=== PATIENT | female | born 1970 ===

== ENCOUNTER 2017-03-08 17:14 | Inpatient (IN) | payer OTHER ==
[2017-03-08 17:15] VITALS: BMI 22.8
[2017-03-08] MEDS ORDERED: Sodium Chloride 0.9% 1,000 ML IV ONE (18:33)
[2017-03-08] MEDS ORDERED: Sodium Chloride 0.9% 1,000 ML ONE (18:57)
[2017-03-08 19:03] LABS: BASO # 0.1 K/uL (0.0-0.2); BASO % 0.7 % (0.0-2.0); EOS # 0.4 K/uL (0.0-0.7); EOS % 3.6 % (0.0-4.0); HEMOGLOBIN 11.6 g/dL (11.0-16.0); LYMPH # 2.8 K/uL (1.0-4.3); LYMPH % 28.5 % (20.0-40.0); MEAN CELL VOLUME 79.2 fL (81.0-99.0); MEAN CORPUSCULAR HEMOGLOBIN 26.6 pg (27.0-31.0); MEAN CORPUSCULAR HGB CONC 33.6 g/dL (33.0-37.0); MEAN PLATELET VOLUME 9.8 fL (7.2-11.7); MONO # 0.7 K/uL (0.0-0.8); MONO % 6.7 % (0.0-10.0); NEUT % 60.5 % (50.0-75.0); RBC 4.35 Mil/uL (3.80-5.20); RED CELL DISTRIBUTION WIDTH 13.3 % (11.5-14.5)
[2017-03-08 19:13] LABS: ALBUMIN 3.7 g/dL (3.5-5.0)
[2017-03-08 19:16] LABS: ALB/GLOB RATIO 1.2 (1.0-2.1); AST/SGOT 15 U/L (14-36); GFR AFRICAN-AMERICAN > 60; GFR NON-AFRICAN AMERICAN > 60; INR 0.9; PROTHROMBIN TIME 10.2 SECONDS (9.7-12.2)
[2017-03-08 19:17] LABS: ALT/SGPT 16 U/L (9-52); BLOOD UREA NITROGEN 29 mg/dL (7-17); CALCIUM 9.1 mg/dl (8.6-10.4); LIPASE 118 U/L (23-300)
--- NOTE | 2017-03-08 19:28 | C.PDOC ---
History Of Present Illness 46 y/o female, whose PMHx includes gastritis, and diabetes, that presents to the ED for evaluation of intermittent diarrhea, and abdominal pain for the last few days. Pt also reports "little blood in stool". pt reports finishing "multiple courses of antibiotics, with "persistent dysuria" Otherwise, denies any fever, or any other complaints at this time. Time Seen by Provider: 03/08/17 18:20 Chief Complaint (Nursing): GI Problem History Per: Patient History/Exam Limitations: no limitations Onset/Duration Of Symptoms: Days Current Symptoms Are (Timing): Still Present Location Of Pain/Discomfort: Epigastric Radiation Of Pain To:: None Quality Of Discomfort: "Pain" Associated Symptoms: Diarrhea. denies: Fever, Chills, Nausea, Vomiting, Loss Of Appetite, Back Pain, Chest Pain, Constipation, Urinary Symptoms Exacerbating Factors: None Alleviating Factors: None Recent travel outside of the [place]: No Additional History Per: Patient Abnormal Vaginal Bleeding: No Past Medical History Reviewed: Historical Data, Nursing Documentation, Vital Signs Vital Signs: Last Vital Signs Temp 98.8 F 03/08/17 23:00 Pulse 78 03/08/17 23:00 Resp 20 03/08/17 23:00 BP 131/81 03/08/17 23:00 Pulse Ox 100 03/08/17 23:00 - Medical History PMH: Diabetes (type II), Gastritis - [facility] Procedures INJECT/INFUSE NEC (11/10/14) INSPECTION OF UPPER INTESTINAL TRACT, ENDO (12/13/15) Family History: States: No Known Family Hx, Diabetes - Social History Hx Tobacco Use: No Hx Alcohol Use: No Hx Substance Use: No - Immunization History Hx Tetanus Toxoid Vaccination: Yes Hx Influenza Vaccination: No Hx Pneumococcal Vaccination: Yes Review Of Systems Except As Marked, All Systems Reviewed And Found Negative. Constitutional: Negative for: Fever, Chills Gastrointestinal: Positive for: Abdominal Pain, Diarrhea, Other (blood in stool) . Negative for: Nausea, Vomiting, Constipation Genitourinary: Negative for: Dysuria, Frequency, Hematuria Musculoskeletal: Negative for: Back Pain Physical Exam - Physical Exam Appears: Non-toxic, No Acute Distress Skin: Normal Color, Warm, Dry Head: Atraumatic, Normacephalic Eye(s): bilateral: Normal Inspection, EOMI Neck: Normal ROM, Supple Chest: Symmetrical, No Tenderness Cardiovascular: Rhythm Regular, No Murmur Respiratory: Normal Breath Sounds, No Rales, No Rhonchi, No Wheezing Gastrointestinal/Abdominal: Soft, Tenderness (mild epigastric), No Guarding, No Rebound Extremity: Normal ROM, No Deformity Neurological/Psych: Oriented x3, Normal Speech, Normal Cognition ED Course And Treatment - Laboratory Results Result Diagrams: 03/08/17 18:57 03/08/17 18:57 O2 Sat by Pulse Oximetry: 100 (on RA) Pulse Ox Interpretation: Normal Progress Note: Labs, abd & pelvis CT ordered and reviewed. Patient was given Protonix, Zofran, and IV fluids. On reassessment, patient is resting comfortably , with no acute distress. Medical Decision Making Medical Decision Making: abdominal pain/dark stool - r/o gi bleed, gastritis, ulcer. also reports dysuria , s/p multiple rounds of antibiotics - r/o uti, failure of outpt tx. 920: h/h stable. guiac neg, urine shows uti. fialure of outpt. accepted by hospitalist for uti failure of outpt. Disposition - Disposition Disposition: HOSPITALIZED Disposition Time: 11:00 Condition: STABLE - Clinical Impression Clinical Impression: UTI (urinary tract infection), Failure of outpatient treatment, Abdominal pain - Scribe Statement The provider has reviewed the documentation as recorded by the Jose Carrillo All medical record entries made by the Prashanthibmichael were at my direction and personally dictated by me. I have reviewed the chart and agree that the record accurately reflects my personal performance of the history, physical exam, medical decision making, and the department course for this patient. I have also personally directed, reviewed, and agree with the discharge instructions and disposition.
[2017-03-08 19:33] LABS: HCG,QUALITATIVE URINE NEGATIVE (NEGATIVE)
[2017-03-08 19:42] LABS: SQUAMOUS EPITHIAL 7 /hpf (0-5); URINE BACTERIA MOD (<OCC); URINE BILIRUBIN NEGATIVE (NEGATIVE); URINE BLOOD 1+ (NEGATIVE); URINE CLARITY Hazy (Clear); URINE COLOR Yellow (YELLOW); URINE GLUCOSE (UA) 3+ mg/dL (Normal); URINE LEUKOCYTE ESTERASE 1+ Leu/uL (Negative); URINE NITRATE NEGATIVE (NEGATIVE); URINE PROTEIN 2+ mg/dL (NEGATIVE); URINE UROBILINOGEN NORMAL mg/dL (0.2-1.0)
[2017-03-08] MEDS ORDERED: Iohexol 300 100 ML IJ ONE (19:50)
--- NOTE | 2017-03-08 20:57 | CT ---
EXAM: CT Abdomen and Pelvis With Intravenous Contrast CLINICAL HISTORY: 46 years old, female; Pain; Abdominal pain; Generalized; Additional info: Abd pain TECHNIQUE: Axial computed tomography images of the abdomen and pelvis with intravenous contrast. This CT exam was performed using one or more of the following dose reduction techniques: automated exposure control, adjustment of the mA and/or kV according to patient size, and/or use of iterative reconstruction technique. Coronal and sagittal reformatted images were created and reviewed. CONTRAST: 100 mL of omnipaque 300 administered intravenously. EXAM DATE/TIME: Exam ordered 03/08/2017 7:32 PM COMPARISON: CT - ABD PELVIS W/O PO OR IV CONT 01/23/2016 11:19:28 AM FINDINGS: Lower thorax: Mild Mosaic perfusion abnormality is noted the left lung base which could reflect air trapping. There is a small hiatal hernia. ABDOMEN: Liver: Unremarkable. No mass. Gallbladder and bile ducts: Unremarkable. No calcified stones. No ductal dilation. Pancreas: Unremarkable. No mass. No ductal dilation. Spleen: Unremarkable. No splenomegaly. Adrenals: Unremarkable. No mass. Kidneys and ureters: Unremarkable. No solid mass. No hydronephrosis. Stomach and bowel: Unremarkable. No obstruction. No mucosal thickening. Appendix: No findings to suggest acute appendicitis. PELVIS: Bladder: There is a small umbilical hernia containing fat small amount of air is seen in the bladder. Reproductive: Unremarkable as visualized. ABDOMEN and PELVIS: Intraperitoneal space: Unremarkable. No free air. No significant fluid collection. Bones/joints: No acute fracture. No dislocation. Soft tissues: Unremarkable. Vasculature: Unremarkable. No abdominal aortic aneurysm. Lymph nodes: Unremarkable. No enlarged lymph nodes. IMPRESSION: 1. Gas noted within the bladder. This could be iatrogenic. Clinical correlation suggested to exclude gas producing infection. 2. Small hiatal hernia. 3. Tiny umbilical hernia. 4. Small area of air trapping suggested at the left lung base. The
[2017-03-08] MEDS ORDERED: cefTRIAXone IV 1 gm in Dextros 50 ML IVPB ONE (21:10)
--- NOTE | 2017-03-08 22:25 | CP.PCM.HP ---
Addendum entered and electronically signed by Ita Crump DO 03/08/17 23:35 : Abdominal Pain * CTAB & P w/ IV contrast: 1. Gas noted within the bladder. This could be iatrogenic. Clinical correlation suggested to exclude gas producing infection. 2. Small hiatal hernia. 3. Tiny umbilical hernia. 4. Small area of air trapping suggested at the left lung base. Original Note: <Ita Crump - Last Filed: 03/08/17 23:15> History of Present Illness - History of Present Illness History of Present Illness: Medicine Note CC: abdominal pain HPI: 46F with PMHx of DM and gastritis presents to the ED with abdominal pain. She reports having subjective fevers, abdominal pain, dysuria, urinary frequency and hematuria x 1 month. Patient was seen in the clinic and give a prescription for bactrim x 10 days. Patient completed the course but her symptoms continued and have worsened. For the past 3 weeks she has been having diarrhea. She reported seeing blood in her stool yesterday which prompted her to come to the ED. She also reports for the last month she has had difficulty eating. She feels the food get struck going down her esophagus and she describes the sensation as if the food feels like a hard ball going down. She has to drink copious amount of water to help the food go down. She denies nausea , vomiting, heartburn, cough, or taste of acid in her mouth. Denied chills, chest pain, SOB, halitosis or n/v/c. PMHx: DM and gastritis PSHx: Denied Meds: Metformin 1000mg PO BID All: NKDA SHx: Denied any tobacco, alcohol or illicit drug use FHx: Unremarkable PMD: [facility] Present on Admission - Present on Admission Any Indicators Present on Admission: No Review of Systems - Constitutional Constitutional: Fever. absent: Chills, Weakness - EENT Eyes: absent: Change in Vision, Loss of Vision Ears: absent: Tinnitus Nose/Mouth/Throat: Dry Mouth, Dysphagia. absent: Halitosis, Hoarsness, Odynophagia, Sore Throat - Breasts Breasts: absent: Pain - Cardiovascular Cardiovascular: absent: Chest Pain, Chest Pain at Rest - Respiratory Respiratory: absent: Cough, Dyspnea, Dyspnea on Exertion - Gastrointestinal Gastrointestinal: Abdominal Pain, Diarrhea, Dysphagia. absent: Nausea, Vomiting - Genitourinary Genitourinary: Dysuria, Hematuria - Musculoskeletal Musculoskeletal: Back Pain - Integumentary Integumentary: absent: Swelling - Neurological Neurological: absent: Syncope, Tremor, Weakness - Psychiatric Psychiatric: absent: Anxiety - Endocrine Endocrine: absent: Polydipsia, Polyphagia - Hematologic/Lymphatic Hematologic: absent: Easy Bleeding, Easy Bruising Past Patient History - Infectious Disease Hx of Infectious Diseases: None - Past Medical History & Family History Past Medical History?: Yes - Past Social History Smoking Status: Never Smoked - CARDIAC Hx Cardiac Disorders: No - PULMONARY Hx Respiratory Disorders: No - NEUROLOGICAL Hx Neurological Disorder: No - HEENT Hx HEENT Problems: No - ENDOCRINE/METABOLIC Hx Endocrine Disorders: Yes Hx Diabetes Mellitus Type 2: Yes - HEMATOLOGICAL/ONCOLOGICAL Hx Blood Disorders: No - INTEGUMENTARY Hx Dermatological Problems: No - MUSCULOSKELETAL/RHEUMATOLOGICAL Hx Falls: No - GASTROINTESTINAL Hx Gastritis: Yes - GENITOURINARY/GYNECOLOGICAL Hx Genitourinary Disorders: No - PSYCHIATRIC Hx Substance Use: No - SURGICAL HISTORY Hx Surgeries: No - ANESTHESIA Hx Anesthesia: No Hx Anesthesia Reactions: No Meds Allergies/Adverse Reactions: Allergies Allergy/AdvReac Type Severity Reaction Status Date / Time No Known Allergies Allergy Verified 03/08/17 17:27 Physical Exam - Constitutional Appears: No Acute Distress - Head Exam Head Exam: NORMAL INSPECTION, NORMOCEPHALIC - Eye Exam Eye Exam: EOMI, Normal appearance, PERRL Pupil Exam: NORMAL ACCOMODATION - ENT Exam ENT Exam: Mucous Membranes Dry - Neck Exam Neck exam: Positive for: Normal Inspection - Respiratory Exam Respiratory Exam: Clear to Auscultation Bilateral, NORMAL BREATHING PATTERN. absent: Decreased Breath Sounds, Wheezes - Cardiovascular Exam Cardiovascular Exam: REGULAR RHYTHM, RRR, +S1, +S2 - GI/Abdominal Exam GI & Abdominal Exam: Normal Bowel Sounds, Soft, Tenderness (Suprapubic TTP). absent: Mass, Organomegaly - Rectal Exam Rectal Exam: Deferred - Extremities Exam Extremities exam: Positive for: normal inspection, pedal pulses present. Negative for: pedal edema, tenderness - Back Exam Back exam: CVA tenderness (L), CVA tenderness (R), NORMAL INSPECTION Additional comments: CVA + R > L - Neurological Exam Neurological exam: Alert, CN II-XII Intact, Oriented x3 - Psychiatric Exam Psychiatric exam: Normal Affect, Normal Mood - Skin Skin Exam: Dry, Intact, Normal Color, Warm Results - Vital Signs Recent Vital Signs: Last Vital Signs Temp 98.1 F 03/08/17 17:23 Pulse 82 03/08/17 17:23 Resp 20 03/08/17 17:23 BP 147/82 03/08/17 17:23 Pulse Ox 100 03/08/17 21:19 - Labs Result Diagrams: 03/08/17 18:57 03/08/17 18:57 Assessment & Plan - Assessment and Plan (Free Text) Assessment: 46F with PMHx of DM and gastritis presents to the ED with abdominal pain. She reports having subjective fevers, abdominal pain, dysuria, urinary frequency and hematuria x 1 month. Plan: Abdominal pain * Afebrile, no leukocytosis, vitals stable * + CVA bilaterally R> L * Patient failed outpatient treatment of UTI with 10 day course of bactrim - symptoms persisted x 1 month * Rocephin 1 gram IVP daily * F/U urine culture Diarrhea * Episodes x 3 weeks, reports seeing blood in stool x1 * Stool Occult - negative * F/U stool studies, c.diff Dysphagia * GI consult- Dr. Canales - help appreciated * Full Liquid Diet DM * Patient takes Metformin 1000mg PO BID- this will not be restarted since patient had CT with IV Contrast * Accuchecks * ISS-low * Liquid Diet Prophylactic Measures * GI PPX: Protonix 40mg IVP daily * DVT PPX: SCDs, Lovenox 40 SC daily * Zofran PRN * Tylenol PRN headaches * Liquid Diet DW Alisia Griggs DO, PGY-1 <Sedrick Thomas - Last Filed: 03/09/17 05:09> Results - Vital Signs Recent Vital Signs: Last Vital Signs Temp 98.1 F 03/09/17 00:10 Pulse 82 03/09/17 00:51 Resp 20 03/09/17 00:51 BP 151/75 H 03/09/17 00:10 Pulse Ox 99 03/09/17 00:10 - Labs Result Diagrams: 03/08/17 18:57 03/08/17 18:57 Assessment & Plan - Date & Time Date: 03/09/17 (I have seen and examined the patient. I agree with the findings and plan of care as documented by Dr. Crump. Patient with UTI, failed outpatient therapy. Rocephin IV. Urine and blood culture. Also with dysphagia and diarrhea. Reports possible GI bleed. Hemoccult negative. Monitor CBC. GI consult. Monitor for acute changes.) Time: 05:08 Attending/Attestation - Attestation I have personally seen and examined this patient.: Yes I have fully participated in the care of the patient.: Yes I have reviewed all pertinent clinical information: Yes
[2017-03-09 07:08] LABS: BASO # 0.1 K/uL (0.0-0.2); BASO % 0.7 % (0.0-2.0); EOS # 0.4 K/uL (0.0-0.7); EOS % 4.1 % (0.0-4.0); HEMOGLOBIN 10.7 g/dL (11.0-16.0); MEAN CELL VOLUME 78.8 fL (81.0-99.0); MEAN CORPUSCULAR HEMOGLOBIN 26.5 pg (27.0-31.0); MEAN CORPUSCULAR HGB CONC 33.6 g/dL (33.0-37.0); MEAN PLATELET VOLUME 10.2 fL (7.2-11.7); MONO # 0.7 K/uL (0.0-0.8); MONO % 7.4 % (0.0-10.0); NEUT % 54.8 % (50.0-75.0); NRBC % 0.1 % (0.0-2.0); RBC 4.06 Mil/uL (3.80-5.20); RED CELL DISTRIBUTION WIDTH 13.1 % (11.5-14.5); WHITE BLOOD COUNT 9.1 K/uL (4.8-10.8)
[2017-03-09 07:36] LABS: AST/SGOT 14 U/L (14-36); BLOOD UREA NITROGEN 20 mg/dL (7-17); GFR AFRICAN-AMERICAN > 60; GFR NON-AFRICAN AMERICAN > 60
[2017-03-09 07:37] LABS: ALT/SGPT 12 U/L (9-52); CALCIUM 8.5 mg/dl (8.6-10.4); MAGNESIUM 1.8 mg/dL (1.6-2.3)
[2017-03-09] MEDS: (Novolin R) Insulin Human Regular 100 units/ml vial SC SCH ×4 (08:06→22:32)
[2017-03-09] MEDS: Enoxaparin 40 mg Syringe SC SCH (11:06)
[2017-03-09] MEDS: Pantoprazole 40 mg EC Tab PO SCH (11:12)
--- NOTE | 2017-03-09 13:27 | CP.PCM.CON ---
History of Present Illness - History of Present Illness History of Present Illness: Asked to do service consult. For dysphagia. Family member is present. Pt reports dysphagia x 1 month. Solids and liquids. Also epig pain x 1 month- sharp and NACHO. 5 lb wt loss. Hematuria. Treated for UTI 3 weeks ago with cipro. Also has diarrhea x 3 days. Usually has chronic constipation. EGD 1 yr ago showed gastritis Review of Systems - Constitutional Constitutional: Anorexia, Weight Loss - EENT Eyes: absent: Diplopia Nose/Mouth/Throat: Dysphagia - Cardiovascular Cardiovascular: absent: Dyspnea - Respiratory Respiratory: absent: Hemoptysis, Wheezing - Gastrointestinal Gastrointestinal: Abdominal Pain, Constipation, Diarrhea, Dysphagia. absent: Hematemesis, Hematochezia, Melena - Genitourinary Genitourinary: Hematuria - Musculoskeletal Musculoskeletal: absent: Muscle Weakness, Myalgias - Integumentary Integumentary: absent: Jaundice - Neurological Neurological: absent: Convulsions - Psychiatric Psychiatric: absent: Hallucinations Past Patient History - Infectious Disease Hx of Infectious Diseases: None - Past Medical History & Family History Past Medical History?: Yes - Past Social History Smoking Status: Never Smoked - CARDIAC Hx Cardiac Disorders: No - PULMONARY Hx Respiratory Disorders: No - NEUROLOGICAL Hx Neurological Disorder: No - HEENT Hx HEENT Problems: No - RENAL Hx Chronic Kidney Disease: No - ENDOCRINE/METABOLIC Hx Endocrine Disorders: Yes Hx Diabetes Mellitus Type 2: Yes - HEMATOLOGICAL/ONCOLOGICAL Hx Blood Disorders: No - INTEGUMENTARY Hx Dermatological Problems: No - MUSCULOSKELETAL/RHEUMATOLOGICAL Hx Musculoskeletal Disorders: No Hx Falls: No - GASTROINTESTINAL Hx Gastrointestinal Disorders: Yes Hx Gastritis: Yes - GENITOURINARY/GYNECOLOGICAL Hx Genitourinary Disorders: No - PSYCHIATRIC Hx Psychophysiologic Disorder: No Hx Substance Use: No - SURGICAL HISTORY Hx Surgeries: No - ANESTHESIA Hx Anesthesia: No Hx Anesthesia Reactions: No Hx Malignant Hyperthermia: No Has any member of the family had a problem w/ anesthesia?: No Meds Allergies/Adverse Reactions: Allergies Allergy/AdvReac Type Severity Reaction Status Date / Time No Known Allergies Allergy Verified 03/08/17 17:27 - Medications Medications: Current Medications Acetaminophen (Tylenol 325mg Tab) 650 mg PO Q6 PRN PRN Reason: Headache Enoxaparin Sodium (Lovenox) 40 mg SC DAILY [facility] Last Admin: 03/09/17 11:06 Dose: 40 mg Ceftriaxone Sodium 1 gm/ (Sodium Chloride) 100 mls @ 100 mls/hr IVPB DAILY [facility] Last Admin: 03/09/17 11:03 Dose: 100 mls/hr Insulin Human Regular (Novolin R) 0 unit SC ACHS [facility] PRN Reason: Protocol Last Admin: 03/09/17 12:17 Dose: 3 unit Ondansetron HCl (Zofran Inj) 4 mg IVP Q6H PRN PRN Reason: Nausea/Vomiting Pantoprazole Sodium (Protonix Ec Tab) 40 mg PO DAILY [facility] Last Admin: 03/09/17 11:12 Dose: 40 mg Pneumococcal Polyvalent Vaccine (Pneumovax 23 Vaccine) 0.5 ml IM .ONCE ONE Stop: 03/10/17 10:01 Physical Exam - Constitutional Appears: Well - Respiratory Exam Respiratory Exam: Clear to Auscultation Bilateral - Cardiovascular Exam Cardiovascular Exam: RRR - GI/Abdominal Exam GI & Abdominal Exam: Normal Bowel Sounds, Soft. absent: Guarding, Mass, Rebound , Tenderness - Extremities Exam Extremities exam: Negative for: pedal edema - Neurological Exam Neurological exam: Alert, Oriented x3 Results - Vital Signs Recent Vital Signs: Last Vital Signs Temp 98.5 F 03/09/17 09:21 Pulse 82 03/09/17 09:21 Resp 20 03/09/17 09:21 BP 113/75 03/09/17 09:21 Pulse Ox 99 03/09/17 09:21 - Labs Result Diagrams: 03/09/17 06:49 03/09/17 06:49 Labs: Laboratory Results - last 24 hr 03/09/17 03/09/17 03/09/17 06:49 06:49 06:49 WBC 9.1 RBC 4.06 Hgb 10.7 L Hct 32.0 L MCV 78.8 L MCH 26.5 L MCHC 33.6 RDW 13.1 Plt Count 208 MPV 10.2 Neut % (Auto) 54.8 Lymph % (Auto) 33.0 [place] % (Auto) 7.4 Eos % (Auto) 4.1 H Baso % (Auto) 0.7 Neut # 5.0 Lymph # 3.0 [place] # 0.7 Eos # 0.4 Baso # 0.1 Sodium 136 Potassium 3.7 Chloride 107 Carbon Dioxide 20 L Anion Gap 13 BUN 20 H Creatinine 0.8 Est GFR ( Amer) > 60 Est GFR (Non-Af Amer) > 60 POC Glucose (mg/dL) Random Glucose 273 H Hemoglobin A1c 13.5 H Calcium 8.5 L Phosphorus 3.8 Magnesium 1.8 Total Bilirubin 0.4 AST 14 ALT 12 Alkaline Phosphatase 81 Total Protein 6.2 L Albumin 3.0 L Globulin 3.1 Albumin/Globulin Ratio 1.0 03/09/17 03/09/17 07:20 11:41 WBC RBC Hgb Hct MCV MCH MCHC RDW Plt Count MPV Neut % (Auto) Lymph % (Auto) [place] % (Auto) Eos % (Auto) Baso % (Auto) Neut # Lymph # [place] # Eos # Baso # Sodium Potassium Chloride Carbon Dioxide Anion Gap BUN Creatinine Est GFR ( Amer) Est GFR (Non-Af Amer) POC Glucose (mg/dL) 273 H 274 H Random Glucose Hemoglobin A1c Calcium Phosphorus Magnesium Total Bilirubin AST ALT Alkaline Phosphatase Total Protein Albumin Globulin Albumin/Globulin Ratio Assessment & Plan (1) Abdominal pain Assessment and Plan: Consider gastritis, ulcer, h pylori.. CT also shows air in bladder. Status: Acute (2) UTI (urinary tract infection) Status: Acute (3) Constipation Status: Acute (4) Diarrhea Assessment and Plan: r/o c difficile. Status: Acute (5) Gastritis Status: Acute (6) Anemia Status: Acute (7) Weight loss Status: Acute (8) Dysphagia Assessment and Plan: CO[place]ider GERD, stricture, EMD. REC: PPI, stool c difficile, EGD. Status: Acute
[2017-03-09] MEDS: (Novolin 70/30) NPH/Regular 70/30 Units/ml 10 ml vial SC SCH (17:02)
--- NOTE | 2017-03-09 22:41 | CP.PCM.PN ---
<Brooklynn Marcial - Last Filed: 03/10/17 00:39> Subjective - Date & Time of Evaluation Date of Evaluation: 03/09/17 Time of Evaluation: 09:05 - Subjective Subjective: Medicine Note (PGY1) : Nir's service Patient was seen and examined at bedside. Patient was resting comfortably in her bed. Patient reports that she is doing well. Patient report lower abd pain, and dysphagia to solids and nausea but denies dysuria, vomiting, chest pain, sob , fever, chills. Objective - Vital Signs/Intake and Output Vital Signs (last 24 hours): Temp Pulse Resp BP Pulse Ox 98.5 F 82 20 126/78 100 03/09/17 15:15 03/09/17 15:15 03/09/17 15:15 03/09/17 15:15 03/09/17 15:15 Intake and Output: 03/09/17 03/10/17 18:59 06:59 Intake Total 350 300 Output Total 500 Balance 350 -200 - Medications Medications: Current Medications Acetaminophen (Tylenol 325mg Tab) 650 mg PO Q6 PRN PRN Reason: Headache Enoxaparin Sodium (Lovenox) 40 mg SC DAILY [facility] Last Admin: 03/09/17 11:06 Dose: 40 mg Ceftriaxone Sodium 1 gm/ (Sodium Chloride) 100 mls @ 100 mls/hr IVPB DAILY [facility] Last Admin: 03/09/17 11:03 Dose: 100 mls/hr Insulin Human Isoph/Insulin Regular (Novolin 70/30 (70/30 Units/Ml) 10 Ml) 10 units SC BID [facility] Last Admin: 03/09/17 17:02 Dose: 10 units Insulin Human Regular (Novolin R) 0 unit SC ACHS [facility] PRN Reason: Protocol Last Admin: 03/09/17 22:32 Dose: Not Given Lisinopril (Zestril) 2.5 mg PO DAILY [facility] Ondansetron HCl (Zofran Inj) 4 mg IVP Q6H PRN PRN Reason: Nausea/Vomiting Pantoprazole Sodium (Protonix Ec Tab) 40 mg PO DAILY [facility] Last Admin: 03/09/17 11:12 Dose: 40 mg Pneumococcal Polyvalent Vaccine (Pneumovax 23 Vaccine) 0.5 ml IM .ONCE ONE Stop: 03/10/17 10:01 - Labs Labs: 03/09/17 06:49 03/09/17 06:49 PT 10.2 SECONDS (9.7-12.2) 03/08/17 18:57 INR 0.9 03/08/17 18:57 APTT 35 SECONDS (21-34) H 03/08/17 18:57 - Constitutional Appears: Well, No Acute Distress - Head Exam Head Exam: NORMAL INSPECTION, NORMOCEPHALIC - Eye Exam Eye Exam: EOMI, Normal appearance - ENT Exam ENT Exam: Mucous Membranes Moist, Normal Exam - Respiratory Exam Respiratory Exam: Clear to Ausculation Bilateral, NORMAL BREATHING PATTERN - Cardiovascular Exam Cardiovascular Exam: REGULAR RHYTHM, +S1, +S2 - GI/Abdominal Exam GI & Abdominal Exam: Soft, Tenderness, Normal Bowel Sounds - Extremities Exam Extremities Exam: Normal Capillary Refill, Normal Inspection - Neurological Exam Neurological Exam: Alert, Awake, Oriented x3 - Psychiatric Exam Psychiatric exam: Normal Affect, Normal Mood - Skin Skin Exam: Dry, Normal Color, Warm Assessment and Plan (1) Abdominal pain Assessment & Plan: Possibly secondary to UTI UA: 1+ Leukocyte esterase with moderately high urine bacteria Afebrile, no leukocytosis, vitals stable * + CVA bilaterally R> L * Patient failed outpatient treatment of UTI with 10 day course of bactrim - symptoms persisted x 1 month * Rocephin 1 gram IVP daily Status: Acute (2) Diarrhea Assessment & Plan: Episodes x 3 weeks, reports seeing blood in stool x1 * Stool Occult - negative * Pending stool studies, c.diff Status: Acute (3) Dysphagia Assessment & Plan: GI consult- Dr. Canales - help appreciated * EGD 1 yr ago showed gastritis * GI recommendation: PPI, stool c difficile, EGD. * Full Liquid Diet Status: Acute (4) Uncontrolled diabetes mellitus Assessment & Plan: HgbA1c: 13.5 Glucose level > 200 * Patient takes Metformin 1000mg PO BID- this will not be restarted since patient had CT with IV Contrast * Accuchecks * ISS-low * Added on Novolin 70/30 10 units BID and lisinopril 2.5mg PO * Liquid Diet Status: Chronic (5) Nausea Assessment & Plan: Zofran 4mg IV Q6H prn Liquid diet Status: Acute (6) Prophylactic measure Assessment & Plan: * GI PPX: Protonix 40mg IVP daily * DVT PPX: SCDs, Lovenox 40 SC daily Status: Acute <Sekou Loyola M - Last Filed: 03/10/17 17:50> Objective - Vital Signs/Intake and Output Vital Signs (last 24 hours): Temp Pulse Resp BP Pulse Ox 98.4 F 81 20 131/84 100 03/10/17 15:08 03/10/17 15:08 03/10/17 15:08 03/10/17 15:08 03/10/17 15:08 Intake and Output: 03/10/17 03/10/17 06:59 18:59 Intake Total 300 340 Output Total 500 Balance -200 340 - Medications Medications: Current Medications Acetaminophen (Tylenol 325mg Tab) 650 mg PO Q6 PRN PRN Reason: Headache Enoxaparin Sodium (Lovenox) 40 mg SC DAILY [facility] Last Admin: 03/10/17 09:49 Dose: 40 mg Ceftriaxone Sodium 1 gm/ (Sodium Chloride) 100 mls @ 100 mls/hr IVPB DAILY [facility] Last Admin: 03/10/17 09:55 Dose: 100 mls/hr Insulin Human Isoph/Insulin Regular (Novolin 70/30 (70/30 Units/Ml) 10 Ml) 10 units SC BID [facility] Last Admin: 03/10/17 17:33 Dose: 10 units Insulin Human Regular (Novolin R) 0 unit SC ACHS [facility] PRN Reason: Protocol Last Admin: 03/10/17 17:33 Dose: 2 unit Lisinopril (Zestril) 2.5 mg PO DAILY [facility] Last Admin: 03/10/17 09:49 Dose: 2.5 mg Ondansetron HCl (Zofran Inj) 4 mg IVP Q6H PRN PRN Reason: Nausea/Vomiting Pantoprazole Sodium (Protonix Ec Tab) 40 mg PO DAILY [facility] Last Admin: 03/10/17 09:49 Dose: 40 mg - Labs Labs: 03/10/17 08:23 03/10/17 08:23 PT 10.2 SECONDS (9.7-12.2) 03/08/17 18:57 INR 0.9 03/08/17 18:57 APTT 35 SECONDS (21-34) H 03/08/17 18:57 Attending/Attestation - Attestation I have personally seen and examined this patient.: Yes I have fully participated in the care of the patient.: Yes I have reviewed all pertinent clinical information, including history, physical exam and plan: Yes Notes (Text): 03/10/17 17:49 Patient was seen and examined at bedside with the resident Complains of abdominal pain Plan for EGD as per GI Continue current management Discussed the plan of care with the resident and agree with the assessment and plan.
--- NOTE | 2017-03-10 06:44 | CP.PCM.PN ---
<Ana Peñaloza - Last Filed: 03/10/17 06:41> Subjective - Date & Time of Evaluation Date of Evaluation: 03/10/17 Time of Evaluation: 06:41 - Subjective Subjective: Medicine Progress Note- Dr. Loyola Service Patient was seen and examined at bedside in no acute distress. Patient reports feeling dizzy and has lower abdominal pain. She reports not having a bowel movement today, but had diarrhea yesterday. Patient denies having chest pain, palpitations, headache, nausea, and vomiting. Objective - Vital Signs/Intake and Output Vital Signs (last 24 hours): Temp Pulse Resp BP Pulse Ox 98.4 F 83 20 123/70 96 03/09/17 23:40 03/09/17 23:40 03/09/17 23:40 03/09/17 23:40 03/09/17 23:40 Intake and Output: 03/09/17 03/10/17 18:59 06:59 Intake Total 350 300 Output Total 500 Balance 350 -200 - Medications Medications: Current Medications Acetaminophen (Tylenol 325mg Tab) 650 mg PO Q6 PRN PRN Reason: Headache Enoxaparin Sodium (Lovenox) 40 mg SC DAILY [facility] Last Admin: 03/09/17 11:06 Dose: 40 mg Ceftriaxone Sodium 1 gm/ (Sodium Chloride) 100 mls @ 100 mls/hr IVPB DAILY [facility] Last Admin: 03/09/17 11:03 Dose: 100 mls/hr Insulin Human Isoph/Insulin Regular (Novolin 70/30 (70/30 Units/Ml) 10 Ml) 10 units SC BID [facility] Last Admin: 03/09/17 17:02 Dose: 10 units Insulin Human Regular (Novolin R) 0 unit SC ACHS [facility] PRN Reason: Protocol Last Admin: 03/09/17 22:32 Dose: Not Given Lisinopril (Zestril) 2.5 mg PO DAILY [facility] Ondansetron HCl (Zofran Inj) 4 mg IVP Q6H PRN PRN Reason: Nausea/Vomiting Pantoprazole Sodium (Protonix Ec Tab) 40 mg PO DAILY [facility] Last Admin: 03/09/17 11:12 Dose: 40 mg Pneumococcal Polyvalent Vaccine (Pneumovax 23 Vaccine) 0.5 ml IM .ONCE ONE Stop: 03/10/17 10:01 - Labs Labs: 03/09/17 06:49 07/07/17 06:49 PT 10.2 SECONDS (9.7-12.2) 03/08/17 18:57 INR 0.9 03/08/17 18:57 APTT 35 SECONDS (21-34) H 03/08/17 18:57 - Constitutional Appears: No Acute Distress - Head Exam Head Exam: NORMAL INSPECTION, NORMOCEPHALIC - Eye Exam Eye Exam: EOMI, Normal appearance - ENT Exam ENT Exam: Mucous Membranes Moist - Neck Exam Neck Exam: Normal Inspection - Respiratory Exam Respiratory Exam: Clear to Ausculation Bilateral, NORMAL BREATHING PATTERN. absent: Rhonchi, Wheezes - Cardiovascular Exam Cardiovascular Exam: REGULAR RHYTHM, +S1, +S2. absent: Murmur - GI/Abdominal Exam GI & Abdominal Exam: Soft, Tenderness (w/palpation of LLQ,RLQ), Normal Bowel Sounds - Extremities Exam Extremities Exam: Normal Inspection. absent: Calf Tenderness, Pedal Edema, Tenderness - Neurological Exam Neurological Exam: Alert, Awake, Oriented x3 - Psychiatric Exam Psychiatric exam: Normal Affect, Normal Mood - Skin Skin Exam: Dry, Intact, Normal Color, Warm Assessment and Plan (1) Abdominal pain Assessment & Plan: Possibly secondary to UTI UA: 1+ Leukocyte esterase with moderately high urine bacteria Afebrile, no leukocytosis, vitals stable * + CVA bilaterally R> L * Patient failed outpatient treatment of UTI with 10 day course of bactrim - symptoms persisted x 1 month * Rocephin 1 gram IVP daily * H. Pylori Ag: f/u * Urine Cx: f/u * Ova & parasite: f/u * Stool cx: f/u * Fecal leukocytes: f/u * fecal occult: f/u Status: Acute (2) Diarrhea Assessment & Plan: Episodes x 3 weeks, reports seeing blood in stool x1 * Stool Occult - negative * Pending stool studies, c.diff Status: Acute (3) Nausea Assessment & Plan: Zofran 4mg IV Q6H prn Liquid diet Status: Acute (4) Dysphagia Assessment & Plan: GI consult- Dr. Canales - help appreciated * EGD 1 yr ago showed gastritis * GI recommendation: PPI, stool c difficile, EGD. * Full Liquid Diet * EGD scheduled for today 03/10/17 Status: Acute (5) Uncontrolled diabetes mellitus Assessment & Plan: HgbA1c: 13.5 Glucose level > 200 * Patient takes Metformin 1000mg PO BID- this will not be restarted since patient had CT with IV Contrast * Accuchecks * ISS-low * Added on Novolin 70/30 10 units BID and lisinopril 2.5mg PO * Liquid Diet Status: Chronic (6) Prophylactic measure Assessment & Plan: * GI PPX: Protonix 40mg IVP daily * DVT PPX: SCDs, Lovenox 40 SC daily Status: Acute <Sekou Loyola M - Last Filed: 03/10/17 18:01> Objective - Vital Signs/Intake and Output Vital Signs (last 24 hours): Temp Pulse Resp BP Pulse Ox 98.4 F 81 20 131/84 100 03/10/17 15:08 03/10/17 15:08 03/10/17 15:08 03/10/17 15:08 03/10/17 15:08 - Medications Medications: Current Medications Acetaminophen (Tylenol 325mg Tab) 650 mg PO Q6 PRN PRN Reason: Headache Enoxaparin Sodium (Lovenox) 40 mg SC DAILY [facility] Last Admin: 03/10/17 09:49 Dose: 40 mg Ceftriaxone Sodium 1 gm/ (Sodium Chloride) 100 mls @ 100 mls/hr IVPB DAILY [facility] Last Admin: 03/10/17 09:55 Dose: 100 mls/hr Insulin Human Isoph/Insulin Regular (Novolin 70/30 (70/30 Units/Ml) 10 Ml) 10 units SC BID [facility] Last Admin: 03/10/17 17:33 Dose: 10 units Insulin Human Regular (Novolin R) 0 unit SC ACHS [facility] PRN Reason: Protocol Last Admin: 03/10/17 17:33 Dose: 2 unit Lisinopril (Zestril) 2.5 mg PO DAILY [facility] Last Admin: 03/10/17 09:49 Dose: 2.5 mg Ondansetron HCl (Zofran Inj) 4 mg IVP Q6H PRN PRN Reason: Nausea/Vomiting Pantoprazole Sodium (Protonix Ec Tab) 40 mg PO DAILY [facility] Last Admin: 03/10/17 09:49 Dose: 40 mg - Labs Labs: PT 10.2 SECONDS (9.7-12.2) 03/08/17 18:57 INR 0.9 03/08/17 18:57 APTT 35 SECONDS (21-34) H 03/08/17 18:57 Attending/Attestation - Attestation I have personally seen and examined this patient.: Yes I have fully participated in the care of the patient.: Yes I have reviewed all pertinent clinical information, including history, physical exam and plan: Yes Notes (Text): 03/10/17 18:01 Patient was seen and examined at bedside Patient is status post EGD today No obstruction or stricture reported in the EGD Patient likely has diabetic gastroparesis No status tolerated and continue antibiotics for UTI Discussed the plan of care with the resident agree with the assessment and plan.
[2017-03-10] MEDS ORDERED: Lactated Ringer's 500 ML IV ONE ×2 (07:25)
[2017-03-10] MEDS ORDERED: Lidocaine Hydrochloride 5 ML INJ ONE (07:54)
[2017-03-10] MEDS ORDERED: Propofol 10 mg/ml Inj (20 ML) ONE (07:54)
[2017-03-10] MEDS ORDERED: Bisacodyl 5mg EC Tab PO ONE ×2 (08:00→12:00)
[2017-03-10 08:35] LABS: BASO # 0.1 K/uL (0.0-0.2); BASO % 0.6 % (0.0-2.0); EOS # 0.3 K/uL (0.0-0.7); EOS % 3.6 % (0.0-4.0); HEMOGLOBIN 11.4 g/dL (11.0-16.0); LYMPH # 2.9 K/uL (1.0-4.3); LYMPH % 30.9 % (20.0-40.0); MEAN CELL VOLUME 79.3 fL (81.0-99.0); MEAN CORPUSCULAR HEMOGLOBIN 26.9 pg (27.0-31.0); MEAN CORPUSCULAR HGB CONC 33.9 g/dL (33.0-37.0); MEAN PLATELET VOLUME 10.2 fL (7.2-11.7); MONO # 0.7 K/uL (0.0-0.8); MONO % 7.4 % (0.0-10.0); NEUT # 5.3 K/uL (1.8-7.0); NEUT % 57.5 % (50.0-75.0); RBC 4.24 Mil/uL (3.80-5.20); RED CELL DISTRIBUTION WIDTH 13.4 % (11.5-14.5); WHITE BLOOD COUNT 9.3 K/uL (4.8-10.8)
[2017-03-10] MEDS: (Novolin R) Insulin Human Regular 100 units/ml vial SC SCH ×4 (08:39→22:10)
[2017-03-10 08:43] LABS: ALBUMIN 2.9 g/dL (3.5-5.0)
[2017-03-10 08:45] LABS: AST/SGOT 14 U/L (14-36); GFR AFRICAN-AMERICAN > 60; GFR NON-AFRICAN AMERICAN > 60
[2017-03-10 08:46] LABS: ALB/GLOB RATIO 0.9 (1.0-2.1); ALT/SGPT 13 U/L (9-52); BLOOD UREA NITROGEN 16 mg/dL (7-17); CALCIUM 8.8 mg/dl (8.6-10.4)
[2017-03-10 08:47] LABS: MAGNESIUM 1.9 mg/dL (1.6-2.3)
[2017-03-10] MEDS: Pantoprazole 40 mg EC Tab PO SCH (09:49)
[2017-03-10] MEDS: Enoxaparin 40 mg Syringe SC SCH (09:49)
[2017-03-10] MEDS: (Novolin 70/30) NPH/Regular 70/30 Units/ml 10 ml vial SC SCH ×2 (09:50→17:33)
[2017-03-10] MEDS ORDERED: Pneumococcal 23-Valent Vaccine IM ONE (10:00)
--- NOTE | 2017-03-11 01:50 | CP.PCM.PN ---
<Ana Peñaloza - Last Filed: 03/11/17 01:47> Subjective - Date & Time of Evaluation Date of Evaluation: 03/11/17 Time of Evaluation: 01:47 - Subjective Subjective: Medicine Progress Note- Dr. Loyola Service Patient was seen and examined at bedside in no acute distress. Patient was resting comfortably in bed. She reports having epigastric pain and a lot of gas. Patient denies having lower abdominal pain. Patient has been ambulating without difficulty and without dizziness. Patient has been eating well. Patient denies having chest pain, palpitations, nausea, vomiting, dizziness, and leg pain. Objective - Vital Signs/Intake and Output Vital Signs (last 24 hours): Temp Pulse Resp BP Pulse Ox 98.1 F 81 20 126/76 100 03/11/17 00:00 03/11/17 00:00 03/11/17 00:00 03/11/17 00:00 03/11/17 00:00 Intake and Output: 03/10/17 03/11/17 18:59 06:59 Intake Total 350 Balance 350 - Medications Medications: Current Medications Acetaminophen (Tylenol 325mg Tab) 650 mg PO Q6 PRN PRN Reason: Headache Enoxaparin Sodium (Lovenox) 40 mg SC DAILY [facility] Last Admin: 03/10/17 09:49 Dose: 40 mg Ceftriaxone Sodium 1 gm/ (Sodium Chloride) 100 mls @ 100 mls/hr IVPB DAILY [facility] Last Admin: 03/10/17 09:55 Dose: 100 mls/hr Insulin Human Isoph/Insulin Regular (Novolin 70/30 (70/30 Units/Ml) 10 Ml) 10 units SC BID [facility] Last Admin: 03/10/17 17:33 Dose: 10 units Insulin Human Regular (Novolin R) 0 unit SC ACHS [facility] PRN Reason: Protocol Last Admin: 03/10/17 22:10 Dose: Not Given Lisinopril (Zestril) 2.5 mg PO DAILY [facility] Last Admin: 03/10/17 09:49 Dose: 2.5 mg Ondansetron HCl (Zofran Inj) 4 mg IVP Q6H PRN PRN Reason: Nausea/Vomiting Pantoprazole Sodium (Protonix Ec Tab) 40 mg PO DAILY [facility] Last Admin: 03/10/17 09:49 Dose: 40 mg - Labs Labs: PT 10.2 SECONDS (9.7-12.2) 03/08/17 18:57 INR 0.9 03/08/17 18:57 APTT 35 SECONDS (21-34) H 03/08/17 18:57 - Constitutional Appears: No Acute Distress - Head Exam Head Exam: NORMAL INSPECTION, NORMOCEPHALIC - Eye Exam Eye Exam: EOMI, Normal appearance - ENT Exam ENT Exam: Mucous Membranes Moist - Neck Exam Neck Exam: Full ROM, Normal Inspection - Respiratory Exam Respiratory Exam: Clear to Ausculation Bilateral, NORMAL BREATHING PATTERN. absent: Rhonchi, Wheezes - Cardiovascular Exam Cardiovascular Exam: REGULAR RHYTHM, +S1, +S2. absent: Murmur - GI/Abdominal Exam GI & Abdominal Exam: Soft, Tenderness (epigastric), Hyperactive Bowel Sounds - Extremities Exam Extremities Exam: absent: Calf Tenderness, Pedal Edema, Tenderness - Neurological Exam Neurological Exam: Alert, Awake, Oriented x3 - Psychiatric Exam Psychiatric exam: Normal Affect, Normal Mood - Skin Skin Exam: Dry, Intact, Normal Color, Warm Assessment and Plan (1) Abdominal pain Assessment & Plan: Possibly secondary to UTI and gastroparesis * EGD on 03/10/17: no esophageal abnormality to explain dysphagia; large amount of food residue in the stomach; suspect gastroparesis; biopsies were performed in middle third of esophagus and lower third of esophagus. UA: 1+ Leukocyte esterase with moderately high urine bacteria Afebrile, no leukocytosis, vitals stable * - CVA bilaterally * Patient failed outpatient treatment of UTI with 10 day course of bactrim - symptoms persisted x 1 month * Rocephin 1 gram IVP daily * H. Pylori Ag: f/u * Urine Cx: yeast species * Ova & parasite: f/u * Stool cx: f/u * Fecal leukocytes: f/u * fecal occult: negative Status: Acute (2) Diarrhea Assessment & Plan: Episodes x 3 weeks, reports seeing blood in stool x1 * Stool Occult - negative * Pending stool studies, c.diff Status: Acute (3) Nausea Assessment & Plan: Zofran 4mg IV Q6H prn Liquid diet Status: Acute (4) Dysphagia Assessment & Plan: GI consult- Dr. Canales - help appreciated * EGD 1 yr ago showed gastritis * GI recommendation: PPI, stool c difficile, EGD. * Full Liquid Diet * EGD on 03/10/17: no esophageal abnormality to explain dysphagia; large amount of food residue in the stomach; suspect gastroparesis; biopsies were performed in middle third of esophagus and lower third of esophagus. Status: Acute (5) Uncontrolled diabetes mellitus Assessment & Plan: HgbA1c: 13.5 Glucose level > 200 * Patient takes Metformin 1000mg PO BID- this will not be restarted since patient had CT with IV Contrast * Accuchecks * ISS-low * Added on Novolin 70/30 10 units BID and lisinopril 2.5mg PO * Liquid Diet Status: Chronic (6) Prophylactic measure Assessment & Plan: * GI PPX: Protonix 40mg IVP daily * DVT PPX: SCDs, Lovenox 40 SC daily Status: Acute <Sekou Loyola M - Last Filed: 03/11/17 13:46> Objective - Vital Signs/Intake and Output Vital Signs (last 24 hours): Temp Pulse Resp BP Pulse Ox 98.4 F 66 20 161/91 H 100 03/11/17 08:00 03/11/17 08:00 03/11/17 08:00 03/11/17 08:00 03/11/17 08:00 Intake and Output: 03/11/17 03/11/17 06:59 18:59 Intake Total 590 Balance 590 - Medications Medications: Current Medications Acetaminophen (Tylenol 325mg Tab) 650 mg PO Q6 PRN PRN Reason: Headache Enoxaparin Sodium (Lovenox) 40 mg SC DAILY [facility] Last Admin: 03/11/17 10:30 Dose: 40 mg Ceftriaxone Sodium 1 gm/ (Sodium Chloride) 100 mls @ 100 mls/hr IVPB DAILY [facility] Last Admin: 03/11/17 10:30 Dose: 100 mls/hr Insulin Human Isoph/Insulin Regular (Novolin 70/30 (70/30 Units/Ml) 10 Ml) 10 units SC BID [facility] Last Admin: 03/11/17 10:30 Dose: 10 units Insulin Human Regular (Novolin R) 0 unit SC ACHS [facility] PRN Reason: Protocol Last Admin: 03/11/17 12:11 Dose: 3 unit Ketoconazole (Nizoral) 0 gm TOP BID [facility] Last Admin: 03/11/17 12:09 Dose: 1 applic Lisinopril (Zestril) 2.5 mg PO DAILY [facility] Last Admin: 03/11/17 10:30 Dose: 2.5 mg Ondansetron HCl (Zofran Inj) 4 mg IVP Q6H PRN PRN Reason: Nausea/Vomiting Pantoprazole Sodium (Protonix Ec Tab) 40 mg PO DAILY [facility] Last Admin: 03/11/17 10:30 Dose: 40 mg Polyethylene Glycol (Miralax) 17 gm PO DAILY [facility] Last Admin: 03/11/17 12:11 Dose: 17 gm - Labs Labs: 03/11/17 08:24 03/11/17 08:24 PT 10.2 SECONDS (9.7-12.2) 03/08/17 18:57 INR 0.9 03/08/17 18:57 APTT 35 SECONDS (21-34) H 03/08/17 18:57 Attending/Attestation - Attestation I have personally seen and examined this patient.: Yes I have fully participated in the care of the patient.: Yes I have reviewed all pertinent clinical information, including history, physical exam and plan: Yes Notes (Text): 03/11/17 13:45 Patient was seen and examined at bedside Patient states that abdominal pain is improving. We will advance the diet to diabetic regular diet today and monitor for any abdominal pain, nausea or vomiting Patient will need an outpatient gastric emptying study to evaluate for diabetic gastroparesis We will continue antibiotics for UTI Discharge planning likely in the morning if the patient is medically stable with outpatient follow-up with [employer] tool [employer] I discussed the plan of care with the patient and she verbalized understanding Discussed with the resident agree with the assessment and plan documented
[2017-03-11] MEDS: (Novolin R) Insulin Human Regular 100 units/ml vial SC SCH ×4 (08:23→21:33)
[2017-03-11 08:42] LABS: BASO # 0.1 K/uL (0.0-0.2); BASO % 0.7 % (0.0-2.0); EOS # 0.3 K/uL (0.0-0.7); EOS % 3.5 % (0.0-4.0); HEMOGLOBIN 11.2 g/dL (11.0-16.0); LYMPH % 35.1 % (20.0-40.0); MEAN CORPUSCULAR HEMOGLOBIN 26.8 pg (27.0-31.0); MEAN PLATELET VOLUME 9.6 fL (7.2-11.7); MONO # 0.7 K/uL (0.0-0.8); MONO % 8.2 % (0.0-10.0); NEUT # 4.5 K/uL (1.8-7.0); NEUT % 52.5 % (50.0-75.0); NRBC % 0.1 % (0.0-2.0); RBC 4.19 Mil/uL (3.80-5.20); RED CELL DISTRIBUTION WIDTH 13.4 % (11.5-14.5); WHITE BLOOD COUNT 8.5 K/uL (4.8-10.8)
[2017-03-11 08:56] LABS: ALBUMIN 2.9 g/dL (3.5-5.0)
[2017-03-11 08:58] LABS: AST/SGOT 15 U/L (14-36); GFR AFRICAN-AMERICAN > 60; GFR NON-AFRICAN AMERICAN > 60
[2017-03-11 08:59] LABS: ALT/SGPT 21 U/L (9-52); BLOOD UREA NITROGEN 13 mg/dL (7-17); CALCIUM 8.5 mg/dl (8.6-10.4)
[2017-03-11 09:00] LABS: MAGNESIUM 1.7 mg/dL (1.6-2.3)
[2017-03-11] MEDS: Pantoprazole 40 mg EC Tab PO SCH (10:30)
[2017-03-11] MEDS: (Novolin 70/30) NPH/Regular 70/30 Units/ml 10 ml vial SC SCH ×2 (10:30→17:40)
[2017-03-11] MEDS: Enoxaparin 40 mg Syringe SC SCH (10:30)
[2017-03-11] MEDS: POLYETHYLENE GLYCOL 3350 17 GM/Dose PACKET PO SCH (12:11)
[2017-03-12 08:01] LABS: ALBUMIN 2.8 g/dL (3.5-5.0)
[2017-03-12 08:03] LABS: AST/SGOT 20 U/L (14-36); GFR AFRICAN-AMERICAN > 60; GFR NON-AFRICAN AMERICAN > 60
[2017-03-12 08:04] LABS: ALB/GLOB RATIO 0.9 (1.0-2.1); ALT/SGPT 23 U/L (9-52); BLOOD UREA NITROGEN 14 mg/dL (7-17)
[2017-03-12 08:05] LABS: CALCIUM 8.7 mg/dl (8.6-10.4); MAGNESIUM 1.8 mg/dL (1.6-2.3)
[2017-03-12 08:19] LABS: BASO # 0.1 K/uL (0.0-0.2); BASO % 0.8 % (0.0-2.0); EOS # 0.4 K/uL (0.0-0.7); EOS % 4.4 % (0.0-4.0); HEMOGLOBIN 10.6 g/dL (11.0-16.0); LYMPH # 2.3 K/uL (1.0-4.3); LYMPH % 27.9 % (20.0-40.0); MEAN CELL VOLUME 79.3 fL (81.0-99.0); MEAN CORPUSCULAR HEMOGLOBIN 26.9 pg (27.0-31.0); MEAN CORPUSCULAR HGB CONC 33.9 g/dL (33.0-37.0); MONO # 0.7 K/uL (0.0-0.8); MONO % 8.8 % (0.0-10.0); NEUT # 4.9 K/uL (1.8-7.0); NEUT % 58.1 % (50.0-75.0); RBC 3.96 Mil/uL (3.80-5.20); RED CELL DISTRIBUTION WIDTH 13.1 % (11.5-14.5); WHITE BLOOD COUNT 8.4 K/uL (4.8-10.8)
[2017-03-12] MEDS: (Novolin R) Insulin Human Regular 100 units/ml vial SC SCH ×4 (08:20→21:42)
[2017-03-12] MEDS: Enoxaparin 40 mg Syringe SC SCH (10:46)
[2017-03-12] MEDS: Pantoprazole 40 mg EC Tab PO SCH (10:47)
[2017-03-12] MEDS: POLYETHYLENE GLYCOL 3350 17 GM/Dose PACKET PO SCH (10:47)
[2017-03-12] MEDS: (Novolin 70/30) NPH/Regular 70/30 Units/ml 10 ml vial SC SCH ×2 (10:47→18:47)
--- NOTE | 2017-03-12 13:45 | CP.PCM.PN ---
<Brooklynn Marcial E - Last Filed: 03/12/17 16:16> Subjective - Date & Time of Evaluation Date of Evaluation: 03/12/17 Time of Evaluation: 07:00 - Subjective Subjective: Medicine Note (PGY 1) : Dr. Humphreys's Service Patient was seen and examined at bedside, resting comfortably. Patient reports that she is feeling better. Patient continues to report abdominal pain which she describes as " Gas pain" or the feeling of fullness and mild nausea. Patient denies chest pain, sob, vomiting, fever, chills, dizziness and constipation. Patient reports that she had a difficulty with bowel movement last night. Patient will be having a gastric emptying test today. Objective - Vital Signs/Intake and Output Vital Signs (last 24 hours): Temp Pulse Resp BP Pulse Ox 98.2 F 86 20 145/89 100 03/12/17 08:54 03/12/17 08:54 03/12/17 08:54 03/12/17 08:54 03/12/17 08:54 Intake and Output: 03/12/17 03/12/17 06:59 18:59 Intake Total 350 Balance 350 - Medications Medications: Current Medications Acetaminophen (Tylenol 325mg Tab) 650 mg PO Q6 PRN PRN Reason: Headache Enoxaparin Sodium (Lovenox) 40 mg SC DAILY [facility] Last Admin: 03/12/17 10:46 Dose: 40 mg Ceftriaxone Sodium 1 gm/ (Sodium Chloride) 100 mls @ 100 mls/hr IVPB DAILY [facility] Last Admin: 03/12/17 10:46 Dose: 100 mls/hr Insulin Human Isoph/Insulin Regular (Novolin 70/30 (70/30 Units/Ml) 10 Ml) 10 units SC BID [facility] Last Admin: 03/12/17 10:47 Dose: Not Given Insulin Human Regular (Novolin R) 0 unit SC ACHS [facility] PRN Reason: Protocol Last Admin: 03/12/17 11:31 Dose: 4 unit Ketoconazole (Nizoral) 0 gm TOP BID [facility] Last Admin: 03/12/17 10:47 Dose: 1 applic Lisinopril (Zestril) 2.5 mg PO DAILY [facility] Last Admin: 03/12/17 10:47 Dose: 2.5 mg Ondansetron HCl (Zofran Inj) 4 mg IVP Q6H PRN PRN Reason: Nausea/Vomiting Pantoprazole Sodium (Protonix Ec Tab) 40 mg PO DAILY [facility] Last Admin: 03/12/17 10:47 Dose: Not Given Polyethylene Glycol (Miralax) 17 gm PO DAILY [facility] Last Admin: 03/12/17 10:47 Dose: Not Given Rosuvastatin Calcium (Crestor) 2.5 mg PO HS [facility] - Labs Labs: 03/12/17 07:11 03/12/17 07:11 PT 10.2 SECONDS (9.7-12.2) 03/08/17 18:57 INR 0.9 03/08/17 18:57 APTT 35 SECONDS (21-34) H 03/08/17 18:57 - Constitutional Appears: Well, No Acute Distress - Head Exam Head Exam: NORMAL INSPECTION, NORMOCEPHALIC - Eye Exam Eye Exam: EOMI, Normal appearance - ENT Exam ENT Exam: Mucous Membranes Moist, Normal Exam - Respiratory Exam Respiratory Exam: Clear to Ausculation Bilateral, NORMAL BREATHING PATTERN - Cardiovascular Exam Cardiovascular Exam: REGULAR RHYTHM, +S1, +S2 - GI/Abdominal Exam GI & Abdominal Exam: Soft, Tenderness, Normal Bowel Sounds - Extremities Exam Extremities Exam: Normal Capillary Refill, Normal Inspection - Neurological Exam Neurological Exam: Alert, Awake, Oriented x3 - Psychiatric Exam Psychiatric exam: Normal Affect, Normal Mood - Skin Skin Exam: Dry, Normal Color, Warm Assessment and Plan (1) Abdominal pain Assessment & Plan: Possibly secondary to UTI and gastroparesis GI consult ( Dr. Canales)----> Help appreciated * EGD on 03/10/17: no esophageal abnormality to explain dysphagia; large amount of food residue in the stomach; suspect gastroparesis; biopsies were performed in middle third of esophagus and lower third of esophagus. * Abd & Pelvis IV contrast : Gas noted within the bladder. This could be iatrogenic. Clinical correlation suggested to exclude gas producing infection. Small hiatal hernia. Tiny umbilical hernia. Small area of air trapping suggested at the left lung base * Gastric emptying test: Confirms delayed gastric emptying/ gastroparesis * As per GI, advised low fiber diet, small meals, would avoid Reglan if at all possible, Check biopsies from EGD * Stool Culture: No growth * Stool Occult blood: Negative * Ova & Parasite: negative * Fecal occult: negative * Pending H. Pylori Ag * Pending C-diff AB toxin * Pending fecal leukocytes UA: 1+ Leukocyte esterase with moderately high urine bacteria Afebrile, no leukocytosis, vitals stable * - CVA bilaterally * Patient failed outpatient treatment of UTI with 10 day course of bactrim - symptoms persisted x 1 month * Rocephin 1 gram IVP daily * Urine Cx: yeast species Status: Acute (2) Diarrhea Assessment & Plan: Resolved * Stool Culture: No growth * Stool Occult blood: Negative * Ova & Parasite: negative * Fecal occult: negative * Pending H. Pylori Ag * Pending C-diff AB toxin * Pending fecal leukocytes Status: Acute (3) Dysphagia Assessment & Plan: GI consult- Dr. Canales - help appreciated * EGD 1 yr ago showed gastritis * GI recommendation: PPI, stool c difficile, EGD. * Full Liquid Diet * EGD on 03/10/17: no esophageal abnormality to explain dysphagia; large amount of food residue in the stomach; suspect gastroparesis; biopsies were performed in middle third of esophagus and lower third of esophagus. F/u biopsies * Abd & Pelvis IV contrast : Gas noted within the bladder. This could be iatrogenic. Clinical correlation suggested to exclude gas producing infection. Small hiatal hernia. Tiny umbilical hernia. Small area of air trapping suggested at the left lung base * Gastric emptying test: Confirms delayed gastric emptying/ gastroparesis * As per GI, advised low fiber diet, small meals, would avoid Reglan if at all possible. Status: Acute (4) Uncontrolled diabetes mellitus Assessment & Plan: HgbA1c: 13.5 Glucose level > 200 * Patient takes Metformin 1000mg PO BID- this will not be restarted since patient had CT with IV Contrast * Accuchecks * ISS-low * Added on Novolin 70/30 10 units BID and lisinopril 2.5mg PO * Liquid Diet Status: Chronic (5) Nausea Assessment & Plan: Zofran 4mg IV Q6H prn Liquid diet Status: Acute (6) Prophylactic measure Assessment & Plan: GI PPX: Protonix 40mg IVP daily DVT PPX: SCDs, Lovenox 40 SC daily Status: Acute <Humphreys,Peter H - Last Filed: 03/12/17 17:34> Objective - Vital Signs/Intake and Output Vital Signs (last 24 hours): Temp Pulse Resp BP Pulse Ox 98.7 F 86 20 162/87 H 100 03/12/17 16:00 03/12/17 16:00 03/12/17 16:00 03/12/17 16:00 03/12/17 16:00 Intake and Output: 03/12/17 03/12/17 06:59 18:59 Intake Total 350 100 Balance 350 100 - Medications Medications: Current Medications Acetaminophen (Tylenol 325mg Tab) 650 mg PO Q6 PRN PRN Reason: Headache Enoxaparin Sodium (Lovenox) 40 mg SC DAILY [facility] Last Admin: 03/12/17 10:46 Dose: 40 mg Ceftriaxone Sodium 1 gm/ (Sodium Chloride) 100 mls @ 100 mls/hr IVPB DAILY [facility] Last Admin: 03/12/17 10:46 Dose: 100 mls/hr Insulin Human Isoph/Insulin Regular (Novolin 70/30 (70/30 Units/Ml) 10 Ml) 10 units SC BID [facility] Last Admin: 03/12/17 10:47 Dose: Not Given Insulin Human Regular (Novolin R) 0 unit SC ACHS [facility] PRN Reason: Protocol Last Admin: 03/12/17 11:31 Dose: 4 unit Ketoconazole (Nizoral) 0 gm TOP BID [facility] Last Admin: 03/12/17 10:47 Dose: 1 applic Lisinopril (Zestril) 2.5 mg PO DAILY [facility] Last Admin: 03/12/17 10:47 Dose: 2.5 mg Ondansetron HCl (Zofran Inj) 4 mg IVP Q6H PRN PRN Reason: Nausea/Vomiting Pantoprazole Sodium (Protonix Ec Tab) 40 mg PO DAILY [facility] Last Admin: 03/12/17 10:47 Dose: Not Given Polyethylene Glycol (Miralax) 17 gm PO DAILY [facility] Last Admin: 03/12/17 10:47 Dose: Not Given Rosuvastatin Calcium (Crestor) 2.5 mg PO HS [facility] - Labs Labs: 03/12/17 07:11 03/12/17 07:11 PT 10.2 SECONDS (9.7-12.2) 03/08/17 18:57 INR 0.9 03/08/17 18:57 APTT 35 SECONDS (21-34) H 03/08/17 18:57 Attending/Attestation - Attestation I have personally seen and examined this patient.: Yes I have fully participated in the care of the patient.: Yes I have reviewed all pertinent clinical information, including history, physical exam and plan: Yes Notes (Text): Medical Attending: Patient was seen and examined by me. Agree with the above note by resident. When we saw and examined patient today she had not yet completed the gastric emptying studying. She may have underlying gastroparesis. Her Hgb A1C was very high. Currently sugars are lower but still needs tighter control. Also pending biospy results as well thank you Dorian Humphreys
--- NOTE | 2017-03-12 14:37 | NM ---
PROCEDURE: Gastric emptying study HISTORY: diabetic. food in stomach suspect gastroparesis COMPARISON: None available. TECHNIQUE: 1.1 mCi technetium 99 M sulfur colloid admixed with solid material per institutional protocol. FINDINGS: Commencement of examination: Percent emptied, solid 0% Percent residual, solid 100 % 1 hr: Percent emptied, solid 19 % Percent residual, solid 81 % 2 hr: Percent emptied, solid 22 % Percent residual, solid 78% 4 hr: Percent emptied, solid 63 % Percent residual, solid 37% IMPRESSION: Delayed gastric emptying/ gastroparesis. Normal range percent empty 1 hr 0-63 % 2 hr 40-70 % 4 hr 90-100 % Normal range percent remaining 1 hr 37-90% 2 hr 30-60 % 4 hr 0-10 %
--- NOTE | 2017-03-12 15:14 | CP.PCM.PN ---
Subjective - Date & Time of Evaluation Date of Evaluation: 03/12/17 Time of Evaluation: 15:12 - Subjective Subjective: Mild abdominal discomfort Nuclear scan confirms Gastroparesis Advised small , low fiber meals Awaiting biopsy results Objective - Vital Signs/Intake and Output Vital Signs (last 24 hours): Temp Pulse Resp BP Pulse Ox 98.2 F 86 20 145/89 100 03/12/17 08:54 03/12/17 08:54 03/12/17 08:54 03/12/17 08:54 03/12/17 08:54 Intake and Output: 03/12/17 03/12/17 06:59 18:59 Intake Total 350 100 Balance 350 100 - Medications Medications: Current Medications Acetaminophen (Tylenol 325mg Tab) 650 mg PO Q6 PRN PRN Reason: Headache Enoxaparin Sodium (Lovenox) 40 mg SC DAILY [facility] Last Admin: 03/12/17 10:46 Dose: 40 mg Ceftriaxone Sodium 1 gm/ (Sodium Chloride) 100 mls @ 100 mls/hr IVPB DAILY [facility] Last Admin: 03/12/17 10:46 Dose: 100 mls/hr Insulin Human Isoph/Insulin Regular (Novolin 70/30 (70/30 Units/Ml) 10 Ml) 10 units SC BID [facility] Last Admin: 03/12/17 10:47 Dose: Not Given Insulin Human Regular (Novolin R) 0 unit SC ACHS [facility] PRN Reason: Protocol Last Admin: 03/12/17 11:31 Dose: 4 unit Ketoconazole (Nizoral) 0 gm TOP BID [facility] Last Admin: 03/12/17 10:47 Dose: 1 applic Lisinopril (Zestril) 2.5 mg PO DAILY [facility] Last Admin: 03/12/17 10:47 Dose: 2.5 mg Ondansetron HCl (Zofran Inj) 4 mg IVP Q6H PRN PRN Reason: Nausea/Vomiting Pantoprazole Sodium (Protonix Ec Tab) 40 mg PO DAILY [facility] Last Admin: 03/12/17 10:47 Dose: Not Given Polyethylene Glycol (Miralax) 17 gm PO DAILY [facility] Last Admin: 03/12/17 10:47 Dose: Not Given Rosuvastatin Calcium (Crestor) 2.5 mg PO HS [facility] - Labs Labs: 03/12/17 07:11 03/12/17 07:11 PT 10.2 SECONDS (9.7-12.2) 03/08/17 18:57 INR 0.9 03/08/17 18:57 APTT 35 SECONDS (21-34) H 03/08/17 18:57 - Constitutional Appears: Well, No Acute Distress - Head Exam Head Exam: NORMOCEPHALIC - Eye Exam Eye Exam: absent: Scleral icterus - Respiratory Exam Respiratory Exam: NORMAL BREATHING PATTERN - Cardiovascular Exam Cardiovascular Exam: REGULAR RHYTHM - GI/Abdominal Exam GI & Abdominal Exam: Soft. absent: Distended, Tenderness Assessment and Plan (1) Gastroparesis diabeticorum Assessment & Plan: low fiber diet small meals Would avoid Reglan if at all possible Check biopsies from EGD Status: Acute
[2017-03-12] MEDS ORDERED: Rosuvastatin Calcium 2.5 mg Tab PO SCH (22:00)
[2017-03-13 08:22] LABS: BASO # 0.1 K/uL (0.0-0.2); BASO % 0.8 % (0.0-2.0); EOS # 0.3 K/uL (0.0-0.7); EOS % 4.2 % (0.0-4.0); HEMOGLOBIN 11.1 g/dL (11.0-16.0); LYMPH # 2.4 K/uL (1.0-4.3); LYMPH % 29.9 % (20.0-40.0); MEAN CELL VOLUME 79.7 fL (81.0-99.0); MEAN CORPUSCULAR HEMOGLOBIN 26.8 pg (27.0-31.0); MEAN CORPUSCULAR HGB CONC 33.6 g/dL (33.0-37.0); MEAN PLATELET VOLUME 9.8 fL (7.2-11.7); MONO # 0.7 K/uL (0.0-0.8); MONO % 8.3 % (0.0-10.0); NEUT # 4.7 K/uL (1.8-7.0); NEUT % 56.8 % (50.0-75.0); RBC 4.16 Mil/uL (3.80-5.20); RED CELL DISTRIBUTION WIDTH 13.2 % (11.5-14.5); WHITE BLOOD COUNT 8.2 K/uL (4.8-10.8)
[2017-03-13 08:31] VITALS: RESP 18; O2SAT 100
[2017-03-13 08:44] LABS: ALBUMIN 3.2 g/dL (3.5-5.0)
[2017-03-13 08:47] LABS: AST/SGOT 20 U/L (14-36); GFR AFRICAN-AMERICAN > 60; GFR NON-AFRICAN AMERICAN > 60
[2017-03-13 08:48] LABS: ALT/SGPT 24 U/L (9-52); BLOOD UREA NITROGEN 20 mg/dL (7-17); MAGNESIUM 1.8 mg/dL (1.6-2.3)
[2017-03-13] MEDS: (Novolin R) Insulin Human Regular 100 units/ml vial SC SCH ×2 (09:34→13:15)
[2017-03-13] MEDS: Pantoprazole 40 mg EC Tab PO SCH (10:52)
[2017-03-13] MEDS: POLYETHYLENE GLYCOL 3350 17 GM/Dose PACKET PO SCH (10:53)
[2017-03-13] MEDS: Enoxaparin 40 mg Syringe SC SCH (10:54)
[2017-03-13] MEDS: (Novolin 70/30) NPH/Regular 70/30 Units/ml 10 ml vial SC SCH (10:54)
--- NOTE | 2017-03-13 16:05 | CP.PCM.DIS ---
<Brooklynn Marcial E - Last Filed: 03/13/17 20:16> Provider - Provider Date of Admission: 03/10/17 17:56 Attending physician: Dorian Humphreys DO Time Spent in preparation of Discharge (in minutes): 45 Diagnosis - Discharge Diagnosis (1) Abdominal pain Status: Acute (2) Diarrhea Status: Acute (3) Dysphagia Status: Acute (4) Uncontrolled diabetes mellitus Status: Chronic (5) Nausea Status: Acute (6) Prophylactic measure Status: Acute Hospital Course - Lab Results Lab Results: Micro Results 03/10/17 Unknown Stool Stool Culture - Final NO SALMONELLA, SHIGELLA OR CAMPYLOBACTER ISOLATED. 03/10/17 Unknown Stool Ova and Parasite Concentrate Exam - Final Most Recent Lab Values WBC 8.2 K/uL (4.8-10.8) 03/13/17 08:08 RBC 4.16 Mil/uL (3.80-5.20) 03/13/17 08:08 Hgb 11.1 g/dL (11.0-16.0) 03/13/17 08:08 Hct 33.1 % (34.0-47.0) L 03/13/17 08:08 MCV 79.7 fL (81.0-99.0) L 03/13/17 08:08 MCH 26.8 pg (27.0-31.0) L 03/13/17 08:08 MCHC 33.6 g/dL (33.0-37.0) 03/13/17 08:08 RDW 13.2 % (11.5-14.5) 03/13/17 08:08 Plt Count 202 K/uL (130-400) 03/13/17 08:08 MPV 9.8 fL (7.2-11.7) 03/13/17 08:08 Neut % (Auto) 56.8 % (50.0-75.0) 03/13/17 08:08 Lymph % (Auto) 29.9 % (20.0-40.0) 03/13/17 08:08 [place] % (Auto) 8.3 % (0.0-10.0) 03/13/17 08:08 Eos % (Auto) 4.2 % (0.0-4.0) H 03/13/17 08:08 Baso % (Auto) 0.8 % (0.0-2.0) 03/13/17 08:08 Neut # 4.7 K/uL (1.8-7.0) 03/13/17 08:08 Lymph # 2.4 K/uL (1.0-4.3) 03/13/17 08:08 [place] # 0.7 K/uL (0.0-0.8) 03/13/17 08:08 Eos # 0.3 K/uL (0.0-0.7) 03/13/17 08:08 Baso # 0.1 K/uL (0.0-0.2) 03/13/17 08:08 PT 10.2 SECONDS (9.7-12.2) 03/08/17 18:57 INR 0.9 03/08/17 18:57 APTT 35 SECONDS (21-34) H 03/08/17 18:57 Sodium 135 mmol/L (132-148) 03/13/17 08:08 Potassium 4.7 mmol/L (3.6-5.2) 03/13/17 08:08 Chloride 104 mmol/L (98-107) 03/13/17 08:08 Carbon Dioxide 23 mmol/L (22-30) 03/13/17 08:08 Anion Gap 13 (10-20) 03/13/17 08:08 BUN 20 mg/dL (7-17) H 03/13/17 08:08 Creatinine 0.9 MG/DL (0.7-1.2) 03/13/17 08:08 Est GFR ( Amer) > 60 03/13/17 08:08 Est GFR (Non-Af Amer) > 60 03/13/17 08:08 POC Glucose (mg/dL) 421 mg/dL (65-110) H* 03/13/17 11:53 Random Glucose 254 mg/dL (65-105) H 03/13/17 08:08 Hemoglobin A1c 13.5 % (4.2-6.5) H 03/09/17 06:49 Calcium 9.0 mg/dl (8.6-10.4) 03/13/17 08:08 Phosphorus 4.6 mg/dL (2.5-4.5) H 03/13/17 08:08 Magnesium 1.8 mg/dL (1.6-2.3) 03/13/17 08:08 Total Bilirubin 0.4 mg/dL (0.2-1.3) 03/13/17 08:08 AST 20 U/L (14-36) 03/13/17 08:08 ALT 24 U/L (9-52) 03/13/17 08:08 Alkaline Phosphatase 81 U/L (38-126) 03/13/17 08:08 Total Protein 6.3 g/dL (6.3-8.3) 03/13/17 08:08 Albumin 3.2 g/dL (3.5-5.0) L 03/13/17 08:08 Globulin 3.1 gm/dL (2.2-3.9) 03/13/17 08:08 Albumin/Globulin Ratio 1.0 (1.0-2.1) 03/13/17 08:08 Lipase 118 U/L (23-300) 03/08/17 18:57 Urine Color Yellow (YELLOW) 03/08/17 19:27 Urine Clarity Hazy (Clear) 03/08/17 19:27 Urine pH 5.0 (5.0-8.0) 03/08/17 19:27 Ur Specific [place] 1.021 (1.003-1.030) 03/08/17 19:27 Urine Protein 2+ mg/dL (NEGATIVE) H 03/08/17 19:27 Urine Glucose (UA) 3+ mg/dL (Normal) H 03/08/17 19:27 Urine Ketones Negative mg/dL (NEGATIVE) 03/08/17 19:27 Urine Blood 1+ (NEGATIVE) H 03/08/17 19:27 Urine Nitrate Negative (NEGATIVE) 03/08/17 19:27 Urine Bilirubin Negative (NEGATIVE) 03/08/17 19:27 Urine Urobilinogen Normal mg/dL (0.2-1.0) 03/08/17 19:27 Ur Leukocyte Esterase 1+ Leoncio/uL (Negative) H 03/08/17 19:27 Urine WBC (Auto) 15 /hpf (0-5) H 03/08/17 19:27 Urine RBC (Auto) 12 /hpf (0-3) H 03/08/17 19:27 Ur Squamous Epith Cells 7 /hpf (0-5) H 03/08/17 19:27 Urine Bacteria Mod (<OCC) H 03/08/17 19:27 Urine HCG, Qual Negative (NEGATIVE) 03/12/17 08:54 Stool Occult Blood Negative (NEGATIVE) 03/08/17 19:37 - Hospital Course Hospital Course: As per admission: HPI: 46F with PMHx of DM and gastritis presents to the ED with abdominal pain. She reports having subjective fevers, abdominal pain, dysuria, urinary frequency and hematuria x 1 month. Patient was seen in the clinic and give a prescription for bactrim x 10 days. Patient completed the course but her symptoms continued and have worsened. For the past 3 weeks she has been having diarrhea. She reported seeing blood in her stool yesterday which prompted her to come to the ED. She also reports for the last month she has had difficulty eating. She feels the food get struck going down her esophagus and she describes the sensation as if the food feels like a hard ball going down. She has to drink copious amount of water to help the food go down. She denies nausea, vomiting, heartburn, cough, or taste of acid in her mouth. Denied chills, chest pain, SOB , halitosis or n/v/c Hospital Course: Patient was admitted with consideration of urinary tract infection and Dysphagia. Patient was medically managed with antibiotics for urinary tract infection, which started to resolve during the course of admission. GI consult was placed to Ally, for dysphagia, who recommended an EGD and Gastric emptying nuclear medicine. During the course of admission, patient had uncontrolled sugar levels leading to adjustment to her insulin doses. Patient was counselled on how imperative it is for her to have a controlled blood sugar , patient agreed and stated that she understood. Patient's UTI symptoms resolved completely. Patient was educated on diabetic gastroparesis and was instructed to eat small meals and low fiber diet as per GI recommendation. Patient was then discharge upon clearance by her care team and was instructed to monitor her blood sugar closely. Pertinent Study Result: 1. Abdomen/Pelvis CT: Gas noted within the bladder. This could be iatrogenic. Clinical correlation suggested to exclude gas producing infection. * Small hiatal hernia * Tiny umbilical hernia * Small area of air trapping suggested at the left lung base 2. EGD: No esophageal abnormality to explain dysphagia; large amount of food residue in the stomach; suspect gastroparesis; biopsies were performed in middle third of esophagus and lower third of esophagus 3. Gastric emptying nuclear medicine: Confirms delayed gastric emptying/ gastroparesis This is a brief summary of events. For a complete course, refer to the medical record. Discharge Exam - Head Exam Head Exam: NORMAL INSPECTION, NORMOCEPHALIC - Eye Exam Eye Exam: EOMI, Normal appearance - ENT Exam ENT Exam: Mucous Membranes Moist, Normal Exam - Respiratory Exam Respiratory Exam: Clear to PA & Lateral, NORMAL BREATHING PATTERN - Cardiovascular Exam Cardiovascular Exam: REGULAR RHYTHM, +S1, +S2 - GI/Abdominal Exam GI & Abdominal Exam: Normal Bowel Sounds, Soft - Extremities Exam Extremities exam: normal capillary refill, normal inspection - Neurological Exam Neurological exam: Alert, Oriented x3 - Psychiatric Exam Psychiatric exam: Normal Affect, Normal Mood - Skin Skin Exam: Dry, Normal Color, Warm Discharge Plan - Discharge Medications Prescriptions: Docusate Sodium [Colace] 100 mg PO BID #60 capsule Insulin Human (NPH)/Regular [Novolin 70/30 (70/30 units/ml) 10 ml] 15 units SC BID #1 vial Lisinopril [Zestril] 2.5 mg PO DAILY #30 tab MetFORMIN [glucoPHAGE] 1,000 mg PO BID #60 Simvastatin 10 mg PO HS #30 tablet - Follow Up Plan Condition: STABLE Disposition: HOME/ ROUTINE Instructions: Lisinopril (By mouth), Laxative, Stool Softeners (By mouth), Simvastatin (By mouth), Metformin (By mouth), Insulin NPH/Regular (By injection) , Urinary Tract Infection in Women (DC), Diabetic Foot Care (DC), Basic Carbohydrate Counting (DC), Meal Planning with the Plate Method (DC), Meal Planning with Diabetes Exchanges (DC) Additional Instructions: Please discharge patient home Please start the following new medications as prescribed: 1. Colace 100mg PO BID 2. Insulin human regular 70/30 15 units BID 3. Lisinopril 2.5 mg PO daily 4. Simvastatin 10mg PO HS daily Please resume your home medication as prescribed: 1. Metformin 1,000mg PO BID Please follow up with your primary care physician or [facility] within a week. Please follow up with your preferred GI doctor or GI doctor at the [facility] within a week. As per GI recommendation for your new diagnosis of Diabetic gastroparesis, please eat small meals and low fiber diet. Please monitor your sugar levels at home. Please return to the hospital if symptoms resumes or worsens. Referrals: [facility] at [facility] [Outside] <Dorian Humphreys - Last Filed: 03/14/17 08:33> Provider - Provider Date of Admission: 03/10/17 17:56 Attending physician: Dorian Humphreys DO Hospital Course - Lab Results Lab Results: Micro Results 03/10/17 Unknown Stool Stool Culture - Final NO SALMONELLA, SHIGELLA OR CAMPYLOBACTER ISOLATED. 03/10/17 Unknown Stool Ova and Parasite Concentrate Exam - Final Most Recent Lab Values WBC 8.2 K/uL (4.8-10.8) 03/13/17 08:08 RBC 4.16 Mil/uL (3.80-5.20) 03/13/17 08:08 Hgb 11.1 g/dL (11.0-16.0) 03/13/17 08:08 Hct 33.1 % (34.0-47.0) L 03/13/17 08:08 MCV 79.7 fL (81.0-99.0) L 03/13/17 08:08 MCH 26.8 pg (27.0-31.0) L 03/13/17 08:08 MCHC 33.6 g/dL (33.0-37.0) 03/13/17 08:08 RDW 13.2 % (11.5-14.5) 03/13/17 08:08 Plt Count 202 K/uL (130-400) 03/13/17 08:08 MPV 9.8 fL (7.2-11.7) 03/13/17 08:08 Neut % (Auto) 56.8 % (50.0-75.0) 03/13/17 08:08 Lymph % (Auto) 29.9 % (20.0-40.0) 03/13/17 08:08 [place] % (Auto) 8.3 % (0.0-10.0) 03/13/17 08:08 Eos % (Auto) 4.2 % (0.0-4.0) H 03/13/17 08:08 Baso % (Auto) 0.8 % (0.0-2.0) 03/13/17 08:08 Neut # 4.7 K/uL (1.8-7.0) 03/13/17 08:08 Lymph # 2.4 K/uL (1.0-4.3) 03/13/17 08:08 [place] # 0.7 K/uL (0.0-0.8) 03/13/17 08:08 Eos # 0.3 K/uL (0.0-0.7) 03/13/17 08:08 Baso # 0.1 K/uL (0.0-0.2) 03/13/17 08:08 PT 10.2 SECONDS (9.7-12.2) 03/08/17 18:57 INR 0.9 03/08/17 18:57 APTT 35 SECONDS (21-34) H 03/08/17 18:57 Sodium 135 mmol/L (132-148) 03/13/17 08:08 Potassium 4.7 mmol/L (3.6-5.2) 03/13/17 08:08 Chloride 104 mmol/L (98-107) 03/13/17 08:08 Carbon Dioxide 23 mmol/L (22-30) 03/13/17 08:08 Anion Gap 13 (10-20) 03/13/17 08:08 BUN 20 mg/dL (7-17) H 03/13/17 08:08 Creatinine 0.9 MG/DL (0.7-1.2) 03/13/17 08:08 Est GFR ( Amer) > 60 03/13/17 08:08 Est GFR (Non-Af Amer) > 60 03/13/17 08:08 POC Glucose (mg/dL) 362 mg/dL (65-110) H 03/13/17 16:28 Random Glucose 254 mg/dL (65-105) H 03/13/17 08:08 Hemoglobin A1c 13.5 % (4.2-6.5) H 03/09/17 06:49 Calcium 9.0 mg/dl (8.6-10.4) 03/13/17 08:08 Phosphorus 4.6 mg/dL (2.5-4.5) H 03/13/17 08:08 Magnesium 1.8 mg/dL (1.6-2.3) 03/13/17 08:08 Total Bilirubin 0.4 mg/dL (0.2-1.3) 03/13/17 08:08 AST 20 U/L (14-36) 03/13/17 08:08 ALT 24 U/L (9-52) 03/13/17 08:08 Alkaline Phosphatase 81 U/L (38-126) 03/13/17 08:08 Total Protein 6.3 g/dL (6.3-8.3) 03/13/17 08:08 Albumin 3.2 g/dL (3.5-5.0) L 03/13/17 08:08 Globulin 3.1 gm/dL (2.2-3.9) 03/13/17 08:08 Albumin/Globulin Ratio 1.0 (1.0-2.1) 03/13/17 08:08 Lipase 118 U/L (23-300) 03/08/17 18:57 Urine Color Yellow (YELLOW) 03/08/17 19:27 Urine Clarity Hazy (Clear) 03/08/17 19:27 Urine pH 5.0 (5.0-8.0) 03/08/17 19:27 Ur Specific [place] 1.021 (1.003-1.030) 03/08/17 19:27 Urine Protein 2+ mg/dL (NEGATIVE) H 03/08/17 19:27 Urine Glucose (UA) 3+ mg/dL (Normal) H 03/08/17 19:27 Urine Ketones Negative mg/dL (NEGATIVE) 03/08/17 19:27 Urine Blood 1+ (NEGATIVE) H 03/08/17 19:27 Urine Nitrate Negative (NEGATIVE) 03/08/17 19:27 Urine Bilirubin Negative (NEGATIVE) 03/08/17 19:27 Urine Urobilinogen Normal mg/dL (0.2-1.0) 03/08/17 19:27 Ur Leukocyte Esterase 1+ Leoncio/uL (Negative) H 03/08/17 19:27 Urine WBC (Auto) 15 /hpf (0-5) H 03/08/17 19:27 Urine RBC (Auto) 12 /hpf (0-3) H 03/08/17 19:27 Ur Squamous Epith Cells 7 /hpf (0-5) H 03/08/17 19:27 Urine Bacteria Mod (<OCC) H 03/08/17 19:27 Urine HCG, Qual Negative (NEGATIVE) 03/12/17 08:54 Stool Occult Blood Negative (NEGATIVE) 03/08/17 19:37 Attending/Attestation - Attestation I have personally seen and examined this patient.: Yes I have fully participated in the care of the patient.: Yes I have reviewed all pertinent clinical information, including history, physical exam and plan: Yes Notes (Text): Medical attending: Patient was seen and examined by me, agree with the above note by [facility] inpatient [facility]. The patient reported that her abdominal pain had decreased, as noted above the resident note the patient had gastric emptying study done. It suggests that she has gastro-paresis secondary from uncontrolled diabetes. The patient explains that normally she only takes metformin and she's been doing that for she thinks 15 years now. We explained to her that she's can do need more medication to control her diabetes, we started her on insulin. She's been getting insulin while she's been here so far. The patient was given a prescription for insulin, as well as diabetic testing supplies, and new glucometer, and also BROCK inhibitor and a statin class medications She has been advised to eat smaller portion sizes, and low fiber diet Thank you very much, Dorian Humphreys
[2017-03-13 16:19] VITALS: BP 101/64; PULSE 81; TEMP 98.1
== END 2017-03-13 16:54 | disposition home or self-care (01) | DRG 18 ==
LOC: C.ER 17:14 → C.9E 21:17 → C.3T 21:51 → OBSVTOIN 03-10 17:56 → C.6T 03-13 06:33
PROVIDERS: ADMIT Internal Medicine; ATTEND Hospitalist
PROC: 0DB28ZX Excision of Middle Esophagus, Via Natural or Artificial Opening Endoscopic, Diagnostic (ICD-10-PCS; 2017-03-10)
PROC: 0DB38ZX Excision of Lower Esophagus, Via Natural or Artificial Opening Endoscopic, Diagnostic (ICD-10-PCS; principal; 2017-03-10 08:00)
DX: E11.43 Type 2 diabetes mellitus with diabetic autonomic (poly)neuropathy (principal); N39.0 Urinary tract infection, site not specified; E11.65 Type 2 diabetes mellitus with hyperglycemia; K92.1 Melena; K29.00 Acute gastritis without bleeding; K31.84 Gastroparesis; R13.10 Dysphagia, unspecified; D64.9 Anemia, unspecified; K21.9 Gastro-esophageal reflux disease without esophagitis; K44.9 Diaphragmatic hernia without obstruction or gangrene; K42.9 Umbilical hernia without obstruction or gangrene; Z79.4 Long term (current) use of insulin; R19.7 Diarrhea, unspecified; R63.4 Abnormal weight loss

== ENCOUNTER 2017-03-18 22:08 | Emergency (ER) | payer OTHER ==
[2017-03-18 22:08] VITALS: BMI 22.8
[2017-03-18 22:18] VITALS: BP 175/96; PULSE 85; RESP 18; TEMP 98; O2SAT 100
--- NOTE | 2017-03-18 23:21 | C.PDOC ---
History Of Present Illness 46 y/o female, history of DM, presents to emergency department with complaint of left knee pain status post fall 4 days ago. Patient reports abrasion to the knee. Denies head injury or LOC, new weakness or numbness, or any other complaints. Time Seen by Provider: 03/18/17 22:23 Chief Complaint (Nursing): Abnormal Skin Integrity History Per: Patient History/Exam Limitations: no limitations Onset/Duration Of Symptoms: Days Current Symptoms Are (Timing): Still Present Location Of Injury: Left: Knee, Anterior: Knee Quality Of Symptoms: Painful. denies: Draining Recent travel outside of the [place]: No Past Medical History Reviewed: Historical Data, Nursing Documentation, Vital Signs Vital Signs: Last Vital Signs Temp 98.0 F 03/18/17 22:15 Pulse 85 03/18/17 22:15 Resp 18 03/18/17 22:15 BP 175/96 H 03/18/17 22:15 Pulse Ox 100 03/18/17 23:21 - Medical History PMH: Diabetes (type II), Gastritis - [facility] Procedures EXCISION OF LOWER ESOPHAGUS, ENDO, DIAGN (03/10/17) EXCISION OF MIDDLE ESOPHAGUS, ENDO, DIAGN (03/10/17) INJECT/INFUSE NEC (11/10/14) INSPECTION OF UPPER INTESTINAL TRACT, ENDO (12/13/15) Family History: States: Diabetes - Social History Hx Tobacco Use: No Hx Alcohol Use: No Hx Substance Use: No - Immunization History Hx Tetanus Toxoid Vaccination: Yes Hx Influenza Vaccination: No Hx Pneumococcal Vaccination: Yes Review Of Systems Except As Marked, All Systems Reviewed And Found Negative. Constitutional: Negative for: Fever, Chills Musculoskeletal: Positive for: Other (left knee pain) Skin: Negative for: Rash Neurological: Negative for: Weakness, Numbness Physical Exam - Physical Exam Appears: Non-toxic, No Acute Distress Skin: Warm, Dry Head: Atraumatic, Normacephalic Extremity: Normal ROM, No Tenderness, Capillary Refill (< 2 sec.), No Deformity , No Swelling, Other (superficial abrasion anterior left knee) Extremity: Bilateral: Normal Color And Temperature Neurological/Psych: Oriented x3, Normal Speech, Normal Cognition ED Course And Treatment O2 Sat by Pulse Oximetry: 100 (RA) Pulse Ox Interpretation: Normal - Other Rad Left Knee XR X-Ray: Interpreted by Me, Viewed By Me Interpretation: negative for fx/dislocation Progress Note: Tetatnus vaccination given. Left knee x-rays ordered and reviewed ; negative for acute fx or dislocation. Bacitracin and dressing applied to wound. On reassessment, patient is resting comfortably, and is in no acute distress. Patient instructed to follow up with clinic/PMD within 1-2 days. Disposition - Disposition Disposition: HOME/ ROUTINE Disposition Time: 23:20 Condition: STABLE Additional Instructions: Follow up with PMD within 1-2 days. Return to Ed if feel worse. Prescriptions: Mupirocin 2% Ointment [Bactroban Ointment] 1 appl TP BID #1 tube Instructions: Knee Sprain (ED), Abrasion (ED) - Clinical Impression Clinical Impression: Knee abrasion, Knee contusion - PA / [employer] / Resident Statement MD/DO has reviewed & agrees with the documentation as recorded. - Scribe Statement The provider has reviewed the documentation as recorded by the Scribe Manuelito Quesada All medical record entries made by the Scribe were at my direction and personally dictated by me. I have reviewed the chart and agree that the record accurately reflects my personal performance of the history, physical exam, medical decision making, and the department course for this patient. I have also personally directed, reviewed, and agree with the discharge instructions and disposition.
[2017-03-18] MEDS ORDERED: Bacitracin 500 Units/gm Oint Foilpak UD ONE (23:22)
--- NOTE | 2017-03-19 10:43 | RAD ---
PROCEDURE: Left Knee Radiographs. HISTORY: COMPARISON: None available FINDINGS: Rotated lateral view. BONES: No acute displaced fracture. JOINTS: No dislocation. JOINT EFFUSION: No significant joint effusion. OTHER FINDINGS: None. IMPRESSION: No acute displaced fracture, dislocation, or significant joint effusion identified. If symptoms persist, or if there is continued clinical concern, x-ray follow-up in 7-10 days should be considered.
== END 2017-03-18 23:27 | disposition home or self-care (01) ==
LOC: C.ER 22:08
DX: S80.212A Abrasion, left knee, initial encounter (principal); S80.02XA Contusion of left knee, initial encounter; W18.30XA Fall on same level, unspecified, initial encounter

== ENCOUNTER 2017-08-27 04:27 | Emergency (ER) | payer OTHER ==
[2017-08-27 04:27] VITALS: BMI 22.8
[2017-08-27] MEDS ORDERED: Sodium Chloride 0.9% 1,000 ML IV ONE ×2 (05:05→05:40)
[2017-08-27] MEDS ORDERED: Sodium Chloride 0.9% 1,000 ML ONE ×2 (05:05→05:41)
--- NOTE | 2017-08-27 05:06 | C.PDOC ---
History Of Present Illness Mireya Be is a 47 year old female, with a past medical history of diabetes, who was brought to the emergency department by EMS inebriated. Patient was drinking at a [employer] and reports drinking then vomiting. Unsteady gait and alcohol on breath noted. Unable to obtain full HPI, patient is inebriated. PMD: None provided. Time Seen by Provider: 08/27/17 05:05 Chief Complaint (Nursing): Substance Abuse History Per: Patient, EMS History/Exam Limitations: intoxication (Alcohol) Onset/Duration Of Symptoms: Hrs ([employer]) Current Symptoms Are (Timing): Still Present Suicide/Self Injury Attempted (Context): None Severity: Mild Pain Scale Rating Of: 0 Past Medical History Reviewed: Historical Data, Nursing Documentation, Vital Signs Vital Signs: Last Vital Signs Temp 96.9 F L 08/27/17 06:03 Pulse 106 H 08/27/17 06:03 Resp 18 08/27/17 06:03 BP 144/72 08/27/17 06:03 Pulse Ox 100 08/27/17 06:03 - Medical History PMH: Diabetes (type II), Gastritis Denies: Chronic Kidney Disease Surgical History: No Surg Hx - [facility] Procedures EXCISION OF LOWER ESOPHAGUS, ENDO, DIAGN (03/10/17) EXCISION OF MIDDLE ESOPHAGUS, ENDO, DIAGN (03/10/17) INJECT/INFUSE NEC (11/10/14) INSPECTION OF UPPER INTESTINAL TRACT, ENDO (12/13/15) Family History: States: Diabetes - Social History Hx Tobacco Use: No Hx Alcohol Use: Yes Hx Substance Use: No - Immunization History Hx Tetanus Toxoid Vaccination: No Hx Influenza Vaccination: No Hx Pneumococcal Vaccination: No Review Of Systems Review Of Systems: ROS cannot be obtained secondary to pt's inabilty to answer questions. (pt is inebriated) Physical Exam - Physical Exam Appears: Other (lethargic, arousable) Skin: Warm, Dry Eye(s): bilateral: PERRL, EOMI Neck: Normal ROM, Supple Cardiovascular: Rhythm Regular Respiratory: No Rales, No Rhonchi, No Wheezing Extremity: Normal ROM ED Course And Treatment - Laboratory Results Result Diagrams: 08/27/17 05:13 08/27/17 05:13 O2 Sat by Pulse Oximetry: 100 (RA) Pulse Ox Interpretation: Normal Progress Note: Initial impression: ETOH intoxication. Initial Plan: --Alcohol serum. --Comp metabolic panel. --Drug screen, urine. --Ketone, serum (qual). --Sodium Chloride 0.9% 1,000 ml IV 1,000 mls/hr. --HCG, Qualitative urine. - -Urinalysis Disposition Counseled Patient/Family Regarding: Studies Performed, Diagnosis - Disposition Disposition Time: 05:06 Condition: UNKNOWN Forms: [facility] (Kiswahili) - Clinical Impression Clinical Impression: Alcohol intoxication - Scribe Statement Bradley Mckeon Provider Attestation: All medical record entries made by the Scribe were at my direction and personally dictated by me. I have reviewed the chart and agree that the record accurately reflects my personal performance of the history, physical exam, medical decision making, and the department course for this patient. I have also personally directed, reviewed, and agree with the discharge instructions and disposition. Physician Patient Turnover Patient Signed Over To: Gladys Hunter Handoff Comments: pending sobriety, re-eval and dispostion
[2017-08-27 05:16] LABS: BASO # 0.1 K/uL (0.0-0.2); BASO % 0.6 % (0.0-2.0); EOS # 0.1 K/uL (0.0-0.7); HEMATOCRIT 32.4 % (34.0-47.0); LYMPH # 2.3 K/uL (1.0-4.3); LYMPH % 16.7 % (20.0-40.0); MEAN CELL VOLUME 79.4 fL (81.0-99.0); MEAN CORPUSCULAR HEMOGLOBIN 26.6 pg (27.0-31.0); MEAN CORPUSCULAR HGB CONC 33.5 g/dL (33.0-37.0); MEAN PLATELET VOLUME 9.7 fL (7.2-11.7); MONO # 0.7 K/uL (0.0-0.8); MONO % 4.8 % (0.0-10.0); RED CELL DISTRIBUTION WIDTH 13.8 % (11.5-14.5); WHITE BLOOD COUNT 13.5 K/uL (4.8-10.8)
[2017-08-27 05:32] LABS: ALB/GLOB RATIO 1.2 (1.0-2.1); ALCOHOL SERUM 105 mg/dl (0-10); ALKALINE PHOSPHATASE 103 U/L (38-126); ALT/SGPT 20 U/L (9-52); AST/SGOT 22 U/L (14-36); BILIRUBIN,TOTAL 0.4 mg/dL (0.2-1.3); BLOOD UREA NITROGEN 25 mg/dL (7-17); CALCIUM 8.3 mg/dl (8.6-10.4); CARBON DIOXIDE 24 mmol/L (22-30); CHLORIDE 97 mmol/L (98-107); GFR AFRICAN-AMERICAN > 60; GLUCOSE,RANDOM 476 mg/dL (65-105); POTASSIUM 3.8 mmol/L (3.6-5.2); SODIUM 132 mmol/L (132-148); TOTAL PROTEIN 7.3 g/dL (6.3-8.3)
[2017-08-27 05:40] LABS: RBC URINE 81 /hpf (0-3); URINE BACTERIA MANY (<OCC); URINE BILIRUBIN NEGATIVE (NEGATIVE); URINE BLOOD 1+ (NEGATIVE); URINE COLOR Yellow (YELLOW); URINE GLUCOSE (UA) 3+ mg/dL (Normal); URINE KETONE NEGATIVE (NEGATIVE); URINE LEUKOCYTE ESTERASE TRACE Leu/uL (Negative); URINE PROTEIN 3+ mg/dL (NEGATIVE); URINE UROBILINOGEN NORMAL mg/dL (0.2-1.0); WBC URINE 41 /hpf (0-5)
[2017-08-27 12:22] VITALS: TEMP 98.3
[2017-08-27 13:31] VITALS: BP 171/85; PULSE 96; RESP 17; O2SAT 99
== END 2017-08-27 13:53 | disposition home or self-care (01) ==
LOC: C.ER 04:27
DX: F10.129 Alcohol abuse with intoxication, unspecified (principal); Y90.5 Blood alcohol level of 100-119 mg/100 ml; E11.9 Type 2 diabetes mellitus without complications
CPT/HCPCS: 80053; 80320; 80324; 80345; 80346; 80349; 80353; 80358; 80361; 81001; 82009; 82948; 83992; 84703; 85025; 96361; 96372; 96374; 99285; J2405; J2550; J7040

== ENCOUNTER 2017-09-13 21:50 | Emergency (ER) | payer OTHER ==
[2017-09-13 21:50] VITALS: BMI 22.8
[2017-09-13 22:16] VITALS: O2SAT 100
--- NOTE | 2017-09-13 22:44 | C.PDOC ---
History Of Present Illness pt presents with nausea, vomiting and abdominal pain worsening over a few days. Pt had recent r eye surgery. No f/c/. Not tolerating po Time Seen by Provider: 09/13/17 22:44 Chief Complaint (Nursing): Abdominal Pain History Per: Patient History/Exam Limitations: no limitations Onset/Duration Of Symptoms: Days Current Symptoms Are (Timing): Still Present Context: Other Severity: Moderate Pain Scale Rating Of: 4 Location Of Pain/Discomfort: Diffuse Radiation Of Pain To:: None Quality Of Discomfort: Dull Associated Symptoms: Nausea, Vomiting. denies: Fever, Chills Exacerbating Factors: Food Alleviating Factors: None Last Bowel Movement: Today Recent travel outside of the [place]: No Additional History Per: Family Abnormal Vaginal Bleeding: No Past Medical History Reviewed: Historical Data, Nursing Documentation, Vital Signs Vital Signs: Last Vital Signs Temp 97.5 F L 09/14/17 00:18 Pulse 79 09/14/17 00:18 Resp 18 09/14/17 00:18 BP 173/82 H 09/14/17 00:18 Pulse Ox 100 09/14/17 00:18 - Medical History PMH: Diabetes (type II), Gastritis Denies: Chronic Kidney Disease - [facility] Procedures EXCISION OF LOWER ESOPHAGUS, ENDO, DIAGN (03/10/17) EXCISION OF MIDDLE ESOPHAGUS, ENDO, DIAGN (03/10/17) INJECT/INFUSE NEC (11/10/14) INSPECTION OF UPPER INTESTINAL TRACT, ENDO (12/13/15) Family History: States: Diabetes - Social History Hx Tobacco Use: No Hx Alcohol Use: No Hx Substance Use: No - Immunization History Hx Tetanus Toxoid Vaccination: No Hx Influenza Vaccination: No Hx Pneumococcal Vaccination: No Review Of Systems Constitutional: Negative for: Fever, Chills Eyes: Negative for: Redness ENT: Negative for: Throat Pain Cardiovascular: Negative for: Chest Pain Respiratory: Negative for: Shortness of Breath Gastrointestinal: Positive for: Nausea, Vomiting, Abdominal Pain Genitourinary: Negative for: Dysuria Musculoskeletal: Negative for: Back Pain Skin: Negative for: Rash Neurological: Negative for: Weakness Psych: Negative for: Anxiety Physical Exam - Physical Exam Appears: Non-toxic, No Acute Distress Skin: Warm, Dry Head: Atraumatic Eye(s): bilateral: Normal Inspection, right: Other (erythematous, s/p surgery) Oral Mucosa: Moist Neck: Supple Chest: Symmetrical Cardiovascular: Rhythm Regular Respiratory: No Rales, No Rhonchi, No Wheezing Gastrointestinal/Abdominal: Soft, Tenderness (mild mid epigastric) Back: No CVA Tenderness Extremity: Normal ROM Extremity: Bilateral: Atraumatic Pulses: Left Dorsalis Pedis: Normal, Right Dorsalis Pedis: Normal Neurological/Psych: Oriented x3, Normal Speech, Normal Cognition Gait: Steady ED Course And Treatment - Laboratory Results Result Diagrams: 09/13/17 23:13 09/13/17 23:13 O2 Sat by Pulse Oximetry: 100 Pulse Ox Interpretation: Normal Reevaluation Time: 02:17 Reassessment Condition: Improved Disposition Counseled Patient/Family Regarding: Studies Performed, Diagnosis, Need For Followup, Rx Given - Disposition Referrals: [facility] [Outside] [facility] [Outside] Disposition: HOME/ ROUTINE Disposition Time: 22:44 Condition: FAIR Additional Instructions: Please return if symptoms recur Prescriptions: Nitrofurantoin Macrocrystals [Macrobid] 1 cap PO BID #14 cap Ondansetron ODT [Zofran ODT] 1 odt PO BID PRN #10 odt PRN Reason: Nausea/Vomiting Pantoprazole Sodium [Protonix] 20 mg PO DAILY #15 ect Instructions: Abdominal Pain (ED), Gas and Bloating (ED), Gastroesophageal Reflux Disease (ED), Acute Nausea and Vomiting (ED) Forms: [facility] (Lao) Print Language: GABONESE - Clinical Impression Clinical Impression: Nausea, Vomiting, Abdominal pain in female, GERD (gastroesophageal reflux disease), UTI (urinary tract infection)
[2017-09-13] MEDS ORDERED: Lactated Ringer's 1,000 ML IV STA (22:57)
[2017-09-13 23:16] LABS: BASO # 0.1 K/uL (0.0-0.2); BASO % 0.7 % (0.0-2.0); EOS # 0.1 K/uL (0.0-0.7); EOS % 1.7 % (0.0-4.0); HEMOGLOBIN 10.3 g/dL (11.0-16.0); LYMPH # 1.9 K/uL (1.0-4.3); LYMPH % 23.4 % (20.0-40.0); MEAN CELL VOLUME 80.2 fL (81.0-99.0); MEAN CORPUSCULAR HEMOGLOBIN 26.2 pg (27.0-31.0); MEAN CORPUSCULAR HGB CONC 32.7 g/dL (33.0-37.0); MEAN PLATELET VOLUME 9.2 fL (7.2-11.7); MONO # 0.5 K/uL (0.0-0.8); MONO % 6.6 % (0.0-10.0); NEUT # 5.4 K/uL (1.8-7.0); NEUT % 67.6 % (50.0-75.0); RBC 3.93 Mil/uL (3.80-5.20); RED CELL DISTRIBUTION WIDTH 13.4 % (11.5-14.5)
[2017-09-13 23:27] LABS: INR 0.9; PROTHROMBIN TIME 10.1 SECONDS (9.7-12.2)
[2017-09-13 23:31] LABS: ALBUMIN 3.5 g/dL (3.5-5.0); CALCIUM 8.1 mg/dl (8.6-10.4)
[2017-09-14 00:18] VITALS: PULSE 79
[2017-09-14 00:19] LABS: HCG,QUALITATIVE URINE NEGATIVE (NEGATIVE); SQUAMOUS EPITHIAL 1 /hpf (0-5); URINE BACTERIA OCC (<OCC); URINE BILIRUBIN NEGATIVE (NEGATIVE); URINE BLOOD 2+ (NEGATIVE); URINE CALCIUM OXALATE CRYSTALS OCC /hpf (<OCC); URINE CLARITY Hazy (Clear); URINE COLOR Yellow (YELLOW); URINE GLUCOSE (UA) 2+ mg/dL (Normal); URINE LEUKOCYTE ESTERASE TRACE Leu/uL (Negative); URINE NITRATE NEGATIVE (NEGATIVE); URINE PROTEIN 3+ mg/dL (NEGATIVE); URINE UROBILINOGEN NORMAL mg/dL (0.2-1.0)
[2017-09-14] MEDS ORDERED: Iodixanol 320 MG/ML 100 ML BOTTLE IV ONE (00:55)
--- NOTE | 2017-09-14 02:00 | CT ---
EXAM: CT Abdomen and Pelvis With Intravenous Contrast CLINICAL HISTORY: 47 years old, female; Pain; Abdominal pain; Patient HX: Prior 03-08-17 images sent already; Additional info: Abd pain TECHNIQUE: Axial computed tomography images of the abdomen and pelvis with intravenous contrast. All CT scans at this facility use one or more dose reduction techniques, viz.: automated exposure control; ma/kV adjustment per patient size (including targeted exams where dose is matched to indication; i.e. head); or iterative reconstruction technique. 600 images are submitted. Axial images are submitted in lung windows. Coronal and sagittal reformatted images were created and reviewed. CONTRAST: 100 mL of [id number] administered intravenously. COMPARISON: CT - ABD PELVIS IV CONTRAST ONLY 2017-03-08 20:27 FINDINGS: Artifacts: Overlying clothing artifacts. Lower thorax: There is bibasilar atelectasis. Small hiatal hernia. ABDOMEN: Liver: Fatty liver. Gallbladder and bile ducts: Unremarkable. No ductal dilation. Pancreas: Unremarkable. No mass. No ductal dilation. Spleen: Unremarkable. No splenomegaly. Adrenals: Unremarkable. No mass. Kidneys and ureters: Unremarkable. No solid mass. No hydronephrosis. Stomach and bowel: Large amount of stool in the colon. Correlation with patient's clinical history of constipation is recommended. No mucosal thickening. Appendix: Normal appendix. PELVIS: Bladder: Partially distended bladder with bladder wall thickening and intraluminal gas and perivesical inflammation. Correlation with patient's clinical data is recommended as cystitis versus instrumentation is clinically suspected. Reproductive: Uterus is seen. ABDOMEN and PELVIS: Intraperitoneal space: Unremarkable. No free air. No significant fluid collection. Bones/joints: No acute fracture. No dislocation. Soft tissues: There is a fat-containing umbilical hernia. Vasculature: Pelvic phleboliths. No abdominal aortic aneurysm. Lymph nodes: Unremarkable. No enlarged lymph nodes. IMPRESSION: 1. Partially distended bladder with bladder wall thickening and intraluminal gas and perivesical inflammation. Correlation with patient's clinical data is recommended as cystitis versus instrumentation is clinically suspected. 2. There may be fluid and gas in the vaginal cuff. The clinical significance of this finding is unclear. Correlation with patient's gynecology history is recommended.
[2017-09-14] MEDS ORDERED: cefTRIAXone IV 1 gm in Dextros 50 ML IVPB ONE (02:13)
[2017-09-14 03:57] VITALS: BP 154/90; RESP 17; TEMP 98.3
== END 2017-09-14 04:02 | disposition home or self-care (01) ==
LOC: C.ER 21:50
DX: K21.9 Gastro-esophageal reflux disease without esophagitis (principal); N39.0 Urinary tract infection, site not specified; R11.2 Nausea with vomiting, unspecified; R10.13 Epigastric pain
CPT/HCPCS: 74177; 80053; 81001; 83690; 84703; 85025; 85610; 85730; 96374; 96375; 99284; J0696; J2405; J7120; Q9967

== ENCOUNTER 2018-02-27 13:47 | Emergency (ER) | payer OTHER ==
[2018-02-27 13:47] VITALS: BMI 22.0
[2018-02-27 14:05] VITALS: BP 175/85; PULSE 80; RESP 18; TEMP 98.6; O2SAT 100
--- NOTE | 2018-02-27 14:15 | C.PDOC ---
History Of Present Illness 47-year-old female presents to the ED for evaluation of discoloration noted to her left big toenail for one week. Patient also reports fungal infection to her right big toenail which has been present for months. Patient has tried applying creams and solutions to the area, without improvement. Patient denies fever, chills, injury/trauma, or pain to the area. Time Seen by Provider: 02/27/18 13:59 Chief Complaint (Nursing): Lower Extremity Problem/Injury History Per: Patient History/Exam Limitations: no limitations Onset/Duration Of Symptoms: Other (1 week) Current Symptoms Are (Timing): Still Present Additional History Per: Patient Past Medical History Reviewed: Historical Data, Nursing Documentation, Vital Signs Vital Signs: Last Vital Signs Temp 98.6 F 02/27/18 14:03 Pulse 80 02/27/18 14:03 Resp 18 02/27/18 14:03 BP 175/85 H 02/27/18 14:03 Pulse Ox 100 02/27/18 15:58 - Medical History PMH: Diabetes (type II), Gastritis Denies: Chronic Kidney Disease - [facility] Procedures EXCISION OF LOWER ESOPHAGUS, ENDO, DIAGN (03/10/17) EXCISION OF MIDDLE ESOPHAGUS, ENDO, DIAGN (03/10/17) INJECT/INFUSE NEC (11/10/14) INSPECTION OF UPPER INTESTINAL TRACT, ENDO (12/13/15) Family History: States: Diabetes - Social History Hx Tobacco Use: No Hx Alcohol Use: No Hx Substance Use: No - Immunization History Hx Tetanus Toxoid Vaccination: No Hx Influenza Vaccination: No Hx Pneumococcal Vaccination: No Review Of Systems Constitutional: Negative for: Fever, Chills Skin: Positive for: Other (discoloration to left big toenail, fungal infection to right big toenail ) Physical Exam - Physical Exam Appears: Non-toxic, No Acute Distress Skin: Normal Color, Warm, Dry Extremity: Capillary Refill (less than 2 seconds ), Other (small, partial subungal hematoma to left big toenail. thickened, yellow scaling and discoloration to right big toenail ) Neurological/Psych: Oriented x3, Normal Speech, Normal Cognition ED Course And Treatment O2 Sat by Pulse Oximetry: 100 (on RA) Pulse Ox Interpretation: Normal Progress Note: On re-examination, patient is resting comfortably, showing no signs of distress and is stable for discharge. Patient is advised to follow up with podiatric care within 1-2 days for further evaluation. 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 - Scribe Statement The provider has reviewed the documentation as recorded by the Scribe (Shi Carrillo) All medical record entries made by the Scribe were at my direction and personally dictated by me. I have reviewed the chart and agree that the record accurately reflects my personal performance of the history, physical exam, medical decision making, and the department course for this patient. I have also personally directed, reviewed, and agree with the discharge instructions and disposition.
== END 2018-02-27 14:24 | disposition home or self-care (01) ==
LOC: C.ER 13:47
DX: B35.1 Tinea unguium (principal)

== ENCOUNTER 2018-08-22 17:59 | Inpatient (IN) | payer MEDICAID, OTHER ==
[2018-08-22 17:59] VITALS: BMI 22.0
[2018-08-22] MEDS ORDERED: Sodium Chloride 0.9% 1,000 ML IV ONE ×4 (18:24→22:25)
--- NOTE | 2018-08-22 18:24 | C.PDOC ---
History Of Present Illness 48 y/o female presents to the ER complaining of abdominal pain, vomiting and diarrhea which has been present since yesterday. Patient states that she vomited x3 today. She notes that she had bilious vomiting and she vomited food material. She notes that the vomit was like "coffee grinds" , however there was no blood. Patient also reports that she had 5 episodes of diarrhea yesterday, the diarrhea resolved today. She is complaining of feeling weak. Denies having fever, chills, and sick contacts. Time Seen by Provider: 08/22/18 18:11 Chief Complaint (Nursing): Abdominal Pain History Per: Patient History/Exam Limitations: no limitations Onset/Duration Of Symptoms: Days Current Symptoms Are (Timing): Still Present Severity: Moderate Past Medical History Reviewed: Historical Data, Nursing Documentation, Vital Signs Vital Signs: Last Vital Signs Temp 98 F 08/22/18 18:06 Pulse 83 08/22/18 18:06 Resp 18 08/22/18 18:06 BP 114/75 08/22/18 18:06 Pulse Ox 100 08/22/18 18:06 - Medical History PMH: Diabetes (type II), Gastritis Denies: Chronic Kidney Disease Other Surgeries: Hx of surgeries - [facility] Procedures EXCISION OF LOWER ESOPHAGUS, ENDO, DIAGN (03/10/17) EXCISION OF MIDDLE ESOPHAGUS, ENDO, DIAGN (03/10/17) INJECT/INFUSE NEC (11/10/14) INSPECTION OF UPPER INTESTINAL TRACT, ENDO (12/13/15) Family History: States: Diabetes - Social History Hx Tobacco Use: No Hx Alcohol Use: No Hx Substance Use: No - Immunization History Hx Tetanus Toxoid Vaccination: No Hx Influenza Vaccination: No Hx Pneumococcal Vaccination: No Review Of Systems Except As Marked, All Systems Reviewed And Found Negative. Constitutional: Positive for: Weakness. Negative for: Fever, Chills Gastrointestinal: Positive for: Vomiting, Abdominal Pain, Diarrhea (resolved today) Genitourinary: Negative for: Dysuria, Hematuria Physical Exam - Physical Exam Appears: No Acute Distress, Other (weak) Skin: Warm, Dry, Other (mild coarse skin, decreased skin turgor) Head: Atraumatic, Normacephalic Eye(s): bilateral: Normal Inspection Oral Mucosa: Moist Cardiovascular: Rhythm Regular Respiratory: Normal Breath Sounds, No Rales, No Rhonchi, No Wheezing Gastrointestinal/Abdominal: Soft, No Tenderness, No Guarding, No Rebound Neurological/Psych: Oriented x3, Normal Speech ED Course And Treatment - Laboratory Results Result Diagrams: 08/22/18 18:37 08/22/18 18:37 O2 Sat by Pulse Oximetry: 100 (RA) Pulse Ox Interpretation: Normal Progress - Re-Evaluation Re-evaluation Note: 08/22/18 19:29 NO UO SINCE IV BOLUS D/W DR ELIZONDO WILL ADMIT. NEW ONSET RENAL INSUF COMPARED TO PRIOR - Data Reviewed Data Reviewed: Lab, Old records Medical Decision Making Medical Decision Making: Plan: --Labs --IV Fluids --Zofran IV --Bentyl IM Disposition Counseled Patient/Family Regarding: Studies Performed, Diagnosis - Disposition Disposition: HOSPITALIZED Disposition Time: 19:30 Condition: SERIOUS Forms: [facility] (Armenian) - POA Present On Arrival: None - Clinical Impression Clinical Impression: Acute renal insufficiency, Gastroenteritis - Scribe Statement The provider has reviewed the documentation as recorded by the Jose Zhang Provider Attestation: All medical record entries made by the Jose were at my direction and personally dictated by me. I have reviewed the chart and agree that the record accurately reflects my personal performance of the history, physical exam, medical decision making, and the department course for this patient. I have also personally directed, reviewed, and agree with the discharge instructions and disposition.
[2018-08-22 18:41] LABS: BASO # 0.1 K/uL (0.0-0.2); EOS # 0.1 K/uL (0.0-0.7); EOS % 0.6 % (0.0-4.0); HEMOGLOBIN 10.4 g/dL (11.0-16.0); LYMPH # 1.9 K/uL (1.0-4.3); LYMPH % 18.6 % (20.0-40.0); MEAN CELL VOLUME 78.4 fL (81.0-99.0); MEAN CORPUSCULAR HEMOGLOBIN 26.3 pg (27.0-31.0); MEAN CORPUSCULAR HGB CONC 33.5 g/dL (33.0-37.0); MEAN PLATELET VOLUME 9.8 fL (7.2-11.7); MONO # 0.5 K/uL (0.0-0.8); MONO % 4.8 % (0.0-10.0); NEUT # 7.8 K/uL (1.8-7.0); RBC 3.96 Mil/uL (3.80-5.20); RED CELL DISTRIBUTION WIDTH 13.8 % (11.5-14.5); WHITE BLOOD COUNT 10.4 K/uL (4.8-10.8)
[2018-08-22 18:54] LABS: CALCIUM 7.9 mg/dl (8.6-10.4)
--- NOTE | 2018-08-22 20:24 | CP.PCM.HP ---
<Rodney Jacob - Last Filed: 08/23/18 06:51> History of Present Illness - History of Present Illness History of Present Illness: CC abdominal pain, vomiting, diarrhea HPI: Patient is a 48 year old female with history of Type 2 diabetes who presents for sudden onset of epigastric abdominal pain associated with vomiting and diarrhea that started yesterday. She states she was at home when her symptoms started suddenly. She states her epigastric pain is intermittent in nature, rated a 7/10 and is worse when she vomits. She states she has had about 5 episodes of vomiting daily for the past 2 days, with 5 episodes daily. She describes her emesis as initially containing food contents, and then yellow material. She denies seeing any blood or dark material in her emesis. She states she has not been able to eat for 2 days because she cannot keep anything down. She last had a little bit of water at 10am this morning. She describes her diarrhea as 6 episodes of loose brown stools, denies any episodes of diarrhea today. She denies bloody or dark stools. She complains of feeling weak since her symptoms started 2 days ago. Also admits that her urine has been frothy with bad odor for the past 5 months. She states she had a renal ultrasound which was negative. She denies fevers, chills, chest pain, back pain, flank pain, palpitations, shortness of breath. PMD: Dr. Dennison PMH: Type 2 DM PSH: retinal surgery, Social hx: denies tobacco, alcohol and drug use. Used to work in a clothing factory. Doesn't work currently. Family hx: Admits mother of renal complications from Type 2 DM Home meds: Lantus 22 units at bedtime. As per clinic chart, patient prescribed Lantus 20 units BID. Allergies: NKDA Present on Admission - Present on Admission Any Indicators Present on Admission: No Review of Systems - Constitutional Constitutional: absent: Chills, Fever - EENT Eyes: absent: Change in Vision Nose/Mouth/Throat: absent: Nasal Congestion, Sore Throat - Cardiovascular Cardiovascular: absent: Chest Pain, Dyspnea - Respiratory Respiratory: absent: Cough - Gastrointestinal Gastrointestinal: Abdominal Pain, Diarrhea, Nausea, Vomiting - Genitourinary Additional comments: foamy urine - Musculoskeletal Musculoskeletal: absent: Limited Range of Motion, Numbness, Tingling - Integumentary Integumentary: absent: Dry Skin, Rash - Neurological Neurological: absent: Dizziness, Syncope - Psychiatric Psychiatric: absent: Anxiety, Depression Past Patient History - Infectious Disease Hx of Infectious Diseases: None - Past Medical History & Family History Past Medical History?: Yes - Past Social History Smoking Status: Never Smoked - CARDIAC Hx Cardiac Disorders: No - PULMONARY Hx Respiratory Disorders: No - NEUROLOGICAL Hx Neurological Disorder: No - HEENT Hx HEENT Problems: No - RENAL Hx Chronic Kidney Disease: No - ENDOCRINE/METABOLIC Hx Endocrine Disorders: Yes Hx Diabetes Mellitus Type 2: Yes - HEMATOLOGICAL/ONCOLOGICAL Hx Blood Disorders: No - INTEGUMENTARY Hx Dermatological Problems: No - MUSCULOSKELETAL/RHEUMATOLOGICAL Hx Musculoskeletal Disorders: No Hx Falls: No - GASTROINTESTINAL Hx Gastritis: Yes - GENITOURINARY/GYNECOLOGICAL Hx Genitourinary Disorders: No - PSYCHIATRIC Hx Substance Use: No - SURGICAL HISTORY Hx Surgeries: Yes Other/Comment: Rt. eye vitrectomy. - ANESTHESIA Hx Anesthesia: Yes Hx Anesthesia Reactions: No Hx Malignant Hyperthermia: No Meds Allergies/Adverse Reactions: Allergies Allergy/AdvReac Type Severity Reaction Status Date / Time No Known Allergies Allergy Verified 08/22/18 18:09 Physical Exam - Constitutional Appears: Non-toxic, No Acute Distress Additional comments: Patient appears tired - Head Exam Head Exam: ATRAUMATIC, NORMOCEPHALIC - Eye Exam Eye Exam: EOMI, PERRL. absent: Conjunctival injection, Periorbital swelling Additional comments: pale conjunctiva - ENT Exam ENT Exam: Mucous Membranes Dry, Normal Oropharynx - Neck Exam Neck exam: Positive for: Full Rom. Negative for: Lymphadenopathy, Tenderness, Thyromegaly - Respiratory Exam Respiratory Exam: Clear to Auscultation Bilateral, NORMAL BREATHING PATTERN. absent: Rales, Rhonchi, Wheezes, Respiratory Distress, Stridor - Cardiovascular Exam Cardiovascular Exam: REGULAR RHYTHM, +S1, +S2. absent: Gallop, Rubs, Systolic Murmur - GI/Abdominal Exam GI & Abdominal Exam: Normal Bowel Sounds, Soft, Tenderness (Mild epigastric tenderness ). absent: Distended, Firm, Guarding, Hernia, Rigid - Rectal Exam Additional comments: no external hemorrhoids small amount of brown stool in vault no bloody or black stools - Extremities Exam Extremities exam: Positive for: normal capillary refill, pedal pulses present. Negative for: calf tenderness, pedal edema - Back Exam Back exam: CVA tenderness (L) (Mild). absent: CVA tenderness (R), rash noted, vertebral tenderness - Neurological Exam Neurological exam: Alert, CN II-XII Intact, Oriented x3 - Psychiatric Exam Psychiatric exam: Normal Affect, Normal Mood - Skin Skin Exam: Dry, Intact, Warm Results - Vital Signs Recent Vital Signs: Last Vital Signs Temp 98 F 08/22/18 18:06 Pulse 84 08/22/18 20:19 Resp 14 08/22/18 20:19 BP 137/86 08/22/18 20:19 Pulse Ox 98 08/22/18 20:19 - Labs Result Diagrams: 08/22/18 18:37 08/22/18 18:37 Labs: Laboratory Results - last 24 hr 08/22/18 08/22/18 18:37 18:37 WBC 10.4 RBC 3.96 Hgb 10.4 L Hct 31.1 L MCV 78.4 L MCH 26.3 L MCHC 33.5 RDW 13.8 Plt Count 275 MPV 9.8 Neut % (Auto) 75.0 Lymph % (Auto) 18.6 L [place] % (Auto) 4.8 Eos % (Auto) 0.6 Baso % (Auto) 1.0 Neut # (Auto) 7.8 H Lymph # (Auto) 1.9 Cowley # (Auto) 0.5 Eos # (Auto) 0.1 Baso # (Auto) 0.1 Sodium 130 L Potassium 4.9 Chloride 102 Carbon Dioxide 21 L Anion Gap 11 BUN 42 H Creatinine 2.2 H Est GFR ( Amer) 29 Est GFR (Non-Af Amer) 24 Random Glucose 350 H D Calcium 7.9 L Assessment & Plan - Assessment and Plan (Free Text) Assessment: 48 year old female with history of uncontrolled Type 2 DM who presents for abdominal pain, nausea, vomiting, diarrhea. Plan: Abdominal pain with Nausea, Vomiting, Diarrhea Possibly secondary to gastroenteritis In ED, patient received NS IV fluids, Zofran and Bentyl with improvement of s ymptoms Zofran 4mg Q6 PRN NS IV fluids @125cc/hr Clear liquid diet if can tolerate Stool occult negative Acute kidney injury possible secondary to dehydration, hx of uncontrolled DM BUN [address] Lawson consulted NS IV fluids @125cc/hr Continue to monitor History of uncontrolled DM f/u A1c ISS Lantus not started since patient has not been eating for 2 days Anemia H/H 10.4/31.1 f/u Iron studies Stool occult negative Frothy urine f/u UA f/u urine culture PPX: DVT: SCDs GI: Protonix 40mg IVP Clear liquid diet, advance as tolerated Case discussed with Dr. Martha Jacob, PGY1 <Sedrick Thomas - Last Filed: 08/23/18 19:08> Results - Vital Signs Recent Vital Signs: Last Vital Signs Temp 98.5 F 08/23/18 16:00 Pulse 80 08/23/18 16:00 Resp 20 08/23/18 16:00 BP 169/82 H 08/23/18 16:00 Pulse Ox 97 08/23/18 16:00 - Labs Result Diagrams: 08/23/18 06:34 08/23/18 06:34 Labs: Laboratory Results - last 24 hr 08/22/18 08/23/18 08/23/18 21:15 06:30 06:34 WBC 8.8 RBC 3.57 L Hgb 9.4 L Hct 28.1 L MCV 78.9 L MCH 26.4 L MCHC 33.5 RDW 13.7 Plt Count 255 MPV 10.1 Neut % (Auto) 57.7 Lymph % (Auto) 31.4 Cowley % (Auto) 8.5 Eos % (Auto) 1.8 Baso % (Auto) 0.6 Neut # (Auto) 5.1 Lymph # (Auto) 2.8 Cowley # (Auto) 0.8 Eos # (Auto) 0.2 Baso # (Auto) 0.1 Retic Count 1.7 H Sodium Potassium Chloride Carbon Dioxide Anion Gap BUN Creatinine Est GFR ( Amer) Est GFR (Non-Af Amer) POC Glucose (mg/dL) Random Glucose Hemoglobin A1c Calcium Phosphorus Magnesium Iron TIBC % Saturation Ferritin Total Bilirubin AST ALT Alkaline Phosphatase Total Creatine Kinase CK-MB (Mass) Troponin I Total Protein Albumin Globulin Albumin/Globulin Ratio Lipase TSH 3rd Generation Urine Color Yellow Urine Clarity Hazy Urine pH 5.0 Ur Specific [place] 1.011 Urine Protein 3+ H Urine Glucose (UA) 3+ H Urine Ketones Trace Urine Blood 1+ H Urine Nitrate Negative Urine Bilirubin Negative Urine Urobilinogen Normal Ur Leukocyte Esterase 1+ H Urine WBC (Auto) 97 H Urine RBC (Auto) 6 H Urine WBC Clumps (Auto) Mod H Ur Squamous Epith Cells 3 Urine Bacteria Many H Ur Random Sodium Urine HCG, Qual Stool Occult Blood Negative 08/23/18 08/23/18 08/23/18 06:34 06:34 06:34 WBC RBC Hgb Hct MCV MCH MCHC RDW Plt Count MPV Neut % (Auto) Lymph % (Auto) [place] % (Auto) Eos % (Auto) Baso % (Auto) Neut # (Auto) Lymph # (Auto) [place] # (Auto) Eos # (Auto) Baso # (Auto) Retic Count Sodium 137 Potassium 4.0 Chloride 112 H Carbon Dioxide 20 L Anion Gap 9 L BUN 30 H Creatinine 1.8 H Est GFR ( Amer) 37 Est GFR (Non-Af Amer) 30 POC Glucose (mg/dL) Random Glucose 188 H D Hemoglobin A1c 12.3 H Calcium 7.4 L Phosphorus 3.1 Magnesium 2.2 Iron 34 L TIBC 277 % Saturation 12 L Ferritin 10.1 Total Bilirubin 0.3 AST 18 ALT 16 Alkaline Phosphatase 84 Total Creatine Kinase 275 H CK-MB (Mass) 1.14 Troponin I < 0.0120 Total Protein 5.4 L Albumin 2.6 L D Globulin 2.8 Albumin/Globulin Ratio 0.9 L Lipase 49 TSH 3rd Generation Cancelled Urine Color Urine Clarity Urine pH Ur Specific [place] Urine Protein Urine Glucose (UA) Urine Ketones Urine Blood Urine Nitrate Urine Bilirubin Urine Urobilinogen Ur Leukocyte Esterase Urine WBC (Auto) Urine RBC (Auto) Urine WBC Clumps (Auto) Ur Squamous Epith Cells Urine Bacteria Ur Random Sodium Urine HCG, Qual Stool Occult Blood 08/23/18 08/23/18 08/23/18 07:16 11:35 11:42 WBC RBC Hgb Hct MCV MCH MCHC RDW Plt Count MPV Neut % (Auto) Lymph % (Auto) [place] % (Auto) Eos % (Auto) Baso % (Auto) Neut # (Auto) Lymph # (Auto) [place] # (Auto) Eos # (Auto) Baso # (Auto) Retic Count Sodium Potassium Chloride Carbon Dioxide Anion Gap BUN Creatinine Est GFR ( Amer) Est GFR (Non-Af Amer) POC Glucose (mg/dL) 194 H 279 H Random Glucose Hemoglobin A1c Calcium Phosphorus Magnesium Iron TIBC % Saturation Ferritin Total Bilirubin AST ALT Alkaline Phosphatase Total Creatine Kinase CK-MB (Mass) Troponin I Total Protein Albumin Globulin Albumin/Globulin Ratio Lipase TSH 3rd Generation Urine Color Urine Clarity Urine pH Ur Specific [place] Urine Protein Urine Glucose (UA) Urine Ketones Urine Blood Urine Nitrate Urine Bilirubin Urine Urobilinogen Ur Leukocyte Esterase Urine WBC (Auto) Urine RBC (Auto) Urine WBC Clumps (Auto) Ur Squamous Epith Cells Urine Bacteria Ur Random Sodium Urine HCG, Qual Negative Stool Occult Blood 08/23/18 08/23/18 15:36 16:54 WBC RBC Hgb Hct MCV MCH MCHC RDW Plt Count MPV Neut % (Auto) Lymph % (Auto) [place] % (Auto) Eos % (Auto) Baso % (Auto) Neut # (Auto) Lymph # (Auto) [place] # (Auto) Eos # (Auto) Baso # (Auto) Retic Count Sodium Potassium Chloride Carbon Dioxide Anion Gap BUN Creatinine Est GFR ( Amer) Est GFR (Non-Af Amer) POC Glucose (mg/dL) 153 H Random Glucose Hemoglobin A1c Calcium Phosphorus Magnesium Iron TIBC % Saturation Ferritin Total Bilirubin AST ALT Alkaline Phosphatase Total Creatine Kinase CK-MB (Mass) Troponin I Total Protein Albumin Globulin Albumin/Globulin Ratio Lipase TSH 3rd Generation Urine Color Urine Clarity Urine pH Ur Specific [place] Urine Protein Urine Glucose (UA) Urine Ketones Urine Blood Urine Nitrate Urine Bilirubin Urine Urobilinogen Ur Leukocyte Esterase Urine WBC (Auto) Urine RBC (Auto) Urine WBC Clumps (Auto) Ur Squamous Epith Cells Urine Bacteria Ur Random Sodium 83 Urine HCG, Qual Stool Occult Blood Assessment & Plan - Date & Time Date: 08/23/18 (I have seen and examined the patient. I agree with the findings and plan of care as documented by Dr. Jacob. Patient with nausea/vomiting/diarrhea likely associated with gastroenteritis. Acute renal insufficiency likely from dehydration. May be affected by history of diabetes that is uncontrolled. Symptomatic treatment. IVF. Follow up renal function. NISS and accuchecks. Monitor for acute changes.) Time: 19:06 Attending/Attestation - Attestation I have personally seen and examined this patient.: Yes I have fully participated in the care of the patient.: Yes I have reviewed all pertinent clinical information: Yes
[2018-08-23] MEDS ORDERED: guaiFENesin 100 mg/5 ml Syrup UD PO ONE (06:20)
[2018-08-23 06:37] LABS: SQUAMOUS EPITHIAL 3 /hpf (0-5); URINE BACTERIA MANY (<OCC); URINE BILIRUBIN NEGATIVE (NEGATIVE); URINE BLOOD 1+ (NEGATIVE); URINE CLARITY Hazy (Clear); URINE COLOR Yellow (YELLOW); URINE GLUCOSE (UA) 3+ mg/dL (Normal); URINE LEUKOCYTE ESTERASE 1+ Leu/uL (Negative); URINE PROTEIN 3+ mg/dL (NEGATIVE); URINE UROBILINOGEN NORMAL mg/dL (0.2-1.0); WBC CLUMPS MOD /hpf
[2018-08-23 06:52] LABS: BASO # 0.1 K/uL (0.0-0.2); BASO % 0.6 % (0.0-2.0); EOS # 0.2 K/uL (0.0-0.7); EOS % 1.8 % (0.0-4.0); HEMOGLOBIN 9.4 g/dL (11.0-16.0); LYMPH # 2.8 K/uL (1.0-4.3); LYMPH % 31.4 % (20.0-40.0); MEAN CELL VOLUME 78.9 fL (81.0-99.0); MEAN CORPUSCULAR HEMOGLOBIN 26.4 pg (27.0-31.0); MEAN CORPUSCULAR HGB CONC 33.5 g/dL (33.0-37.0); MEAN PLATELET VOLUME 10.1 fL (7.2-11.7); MONO # 0.8 K/uL (0.0-0.8); MONO % 8.5 % (0.0-10.0); NEUT # 5.1 K/uL (1.8-7.0); NEUT % 57.7 % (50.0-75.0); RBC 3.57 Mil/uL (3.80-5.20); RED CELL DISTRIBUTION WIDTH 13.7 % (11.5-14.5); WHITE BLOOD COUNT 8.8 K/uL (4.8-10.8)
[2018-08-23 06:57] LABS: IRON 34 ug/dL (37-170)
[2018-08-23 07:05] LABS: ALB/GLOB RATIO 0.9 (1.0-2.1); ALBUMIN 2.6 g/dL (3.5-5.0); ALT/SGPT 16 U/L (9-52); AST/SGOT 18 U/L (14-36); BLOOD UREA NITROGEN 30 mg/dL (7-17); CALCIUM 7.4 mg/dl (8.6-10.4); GFR NON-AFRICAN AMERICAN 30
[2018-08-23 07:06] LABS: % IRON SATURATION 12 (20-55); TOTAL IRON BINDING CAPACITY 277 ug/dL (250-450)
[2018-08-23] MEDS ORDERED: (Novolin R) Insulin Human Regular 100 units/ml vial SC SCH ×2 (07:30→12:00)
[2018-08-23] MEDS ORDERED: Dextrose 50% SYRINGE Inj (50 ml) IVP PRN (09:51)
[2018-08-23] MEDS ORDERED: Glucagon Recombinant 1 mg Inj IM PRN (09:51)
--- NOTE | 2018-08-23 11:03 | US ---
Date of service: 08/23/2018 PROCEDURE: Renal/urinary bladder ultrasound HISTORY: renal insufficiency COMPARISON: Renal ultrasound performed 06/10/18 TECHNIQUE: Sonogram of the kidneys and urinary bladder. FINDINGS: RIGHT KIDNEY: Measures: 10.6 x 4.6 x 5.5 cm. Echogenic renal parenchyma. No obstructing calculus or hydronephrosis. Nonobstructing 3 mm midpole calculus versus vascular calcification. LEFT KIDNEY: Measures: 9.9 x 5.0 x 4.6 cm. Echogenic renal parenchyma. No obstructing calculus or hydronephrosis. OTHER FINDINGS: Prevoid urinary bladder measures 6.0 x 3.0 x 8.2 cm, calculated volume 76.7 mL. Postvoid urinary bladder measures 2.0 x 1.4 x 3.3 cm, calculated volume 4.8 mL. Bilateral ureteral jets are identified. Urinary bladder wall thickening measuring approximately 6 mm. IMPRESSION: Bilateral echogenic renal parenchyma may be seen in the setting of medical renal disease. Nonobstructing 3 mm right midpole calculus versus vascular calcification. Prevoid urinary bladder measures 6.0 x 3.0 x 8.2 cm, calculated volume 76.7 mL. Postvoid urinary bladder measures 2.0 x 1.4 x 3.3 cm, calculated volume 4.8 mL. Urinary bladder wall thickening measuring approximately 6 mm. This may be exaggerated by incomplete urinary bladder distension however alternatives including cystitis not excluded. Correlate clinically including urinalysis.
[2018-08-23 11:37] LABS: CK-MB 1.14 ng/mL (0.0-3.38)
[2018-08-23 11:45] LABS: LIPASE 49 U/L (23-300)
[2018-08-23 11:58] LABS: FERRITIN 10.1 ng/mL
[2018-08-23] MEDS: Sodium Chloride 0.9% 1,000 ML IV SCH ×2 (12:41→22:00)
--- NOTE | 2018-08-23 12:41 | CP.PCM.CON ---
History of Present Illness - History of Present Illness History of Present Illness: Consulted for rising creatinine from baseline approximately 1.1 creatinine HPI: Patient is a 48 year old female with history of Type 2 diabetes who presents for sudden onset of epigastric abdominal pain associated with vomiting and diarrhea that started yesterday. She states she was at home when her symptoms started suddenly. She states her epigastric pain is intermittent in nature, rated a 7/10 and is worse when she vomits. She states she has had about 5 episodes of vomiting daily for the past 2 days, with 5 episodes daily. She describes her emesis as initially containing food contents, and then yellow material. She denies seeing any blood or dark material in her emesis. She states she has not been able to eat for 2 days because she cannot keep anything down. She last had a little bit of water at 10am this morning. She describes her diarrhea as 6 episodes of loose brown stools, denies any episodes of diarrhea today. She denies bloody or dark stools. She complains of feeling weak since her symptoms started 2 days ago. Also admits that her urine has been frothy with bad odor for the past 5 months. She states she had a renal ultrasound which was negative. She denies fevers, chills, chest pain, back pain, flank pain, palpitations, shortness of breath. Repeat renal US showed normal sized, echogenic kidneys PMH: Type 2 DM PSH: retinal surgery, Social hx: denies tobacco, alcohol and drug use. Used to work in a clothing factory. Doesn't work currently. Family hx: Admits mother of renal complications from Type 2 DM Home meds: Lantus 22 units at bedtime. As per clinic chart, patient prescribed Lantus 20 units BID. Allergies: NKDA Review of Systems - Constitutional Constitutional: Anorexia, Weight Loss, Weakness - EENT Eyes: Blurred Vision Nose/Mouth/Throat: absent: As Per HPI, Epistaxis, Nasal Congestion, Nasal Discharge, Nasal Obstruction, Nasal Trauma, Nose Pain, Post Nasal Drip, Sinus Pain, Sinus Pressure, Bleeding Gums, Change in Voice, Dental Pain, Dry Mouth, D ysphagia, Halitosis, Hoarsness, Lip Swelling, Mouth Lesions, Mouth Pain, Odynophagia, Sore Throat, Throat Swelling, Tongue Swelling, Facial Pain, Neck Pain, Neck Mass, Other - Cardiovascular Cardiovascular: absent: As Per HPI, Acrocyanosis, Chest Pain, Chest Pain at Rest, Chest Pain with Activity, Claudication, Diaphoresis, Dyspnea, Dyspnea on Exertion, Edema, Irregular Heart Rhythm, Pain Radiating to Arm/Neck/Jaw, Leg Edema, Leg Ulcers, Lightheadedness, Orthopnea, Palpitations, Paroxysmal Nocturnal Dyspnea, Pedal Edema, Radiating Pain, Rapid Heart Rate, Slow Heart Rate, Syncope, Other - Respiratory Respiratory: absent: As Per HPI, Cough, Dyspnea, Hemoptysis, Dyspnea on Exertion, Wheezing, Snoring, Stridor, Pain on Inspiration, Chest Congestion, Excessive Mucous Production, Change in Mucous Color, Pain with Coughing, Other - Gastrointestinal Gastrointestinal: As Per HPI, Diarrhea, Nausea, Vomiting - Genitourinary Genitourinary: Dysuria - Musculoskeletal Musculoskeletal: Muscle Cramps, Muscle Weakness, Myalgias - Neurological Neurological: Weakness Past Patient History - Infectious Disease Hx of Infectious Diseases: None - Past Medical History & Family History Past Medical History?: Yes - Past Social History Smoking Status: Never Smoked Chewing Tobacco Use: No Cigar Use: No Alcohol: None Drugs: Denies Home Situation {Lives}: With Family - CARDIAC Hx Cardiac Disorders: No - PULMONARY Hx Respiratory Disorders: No - NEUROLOGICAL Hx Neurological Disorder: No - HEENT Hx HEENT Problems: No - RENAL Hx Chronic Kidney Disease: No - ENDOCRINE/METABOLIC Hx Endocrine Disorders: Yes Hx Diabetes Mellitus Type 2: Yes - HEMATOLOGICAL/ONCOLOGICAL Hx Blood Disorders: No - INTEGUMENTARY Hx Dermatological Problems: No - MUSCULOSKELETAL/RHEUMATOLOGICAL Hx Musculoskeletal Disorders: No Hx Falls: No - GASTROINTESTINAL Hx Gastritis: Yes - GENITOURINARY/GYNECOLOGICAL Hx Genitourinary Disorders: No - PSYCHIATRIC Hx Substance Use: No - SURGICAL HISTORY Hx Surgeries: Yes Other/Comment: Rt. eye vitrectomy. - ANESTHESIA Hx Anesthesia: Yes Hx Anesthesia Reactions: No Hx Malignant Hyperthermia: No Meds Allergies/Adverse Reactions: Allergies Allergy/AdvReac Type Severity Reaction Status Date / Time No Known Allergies Allergy Verified 08/22/18 18:09 - Medications Medications: Current Medications Acetaminophen (Tylenol 325mg Tab) 650 mg PO Q6 PRN PRN Reason: Pain, severe (8-10) Dextrose (Dextrose 50% Inj) 0 ml IVP .STAT PRN; Protocol PRN Reason: Hypoglycemia Protocol Dextrose (Glutose 15) 0 gm PO .ONCE PRN; Protocol PRN Reason: Hypoglycemia Protocol Famotidine (Pepcid) 20 mg IVP Q24H [facility] Last Admin: 08/23/18 11:17 Dose: 20 mg Glucagon (Glucagen Diagnostic Kit) 0 mg IM .STAT PRN; Protocol PRN Reason: Hypoglycemia Protocol Dextrose (Dextrose 5% In Water 1000 Ml) 1,000 mls @ 0 mls/hr IV .Q0M PRN; Protocol PRN Reason: Hypoglycemia Protocol Sodium Chloride (Sodium Chloride 0.9%) 1,000 mls @ 100 mls/hr IV .Q10H [facility] Influenza Virus Vaccine (Fluzone Quad [id number]) 60 mcg IM .ONCE ONE Stop: 08/24/18 10:01 Insulin Aspart (Novolog) 0 unit SC Q6 [facility]; Protocol Ondansetron HCl (Zofran Inj) 4 mg IVP Q6 PRN PRN Reason: Nausea/Vomiting Last Admin: 08/23/18 06:03 Dose: 4 mg Pneumococcal Polyvalent Vaccine (Pneumovax 23 Vaccine) 0.5 ml IM .ONCE ONE Stop: 08/24/18 10:01 Sucralfate (Carafate Tab) 1 gm PO Q6H [facility] Last Admin: 08/23/18 11:17 Dose: 1 gm Physical Exam - Constitutional Appears: Agitated, Chronically Ill - Head Exam Head Exam: ATRAUMATIC, NORMAL INSPECTION - Eye Exam Eye Exam: EOMI, Normal appearance - Neck Exam Neck exam: Positive for: Normal Inspection. Negative for: Tenderness - Respiratory Exam Respiratory Exam: Clear to Auscultation Bilateral, NORMAL BREATHING PATTERN - Cardiovascular Exam Cardiovascular Exam: REGULAR RHYTHM, +S1 - GI/Abdominal Exam GI & Abdominal Exam: Soft, Tenderness - Extremities Exam Extremities exam: Positive for: normal inspection. Negative for: tenderness - Neurological Exam Neurological exam: Alert, CN II-XII Intact - Skin Skin Exam: Dry, Warm Results - Vital Signs Recent Vital Signs: Last Vital Signs Temp 98.3 F 08/23/18 08:04 Pulse 83 08/23/18 08:04 Resp 20 08/23/18 08:04 BP 131/73 08/23/18 08:04 Pulse Ox 97 08/23/18 08:04 - Labs Result Diagrams: 08/23/18 06:34 08/23/18 06:34 Labs: Laboratory Results - last 24 hr 08/22/18 08/22/18 08/22/18 18:37 18:37 21:15 WBC 10.4 RBC 3.96 Hgb 10.4 L Hct 31.1 L MCV 78.4 L MCH 26.3 L MCHC 33.5 RDW 13.8 Plt Count 275 MPV 9.8 Neut % (Auto) 75.0 Lymph % (Auto) 18.6 L [place] % (Auto) 4.8 Eos % (Auto) 0.6 Baso % (Auto) 1.0 Neut # (Auto) 7.8 H Lymph # (Auto) 1.9 [place] # (Auto) 0.5 Eos # (Auto) 0.1 Baso # (Auto) 0.1 Retic Count Sodium 130 L Potassium 4.9 Chloride 102 Carbon Dioxide 21 L Anion Gap 11 BUN 42 H Creatinine 2.2 H Est GFR ( Amer) 29 Est GFR (Non-Af Amer) 24 POC Glucose (mg/dL) Random Glucose 350 H D Hemoglobin A1c Calcium 7.9 L Phosphorus Magnesium Iron TIBC % Saturation Ferritin Total Bilirubin AST ALT Alkaline Phosphatase Total Creatine Kinase CK-MB (Mass) Troponin I Total Protein Albumin Globulin Albumin/Globulin Ratio Lipase TSH 3rd Generation Urine Color Urine Clarity Urine pH Ur Specific Scott Urine Protein Urine Glucose (UA) Urine Ketones Urine Blood Urine Nitrate Urine Bilirubin Urine Urobilinogen Ur Leukocyte Esterase Urine WBC (Auto) Urine RBC (Auto) Urine WBC Clumps (Auto) Ur Squamous Epith Cells Urine Bacteria Urine HCG, Qual Stool Occult Blood Negative 08/23/18 08/23/18 08/23/18 06:30 06:34 06:34 WBC 8.8 RBC 3.57 L Hgb 9.4 L Hct 28.1 L MCV 78.9 L MCH 26.4 L MCHC 33.5 RDW 13.7 Plt Count 255 MPV 10.1 Neut % (Auto) 57.7 Lymph % (Auto) 31.4 [place] % (Auto) 8.5 Eos % (Auto) 1.8 Baso % (Auto) 0.6 Neut # (Auto) 5.1 Lymph # (Auto) 2.8 [place] # (Auto) 0.8 Eos # (Auto) 0.2 Baso # (Auto) 0.1 Retic Count 1.7 H Sodium 137 Potassium 4.0 Chloride 112 H Carbon Dioxide 20 L Anion Gap 9 L BUN 30 H Creatinine 1.8 H Est GFR ( Amer) 37 Est GFR (Non-Af Amer) 30 POC Glucose (mg/dL) Random Glucose 188 H D Hemoglobin A1c Calcium 7.4 L Phosphorus 3.1 Magnesium 2.2 Iron TIBC % Saturation Ferritin 10.1 Total Bilirubin 0.3 AST 18 ALT 16 Alkaline Phosphatase 84 Total Creatine Kinase 275 H CK-MB (Mass) 1.14 Troponin I < 0.0120 Total Protein 5.4 L Albumin 2.6 L D Globulin 2.8 Albumin/Globulin Ratio 0.9 L Lipase 49 TSH 3rd Generation Cancelled Urine Color Yellow Urine Clarity Hazy Urine pH 5.0 Ur Specific Scott 1.011 Urine Protein 3+ H Urine Glucose (UA) 3+ H Urine Ketones Trace Urine Blood 1+ H Urine Nitrate Negative Urine Bilirubin Negative Urine Urobilinogen Normal Ur Leukocyte Esterase 1+ H Urine WBC (Auto) 97 H Urine RBC (Auto) 6 H Urine WBC Clumps (Auto) Mod H Ur Squamous Epith Cells 3 Urine Bacteria Many H Urine HCG, Qual Stool Occult Blood 08/23/18 08/23/18 08/23/18 06:34 06:34 07:16 WBC RBC Hgb Hct MCV MCH MCHC RDW Plt Count MPV Neut % (Auto) Lymph % (Auto) [place] % (Auto) Eos % (Auto) Baso % (Auto) Neut # (Auto) Lymph # (Auto) [place] # (Auto) Eos # (Auto) Baso # (Auto) Retic Count Sodium Potassium Chloride Carbon Dioxide Anion Gap BUN Creatinine Est GFR ( Amer) Est GFR (Non-Af Amer) POC Glucose (mg/dL) 194 H Random Glucose Hemoglobin A1c 12.3 H Calcium Phosphorus Magnesium Iron 34 L TIBC 277 % Saturation 12 L Ferritin Total Bilirubin AST ALT Alkaline Phosphatase Total Creatine Kinase CK-MB (Mass) Troponin I Total Protein Albumin Globulin Albumin/Globulin Ratio Lipase TSH 3rd Generation Urine Color Urine Clarity Urine pH Ur Specific Scott Urine Protein Urine Glucose (UA) Urine Ketones Urine Blood Urine Nitrate Urine Bilirubin Urine Urobilinogen Ur Leukocyte Esterase Urine WBC (Auto) Urine RBC (Auto) Urine WBC Clumps (Auto) Ur Squamous Epith Cells Urine Bacteria Urine HCG, Qual Stool Occult Blood 08/23/18 08/23/18 11:35 11:42 WBC RBC Hgb Hct MCV MCH MCHC RDW Plt Count MPV Neut % (Auto) Lymph % (Auto) [place] % (Auto) Eos % (Auto) Baso % (Auto) Neut # (Auto) Lymph # (Auto) [place] # (Auto) Eos # (Auto) Baso # (Auto) Retic Count Sodium Potassium Chloride Carbon Dioxide Anion Gap BUN Creatinine Est GFR ( Amer) Est GFR (Non-Af Amer) POC Glucose (mg/dL) 279 H Random Glucose Hemoglobin A1c Calcium Phosphorus Magnesium Iron TIBC % Saturation Ferritin Total Bilirubin AST ALT Alkaline Phosphatase Total Creatine Kinase CK-MB (Mass) Troponin I Total Protein Albumin Globulin Albumin/Globulin Ratio Lipase TSH 3rd Generation Urine Color Urine Clarity Urine pH Ur Specific Scott Urine Protein Urine Glucose (UA) Urine Ketones Urine Blood Urine Nitrate Urine Bilirubin Urine Urobilinogen Ur Leukocyte Esterase Urine WBC (Auto) Urine RBC (Auto) Urine WBC Clumps (Auto) Ur Squamous Epith Cells Urine Bacteria Urine HCG, Qual Negative Stool Occult Blood Assessment & Plan (1) NICK (acute kidney injury) Status: Acute (2) Proteinuria Status: Acute (3) Gastroenteritis Status: Acute (4) Type 2 diabetes mellitus with diabetic nephropathy Status: Acute (5) Uncontrolled diabetes mellitus Status: Chronic - Assessment and Plan (Free Text) Plan: IV saline 100ml qh quantify protein excretion rate when NICK resolves would use BROCK I serial chemistries
[2018-08-23] MEDS: (Novolog) Insulin Aspart, Recombinant 100 u/ml 10 ml vial SC SCH ×2 (12:42→16:45)
[2018-08-23] MEDS: Iohexol 240 (50 ml) PO ONE ×2 (14:07→14:21)
[2018-08-23] MEDS ORDERED: Aluminum Hydroxide/Magnesium Hydroxide Susp (30 mL) PO SCH (14:30)
--- NOTE | 2018-08-23 14:37 | CP.PCM.PN ---
<Bradley Pickens - Last Filed: 08/23/18 19:13> Subjective - Date & Time of Evaluation Date of Evaluation: 08/23/18 Time of Evaluation: 09:20 - Subjective Subjective: PGY-[address] Sanchez, Patient is seen and examined at bedside. Patient complaining of burning pain in upper part of the abdomen, described as as burning pain that comes up and makes her feel nauseous and precipitates vomiting . Patient has vomited, but it is observed to be white, clear phlegm. Patient states she is vomiting food and medications given to her PO. Patient admits to headaches and back pain. Denies diarrhea since sunday, has not had a bowel movement. Patient denies fever, chills, chest pain, shortness of breath, dizziness, diarrhea, constipation, urinary symptoms or extremity pain or swelling. Objective - Vital Signs/Intake and Output Vital Signs (last 24 hours): Temp Pulse Resp BP Pulse Ox 98.3 F 83 20 131/73 97 08/23/18 08:04 08/23/18 08:04 08/23/18 08:04 08/23/18 08:04 08/23/18 08:04 Intake and Output: 08/23/18 08/23/18 06:59 18:59 Intake Total 1020 Balance 1020 - Medications Medications: Current Medications Acetaminophen (Tylenol 325mg Tab) 650 mg PO Q6 PRN PRN Reason: Pain, severe (8-10) Al Hydrox/Mg Hydrox/Simethicone (Maalox 30 Ml) 30 ml PO Q6H [facility] Last Admin: 08/23/18 14:36 Dose: 30 ml Dextrose (Dextrose 50% Inj) 0 ml IVP .STAT PRN; Protocol PRN Reason: Hypoglycemia Protocol Dextrose (Glutose 15) 0 gm PO .ONCE PRN; Protocol PRN Reason: Hypoglycemia Protocol Famotidine (Pepcid) 20 mg IVP Q24H [facility] Last Admin: 08/23/18 11:17 Dose: 20 mg Glucagon (Glucagen Diagnostic Kit) 0 mg IM .STAT PRN; Protocol PRN Reason: Hypoglycemia Protocol Dextrose (Dextrose 5% In Water 1000 Ml) 1,000 mls @ 0 mls/hr IV .Q0M PRN; Pr otocol PRN Reason: Hypoglycemia Protocol Sodium Chloride (Sodium Chloride 0.9%) 1,000 mls @ 100 mls/hr IV .Q10H [facility] Last Admin: 08/23/18 12:41 Dose: 100 mls/hr Influenza Virus Vaccine (Fluzone Quad [id number]) 60 mcg IM .ONCE ONE Stop: 08/24/18 10:01 Insulin Aspart (Novolog) 0 unit SC Q6 [facility]; Protocol Last Admin: 08/23/18 12:42 Dose: 3 units Metoclopramide HCl (Reglan) 10 mg IVP Q6H PRN PRN Reason: Nausea/Vomiting Ondansetron HCl (Zofran Inj) 4 mg IVP Q6 PRN PRN Reason: Nausea/Vomiting Last Admin: 08/23/18 14:07 Dose: 4 mg Pneumococcal Polyvalent Vaccine (Pneumovax 23 Vaccine) 0.5 ml IM .ONCE ONE Stop: 08/24/18 10:01 Sucralfate (Carafate Tab) 1 gm PO Q6H [facility] Last Admin: 08/23/18 11:17 Dose: 1 gm - Labs Labs: 08/23/18 06:34 08/23/18 06:34 - Constitutional Appears: Non-toxic - Head Exam Head Exam: ATRAUMATIC, NORMAL INSPECTION, NORMOCEPHALIC - Eye Exam Eye Exam: EOMI, Normal appearance - ENT Exam ENT Exam: Mucous Membranes Moist, Normal Exam - Neck Exam Neck Exam: Full ROM, Normal Inspection - Respiratory Exam Respiratory Exam: Clear to Ausculation Bilateral. absent: Rales, Rhonchi, Wheezes, Respiratory Distress - GI/Abdominal Exam GI & Abdominal Exam: Soft, Tenderness (epigastric area tenderness with light palpation ), Normal Bowel Sounds. absent: Distended, Rigid - Extremities Exam Extremities Exam: Full ROM, Normal Inspection. absent: Calf Tenderness, Pedal Edema, Tenderness - Back Exam Back Exam: Full ROM, NORMAL INSPECTION - Neurological Exam Neurological Exam: Alert, Awake, CN II-XII Intact, Oriented x3 - Psychiatric Exam Psychiatric exam: Normal Affect, Normal Mood - Skin Skin Exam: Dry, Intact, Normal Color, Warm Assessment and Plan - Assessment and Plan (Free Text) Assessment: 48 year old female with history of uncontrolled Type 2 DM who presents for abdominal pain, nausea, vomiting, diarrhea. Plan: Abdominal pain with Nausea, Vomiting, Diarrhea gastroenteritis vs GERD vs PUD r/o [place], r/o pancreatitis - ROMIx1 negative, EKG: unremarkable - Lipase: 49 - CT abd/pevis PO contrast - Patient refused to drink contrast due to nausea/vomiting - CT study cancelled - Obstructive series - f/u - consider CT abd/pelvis if symptoms persist and patient is able to tolerate it later on - Tylenol x 1 dose given for pain in am - did not resolved pain - Patient refused Morphine 1mg IV - due to patient feeling anxious after morphine given in previous hospitalizations - Maalox 30mg PO TID - sulcrafate 1gm PO QID - D/C protonix - Pepcid 20mg IVP Qdaily - Zofran 4mg IVP Q6 PRN nausea/vomiting - Reglan 5mg IVP Q6 PRN as secondary option for persistent nausea/vomiting after administration of Zofran, dosing considering renal dose appropriate for patient -NS IV fluids @100cc/hr -not tolerating clear liquid diet this morning - NPO now - GI consult- Dr Curry - help is appreciated Acute kidney injury possible secondary to dehydration, hx of uncontrolled DM -BUN 30, 1.8 - improved from original blood work done at admission -Nephrology Dr. Wong on case - quantify protein excretion rate, when NICK resolves would use BROCK I, serial chemistries -NS IV fluids @100cc/hr -Continue to monitor - bladder us- b/l echogenic renal parenchyma, nonobstructing 3mm Rt midpole calculus, prevoid urine 76.7ml, postvoid 4.8 ml, bladder wall thickening measu res 6mm History of uncontrolled DM HbA1C - 12.3 Novolog sliding scale Q6hrs Accuchecks Q6hrs Hypoglycemic protocols Endo consult- Dr Victoria upon d/c patient must be on better coverage for insulin dependent diabetes - patient educated on importance of compliance Anemia H/H 9.4 this am Iron studies - Iron/TIBC/%saturation/ferritin - 34/277/08/12 Stool occult negative continue to monitor hemoglobin levels Frothy urine UA - protein 3+, glucose 3+, blood 1+, LE 1+ f/u urine culture - pending PPX: DVT: SCDs NPO Tylenol Q6 PO PRN for pain Urine HCG - negative Plan discussed with Dr Laura Pickens, PGY-1 <Cassy Sanchez V - Last Filed: 08/27/18 17:37> Objective - Vital Signs/Intake and Output Vital Signs (last 24 hours): Temp Pulse Resp BP Pulse Ox 98.4 F 87 20 150/79 98 08/24/18 08:18 08/24/18 08:18 08/24/18 08:18 08/24/18 08:18 08/24/18 11:35 Intake and Output: 08/24/18 08/24/18 06:59 18:59 Intake Total 850 800 Balance 850 800 - Medications Medications: Current Medications Acetaminophen (Tylenol 325mg Tab) 650 mg PO Q6 PRN PRN Reason: Pain, severe (8-10) Al Hydrox/Mg Hydrox/Simethicone (Maalox 30 Ml) 30 ml PO TID PRN PRN Reason: Indigestion Last Admin: 08/24/18 10:56 Dose: 30 ml Dextrose (Dextrose 50% Inj) 0 ml IVP .STAT PRN; Protocol PRN Reason: Hypoglycemia Protocol Dextrose (Glutose 15) 0 gm PO .ONCE PRN; Protocol PRN Reason: Hypoglycemia Protocol Docusate Sodium (Colace) 100 mg PO BID [facility] Last Admin: 08/24/18 10:46 Dose: Not Given Glucagon (Glucagen Diagnostic Kit) 0 mg IM .STAT PRN; Protocol PRN Reason: Hypoglycemia Protocol Dextrose (Dextrose 5% In Water 1000 Ml) 1,000 mls @ 0 mls/hr IV .Q0M PRN; Protocol PRN Reason: Hypoglycemia Protocol Sodium Chloride (Sodium Chloride 0.9%) 1,000 mls @ 100 mls/hr IV .Q10H [facility] Last Admin: 08/24/18 10:45 Dose: 100 mls/hr Insulin Aspart (Novolog) 0 unit SC Q6 [facility]; Protocol Last Admin: 08/24/18 11:49 Dose: Not Given Metoclopramide HCl (Reglan) 10 mg IVP Q6H PRN PRN Reason: Nausea/Vomiting Ondansetron HCl (Zofran Inj) 4 mg IVP Q6 PRN PRN Reason: Nausea/Vomiting Last Admin: 08/24/18 10:45 Dose: 4 mg Pantoprazole Sodium (Protonix Inj) 40 mg IVP DAILY [facility] Last Admin: 08/24/18 12:11 Dose: 40 mg Polyethylene Glycol (Miralax) 17 gm PO DAILY [facility] Last Admin: 08/24/18 12:11 Dose: Not Given Sucralfate (Carafate Tab) 1 gm PO Q6H [facility] Last Admin: 08/24/18 11:45 Dose: Not Given - Labs Labs: 08/24/18 06:59 08/24/18 06:59 Attending/Attestation - Attestation I have personally seen and examined this patient.: Yes I have fully participated in the care of the patient.: Yes I have reviewed all pertinent clinical information, including history, physical exam and plan: Yes Notes (Text): this is late computer entry for 08/23/18. Patient seen, examined and case discussed with day-time resident. Patient seen this morning with the resident. Patient is dry heaving and has abdominal tenderness on exam. Patient does not want her liquid diet. patient refuses morphine prn. Patient refused CT abdomen/pelvis with PO contrast. Patient ordered for obstructive series, lipase, and GI consult. Patient is uncontrolled diabetic, EKG ordered, troponin negative. Endocrinology consult obtained. Per clinic EMR, patient is supposed to take Lisinopril and Lantus 22 units subQ12 but patient reports she takes once a day. Assessment/Plan 1. Abdominal pain with Nausea, Vomiting, Diarrhea Assessment/Plan * GI consult- Dr Curry - help is appreciated * patient unable to tolerate PO contrast for CT scan * We have ordered obstructive series. * Lipase normal * Start Maalox 30mg POq TID PRN indigestion * Start Sulcrafate 1gm PO QID * Pepcid 20mg IV qdaily * Zofran 4mg IVP Q6 PRN nausea/vomiting * Reglan 5mg IVP Q6 PRN as secondary option for persistent nausea/vomiting after administration of Zofran, dosing considering renal dose appropriate for patient 2. Acute kidney injury possible secondary to dehydration secondary to vomitting Assessment/Plan * Nephrology (Dr. Wong) on case-->help appreciated * NS 100cc/hr * Recommended for 24 hour urine to check for possible nephrotic syndrome * Bladder/Renal us- b/l echogenic renal parenchyma, nonobstructing 3mm Rt midpole calculus, prevoid urine 76.7ml, postvoid 4.8 ml, bladder wall thickening measures 6mm 3. History of Uncontrolled diabetes Assessment/Plan * HbA1C - 12.3 (worsen from prior a1c on record) * Novolog sliding scale Q6hrs * Accuchecks Q6hrs * Hypoglycemic protocol * Endo consult- Dr Victoria transportation job titles-->help appreciated 4 Anemia Assessment/Plan * H/H 9.4/30/09 this am * Iron studies - Iron/TIBC/%saturation/ferritin - 34/277/08/12 * Stool occult negative * continue to monitor hemoglobin levels 5. Frothy urine Assessment/Plan * UA - protein 3+, glucose 3+, blood 1+, LE 1+ * f/u urine culture - pending * possible nephrotic syndrome; pending further workup 6. PPX: * DVT Ppx: SCDs * NPO * Tylenol Q6 PO PRN for pain * Urine HCG - negative * Hypoglycemic protocl
--- NOTE | 2018-08-23 15:05 | RAD ---
Date of service: 08/23/2018 PROCEDURE: Radiographs of the chest and abdomen (obstructive series) HISTORY: abdominal pain, n/v COMPARISON: CT abdomen and pelvis with IV contrast performed 09/14/17 TECHNIQUE: AP radiograph of the chest, with upright and supine radiographs of the abdomen. FINDINGS: CHEST: Heart size appears within normal limits. No focal consolidation. No significant pleural effusion. No definite pneumothorax. ABDOMEN AND PELVIS: Moderate constipation. Nonobstructive bowel gas pattern. No definite free air. Mild degenerative changes. IMPRESSION: Moderate constipation.
[2018-08-23] MEDS: Aluminum Hydroxide/Magnesium Hydroxide Susp (30 mL) PO PRN (20:25)
[2018-08-24] MEDS: (Novolog) Insulin Aspart, Recombinant 100 u/ml 10 ml vial SC SCH ×4 (00:10→20:24)
--- NOTE | 2018-08-24 02:42 | CON ---
DATE: 08/23/2018 ENDOCRINOLOGY CONSULTATION LOCATION: Room 353. HISTORY OF PRESENT ILLNESS: This is a 48-year-old female with known history of type 2 insulin-requiring diabetes, presenting here with acute onset of upper abdominal pain with nausea, dyspepsia, intractable vomiting and diarrhea and is currently n.p.o. at this time pending a GI workup as noted and is being referred for diabetic evaluation because of marked elevation of her A1c values with 12% as noted. PAST MEDICAL HISTORY: History of type 2 insulin-requiring diabetes, currently using Lantus at 20 units subcu at bedtime daily. No rapid-acting insulin analogues being given otherwise. History of hypertension and dyslipidemia. FAMILY HISTORY: Positive for hypertension and diabetes. SOCIAL HISTORY: The patient has a supportive family. No known substance use. REVIEW OF SYSTEMS: Admits to generalized body weakness with episodic bouts of dizziness and lightheadedness, worse on the day of admission. No chest pains or palpitations. Her oral intake has been variable with sudden onset of upper abdominal pain and supervening nausea, dyspepsia and intractable vomiting and diarrhea as noted. Also admits to episodic polyuria and nocturia over the past month or so prior to admission. PHYSICAL EXAMINATION: GENERAL: Average-built female in no apparent distress. VITAL SIGNS: With a blood pressure of 140/80, pulse of 70 beats per minute and regular, temperature 98, respirations 20. Height is 5 feet 2 inches. Weight is 117 pounds. HEENT: Head is normocephalic. Eyes anicteric with pink conjunctivae. Funduscopy not possible at this time. Ears, nose, and throat otherwise normal. NECK: Supple. Thyroid gland is normal in size. No carotid bruits. No cervical adenopathy. CARDIOPULMONARY: Some adynamic precordium. S1 and S2 are rapid and regular. LUNGS: Clear to auscultation. ABDOMEN: Flat, soft with positive bowel sounds. EXTREMITIES: No peripheral edema. Pulses are +2 bilaterally. LABORATORY DATA: Chemistries showed a BUN of 30, sodium 137, potassium 4, chloride 112, CO2 of 20, glucose 188, and creatinine 1.8. Her glucose values have ranged from 194 to 279 mg/dL. ASSESSMENT: This is a 48-year-old female with uncontrolled and decompensated type 2 insulin-requiring diabetes with suboptimal metabolic control scale is related to a subtherapeutic insulin regimen. She is also presenting here with acute gastroenteritis, the etiology of which is to be ascertained, pending a gastroenterology workup at this time. PLAN OF MANAGEMENT: As the patient is still n.p.o. at this time, then we will keep her only on the basal insulin as given with a low-dose correction scale to obviate hypoglycemia. Oral intake is advanced. Then, we can switch her over to more physiologic basal and bolus insulin drug combination with Lantus given at high dose of 30 units at bedtime together with insulin analogues to be given to cover her prandial or mealtime insulin requirements. We will consider addition of NovoLog given as 10 units t.i.d. before meals as ordered. We will modify the coverage scale to obviate hypoglycemia. We will obtain serial chemistries and supplement accordingly as needed. We will follow with you. Marizol Victoria MD
[2018-08-24 07:11] LABS: BASO # 0.1 K/uL (0.0-0.2); BASO % 0.8 % (0.0-2.0); EOS # 0.2 K/uL (0.0-0.7); EOS % 2.2 % (0.0-4.0); HEMOGLOBIN 9.2 g/dL (11.0-16.0); LYMPH # 2.5 K/uL (1.0-4.3); MEAN CELL VOLUME 78.7 fL (81.0-99.0); MEAN CORPUSCULAR HEMOGLOBIN 26.1 pg (27.0-31.0); MEAN CORPUSCULAR HGB CONC 33.1 g/dL (33.0-37.0); MEAN PLATELET VOLUME 9.8 fL (7.2-11.7); MONO # 0.6 K/uL (0.0-0.8); MONO % 7.3 % (0.0-10.0); NEUT # 5.3 K/uL (1.8-7.0); NEUT % 60.7 % (50.0-75.0); RBC 3.53 Mil/uL (3.80-5.20); RED CELL DISTRIBUTION WIDTH 13.9 % (11.5-14.5); WHITE BLOOD COUNT 8.7 K/uL (4.8-10.8)
[2018-08-24] MEDS: Sodium Chloride 0.9% 1,000 ML IV SCH ×5 (07:30→21:00)
[2018-08-24 07:31] LABS: ALB/GLOB RATIO 0.9 (1.0-2.1); ALBUMIN 2.4 g/dL (3.5-5.0); CALCIUM 7.5 mg/dl (8.6-10.4)
[2018-08-24] MEDS ORDERED: Influenza Vaccine 60 MCG/0.5 ML SYR (3 yr & up) IM ONE (10:00)
[2018-08-24] MEDS ORDERED: Pneumococcal 23-Valent Vaccine IM ONE (10:00)
--- NOTE | 2018-08-24 10:14 | CP.PCM.PN ---
Subjective - Date & Time of Evaluation Date of Evaluation: 08/24/18 Time of Evaluation: 10:10 - Subjective Subjective: Less nausea, vomiting; no more diarrhea +UTI noted protein excretion test in progress Creat sl improvement with IV fluids HTN controlled Objective - Vital Signs/Intake and Output Vital Signs (last 24 hours): Temp Pulse Resp BP Pulse Ox 98.4 F 87 20 150/79 98 08/24/18 08:18 08/24/18 08:18 08/24/18 08:18 08/24/18 08:18 08/24/18 08:18 Intake and Output: 08/24/18 08/24/18 06:59 18:59 Intake Total 850 Balance 850 - Medications Medications: Current Medications Acetaminophen (Tylenol 325mg Tab) 650 mg PO Q6 PRN PRN Reason: Pain, severe (8-10) Al Hydrox/Mg Hydrox/Simethicone (Maalox 30 Ml) 30 ml PO TID PRN PRN Reason: Indigestion Last Admin: 08/23/18 20:25 Dose: 30 ml Dextrose (Dextrose 50% Inj) 0 ml IVP .STAT PRN; Protocol PRN Reason: Hypoglycemia Protocol Dextrose (Glutose 15) 0 gm PO .ONCE PRN; Protocol PRN Reason: Hypoglycemia Protocol Docusate Sodium (Colace) 100 mg PO BID [facility] Last Admin: 08/23/18 17:13 Dose: Not Given Famotidine (Pepcid) 20 mg IVP Q24H MARY Last Admin: 08/23/18 11:17 Dose: 20 mg Glucagon (Glucagen Diagnostic Kit) 0 mg IM .STAT PRN; Protocol PRN Reason: Hypoglycemia Protocol Dextrose (Dextrose 5% In Water 1000 Ml) 1,000 mls @ 0 mls/hr IV .Q0M PRN; Protocol PRN Reason: Hypoglycemia Protocol Sodium Chloride (Sodium Chloride 0.9%) 1,000 mls @ 100 mls/hr IV .Q10H [facility] Last Admin: 08/24/18 00:00 Dose: 100 mls/hr Insulin Aspart (Novolog) 0 unit SC Q6 MARY; Protocol Last Admin: 08/24/18 00:10 Dose: Not Given Metoclopramide HCl (Reglan) 5 mg IVP Q6H PRN PRN Reason: Nausea/Vomiting Last Admin: 08/24/18 00:45 Dose: 5 mg Ondansetron HCl (Zofran Inj) 4 mg IVP Q6 PRN PRN Reason: Nausea/Vomiting Last Admin: 08/23/18 20:20 Dose: 4 mg Sucralfate (Carafate Tab) 1 gm PO Q6H MARY Last Admin: 08/24/18 05:00 Dose: Not Given - Labs Labs: 08/24/18 06:59 08/24/18 06:59 - Constitutional Appears: No Acute Distress, Chronically Ill - Head Exam Head Exam: ATRAUMATIC, NORMAL INSPECTION - Eye Exam Eye Exam: EOMI, Normal appearance - Neck Exam Neck Exam: Normal Inspection. absent: Tenderness - Respiratory Exam Respiratory Exam: Clear to Ausculation Bilateral, NORMAL BREATHING PATTERN - Cardiovascular Exam Cardiovascular Exam: REGULAR RHYTHM, +S1 - GI/Abdominal Exam GI & Abdominal Exam: Soft, Tenderness - Extremities Exam Extremities Exam: Normal Inspection. absent: Tenderness - Neurological Exam Neurological Exam: Awake, CN II-XII Intact - Skin Skin Exam: Dry, Warm Assessment and Plan (1) NICK (acute kidney injury) Status: Acute (2) Proteinuria Status: Acute (3) Gastroenteritis Status: Acute (4) Type 2 diabetes mellitus with diabetic nephropathy Status: Acute (5) Uncontrolled diabetes mellitus Status: Chronic - Assessment and Plan (Free Text) Plan: Continue IV saline Treat UTI- as per medical team Check results of sonogram check for nephrotic syndrome monitor chemistries, BP
[2018-08-24] MEDS: Aluminum Hydroxide/Magnesium Hydroxide Susp (30 mL) PO PRN ×2 (10:56→20:42)
--- NOTE | 2018-08-24 11:06 | CP.PCM.CON ---
History of Present Illness - History of Present Illness History of Present Illness: 48 y/o female presents to the ER complaining of abdominal pain, vomiting and diarrhea which has been present since yesterday. Patient states that she vomited x3 today. She notes that she had bilious vomiting and she vomited food material. She notes that the vomit was like "coffee grinds" , however there was no blood. Patient also reports that she had 5 episodes of diarrhea yesterday, the diarrhea resolved today. She is complaining of feeling weak. Denies having fever, chills, and sick contacts. Patient had work up one year ago showing Diabetic gastroparesis by nuclear scan and EGD that showed no evidence of other pathology. Has mild epigastric pain today and some spitting up saliva in bedside sanches. No diarrhea, fever or chills. Review of Systems - Review of Systems Systems not reviewed;Unavailable: Language Barrier Past Patient History - Infectious Disease Hx of Infectious Diseases: None - Past Medical History & Family History Past Medical History?: Yes - Past Social History Smoking Status: Never Smoked Chewing Tobacco Use: No Cigar Use: No Alcohol: None Drugs: Denies Home Situation {Lives}: With Family - CARDIAC Hx Cardiac Disorders: No - PULMONARY Hx Respiratory Disorders: No - NEUROLOGICAL Hx Neurological Disorder: No - HEENT Hx HEENT Problems: No - RENAL Hx Chronic Kidney Disease: No - ENDOCRINE/METABOLIC Hx Endocrine Disorders: Yes Hx Diabetes Mellitus Type 2: Yes - HEMATOLOGICAL/ONCOLOGICAL Hx Blood Disorders: No Hx Cirrhosis: No Hx Hepatitis A: No Hx Hepatitis B: No Hx Hepatitis C: No - INTEGUMENTARY Hx Dermatological Problems: No - MUSCULOSKELETAL/RHEUMATOLOGICAL Hx Musculoskeletal Disorders: No Hx Falls: No - GASTROINTESTINAL Hx Gastrointestinal Disorders: Yes Hx Gastritis: Yes Hx Gastroesophageal Reflux: Yes Other/Comment: Diabetic gastroparesis - GENITOURINARY/GYNECOLOGICAL Hx Genitourinary Disorders: No - PSYCHIATRIC Hx Substance Use: No - SURGICAL HISTORY Hx Surgeries: Yes Other/Comment: Rt. eye vitrectomy. - ANESTHESIA Hx Anesthesia: Yes Hx Anesthesia Reactions: No Hx Malignant Hyperthermia: No Meds Allergies/Adverse Reactions: Allergies Allergy/AdvReac Type Severity Reaction Status Date / Time No Known Allergies Allergy Verified 08/22/18 18:09 - Medications Medications: Current Medications Acetaminophen (Tylenol 325mg Tab) 650 mg PO Q6 PRN PRN Reason: Pain, severe (8-10) Al Hydrox/Mg Hydrox/Simethicone (Maalox 30 Ml) 30 ml PO TID PRN PRN Reason: Indigestion Last Admin: 08/24/18 10:56 Dose: 30 ml Dextrose (Dextrose 50% Inj) 0 ml IVP .STAT PRN; Protocol PRN Reason: Hypoglycemia Protocol Dextrose (Glutose 15) 0 gm PO .ONCE PRN; Protocol PRN Reason: Hypoglycemia Protocol Docusate Sodium (Colace) 100 mg PO BID [facility] Last Admin: 08/24/18 10:46 Dose: Not Given Famotidine (Pepcid) 20 mg IVP Q24H [facility] Last Admin: 08/24/18 10:46 Dose: 20 mg Glucagon (Glucagen Diagnostic Kit) 0 mg IM .STAT PRN; Protocol PRN Reason: Hypoglycemia Protocol Dextrose (Dextrose 5% In Water 1000 Ml) 1,000 mls @ 0 mls/hr IV .Q0M PRN; Protocol PRN Reason: Hypoglycemia Protocol Sodium Chloride (Sodium Chloride 0.9%) 1,000 mls @ 100 mls/hr IV .Q10H [facility] Last Admin: 08/24/18 10:45 Dose: 100 mls/hr Insulin Aspart (Novolog) 0 unit SC Q6 MARY; Protocol Last Admin: 08/24/18 00:10 Dose: Not Given Metoclopramide HCl (Reglan) 5 mg IVP Q6H PRN PRN Reason: Nausea/Vomiting Last Admin: 08/24/18 00:45 Dose: 5 mg Ondansetron HCl (Zofran Inj) 4 mg IVP Q6 PRN PRN Reason: Nausea/Vomiting Last Admin: 08/24/18 10:45 Dose: 4 mg Sucralfate (Carafate Tab) 1 gm PO Q6H [facility] Last Admin: 08/24/18 05:00 Dose: Not Given Physical Exam - Constitutional Appears: No Acute Distress - Head Exam Head Exam: ATRAUMATIC, NORMOCEPHALIC - Eye Exam Eye Exam: EOMI, PERRL - Respiratory Exam Respiratory Exam: NORMAL BREATHING PATTERN - Cardiovascular Exam Cardiovascular Exam: REGULAR RHYTHM, +S1 - GI/Abdominal Exam GI & Abdominal Exam: Normal Bowel Sounds, Soft. absent: Distended, Mass, Rebound, Rigid, Tenderness - Extremities Exam Extremities exam: Positive for: normal inspection Results - Vital Signs Recent Vital Signs: Last Vital Signs Temp 98.4 F 08/24/18 08:18 Pulse 87 08/24/18 08:18 Resp 20 08/24/18 08:18 BP 150/79 08/24/18 08:18 Pulse Ox 98 08/24/18 08:18 - Labs Result Diagrams: 08/24/18 06:59 08/24/18 06:59 Labs: Laboratory Results - last 24 hr 08/23/18 08/23/18 08/23/18 06:34 11:35 11:42 WBC RBC Hgb Hct MCV MCH MCHC RDW Plt Count MPV Neut % (Auto) Lymph % (Auto) [place] % (Auto) Eos % (Auto) Baso % (Auto) Neut # (Auto) Lymph # (Auto) [place] # (Auto) Eos # (Auto) Baso # (Auto) Sodium 137 Potassium 4.0 Chloride 112 H Carbon Dioxide 20 L Anion Gap 9 L BUN 30 H Creatinine 1.8 H Est GFR ( Amer) 37 Est GFR (Non-Af Amer) 30 POC Glucose (mg/dL) 279 H Random Glucose 188 H D Calcium 7.4 L Phosphorus 3.1 Magnesium 2.2 Ferritin 10.1 Total Bilirubin 0.3 AST 18 ALT 16 Alkaline Phosphatase 84 Total Creatine Kinase 275 H CK-MB (Mass) 1.14 Troponin I < 0.0120 Total Protein 5.4 L Albumin 2.6 L D Globulin 2.8 Albumin/Globulin Ratio 0.9 L Lipase 49 TSH 3rd Generation Cancelled Ur Random Sodium Urine HCG, Qual Negative 08/23/18 08/23/18 08/23/18 15:36 16:54 21:28 WBC RBC Hgb Hct MCV MCH MCHC RDW Plt Count MPV Neut % (Auto) Lymph % (Auto) [place] % (Auto) Eos % (Auto) Baso % (Auto) Neut # (Auto) Lymph # (Auto) [place] # (Auto) Eos # (Auto) Baso # (Auto) Sodium Potassium Chloride Carbon Dioxide Anion Gap BUN Creatinine Est GFR ( Amer) Est GFR (Non-Af Amer) POC Glucose (mg/dL) 153 H 169 H Random Glucose Calcium Phosphorus Magnesium Ferritin Total Bilirubin AST ALT Alkaline Phosphatase Total Creatine Kinase CK-MB (Mass) Troponin I Total Protein Albumin Globulin Albumin/Globulin Ratio Lipase TSH 3rd Generation Ur Random Sodium 83 Urine HCG, Qual 08/24/18 08/24/1808/24/18 00:09 06:16 06:59 WBC 8.7 RBC 3.53 L Hgb 9.2 L Hct 27.8 L MCV 78.7 L MCH 26.1 L MCHC 33.1 RDW 13.9 Plt Count 236 MPV 9.8 Neut % (Auto) 60.7 Lymph % (Auto) 29.0 [place] % (Auto) 7.3 Eos % (Auto) 2.2 Baso % (Auto) 0.8 Neut # (Auto) 5.3 Lymph # (Auto) 2.5 [place] # (Auto) 0.6 Eos # (Auto) 0.2 Baso # (Auto) 0.1 Sodium Potassium Chloride Carbon Dioxide Anion Gap BUN Creatinine Est GFR ( Amer) Est GFR (Non-Af Amer) POC Glucose (mg/dL) 137 H 142 H Random Glucose Calcium Phosphorus Magnesium Ferritin Total Bilirubin AST ALT Alkaline Phosphatase Total Creatine Kinase CK-MB (Mass) Troponin I Total Protein Albumin Globulin Albumin/Globulin Ratio Lipase TSH 3rd Generation Ur Random Sodium Urine HCG, Qual 08/24/18 06:59 WBC RBC Hgb Hct MCV MCH MCHC RDW Plt Count MPV Neut % (Auto) Lymph % (Auto) [place] % (Auto) Eos % (Auto) Baso % (Auto) Neut # (Auto) Lymph # (Auto) [place] # (Auto) Eos # (Auto) Baso # (Auto) Sodium 138 Potassium 3.7 Chloride 116 H Carbon Dioxide 19 L Anion Gap 7 L BUN 20 H Creatinine 1.6 H Est GFR ( Amer) 42 Est GFR (Non-Af Amer) 35 POC Glucose (mg/dL) Random Glucose 140 H D Calcium 7.5 L Phosphorus 2.8 Magnesium 2.2 Ferritin Total Bilirubin 0.2 AST 18 ALT 16 Alkaline Phosphatase 75 Total Creatine Kinase CK-MB (Mass) Troponin I Total Protein 5.0 L Albumin 2.4 L Globulin 2.6 Albumin/Globulin Ratio 0.9 L Lipase TSH 3rd Generation Ur Random Sodium Urine HCG, Qual Assessment & Plan (1) Epigastric pain Assessment and Plan: Patient with pain, N/V likely due to diabetic gastroparesis, r/o underlying infectious etiology. Had work up one year ago for similar presentation and dysphagia. Check Ultrasound and stool studies Protonix and Reglan Glycemic control. Check cultures Status: Acute (2) Nausea and vomiting Status: Acute (3) Diabetic gastroparesis associated with type 2 diabetes mellitus Status: Acute (4) Anemia Assessment and Plan: r/o Gi blood loss and iron deficient etiology vs ACD, B12, folate deficiencies. Status: Acute
--- NOTE | 2018-08-24 11:47 | PN ---
DATE: 08/24/2018 ENDOCRINOLOGY FOLLOWUP NOTE LOCATION: Room 353. SUBJECTIVE: This is a 48-year-old female with known history of type 2 diabetes, hypertension, presenting here with upper abdominal pain and intractable vomiting and diarrhea, currently undergoing GI workup and is also being followed closely for metabolic management. She is still n.p.o. at this time and the glucose values have ranged from 137 to 142 mg/dL. LABORATORY DATA: Her chemistry showed a BUN of 20, sodium 138, potassium 3.7, chloride 116, CO2 is 19, glucose is 140, and creatinine 1.6. RECOMMENDATIONS: So at this time, we will continue the low-dose correction scale using Novolin insulin as ordered and once the GI workup is completed, then we can switch her back to a more physiologic basal and bolus insulin drug combination to optimize metabolic control. We will obtain serial chemistries and supplement accordingly as needed. We will follow. Marizol Victoria MD
--- NOTE | 2018-08-24 11:53 | US ---
Date of service: 08/24/2018 HISTORY: vomitting COMPARISON: None. TECHNIQUE: Sonographic evaluation of the abdomen. FINDINGS: LIVER: Measures 14.7 cm. Diffusely increased echogenicity of the liver parenchyma. Consistent with fatty infiltration. Smooth contour. No mass. No biliary ductal dilatation. Normal hepatopetal portal venous flow. GALLBLADDER: Unremarkable. No gallstones. COMMON BILE DUCT: Measures 3 mm. No stones. No dilatation. PANCREAS: Unremarkable as visualized. No mass. No ductal dilatation. RIGHT KIDNEY: Measures 10.8cm. Diffusely increased echogenicity. Nonobstructing 3 mm mid renal calculus. No mass. No hydronephrosis. LEFT KIDNEY: Measures 10.2cm. Diffusely increased echogenicity. No mass, calculus or hydronephrosis. SPLEEN: Normal in size and contour. No mass. AORTA: No aneurysmal dilatation. IVC: Unremarkable. OTHER FINDINGS: None. IMPRESSION: Increased renal cortical echogenicity bilaterally consistent with diffuse medical renal disease. Mild fatty infiltration of the liver. 3 mm nonobstructing mid right renal calculus.
[2018-08-24] MEDS: POLYETHYLENE GLYCOL 3350 17 GM/Dose PACKET PO SCH (12:11)
--- NOTE | 2018-08-24 12:29 | CP.PCM.PN ---
<Salazar Reynolds - Last Filed: 08/24/18 14:41> Subjective - Date & Time of Evaluation Date of Evaluation: 08/24/18 Time of Evaluation: 13:04 - Subjective Subjective: PGY3 Note for Dr. Sanchez; Medicine This patient was seen and examined at bedside this AM; states that she is still very nauseous every time she eats; denies all other symptoms; states she feels like she needs and EGD because she has "gastritis" but is failing to remember she was diagnosed last year with diabetic gastroparesis on gastric emptying study. Objective - Vital Signs/Intake and Output Vital Signs (last 24 hours): Temp Pulse Resp BP Pulse Ox 98.4 F 87 20 150/79 98 08/24/18 08:18 08/24/18 08:18 08/24/18 08:18 08/24/18 08:18 08/24/18 08:18 Intake and Output: 08/24/18 08/24/18 06:59 18:59 Intake Total 850 Balance 850 - Medications Medications: Current Medications Acetaminophen (Tylenol 325mg Tab) 650 mg PO Q6 PRN PRN Reason: Pain, severe (8-10) Al Hydrox/Mg Hydrox/Simethicone (Maalox 30 Ml) 30 ml PO TID PRN PRN Reason: Indigestion Last Admin: 08/24/18 10:56 Dose: 30 ml Dextrose (Dextrose 50% Inj) 0 ml IVP .STAT PRN; Protocol PRN Reason: Hypoglycemia Protocol Dextrose (Glutose 15) 0 gm PO .ONCE PRN; Protocol PRN Reason: Hypoglycemia Protocol Docusate Sodium (Colace) 100 mg PO BID MARY Last Admin: 08/24/18 10:46 Dose: Not Given Glucagon (Glucagen Diagnostic Kit) 0 mg IM .STAT PRN; Protocol PRN Reason: Hypoglycemia Protocol Dextrose (Dextrose 5% In Water 1000 Ml) 1,000 mls @ 0 mls/hr IV .Q0M PRN; Protocol PRN Reason: Hypoglycemia Protocol Sodium Chloride (Sodium Chloride 0.9%) 1,000 mls @ 100 mls/hr IV .Q10H MARY Last Admin: 08/24/18 10:45 Dose: 100 mls/hr Insulin Aspart (Novolog) 0 unit SC Q6 MARY; Protocol Last Admin: 08/24/18 11:49 Dose: Not Given Metoclopramide HCl (Reglan) 10 mg IVP Q6H PRN PRN Reason: Nausea/Vomiting Ondansetron HCl (Zofran Inj) 4 mg IVP Q6 PRN PRN Reason: Nausea/Vomiting Last Admin: 08/24/18 10:45 Dose: 4 mg Pantoprazole Sodium (Protonix Inj) 40 mg IVP DAILY [facility] Last Admin: 08/24/18 12:11 Dose: 40 mg Polyethylene Glycol (Miralax) 17 gm PO DAILY [facility] Last Admin: 08/24/18 12:11 Dose: Not Given Sucralfate (Carafate Tab) 1 gm PO Q6H [facility] Last Admin: 08/24/18 11:45 Dose: Not Given - Labs Labs: 08/24/18 06:59 08/24/18 06:59 - Constitutional Appears: Non-toxic - Head Exam Head Exam: ATRAUMATIC - Eye Exam Eye Exam: EOMI, PERRL - ENT Exam ENT Exam: Mucous Membranes Dry - Neck Exam Neck Exam: Full ROM - Respiratory Exam Respiratory Exam: Clear to Ausculation Bilateral, NORMAL BREATHING PATTERN. absent: Rales, Rhonchi, Wheezes - Cardiovascular Exam Cardiovascular Exam: REGULAR RHYTHM, +S1, +S2 - GI/Abdominal Exam GI & Abdominal Exam: Soft, Normal Bowel Sounds. absent: Diminished Bowel Sounds, Hernia, Hyperactive Bowel Sounds, Hypoactive Bowel Sounds, Mass, Organomegaly, Pulsatile Mass, Rebound - Extremities Exam Extremities Exam: Full ROM. absent: Calf Tenderness - Back Exam Back Exam: NORMAL INSPECTION. absent: CVA tenderness (L), CVA tenderness (R) - Neurological Exam Neurological Exam: Alert, Awake, Oriented x3 - Psychiatric Exam Psychiatric exam: Normal Affect - Skin Skin Exam: Warm Assessment and Plan - Assessment and Plan (Free Text) Assessment: 48 year old female with history of uncontrolled Type 2 DM who presents for abdominal pain, nausea, vomiting, diarrhea w/ a hx of diabetic gastroparesis confirmed by gastric emptying study 1yr ago Diabetic Gastroparesis - Lipase: 49 - CT abd/pevis PO contrast - Patient refused to drink contrast due to nausea/vomiting - CT study cancelled - Obstructive series - positive only for retained stool - consider CT abd/pelvis if symptoms persist and patient is able to tolerate it later on - Tylenol x 1 dose given for pain in am - did not resolved pain - Patient refused Morphine 1mg IV - due to patient feeling anxious after morphine given in previous hospitalizations - Maalox 30mg PO TID - sulcrafate 1gm PO QID - Pepcid 20mg IVP Qdaily - Zofran 4mg IVP Q6 PRN nausea/vomiting - Reglan 5mg IVP Q6 PRN as secondary option for persistent nausea/vomiting after administration of Zofran, dosing considering renal dose appropriate for patient -NS IV fluids @100cc/hr - GI consult- Dr Curry - help is appreciated; as per Dr. Curry patient had gastric emptying study done last year which showed extreme gastroparesis -patient would be candidate for nerve Acute kidney injury possible secondary to dehydration, hx of uncontrolled DM; improving -Nephrology Dr. Wong on case - quantify protein excretion rate, when NICK resolves would use BROCK I, serial chemistries -NS IV fluids @100cc/hr -Continue to monitor - bladder us- b/l echogenic renal parenchyma, nonobstructing 3mm Rt midpole calc ulus, prevoid urine 76.7ml, postvoid 4.8 ml, bladder wall thickening measures 6mm Uncontrolled DM w/ noncompliance +proteinuria with kidney disease stage 2 HbA1C - 12.3 Novolog sliding scale Q6hrs Accuchecks Q6hrs Hypoglycemic protocols Endo consult- Dr Victoria upon d/c patient must be on better coverage for insulin dependent diabetes - patient educated on importance of compliance Anemia;chronic H/H 9.4// this am Iron studies - Iron/TIBC/%saturation/ferritin - 34/277/08/12 Stool occult negative continue to monitor hemoglobin levels Frothy urine UA - protein 3+, glucose 3+, blood 1+, LE 1+ f/u 24 hour urine collection PPX: DVT: SCDs NPO Tylenol Q6 PO PRN for pain Urine HCG - negative Plan discussed with Dr Sanchez <Cassy Sanchez V - Last Filed: 08/27/18 17:46> Objective - Vital Signs/Intake and Output Vital Signs (last 24 hours): Temp Pulse Resp BP Pulse Ox 99.0 F 84 20 149/72 99 08/27/18 15:36 08/27/18 15:36 08/27/18 15:36 08/27/18 15:36 12/25/18 15:36 Intake and Output: 08/27/18 08/27/18 06:59 18:59 Intake Total 1100 Balance 1100 - Medications Medications: Current Medications Acetaminophen (Tylenol 325mg Tab) 650 mg PO Q6 PRN PRN Reason: Pain, severe (8-10) Al Hydrox/Mg Hydrox/Simethicone (Maalox 30 Ml) 30 ml PO TID PRN PRN Reason: Indigestion Last Admin: 08/26/18 10:27 Dose: 30 ml Amlodipine Besylate (Norvasc) 5 mg PO DAILY [facility] Last Admin: 08/27/18 09:29 Dose: 5 mg Clonidine HCl (Catapres) 0.1 mg PO TID [facility] Last Admin: 08/27/18 17:17 Dose: 0.1 mg Dextrose (Dextrose 50% Inj) 0 ml IVP .STAT PRN; Protocol PRN Reason: Hypoglycemia Protocol Dextrose (Glutose 15) 0 gm PO .ONCE PRN; Protocol PRN Reason: Hypoglycemia Protocol Dicyclomine HCl (Bentyl) 10 mg PO TID [facility] Last Admin: 08/27/18 17:17 Dose: 10 mg Docusate Sodium (Colace) 100 mg PO BID [facility] Last Admin: 08/27/18 17:17 Dose: 100 mg Erythromycin (Erythromycin) 250 mg PO TIDAC [facility]; Protocol Last Admin: 08/27/18 12:50 Dose: 250 mg Glucagon (Glucagen Diagnostic Kit) 0 mg IM .STAT PRN; Protocol PRN Reason: Hypoglycemia Protocol Dextrose (Dextrose 5% In Water 1000 Ml) 1,000 mls @ 0 mls/hr IV .Q0M PRN; Protocol PRN Reason: Hypoglycemia Protocol Ceftriaxone Sodium (Rocephin Iv 1 Gm Duplex) 50 mls @ 100 mls/hr IVPB DAILY [facility]; Protocol Last Admin: 08/27/18 09:29 Dose: 100 mls/hr Multivitamins/Vitamin C 10 ml/Thiamine HCl 100 mg/ Folic Acid 1 mg/ Sodium Chloride 1,011.2 mls @ 75 mls/hr IV Q24H [facility] Last Admin: 08/27/18 13:04 Dose: 75 mls/hr Sodium Chloride (Sodium Chloride 0.9%) 1,000 mls @ 125 mls/hr IV .Q8H [facility] Last Admin: 08/27/18 09:59 Dose: Not Given Influenza Virus Vaccine (Fluzone Quad 1801-5102) 60 mcg IM .ONCE ONE Stop: 08/30/18 10:01 Insulin Aspart (Novolog) 0 unit SC [facility]; Protocol Last Admin: 08/27/18 17:15 Dose: Not Given Insulin Glargine (Lantus) 12 unit SC [facility] Last Admin: 08/26/18 22:03 Dose: 12 u Lisinopril (Zestril) 2.5 mg PO DAILY [facility] Last Admin: 08/27/18 16:03 Dose: 2.5 mg Metoclopramide HCl (Reglan) 10 mg IVP Q6H [facility] Last Admin: 08/27/18 12:40 Dose: 10 mg Ondansetron HCl (Zofran Inj) 4 mg IVP Q6 PRN PRN Reason: Nausea/Vomiting Last Admin: 08/27/18 09:26 Dose: 4 mg Pantoprazole Sodium (Protonix Inj) 40 mg IVP DAILY [facility] Last Admin: 08/27/18 09:26 Dose: 40 mg Pneumococcal Polyvalent Vaccine (Pneumovax 23 Vaccine) 0.5 ml IM .ONCE ONE Stop: 08/30/18 10:01 Polyethylene Glycol (Miralax) 17 gm PO DAILY [facility] Last Admin: 08/27/18 09:29 Dose: 17 gm Simethicone (Mylicon Chew Tab) 80 mg PO Q6 PRN PRN Reason: GI distress Sucralfate (Carafate Tab) 1 gm PO Q6H [facility] Last Admin: 08/27/18 17:16 Dose: 1 gm - Labs Labs: 08/27/18 06:30 08/27/18 06:30 Attending/Attestation - Attestation I have personally seen and examined this patient.: Yes I have fully participated in the care of the patient.: Yes I have reviewed all pertinent clinical information, including history, physical exam and plan: Yes Notes (Text): This is late computer entry for 08/24/18. Patient seen, examined and case discussed with day-time resident. Case discussed with GI, patient has noted gastric emptying study completed last year noting severe diabetic gastroperesis as well as prior endoscopy. increased Reglan 10mg IV Q6H and ordered for abdominal US. We have explained to the patient that this caused largely in part to her uncontrolled diabetes. Patient has not received any coverage insulin given sugars per nursing staff. We will continue IV fluids in the mean time. Assessment/Plan 1. Abdominal pain with Nausea, Vomiting, Diarrhea Assessment/Plan * GI consult- Dr Curry - help is appreciated * patient unable to tolerate PO contrast for CT scan * Obstructive series: moderate constipation * Lipase normal * gastric emptying study (03/12/17): delayed gastric emptying/gastroparesis * Abdominal US (08/24/18): increased renal cortical echogenicity bilaterally consistent with diffuse medical renal disease. mild fatty infiltration of the liver. 3 mm nonbstructing mid right renal calculus * Has had prior EHD in 03/20/17--> large amount of food residue in the stomach. * c/w Maalox 30mg POq TID PRN indigestion * c/w Sulcrafate 1gm PO QID * Pepcid 20mg IV qdaily * Zofran 4mg IVP Q6 PRN nausea/vomiting * Reglan 10mg IVP Q6 PRN 2. Acute kidney injury possible secondary to dehydration secondary to vomitting Assessment/Plan * Nephrology (Dr. Wong) on case-->help appreciated * NS 100cc/hr * Recommended for 24 hour urine to check for possible nephrotic syndrome * Bladder/Renal us- b/l echogenic renal parenchyma, nonobstructing 3mm Rt midpole calculus, prevoid urine 76.7ml, postvoid 4.8 ml, bladder wall thickening measures 6mm 3. History of Uncontrolled diabetes Assessment/Plan * HbA1C - 12.3 (worsen from prior a1c on record) * Novolog sliding scale Q6hrs * Accuchecks Q6hrs * Hypoglycemic protocol * Endo consult- Dr Victoria cfo controller-->help appreciated 4 Anemia Assessment/Plan * H/H 9.4//1 this am * Iron studies - Iron/TIBC/%saturation/ferritin - 34/277/10 * Stool occult negative * continue to monitor hemoglobin levels * reticulocyte count: 1.7 5. Frothy urine Assessment/Plan * UA - protein 3+, glucose 3+, blood 1+, LE 1+ * f/u urine culture - pending * possible nephrotic syndrome; pending further workup 6. PPX: * DVT Ppx: SCDs * NPO * Tylenol Q6 PO PRN for pain * Urine HCG - negative * Hypoglycemic protocol
[2018-08-24 14:33] LABS: IRON 16 ug/dL (37-170)
[2018-08-24 14:43] LABS: % IRON SATURATION 6 (20-55); TOTAL IRON BINDING CAPACITY 275 ug/dL (250-450)
[2018-08-24 15:39] LABS: FOLATE > 20.0 ng/mL
[2018-08-25] MEDS: (Novolog) Insulin Aspart, Recombinant 100 u/ml 10 ml vial SC SCH ×5 (00:26→22:40)
[2018-08-25] MEDS: Sodium Chloride 0.9% 1,000 ML IV SCH ×5 (03:30→23:30)
[2018-08-25 08:00] LABS: BASO # 0.1 K/uL (0.0-0.2); BASO % 1.2 % (0.0-2.0); EOS # 0.2 K/uL (0.0-0.7); EOS % 2.9 % (0.0-4.0); HEMOGLOBIN 9.9 g/dL (11.0-16.0); LYMPH # 2.1 K/uL (1.0-4.3); LYMPH % 26.4 % (20.0-40.0); MEAN CELL VOLUME 79.5 fL (81.0-99.0); MEAN CORPUSCULAR HEMOGLOBIN 26.8 pg (27.0-31.0); MEAN CORPUSCULAR HGB CONC 33.7 g/dL (33.0-37.0); MEAN PLATELET VOLUME 10.1 fL (7.2-11.7); MONO # 0.9 K/uL (0.0-0.8); NEUT # 4.6 K/uL (1.8-7.0); NEUT % 58.5 % (50.0-75.0); RBC 3.69 Mil/uL (3.80-5.20); RED CELL DISTRIBUTION WIDTH 13.8 % (11.5-14.5); WHITE BLOOD COUNT 7.8 K/uL (4.8-10.8)
[2018-08-25 08:12] LABS: ALB/GLOB RATIO 0.9 (1.0-2.1); ALBUMIN 2.6 g/dL (3.5-5.0); CALCIUM 7.7 mg/dl (8.6-10.4)
[2018-08-25] MEDS: POLYETHYLENE GLYCOL 3350 17 GM/Dose PACKET PO SCH (09:46)
--- NOTE | 2018-08-25 10:14 | CP.PCM.DIS ---
<Salazar Reynolds - Last Filed: 08/25/18 14:11> Provider - Provider Date of Admission: 08/22/18 19:31 Attending physician: Sedrick Thomas MD Consults: 08/22/18 22:09 Physician Consult Routine Comment: Consulting Provider: Magda Lawson Consulting Physician: Magda Lawson Reason for Consult: NICK, hx of uncontrolled DM 08/23/18 08:58 Diabetic Education Referral Routine Comment: Physician Instructions: Reason For Exam: uncontrolled DM 08/23/18 11:15 Endocrinology Consult Routine Comment: Consulting Provider: Marizol Victoria Consulting Physician: Marizol Victoria Reason for Consult: uncontrolled DM2, HbA1c 12 08/23/18 14:24 Gastroenterology Consult Routine Comment: Consulting Provider: Sean Curry Consulting Physician: Sean Curry Reason for Consult: abdominal pain, nausea, vomiting, uncontrolled DM Time Spent in preparation of Discharge (in minutes): 45 Hospital Course - Lab Results Lab Results: Micro Results 08/23/18 06:30 Urine Urine Culture - Final Escherichia Coli Most Recent Lab Values WBC 7.8 K/uL (4.8-10.8) 08/25/18 07:49 RBC 3.69 Mil/uL (3.80-5.20) L 08/25/18 07:49 Hgb 9.9 g/dL (11.0-16.0) L 08/25/18 07:49 Hct 29.3 % (34.0-47.0) L 08/25/18 07:49 MCV 79.5 fL (81.0-99.0) L 08/25/18 07:49 MCH 26.8 pg (27.0-31.0) L 08/25/18 07:49 MCHC 33.7 g/dL (33.0-37.0) 08/25/18 07:49 RDW 13.8 % (11.5-14.5) 08/25/18 07:49 Plt Count 255 K/uL (130-400) 08/25/18 07:49 MPV 10.1 fL (7.2-11.7) 08/25/18 07:49 Neut % (Auto) 58.5 % (50.0-75.0) 08/25/18 07:49 Lymph % (Auto) 26.4 % (20.0-40.0) 08/25/18 07:49 [place] % (Auto) 11.0 % (0.0-10.0) H 08/25/18 07:49 Eos % (Auto) 2.9 % (0.0-4.0) 08/25/18 07:49 Baso % (Auto) 1.2 % (0.0-2.0) 08/25/18 07:49 Neut # (Auto) 4.6 K/uL (1.8-7.0) 08/25/18 07:49 Lymph # (Auto) 2.1 K/uL (1.0-4.3) 08/25/18 07:49 [place] # (Auto) 0.9 K/uL (0.0-0.8) H 08/25/18 07:49 Eos # (Auto) 0.2 K/uL (0.0-0.7) 08/25/18 07:49 Baso # (Auto) 0.1 K/uL (0.0-0.2) 08/25/18 07:49 Retic Count 1.7 % (0.5-1.5) H 08/23/18 06:34 Sodium 138 mmol/L (132-148) 08/25/18 07:49 Potassium 3.7 mmol/L (3.6-5.2) 08/25/18 07:49 Chloride 114 mmol/L (98-107) H 08/25/18 07:49 Carbon Dioxide 17 mmol/L (22-30) L 08/25/18 07:49 Anion Gap 11 (10-20) 08/25/18 07:49 BUN 15 mg/dL (7-17) 08/25/18 07:49 Creatinine 1.5 mg/dL (0.7-1.2) H 08/25/18 07:49 Est GFR ( Amer) 45 08/25/18 07:49 Est GFR (Non-Af Amer) 37 08/25/18 07:49 POC Glucose (mg/dL) 105 mg/dL (65-110) 08/25/18 06:15 Random Glucose 113 mg/dL (65-105) H 08/25/18 07:49 Hemoglobin A1c 12.3 % (4.2-6.5) H 08/23/18 06:34 Calcium 7.7 mg/dl (8.6-10.4) L 08/25/18 07:49 Phosphorus 2.7 mg/dL (2.5-4.5) 08/25/18 07:49 Magnesium 2.2 mg/dL (1.6-2.3) 08/25/18 07:49 Iron 16 ug/dL (37-170) L 08/24/18 13:59 TIBC 275 ug/dL (250-450) 08/24/18 13:59 % Saturation 6 (20-55) L 08/24/18 13:59 Ferritin 11.0 ng/mL 08/24/18 13:59 Total Bilirubin 0.4 mg/dL (0.2-1.3) 08/25/18 07:49 AST 18 U/L (14-36) 08/25/18 07:49 ALT 16 U/L (9-52) 08/25/18 07:49 Alkaline Phosphatase 79 U/L (38-126) 08/25/18 07:49 Total Creatine Kinase 275 U/L (30-135) H 08/23/18 06:34 CK-MB (Mass) 1.14 ng/mL (0.0-3.38) 08/23/18 06:34 Troponin I < 0.0120 ng/mL (0.00-0.120) 08/23/18 06:34 Total Protein 5.4 g/dL (6.3-8.3) L 08/25/18 07:49 Albumin 2.6 g/dL (3.5-5.0) L 08/25/18 07:49 Globulin 2.8 gm/dL (2.2-3.9) 08/25/18 07:49 Albumin/Globulin Ratio 0.9 (1.0-2.1) L 08/25/18 07:49 Lipase 49 U/L (23-300) 08/23/18 06:34 Vitamin B12 640 pg/mL (239-931) 08/24/18 13:59 Folate > 20.0 ng/mL 08/24/18 13:59 TSH 3rd Generation Cancelled 08/23/18 06:34 Urine Color Yellow (YELLOW) 08/23/18 06:30 Urine Clarity Hazy (Clear) 08/23/18 06:30 Urine pH 5.0 (5.0-8.0) 08/23/18 06:30 Ur Specific [place] 1.011 (1.003-1.030) 08/23/18 06:30 Urine Protein 3+ mg/dL (NEGATIVE) H 08/23/18 06:30 Urine Glucose (UA) 3+ mg/dL (Normal) H 08/23/18 06:30 Urine Ketones Trace mg/dL (NEGATIVE) 08/23/18 06:30 Urine Blood 1+ (NEGATIVE) H 08/23/18 06:30 Urine Nitrate Negative (NEGATIVE) 08/23/18 06:30 Urine Bilirubin Negative (NEGATIVE) 08/23/18 06:30 Urine Urobilinogen Normal mg/dL (0.2-1.0) 08/23/18 06:30 Ur Leukocyte Esterase 1+ Leoncio/uL (Negative) H 08/23/18 06:30 Urine WBC (Auto) 97 /hpf (0-5) H 08/23/18 06:30 Urine RBC (Auto) 6 /hpf (0-3) H 08/23/18 06:30 Urine WBC Clumps (Auto) Mod /hpf (NONE) H 08/23/18 06:30 Ur Squamous Epith Cells 3 /hpf (0-5) 08/23/18 06:30 Urine Bacteria Many (<OCC) H 08/23/18 06:30 Ur Random Sodium 83 mmol/L 08/23/18 15:36 Urine Collection Time 24 HRS 08/24/18 15:40 Urine Total Volume 1200 mL 08/24/18 15:40 Ur Protein 24 Hr Calc 79153.0 mg/24hr (42-225) H 08/24/18 15:40 Urine HCG, Qual Negative (NEGATIVE) 08/23/18 11:42 Stool Occult Blood Negative (NEGATIVE) 08/22/18 21:15 - Hospital Course Hospital Course: the patient initially presented with intractable vomiting and abdominal pain. Workup included GI; Dr. Curry; who states patient had a gastric emptynig study done 1 year ago which showed diabetic gastroparesis with almost 70% of food retained in the patients stomach. She was incorrectly taking her insulin, only dosing the Lantus at night instead of BID which is more physiologic. The patient has no problem filling the Lantus Meds: Lantus 22 units HS, and will need daytime (10am) dosing. Patient has been NPO since she has been here not requiring insulin; will need to titrate based on BS at home when she is eating normally -Reglan QID 10mg for diabetic gastroparesis -f/u at [facility] in [place] in 1 week to adjust insulin dosing -patient will need referral for Nephrology f/u as well as GI followup The patient is stable for d/c as per Dr. Sanchez Discharge Exam - Head Exam Head Exam: ATRAUMATIC - Eye Exam Eye Exam: EOMI, Normal appearance, PERRL Pupil Exam: PERRL - ENT Exam ENT Exam: Mucous Membranes Moist - Neck Exam Neck exam: Full Rom - Respiratory Exam Respiratory Exam: Clear to PA & Lateral, UNREMARKABLE. absent: Rales, Rhonchi, Wheezes - Cardiovascular Exam Cardiovascular Exam: REGULAR RHYTHM, +S1, +S2 - GI/Abdominal Exam GI & Abdominal Exam: Normal Bowel Sounds - Extremities Exam Extremities exam: full ROM - Back Exam Back exam: absent: CVA tenderness (L), CVA tenderness (R) - Neurological Exam Neurological exam: Alert, Oriented x3 - Skin Skin Exam: Warm Discharge Plan - Discharge Medications Prescriptions: Metoclopramide [Reglan] 10 mg PO Q8H 90 Days #270 tab - Follow Up Plan Condition: SERIOUS Disposition: OTHER INSTITUTION Instructions: Diabetic Neuropathy, Diabetes Diet , Gastroparesis (Delayed Gastric Emptying) <Cassy Sanchez V - Last Filed: 08/25/18 19:54> Provider - Provider Date of Admission: 08/22/18 19:31 Attending physician: Sedrick Thomas MD Consults: 08/22/18 22:09 Physician Consult Routine Comment: Consulting Provider: Magda Lawson Consulting Physician: Magda Lawson Reason for Consult: NICK, hx of uncontrolled DM 08/23/18 08:58 Diabetic Education Referral Routine Comment: Physician Instructions: Reason For Exam: uncontrolled DM 08/23/18 11:15 Endocrinology Consult Routine Comment: Consulting Provider: Marizol Victoria Consulting Physician: Marizol Victoria Reason for Consult: uncontrolled DM2, HbA1c 12 08/23/18 14:24 Gastroenterology Consult Routine Comment: Consulting Provider: Sean Curry Consulting Physician: Sean Curry Reason for Consult: abdominal pain, nausea, vomiting, uncontrolled DM Hospital Course - Lab Results Lab Results: Micro Results 12/21/18 06:30 Urine Urine Culture - Final Escherichia Coli Most Recent Lab Values WBC 9.1 K/uL (4.8-10.8) 08/25/18 15:01 RBC 3.61 Mil/uL (3.80-5.20) L 08/25/18 15:01 Hgb 9.7 g/dL (11.0-16.0) L 08/25/18 15:01 Hct 28.9 % (34.0-47.0) L 08/25/18 15:01 MCV 80.0 fL (81.0-99.0) L 08/25/18 15:01 MCH 26.9 pg (27.0-31.0) L 08/25/18 15:01 MCHC 33.6 g/dL (33.0-37.0) 08/25/18 15:01 RDW 13.8 % (11.5-14.5) 08/25/18 15:01 Plt Count 261 K/uL (130-400) 08/25/18 15:01 MPV 9.8 fL (7.2-11.7) 08/25/18 15:01 Neut % (Auto) 63.5 % (50.0-75.0) 08/25/18 15:01 Lymph % (Auto) 25.6 % (20.0-40.0) 08/25/18 15:01 [place] % (Auto) 8.3 % (0.0-10.0) 08/25/18 15:01 Eos % (Auto) 1.8 % (0.0-4.0) 08/25/18 15:01 Baso % (Auto) 0.8 % (0.0-2.0) 08/25/18 15:01 Neut # (Auto) 5.8 K/uL (1.8-7.0) 08/25/18 15:01 Lymph # (Auto) 2.3 K/uL (1.0-4.3) 08/25/18 15:01 [place] # (Auto) 0.7 K/uL (0.0-0.8) 08/25/18 15:01 Eos # (Auto) 0.2 K/uL (0.0-0.7) 08/25/18 15:01 Baso # (Auto) 0.1 K/uL (0.0-0.2) 08/25/18 15:01 Retic Count 1.7 % (0.5-1.5) H 08/23/18 06:34 Sodium 137 mmol/L (132-148) 08/25/18 14:43 Potassium 3.8 mmol/L (3.6-5.2) 08/25/18 14:43 Chloride 111 mmol/L (98-107) H 08/25/18 14:43 Carbon Dioxide 16 mmol/L (22-30) L 08/25/18 14:43 Anion Gap 13 (10-20) 08/25/18 14:43 BUN 15 mg/dL (7-17) 08/25/18 14:43 Creatinine 1.6 mg/dL (0.7-1.2) H 08/25/18 14:43 Est GFR ( Amer) 42 08/25/18 14:43 Est GFR (Non-Af Amer) 35 08/25/18 14:43 POC Glucose (mg/dL) 139 mg/dL (65-110) H 08/25/18 17:56 Random Glucose 166 mg/dL (65-105) H D 08/25/18 14:43 Hemoglobin A1c 12.3 % (4.2-6.5) H 08/23/18 06:34 Calcium 7.9 mg/dl (8.6-10.4) L 08/25/18 14:43 Phosphorus 2.7 mg/dL (2.5-4.5) 08/25/18 07:49 Magnesium 2.2 mg/dL (1.6-2.3) 08/25/18 14:43 Iron 16 ug/dL (37-170) L 08/24/18 13:59 TIBC 275 ug/dL (250-450) 08/24/18 13:59 % Saturation 6 (20-55) L 08/24/18 13:59 Ferritin 11.0 ng/mL 08/24/18 13:59 Total Bilirubin 0.4 mg/dL (0.2-1.3) 08/25/18 07:49 AST 18 U/L (14-36) 08/25/18 07:49 ALT 16 U/L (9-52) 08/25/18 07:49 Alkaline Phosphatase 79 U/L (38-126) 08/25/18 07:49 Total Creatine Kinase 209 U/L (30-135) H 08/25/18 14:43 CK-MB (Mass) 1.39 ng/mL (0.0-3.38) 08/25/18 14:43 Troponin I < 0.0120 ng/mL (0.00-0.120) 08/25/18 14:43 Total Protein 5.4 g/dL (6.3-8.3) L 08/25/18 07:49 Albumin 2.6 g/dL (3.5-5.0) L 08/25/18 07:49 Globulin 2.8 gm/dL (2.2-3.9) 08/25/18 07:49 Albumin/Globulin Ratio 0.9 (1.0-2.1) L 08/25/18 07:49 Lipase 49 U/L (23-300) 08/23/18 06:34 Vitamin B12 640 pg/mL (239-931) 08/24/18 13:59 Folate > 20.0 ng/mL 08/24/18 13:59 TSH 3rd Generation Cancelled 08/23/18 06:34 Urine Color Yellow (YELLOW) 08/23/18 06:30 Urine Clarity Hazy (Clear) 08/23/18 06:30 Urine pH 5.0 (5.0-8.0) 08/23/18 06:30 Ur Specific [place] 1.011 (1.003-1.030) 08/23/18 06:30 Urine Protein 3+ mg/dL (NEGATIVE) H 08/23/18 06:30 Urine Glucose (UA) 3+ mg/dL (Normal) H 08/23/18 06:30 Urine Ketones Trace mg/dL (NEGATIVE) 08/23/18 06:30 Urine Blood 1+ (NEGATIVE) H 08/23/18 06:30 Urine Nitrate Negative (NEGATIVE) 08/23/18 06:30 Urine Bilirubin Negative (NEGATIVE) 08/23/18 06:30 Urine Urobilinogen Normal mg/dL (0.2-1.0) 08/23/18 06:30 Ur Leukocyte Esterase 1+ Leoncio/uL (Negative) H 08/23/18 06:30 Urine WBC (Auto) 97 /hpf (0-5) H 08/23/18 06:30 Urine RBC (Auto) 6 /hpf (0-3) H 08/23/18 06:30 Urine WBC Clumps (Auto) Mod /hpf (NONE) H 08/23/18 06:30 Ur Squamous Epith Cells 3 /hpf (0-5) 08/23/18 06:30 Urine Bacteria Many (<OCC) H 08/23/18 06:30 Ur Random Sodium 83 mmol/L 08/23/18 15:36 Urine Collection Time 24 HRS 08/24/18 15:40 Urine Total Volume 1200 mL 08/24/18 15:40 Ur Protein 24 Hr Calc 88756.0 mg/24hr (42-225) H 08/24/18 15:40 Urine HCG, Qual Negative (NEGATIVE) 08/23/18 11:42 Stool Occult Blood Negative (NEGATIVE) 08/22/18 21:15 Attending/Attestation - Attestation I have personally seen and examined this patient.: Yes I have fully participated in the care of the patient.: Yes I have reviewed all pertinent clinical information, including history, physical exam and plan: Yes Notes (Text): Patient seen, examined and case discussed with medical instructor. patient seen this morning. Amenable to trying to advance diet. belly benign on my exam. However, patient was STOCK LAYER for uncontrolled blood pressure, abdominal pain. Patient received 2 doses of nitrosublingual which helped to lower blood pressure and pain relief. EKG did not show any ST segment elevation. Troponin is negati ve. Discharge cancelled in light of the STOCK LAYER. I spoke with patient and brother at bedside, patient is anxious thinks she needs an endoscopy; I did explain to her and her brother she has diabetic gastr opersis, due to her severely uncontrolled diabetes which causes the intestines to slow down the movement of food. I provide them information for the medication as well as in [place]. I spoke with her evening nurse to provide further information. Patient's blood pressure uncontrolled; contributing factor likely her nausea/vomitting. given stat dose of Lisinopril 5mg PO X1.
[2018-08-25] MEDS: cefTRIAXone IV 1 gm in Dextros 50 ML IVPB SCH (12:20)
--- NOTE | 2018-08-25 13:12 | CP.PCM.PN ---
Subjective - Date & Time of Evaluation Date of Evaluation: 08/25/18 Time of Evaluation: 13:10 - Subjective Subjective: Less pain and vomiting. Still requesting EGD though there is no clinical reason to repeat exam that ws done last year leading to diagnosis of gastroparesis. Continue supportive care and discharge planning for discharge today Objective - Vital Signs/Intake and Output Vital Signs (last 24 hours): Temp Pulse Resp BP Pulse Ox 98.2 F 90 20 166/80 H 96 08/25/18 07:57 08/25/18 07:57 08/25/18 07:57 08/25/18 07:57 08/25/18 09:00 Intake and Output: 08/25/18 08/25/18 06:59 18:59 Intake Total 800 Balance 800 - Medications Medications: Current Medications Acetaminophen (Tylenol 325mg Tab) 650 mg PO Q6 PRN PRN Reason: Pain, severe (8-10) Al Hydrox/Mg Hydrox/Simethicone (Maalox 30 Ml) 30 ml PO TID PRN PRN Reason: Indigestion Last Admin: 08/24/18 20:42 Dose: 30 ml Dextrose (Dextrose 50% Inj) 0 ml IVP .STAT PRN; Protocol PRN Reason: Hypoglycemia Protocol Dextrose (Glutose 15) 0 gm PO .ONCE PRN; Protocol PRN Reason: Hypoglycemia Protocol Docusate Sodium (Colace) 100 mg PO BID MARY Last Admin: 08/25/18 09:45 Dose: 100 mg Glucagon (Glucagen Diagnostic Kit) 0 mg IM .STAT PRN; Protocol PRN Reason: Hypoglycemia Protocol Dextrose (Dextrose 5% In Water 1000 Ml) 1,000 mls @ 0 mls/hr IV .Q0M PRN; Protocol PRN Reason: Hypoglycemia Protocol Sodium Chloride (Sodium Chloride 0.9%) 1,000 mls @ 100 mls/hr IV .Q10H MARY Last Admin: 08/25/18 05:56 Dose: 100 mls/hr Ceftriaxone Sodium (Rocephin Iv 1 Gm Duplex) 50 mls @ 100 mls/hr IVPB DAILY MARY; Protocol Last Admin: 08/25/18 12:20 Dose: 100 mls/hr Insulin Aspart (Novolog) 0 unit SC ACHS MARY; Protocol Last Admin: 08/25/18 11:37 Dose: Not Given Metoclopramide HCl (Reglan) 10 mg IVP Q6H PRN PRN Reason: Nausea/Vomiting Last Admin: 08/25/18 04:43 Dose: 10 mg Ondansetron HCl (Zofran Inj) 4 mg IVP Q6 PRN PRN Reason: Nausea/Vomiting Last Admin: 08/24/18 17:40 Dose: 4 mg Pantoprazole Sodium (Protonix Inj) 40 mg IVP DAILY [facility] Last Admin: 08/25/18 09:46 Dose: 40 mg Polyethylene Glycol (Miralax) 17 gm PO DAILY [facility] Last Admin: 08/25/18 09:46 Dose: 17 gm Sucralfate (Carafate Tab) 1 gm PO Q6H [facility] Last Admin: 08/25/18 10:06 Dose: 1 gm - Labs Labs: 08/25/18 07:49 08/25/18 07:49 - Constitutional Appears: No Acute Distress - Head Exam Head Exam: ATRAUMATIC, NORMOCEPHALIC - Eye Exam Eye Exam: EOMI, PERRL - Respiratory Exam Respiratory Exam: NORMAL BREATHING PATTERN - Cardiovascular Exam Cardiovascular Exam: REGULAR RHYTHM - GI/Abdominal Exam GI & Abdominal Exam: Guarding, Soft, Normal Bowel Sounds. absent: Tenderness, Mass, Rebound - Extremities Exam Extremities Exam: Normal Inspection Assessment and Plan (1) Epigastric pain Assessment & Plan: improving on medications and dietary control Status: Acute (2) Nausea and vomiting Assessment & Plan: due to gastroparesis Status: Acute (3) Diabetic gastroparesis associated with type 2 diabetes mellitus Assessment & Plan: Continue supportive care and improve glycemic control Status: Chronic (4) Anemia Assessment & Plan: H/H are stable while indices indicate iron deficiency. Advise iron supplementation that can be done as out patient as well. No bleeding but stool occult blood not reported. Status: Acute
[2018-08-25] MEDS: Aluminum Hydroxide/Magnesium Hydroxide Susp (30 mL) PO PRN (13:36)
[2018-08-25] MEDS ORDERED: Labetalol 5mg/ml (4ml) IV ONE (14:23)
[2018-08-25] MEDS ORDERED: Aluminum Hydroxide/Magnesium Hydroxide Susp (30 mL) PO ONE (14:30)
--- NOTE | 2018-08-25 14:41 | PCM.RRT ---
<Salazar Reynolds - Last Filed: 08/25/18 14:38> LADIES UNDERWEAR OPERATOR Nurses Assessment - Situation Date: 08/25/18 Time LADIES UNDERWEAR OPERATOR was called: 14:38 LADIES UNDERWEAR OPERATOR Responder Arrival Time:: 14:38 LADIES UNDERWEAR OPERATOR Location:: 3T Med/Oncology LADIES UNDERWEAR OPERATOR Reason for Call: Chest Pain LADIES UNDERWEAR OPERATOR Called By: RN - IV IV Inserted during LADIES UNDERWEAR OPERATOR?: No - Respiratory LADIES UNDERWEAR OPERATOR Delivery Method: Room Air Received Nebulizer Treatments: No Was the Patient Ventilated with Bag/Mask 100% O2?: No Secretions Suctioned?: No Was the Patient Intubated?: No Was the Patient Placed on a Ventilator?: No - Diagnostic Test Ordered EKG: Yes (NSR with T wave inversions) Chest X-Ray: Yes (no acute findings) CT Scan: No - Stat Labs Ordered LADIES UNDERWEAR OPERATOR Stat Labs Ordered: BMP, TROPONIN CPR started during LADIES UNDERWEAR OPERATOR?: No - [place] Coma Scale Coma Scale Eye Opening: Spontaneous Coma Scale Motor: Obeys Commands Movement Coma Scale Verbal: Oriented Coma Scale Total: 15 - Recommendations 5) LADIES UNDERWEAR OPERATOR Level of Care Recommendations: Remain in current setting Notifications: Attending Physician I.Reason for LADIES UNDERWEAR OPERATOR - A) Acute Change in Patient: (Select all that apply): Staff member or family is worried about patient - Neurological Status (Select all that apply): Alert, Responsive, Oriented, Verbal, Follows Commands - Respiratory Oxygen Delivery Method: Room Air - Constitutional Appears: In Acute Distress, Chronically Ill - Head Head Exam: ATRAUMATIC - Eyes Eye Exam: EOMI - Respiratory Exam Respiratory Exam: Clear to Ausculation Bilateral, NORMAL BREATHING PATTERN. absent: Rales, Rhonchi, Wheezes - Cardiovascular Exam Cardiovascular Exam: REGULAR RHYTHM, +S1, +S2 - GI/Abdominal Exam GI & Abdominal Exam: Soft, Normal Bowel Sounds - Neurological Exam Neurological Exam: Alert, Awake, Oriented x3 - Extremities Exam Extremities Exam: Normal Inspection Plan - Assessment of Findings&Treatment Plan 48yo F w/ DM2 on insulin, uncontrolled, with diabetic gastroparesis patient was originally cleared for d/c however started to have crushing chest pain with shortness of breath BP was 194/94, HR 105, 100% on RA, BS 168 Sublingual nitro was given BP corrected to 177/95 second nitro was given after 5 min BP was 154/84 Patient feels much better after the nitroglycerin MOOK, CMP, Mag/Phos, EKG was ordered, chest xray EKG was NSR w T wave inversions CHest xray clear no cardiomegaly or infiltrates seen Pt continues to have abdominal/chest pain hba1c 12.3; high risk for ACS If MOOK elevated will transfer to tele stay on med/surg for now Case discussed and seen with Dr. Laura Reynolds PGY3 <Cassy Sanchez V - Last Filed: 08/27/18 17:49> LADIES UNDERWEAR OPERATOR Nurses Assessment - Vital Signs Vital Signs: Rapid Response Vital Sign Blood Pressure 194/96 Pulse Rate 105 Respiratory Rate 22 Temperature 97.8 F Oxygen Saturation 100 - Vital Signs at end of LADIES UNDERWEAR OPERATOR Vital Signs at end of LADIES UNDERWEAR OPERATOR: Rapid Response End Vital Sign Blood Pressure 161/83 Pulse Rate 93 Respiratory Rate 20 Temperature 97.9 F O2 Sat by Pulse Oximetry 100 Attending/Attestation - Attestation I have personally seen and examined this patient.: Yes I have fully participated in the care of the patient.: Yes I have reviewed all pertinent clinical information, including history, physical exam and plan: Yes Notes (Text): This is late computer entry for 08/25/18. Patient seen, examined and case discussed with biomedical engineering director. Patient called for uncontrolled blood pressure, chest pain. Patient given 2 nitrosublingual at bedside which has helped resolved her pain and improve her blood pressure. Repeat EKG is the same. Troponin negative on the floor. Patient has severe diabetic gastropersis with associated reflux. Patient given her diabetes will likely need a cardiac workup as outpatient however, her ekg is unchanged, and troponin negative. Patient medically stable for the floor. Patient was set to be discharge earlier today prior to the event.
[2018-08-25 15:08] LABS: BASO # 0.1 K/uL (0.0-0.2); BASO % 0.8 % (0.0-2.0); EOS # 0.2 K/uL (0.0-0.7); EOS % 1.8 % (0.0-4.0); HEMOGLOBIN 9.7 g/dL (11.0-16.0); LYMPH # 2.3 K/uL (1.0-4.3); LYMPH % 25.6 % (20.0-40.0); MEAN CORPUSCULAR HEMOGLOBIN 26.9 pg (27.0-31.0); MEAN CORPUSCULAR HGB CONC 33.6 g/dL (33.0-37.0); MEAN PLATELET VOLUME 9.8 fL (7.2-11.7); MONO # 0.7 K/uL (0.0-0.8); MONO % 8.3 % (0.0-10.0); NEUT # 5.8 K/uL (1.8-7.0); NEUT % 63.5 % (50.0-75.0); RBC 3.61 Mil/uL (3.80-5.20); RED CELL DISTRIBUTION WIDTH 13.8 % (11.5-14.5); WHITE BLOOD COUNT 9.1 K/uL (4.8-10.8)
[2018-08-25 15:11] LABS: BLOOD UREA NITROGEN 15 mg/dL (7-17); CALCIUM 7.9 mg/dl (8.6-10.4); GFR NON-AFRICAN AMERICAN 35
[2018-08-25 15:41] LABS: CK-MB 1.39 ng/mL (0.0-3.38)
--- NOTE | 2018-08-25 17:30 | RAD ---
Date of service: 08/25/2018 HISTORY: chest pain COMPARISON: 01/23/2016 FINDINGS: LUNGS: No active pulmonary disease. PLEURA: No significant pleural effusion identified, no pneumothorax apparent. CARDIOVASCULAR: No aortic atherosclerotic calcification present. Normal cardiac size. No pulmonary vascular congestion. OSSEOUS STRUCTURES: No significant abnormalities. VISUALIZED UPPER ABDOMEN: Normal. OTHER FINDINGS: None. IMPRESSION: No active disease.
[2018-08-26] MEDS: Aluminum Hydroxide/Magnesium Hydroxide Susp (30 mL) PO PRN ×2 (01:35→10:27)
[2018-08-26 06:27] LABS: BASO # 0.1 K/uL (0.0-0.2); BASO % 0.8 % (0.0-2.0); EOS % 0.2 % (0.0-4.0); HEMOGLOBIN 10.2 g/dL (11.0-16.0); MEAN CELL VOLUME 79.5 fL (81.0-99.0); MEAN CORPUSCULAR HEMOGLOBIN 26.8 pg (27.0-31.0); MEAN CORPUSCULAR HGB CONC 33.7 g/dL (33.0-37.0); MEAN PLATELET VOLUME 9.5 fL (7.2-11.7); MONO # 0.5 K/uL (0.0-0.8); NEUT # 7.6 K/uL (1.8-7.0); RBC 3.79 Mil/uL (3.80-5.20); WHITE BLOOD COUNT 9.1 K/uL (4.8-10.8)
[2018-08-26 06:43] LABS: ALBUMIN 2.8 g/dL (3.5-5.0)
--- NOTE | 2018-08-26 08:09 | PN ---
DATE: 08/25/2018 ENDOCRINOLOGY FOLLOWUP NOTE LOCATION: Room 353. SUBJECTIVE: This is a 48-year-old female with recent admission for acute gastroenteritis and associated loose watery diarrhea, currently advanced now to a liquid diet with ongoing GI workup as noted. Her glycemic levels are fluctuating, but much improved at this time. LABORATORY DATA: Her glucose values have ranged from 105 to 132 and 156 mg/dL. Her chemistry showed the BUN of 15, sodium 138, potassium 3.7, chloride 114, CO2 of 17, glucose 113, and creatinine 1.5. ASSESSMENT AND PLAN: So, at this time, we will continue the present medical management and also the same low-dose correction scale using NovoLog insulin as ordered. As hyperglycemic levels supervene, then we would restart her on the more physiologic basal and bolus insulin drug combination with Lantus at bedtime and NovoLog at mealtime as indicated. We will follow. Marizol Victoria MD
[2018-08-26] MEDS: (Novolog) Insulin Aspart, Recombinant 100 u/ml 10 ml vial SC SCH ×4 (08:50→22:05)
[2018-08-26] MEDS: cefTRIAXone IV 1 gm in Dextros 50 ML IVPB SCH (10:01)
[2018-08-26] MEDS: POLYETHYLENE GLYCOL 3350 17 GM/Dose PACKET PO SCH (10:01)
[2018-08-26] MEDS: Sodium Chloride 0.9% 1,000 ML IV SCH ×2 (10:10→22:06)
--- NOTE | 2018-08-26 12:12 | CP.PCM.PN ---
Subjective - Date & Time of Evaluation Date of Evaluation: 08/26/18 Time of Evaluation: 12:09 - Subjective Subjective: Still with nausea, abdominal pains creat same 1.6 HTN moderately elevated remains on fluids IV Objective - Vital Signs/Intake and Output Vital Signs (last 24 hours): Temp Pulse Resp BP Pulse Ox 98.4 F 91 H 20 151/84 H 97 08/26/18 07:42 08/26/18 07:42 08/26/18 07:42 08/26/18 07:42 08/26/18 11:29 - Medications Medications: Current Medications Acetaminophen (Tylenol 325mg Tab) 650 mg PO Q6 PRN PRN Reason: Pain, severe (8-10) Al Hydrox/Mg Hydrox/Simethicone (Maalox 30 Ml) 30 ml PO TID PRN PRN Reason: Indigestion Last Admin: 08/26/18 10:27 Dose: 30 ml Amlodipine Besylate (Norvasc) 5 mg PO DAILY [facility] Last Admin: 08/26/18 10:00 Dose: 5 mg Dextrose (Dextrose 50% Inj) 0 ml IVP .STAT PRN; Protocol PRN Reason: Hypoglycemia Protocol Dextrose (Glutose 15) 0 gm PO .ONCE PRN; Protocol PRN Reason: Hypoglycemia Protocol Dicyclomine HCl (Bentyl) 10 mg PO TID [facility] Last Admin: 08/26/18 10:00 Dose: 10 mg Docusate Sodium (Colace) 100 mg PO BID MARY Last Admin: 08/26/18 10:00 Dose: 100 mg Glucagon (Glucagen Diagnostic Kit) 0 mg IM .STAT PRN; Protocol PRN Reason: Hypoglycemia Protocol Dextrose (Dextrose 5% In Water 1000 Ml) 1,000 mls @ 0 mls/hr IV .Q0M PRN; Protocol PRN Reason: Hypoglycemia Protocol Sodium Chloride (Sodium Chloride 0.9%) 1,000 mls @ 100 mls/hr IV .Q10H [facility] Last Admin: 08/25/18 23:30 Dose: Not Given Ceftriaxone Sodium (Rocephin Iv 1 Gm Duplex) 50 mls @ 100 mls/hr IVPB DAILY MARY; Protocol Last Admin: 08/26/18 10:01 Dose: 100 mls/hr Insulin Aspart (Novolog) 0 unit SC ACHS [facility]; Protocol Last Admin: 08/26/18 11:50 Dose: 1 units Metoclopramide HCl (Reglan) 10 mg IVP Q6H PRN PRN Reason: Nausea/Vomiting Last Admin: 08/26/18 10:27 Dose: 10 mg Nitroglycerin (Nitrostat Sl Tab) 0.4 mg SL Q5M PRN PRN Reason: chest pain Ondansetron HCl (Zofran Inj) 4 mg IVP Q6 PRN PRN Reason: Nausea/Vomiting Last Admin: 08/26/18 11:48 Dose: 4 mg Pantoprazole Sodium (Protonix Inj) 40 mg IVP DAILY [facility] Last Admin: 08/26/18 10:01 Dose: 40 mg Polyethylene Glycol (Miralax) 17 gm PO DAILY [facility] Last Admin: 08/26/18 10:01 Dose: 17 gm Sucralfate (Carafate Tab) 1 gm PO Q6H [facility] Last Admin: 08/26/18 10:00 Dose: 1 gm - Labs Labs: 08/26/18 06:19 08/26/18 06:19 - Constitutional Appears: In Acute Distress, Chronically Ill - Head Exam Head Exam: ATRAUMATIC, NORMAL INSPECTION - Eye Exam Eye Exam: EOMI, Normal appearance - Respiratory Exam Respiratory Exam: Clear to Ausculation Bilateral, NORMAL BREATHING PATTERN - Cardiovascular Exam Cardiovascular Exam: REGULAR RHYTHM, +S1 - GI/Abdominal Exam GI & Abdominal Exam: Soft, Tenderness - Extremities Exam Extremities Exam: Normal Inspection. absent: Tenderness - Neurological Exam Neurological Exam: Awake, CN II-XII Intact - Skin Skin Exam: Dry, Warm Assessment and Plan (1) NICK (acute kidney injury) Status: Acute (2) Proteinuria Status: Acute (3) Gastroenteritis Status: Acute (4) Type 2 diabetes mellitus with diabetic nephropathy Status: Acute (5) Uncontrolled diabetes mellitus Status: Chronic - Assessment and Plan (Free Text) Plan: Add po clonidine for HTN control, possible rx of gastroparesis
[2018-08-26] MEDS ORDERED: Multivitamin (MVI) 10 ML, Thiamine 100 MG, Folic Acid 1 MG in Sodium Chloride 0.9% 1,00... IV ONE (12:47)
--- NOTE | 2018-08-26 12:47 | CP.PCM.PN ---
<Bradley Pickens - Last Filed: 08/26/18 16:34> Subjective - Date & Time of Evaluation Date of Evaluation: 08/26/18 Time of Evaluation: 07:00 - Subjective Subjective: Progress note for Dr Sanchez service Patient is seen and examined at bedside. Patient was found on flexed/ position by side of bed, close to a bucket where patient was recently vomiting bright yellow fluid, but no blood. Patint state she vomited 6 times last night and including this morning. Patient continues to complain of pressure like epigastric pain and not tolerating foods, as she vomits anything she puts in her mouth, including water and jello. Patient states medication do not help with her symptoms. Patient denies fever, chills, chest pain, shortness of breath, diarrhea. Patient admits to having gone to the bathroom since Sunday. Objective - Vital Signs/Intake and Output Vital Signs (last 24 hours): Temp Pulse Resp BP Pulse Ox 98.4 F 91 H 20 151/84 H 97 08/26/18 07:42 08/26/18 07:42 08/26/18 07:42 08/26/18 07:42 08/26/18 11:29 - Medications Medications: Current Medications Acetaminophen (Tylenol 325mg Tab) 650 mg PO Q6 PRN PRN Reason: Pain, severe (8-10) Al Hydrox/Mg Hydrox/Simethicone (Maalox 30 Ml) 30 ml PO TID PRN PRN Reason: Indigestion Last Admin: 08/26/18 10:27 Dose: 30 ml Amlodipine Besylate (Norvasc) 5 mg PO DAILY [facility] Last Admin: 08/26/18 10:00 Dose: 5 mg Clonidine HCl (Catapres) 0.1 mg PO TID [facility] Dextrose (Dextrose 50% Inj) 0 ml IVP .STAT PRN; Protocol PRN Reason: Hypoglycemia Protocol Dextrose (Glutose 15) 0 gm PO .ONCE PRN; Protocol PRN Reason: Hypoglycemia Protocol Dicyclomine HCl (Bentyl) 10 mg PO TID [facility] Last Admin: 08/26/18 10:00 Dose: 10 mg Docusate Sodium (Colace) 100 mg PO BID [facility] Last Admin: 08/26/18 10:00 Dose: 100 mg Erythromycin (Erythromycin) 250 mg PO Q8H MARY; Protocol Glucagon (Glucagen Diagnostic Kit) 0 mg IM .STAT PRN; Protocol PRN Reason: Hypoglycemia Protocol Dextrose (Dextrose 5% In Water 1000 Ml) 1,000 mls @ 0 mls/hr IV .Q0M PRN; Protocol PRN Reason: Hypoglycemia Protocol Sodium Chloride (Sodium Chloride 0.9%) 1,000 mls @ 100 mls/hr IV .Q10H [facility] Last Admin: 08/25/18 23:30 Dose: Not Given Ceftriaxone Sodium (Rocephin Iv 1 Gm Duplex) 50 mls @ 100 mls/hr IVPB DAILY [facility]; Protocol Last Admin: 08/26/18 10:01 Dose: 100 mls/hr Insulin Aspart (Novolog) 0 unit SC ACHS [facility]; Protocol Last Admin: 08/26/18 11:50 Dose: 1 units Insulin Glargine (Lantus) 12 unit SC HS [facility] Metoclopramide HCl (Reglan) 10 mg IVP Q6H [facility] Nitroglycerin (Nitrostat Sl Tab) 0.4 mg SL Q5M PRN PRN Reason: chest pain Ondansetron HCl (Zofran Inj) 4 mg IVP Q6 PRN PRN Reason: Nausea/Vomiting Last Admin: 08/26/18 11:48 Dose: 4 mg Pantoprazole Sodium (Protonix Inj) 40 mg IVP DAILY [facility] Last Admin: 08/26/18 10:01 Dose: 40 mg Polyethylene Glycol (Miralax) 17 gm PO DAILY [facility] Last Admin: 08/26/18 10:01 Dose: 17 gm Sucralfate (Carafate Tab) 1 gm PO Q6H [facility] Last Admin: 08/26/18 10:00 Dose: 1 gm - Labs Labs: 08/26/18 06:19 08/26/18 06:19 - Constitutional Appears: Non-toxic - Head Exam Head Exam: ATRAUMATIC, NORMAL INSPECTION, NORMOCEPHALIC - Eye Exam Eye Exam: EOMI, Normal appearance, PERRL - ENT Exam ENT Exam: Mucous Membranes Dry, Normal Exam - Neck Exam Neck Exam: Full ROM, Normal Inspection - Respiratory Exam Respiratory Exam: Clear to Ausculation Bilateral, NORMAL BREATHING PATTERN. absent: Accessory Muscle Use, Rales, Rhonchi, Wheezes, Respiratory Distress - Cardiovascular Exam Cardiovascular Exam: Tachycardia, +S1, +S2 - GI/Abdominal Exam GI & Abdominal Exam: Soft, Tenderness ( epigastric area on superficial palpation, RUQ on deep palpation ), Normal Bowel Sounds. absent: Distended, Guarding, Rigid, Organomegaly - Extremities Exam Extremities Exam: Full ROM, Normal Inspection. absent: Calf Tenderness, Pedal Edema, Tenderness - Back Exam Back Exam: Full ROM, NORMAL INSPECTION - Neurological Exam Neurological Exam: Alert, Awake, Oriented x3 - Psychiatric Exam Psychiatric exam: Anxious, Normal Mood - Skin Skin Exam: Dry, Intact, Normal Color, Warm Assessment and Plan - Assessment and Plan (Free Text) Assessment: 48 year old female with history of uncontrolled Type 2 DM who presents for abdominal pain, nausea, vomiting, diarrhea w/ a hx of diabetic gastroparesis confirmed by gastric emptying study 1yr ago, continue to vomit this am, with nausea. Plan: Diabetic Gastroparesis - Lipase: 49 - CT abd/pevis PO contrast - Patient refused to drink contrast due to nausea/vomiting - CT study cancelled - Obstructive series - positive only for retained stool - consider CT abd/pelvis if symptoms persist and patient is able to tolerate it later on - Tylenol x 1 dose given for pain in am - did not resolved pain - Patient refused Morphine 1mg IV - due to patient feeling anxious after morphine given in previous hospitalizations\ - start Bentyl 10mg PO TID - start Erythromycin 250mg PO Q8H - Maalox 30mg PO TID - sulcrafate 1gm PO QID - Protonix 40mg IVP Qdaily - Reglan 5mg IVP Q6 MARY - to be given before meals - for persistent nausea/vomiting after administration of Zofran, dosing considering renal dose appropriate for patient - Zofran 4mg IVP Q6 PRN nausea/vomiting -NS IV fluids @100cc/hr - continue when banana bag finished - Banana bag @75 cc qdaily - GI consult- Dr Curry - help is appreciated; as per Dr. Curry - Continue supportive care and improve glycemic control -Will continue to follow patient - patient status changed now to inpatient Acute kidney injury possible secondary to dehydration, hx of uncontrolled DM; improving -Nephrology Dr. Wong on case - quantify protein excretion rate, when NICK resolves would use BROCK I, serial chemistries -NS IV fluids @100cc/hr -Continue to monitor - bladder us- b/l echogenic renal parenchyma, nonobstructing 3mm Rt midpole calculus, prevoid urine 76.7ml, postvoid 4.8 ml, bladder wall thickening measures 6mm Hypertension - BP 155/80 - Add po clonidine for HTN control as per Dr Wong -continue to monitor BP Possible Anxiety -Patient mentioned in the pm that she is worried about her currently condition -anxiety could be aggravating her symptoms - underlying anxiety - Psych consult - Dr Orourke - Help is appreciated Uncontrolled DM w/ noncompliance +proteinuria with kidney disease stage 2 HbA1C - 12.3 Novolog sliding scale Q6hrs Accuchecks Q6hrs Hypoglycemic protocols Endo consult- Dr Victoria - resume lantus 12 Units, low dose correction novoLog insulin. basal and bolus insulin regime after diet is advance. f/u am labs upon d/c patient must be on better coverage for insulin dependent diabetes - patient educated on importance of compliance Anemia;chronic H/H 10.2/30.1 - remains stable Iron studies - Iron/TIBC/%saturation/ferritin - 34/277/08/12 Stool occult negative continue to monitor hemoglobin levels Frothy urine UA - protein 3+, glucose 3+, blood 1+, LE 1+ f/u protein 24 hour urine collection - [id number], total volume 1200 PPX: DVT: SCDs Pt back to Clear liquid diet (from full liquids) - ADAT ice chips instead of water Tylenol Q6 PO PRN for pain Urine HCG - negative Plan discussed with Dr Laura Pickens, PGY-1 <Cassy Sanchez V - Last Filed: 08/27/18 17:57> Objective - Vital Signs/Intake and Output Vital Signs (last 24 hours): Temp Pulse Resp BP Pulse Ox 99.0 F 84 20 149/72 99 08/27/18 15:36 08/27/18 15:36 08/27/18 15:36 08/27/18 15:36 08/27/18 15:36 Intake and Output: 08/27/18 08/27/18 06:59 18:59 Intake Total 1100 Balance 1100 - Medications Medications: Current Medications Acetaminophen (Tylenol 325mg Tab) 650 mg PO Q6 PRN PRN Reason: Pain, severe (8-10) Al Hydrox/Mg Hydrox/Simethicone (Maalox 30 Ml) 30 ml PO TID PRN PRN Reason: Indigestion Last Admin: 08/26/18 10:27 Dose: 30 ml Amlodipine Besylate (Norvasc) 5 mg PO DAILY [facility] Last Admin: 08/27/18 09:29 Dose: 5 mg Clonidine HCl (Catapres) 0.1 mg PO TID [facility] Last Admin: 08/27/18 17:17 Dose: 0.1 mg Dextrose (Dextrose 50% Inj) 0 ml IVP .STAT PRN; Protocol PRN Reason: Hypoglycemia Protocol Dextrose (Glutose 15) 0 gm PO .ONCE PRN; Protocol PRN Reason: Hypoglycemia Protocol Dicyclomine HCl (Bentyl) 10 mg PO TID [facility] Last Admin: 08/27/18 17:17 Dose: 10 mg Docusate Sodium (Colace) 100 mg PO BID [facility] Last Admin: 08/27/18 17:17 Dose: 100 mg Erythromycin (Erythromycin) 250 mg PO TIDAC [facility]; Protocol Last Admin: 08/27/18 12:50 Dose: 250 mg Glucagon (Glucagen Diagnostic Kit) 0 mg IM .STAT PRN; Protocol PRN Reason: Hypoglycemia Protocol Dextrose (Dextrose 5% In Water 1000 Ml) 1,000 mls @ 0 mls/hr IV .Q0M PRN; Protocol PRN Reason: Hypoglycemia Protocol Ceftriaxone Sodium (Rocephin Iv 1 Gm Duplex) 50 mls @ 100 mls/hr IVPB DAILY [facility]; Protocol Last Admin: 08/27/18 09:29 Dose: 100 mls/hr Multivitamins/Vitamin C 10 ml/Thiamine HCl 100 mg/ Folic Acid 1 mg/ Sodium Chloride 1,011.2 mls @ 75 mls/hr IV Q24H [facility] Last Admin: 08/27/18 13:04 Dose: 75 mls/hr Sodium Chloride (Sodium Chloride 0.9%) 1,000 mls @ 125 mls/hr IV .Q8H [facility] Last Admin: 08/27/18 09:59 Dose: Not Given Influenza Virus Vaccine (Fluzone Quad [id number]) 60 mcg IM .ONCE ONE Stop: 08/30/18 10:01 Insulin Aspart (Novolog) 0 unit SC [facility]; Protocol Last Admin: 08/27/18 17:15 Dose: Not Given Insulin Glargine (Lantus) 12 unit SC [facility] Last Admin: 08/26/18 22:03 Dose: 12 u Lisinopril (Zestril) 2.5 mg PO DAILY [facility] Last Admin: 08/27/18 16:03 Dose: 2.5 mg Metoclopramide HCl (Reglan) 10 mg IVP Q6H [facility] Last Admin: 08/27/18 12:40 Dose: 10 mg Ondansetron HCl (Zofran Inj) 4 mg IVP Q6 PRN PRN Reason: Nausea/Vomiting Last Admin: 08/27/18 09:26 Dose: 4 mg Pantoprazole Sodium (Protonix Inj) 40 mg IVP DAILY [facility] Last Admin: 08/27/18 09:26 Dose: 40 mg Pneumococcal Polyvalent Vaccine (Pneumovax 23 Vaccine) 0.5 ml IM .ONCE ONE Stop: 08/30/18 10:01 Polyethylene Glycol (Miralax) 17 gm PO DAILY [facility] Last Admin: 08/27/18 09:29 Dose: 17 gm Simethicone (Mylicon Chew Tab) 80 mg PO Q6 PRN PRN Reason: GI distress Sucralfate (Carafate Tab) 1 gm PO Q6H [facility] Last Admin: 08/27/18 17:16 Dose: 1 gm - Labs Labs: 08/27/18 06:30 08/27/18 06:30 Attending/Attestation - Attestation I have personally seen and examined this patient.: Yes I have fully participated in the care of the patient.: Yes I have reviewed all pertinent clinical information, including history, physical exam and plan: Yes Notes (Text): this is late computer entry for 08/26/18. Patient seen, examined and case discussed with day-time resident. Patient seen this morning with at bedside. Patient continues to spit up and afraid to try liquid diet. in her clear liquid, she does have lemon tea, chocolate ice cream, and coffee all which will irriate the belly. Advised her to not take this items and try water and sugar free Gatorade instead. We have added PO erythomycin to try contr ol the symptoms of her gastropersis. We will continue IV fluids. Patient was started on IV rocephin 1gram IV daily on 08/25/18 for cystitis; she will likely need 5 days total of IV abx. Patient changed into inpatient given symptoms are refractory to current medications. Resident has re-evaluated the patient, noting patient is quite anxious which will also contribute to her symptoms we will ask psych to evaluate, We have explained to the patient and that her symptoms likely stemming from uncontrolled diabetes and this is will take time to recover. Assessment/Plan 1. diabetic Gastroperesis, Severe Assessment/Plan * GI consult- Dr Curry - help is appreciated * patient unable to tolerate PO contrast for CT scan * Obstructive series: moderate constipation * Lipase normal * gastric emptying study (03/12/17): delayed gastric emptying/gastroparesis * Abdominal US (08/24/18): increased renal cortical echogenicity bilaterally consistent with diffuse medical renal disease. mild fatty infiltration of the liver. 3 mm nonbstructing mid right renal calculus * Has had prior EHD in 03/20/17--> large amount of food residue in the stomach. * c/w Maalox 30mg POq TID PRN indigestion * c/w Sulcrafate 1gm PO QID * Pepcid 20mg IV qdaily * Zofran 4mg IVP Q6 PRN nausea/vomiting * Reglan 10mg IVP Q6 PRN * Add Bentyl 10mg PO TID * Add Erythomycin 250mg PO Q8 2. Acute kidney injury possible secondary to dehydration secondary to vomitting Assessment/Plan * Nephrology (Dr. Wong) on case-->help appreciated * NS 100cc/hr * Recommended for 24 hour urine to check for possible nephrotic syndrome * Bladder/Renal us- b/l echogenic renal parenchyma, nonobstructing 3mm Rt midpole calculus, prevoid urine 76.7ml, postvoid 4.8 ml, bladder wall thickening measures 6mm 3. History of Uncontrolled diabetes Assessment/Plan * HbA1C - 12.3 (worsen from prior a1c on record) * Novolog sliding scale Q6hrs * Accuchecks Q6hrs * Hypoglycemic protocol * Endo consult- Dr Victoria [employer]-->help appreciated 4 Anemia Assessment/Plan * H/H 9.4// this am * Iron studies - Iron/TIBC/%saturation/ferritin - 34/277/08/12 * Stool occult negative * continue to monitor hemoglobin levels * reticulocyte count: 1.7 5. Cystitis Assessment/Plan * UA - protein 3+, glucose 3+, blood 1+, LE 1+ * f/u urine culture -E. coli * Start Rocephin 1 gram IV q daily (active since 08/25/18) * possible nephrotic syndrome; pending further workup 6. uncontrolled hypertension Assessment/Plan * Add norvasc 5mg PO daily * Add Lisinopril 5mg PO daily * noted blood pressure exacerbations by n/v and anxiety 7. PPX: * DVT Ppx: SCDs * Liquid diet * Tylenol Q6 PO PRN for pain * Urine HCG - negative * Hypoglycemic protocol
--- NOTE | 2018-08-26 13:37 | PN ---
DATE: 08/26/2018 LOCATION: Room 353. SUBJECTIVE: This is a 48-year-old female with recent uncontrolled type 2 insulin-requiring diabetes, presenting here with nausea, dyspepsia, and vomiting and currently undergoing GI workup at this time and is being followed closely for metabolic management. She has been on advanced to a liquid diet as noted. LABORATORY DATA: Her glucose values have ranged from 181 to 204 mg/dL. Her chemistry showed BUN of 15, sodium 139, potassium 4.1, chloride 113, CO2 of 15, glucose 206, and creatinine 1.6. ASSESSMENT AND PLAN: So, at this time, we will resume her Lantus given as 12 units subcutaneously at bedtime daily as given. We will continue the low-dose correction scale using NovoLog insulin as ordered. As her diet is advanced, then we will start her back on a basal and bolus insulin regimen which is more physiologic to optimize metabolic control. We will obtain serial chemistries and supplement accordingly as needed. We will follow. Marizol Victoria MD
[2018-08-26] MEDS: Multivitamin (MVI) 10 ML, Thiamine 100 MG, Folic Acid 1 MG in Sodium Chloride 0.9% 1,00... IV SCH (13:39)
[2018-08-26] MEDS: (Lantus) Insulin Glargine, Recombinant SC SCH (22:03)
[2018-08-27 01:22] VITALS: RESP 20
[2018-08-27 06:38] LABS: BASO % 0.2 % (0.0-2.0); HEMOGLOBIN 9.1 g/dL (11.0-16.0); LYMPH % 19.7 % (20.0-40.0); MEAN CELL VOLUME 78.5 fL (81.0-99.0); MEAN CORPUSCULAR HEMOGLOBIN 26.3 pg (27.0-31.0); MEAN CORPUSCULAR HGB CONC 33.5 g/dL (33.0-37.0); MEAN PLATELET VOLUME 9.6 fL (7.2-11.7); MONO # 0.9 K/uL (0.0-0.8); MONO % 9.3 % (0.0-10.0); NEUT # 7.2 K/uL (1.8-7.0); NEUT % 70.8 % (50.0-75.0); RBC 3.48 Mil/uL (3.80-5.20); WHITE BLOOD COUNT 10.1 K/uL (4.8-10.8)
[2018-08-27 07:39] LABS: ALB/GLOB RATIO 0.9 (1.0-2.1); ALBUMIN 2.4 g/dL (3.5-5.0); CALCIUM 7.6 mg/dl (8.6-10.4)
[2018-08-27] MEDS: (Novolog) Insulin Aspart, Recombinant 100 u/ml 10 ml vial SC SCH ×4 (07:55→21:48)
[2018-08-27] MEDS: POLYETHYLENE GLYCOL 3350 17 GM/Dose PACKET PO SCH (09:29)
[2018-08-27] MEDS: cefTRIAXone IV 1 gm in Dextros 50 ML IVPB SCH (09:29)
--- NOTE | 2018-08-27 09:35 | CP.PCM.PN ---
Subjective - Date & Time of Evaluation Date of Evaluation: 08/27/18 Time of Evaluation: 09:32 - Subjective Subjective: Still with nausea, vomiting Reglan changed to IV HTN better with clonidine addition Urine excretion rate shows severe nephrotic syndrome Objective - Vital Signs/Intake and Output Vital Signs (last 24 hours): Temp Pulse Resp BP Pulse Ox 98.4 F 86 20 137/75 100 08/27/18 08:00 08/27/18 08:00 08/27/18 08:00 08/27/18 08:00 08/27/18 08:00 - Medications Medications: Current Medications Acetaminophen (Tylenol 325mg Tab) 650 mg PO Q6 PRN PRN Reason: Pain, severe (8-10) Al Hydrox/Mg Hydrox/Simethicone (Maalox 30 Ml) 30 ml PO TID PRN PRN Reason: Indigestion Last Admin: 08/26/18 10:27 Dose: 30 ml Amlodipine Besylate (Norvasc) 5 mg PO DAILY [facility] Last Admin: 08/27/18 09:29 Dose: 5 mg Clonidine HCl (Catapres) 0.1 mg PO TID [facility] Last Admin: 08/27/18 09:28 Dose: 0.1 mg Dextrose (Dextrose 50% Inj) 0 ml IVP .STAT PRN; Protocol PRN Reason: Hypoglycemia Protocol Dextrose (Glutose 15) 0 gm PO .ONCE PRN; Protocol PRN Reason: Hypoglycemia Protocol Dicyclomine HCl (Bentyl) 10 mg PO TID [facility] Last Admin: 08/27/18 09:27 Dose: 10 mg Docusate Sodium (Colace) 100 mg PO BID [facility] Last Admin: 08/27/18 09:29 Dose: 100 mg Erythromycin (Erythromycin) 250 mg PO Q8H [facility]; Protocol Last Admin: 08/27/18 05:59 Dose: 250 mg Glucagon (Glucagen Diagnostic Kit) 0 mg IM .STAT PRN; Protocol PRN Reason: Hypoglycemia Protocol Dextrose (Dextrose 5% In Water 1000 Ml) 1,000 mls @ 0 mls/hr IV .Q0M PRN; Estrellita col PRN Reason: Hypoglycemia Protocol Sodium Chloride (Sodium Chloride 0.9%) 1,000 mls @ 100 mls/hr IV .Q10H [facility] Last Admin: 08/26/18 22:06 Dose: Not Given Ceftriaxone Sodium (Rocephin Iv 1 Gm Duplex) 50 mls @ 100 mls/hr IVPB DAILY [facility]; Protocol Last Admin: 08/27/18 09:29 Dose: 100 mls/hr Multivitamins/Vitamin C 10 ml/Thiamine HCl 100 mg/ Folic Acid 1 mg/ Sodium Chloride 1,011.2 mls @ 75 mls/hr IV Q24H [facility] Last Admin: 08/26/18 13:39 Dose: 75 mls/hr Insulin Aspart (Novolog) 0 unit SC ACHS [facility]; Protocol Last Admin: 08/27/18 07:55 Dose: Not Given Insulin Glargine (Lantus) 12 unit SC HS [facility] Last Admin: 08/26/18 22:03 Dose: 12 u Metoclopramide HCl (Reglan) 10 mg IVP Q6H [facility] Last Admin: 08/27/18 05:59 Dose: 10 mg Nitroglycerin (Nitrostat Sl Tab) 0.4 mg SL Q5M PRN PRN Reason: chest pain Ondansetron HCl (Zofran Inj) 4 mg IVP Q6 PRN PRN Reason: Nausea/Vomiting Last Admin: 08/27/18 09:26 Dose: 4 mg Pantoprazole Sodium (Protonix Inj) 40 mg IVP DAILY [facility] Last Admin: 08/27/18 09:26 Dose: 40 mg Polyethylene Glycol (Miralax) 17 gm PO DAILY [facility] Last Admin: 08/27/18 09:29 Dose: 17 gm Sucralfate (Carafate Tab) 1 gm PO Q6H [facility] Last Admin: 08/27/18 05:59 Dose: 1 gm - Labs Labs: 08/27/18 06:30 08/27/18 06:30 - Constitutional Appears: No Acute Distress, Chronically Ill - Head Exam Head Exam: ATRAUMATIC, NORMAL INSPECTION - Eye Exam Eye Exam: EOMI, Normal appearance - Neck Exam Neck Exam: Normal Inspection. absent: Tenderness - Respiratory Exam Respiratory Exam: Clear to Ausculation Bilateral, NORMAL BREATHING PATTERN - Cardiovascular Exam Cardiovascular Exam: REGULAR RHYTHM, +S1 - GI/Abdominal Exam GI & Abdominal Exam: Soft, Tenderness - Extremities Exam Extremities Exam: Normal Inspection. absent: Tenderness - Neurological Exam Neurological Exam: Awake, CN II-XII Intact - Skin Skin Exam: Dry, Warm Assessment and Plan (1) NICK (acute kidney injury) Status: Acute (2) Proteinuria Status: Acute (3) Gastroenteritis Status: Acute (4) Type 2 diabetes mellitus with diabetic nephropathy Status: Acute (5) Uncontrolled diabetes mellitus Status: Chronic - Assessment and Plan (Free Text) Plan: Monitor BP; can increase clonidine as necessary Rx GI reflux sxs Eventually will need BROCK I for nephrotic syndrome
[2018-08-27] MEDS: Sodium Chloride 0.9% 1,000 ML IV SCH ×2 (09:59→21:53)
[2018-08-27] MEDS: Multivitamin (MVI) 10 ML, Thiamine 100 MG, Folic Acid 1 MG in Sodium Chloride 0.9% 1,00... IV SCH (13:04)
--- NOTE | 2018-08-27 14:33 | CP.PCM.PN ---
<Araceli Garcia - Last Filed: 08/27/18 14:58> Subjective - Date & Time of Evaluation Date of Evaluation: 08/27/18 Time of Evaluation: 10:30 - Subjective Subjective: Patient examined in room. Hunched over in apparent discomfort. Patient requests Ativan as she states her GI discomfort/pain/nausea/vomiting, are all due to anxiety. Patient was explained that ativan is not a solution to her motility issues, that new medications were put on to try to relieve the discomfort and she should find alternate ways of reducing her anxiety. Pt was encouraged to go for walks as tolerated, to try mindful breathing/meditation, and encouraged to use a cool towel for symptomatic relief. Pt reports her episodes are not true vomiting, just spitting. Reports last BM was yesterday. Denies chest pain, SOB. Pt is receptive to advancing diet. Objective - Vital Signs/Intake and Output Vital Signs (last 24 hours): Temp Pulse Resp BP Pulse Ox 98.4 F 86 20 137/75 100 08/27/18 08:00 08/27/18 08:00 08/27/18 08:00 08/27/18 08:00 08/27/18 08:00 Intake and Output: 08/27/18 08/27/18 06:59 18:59 Intake Total 1100 Balance 1100 - Medications Medications: Current Medications Acetaminophen (Tylenol 325mg Tab) 650 mg PO Q6 PRN PRN Reason: Pain, severe (8-10) Al Hydrox/Mg Hydrox/Simethicone (Maalox 30 Ml) 30 ml PO TID PRN PRN Reason: Indigestion Last Admin: 08/26/18 10:27 Dose: 30 ml Amlodipine Besylate (Norvasc) 5 mg PO DAILY [facility] Last Admin: 08/27/18 09:29 Dose: 5 mg Clonidine HCl (Catapres) 0.1 mg PO TID [facility] Last Admin: 08/27/18 14:11 Dose: 0.1 mg Dextrose (Dextrose 50% Inj) 0 ml IVP .STAT PRN; Protocol PRN Reason: Hypoglycemia Protocol Dextrose (Glutose 15) 0 gm PO .ONCE PRN; Protocol PRN Reason: Hypoglycemia Protocol Dicyclomine HCl (Bentyl) 10 mg PO TID [facility] Last Admin: 08/27/18 14:10 Dose: 10 mg Docusate Sodium (Colace) 100 mg PO BID [facility] Last Admin: 08/27/18 09:29 Dose: 100 mg Erythromycin (Erythromycin) 250 mg PO TIDAC [facility]; Protocol Last Admin: 08/27/18 12:50 Dose: 250 mg Glucagon (Glucagen Diagnostic Kit) 0 mg IM .STAT PRN; Protocol PRN Reason: Hypoglycemia Protocol Dextrose (Dextrose 5% In Water 1000 Ml) 1,000 mls @ 0 mls/hr IV .Q0M PRN; Protocol PRN Reason: Hypoglycemia Protocol Ceftriaxone Sodium (Rocephin Iv 1 Gm Duplex) 50 mls @ 100 mls/hr IVPB DAILY [facility]; Protocol Last Admin: 08/27/18 09:29 Dose: 100 mls/hr Multivitamins/Vitamin C 10 ml/Thiamine HCl 100 mg/ Folic Acid 1 mg/ Sodium Chloride 1,011.2 mls @ 75 mls/hr IV Q24H [facility] Last Admin: 08/27/18 13:04 Dose: 75 mls/hr Sodium Chloride (Sodium Chloride 0.9%) 1,000 mls @ 125 mls/hr IV .Q8H [facility] Last Admin: 08/27/18 09:59 Dose: Not Given Influenza Virus Vaccine (Fluzone Quad [id number]) 60 mcg IM .ONCE ONE Stop: 08/30/18 10:01 Insulin Aspart (Novolog) 0 unit SC [facility]; Protocol Last Admin: 08/27/18 11:25 Dose: Not Given Insulin Glargine (Lantus) 12 unit SC [facility] Last Admin: 08/26/18 22:03 Dose: 12 u Metoclopramide HCl (Reglan) 10 mg IVP Q6H [facility] Last Admin: 08/27/18 12:40 Dose: 10 mg Ondansetron HCl (Zofran Inj) 4 mg IVP Q6 PRN PRN Reason: Nausea/Vomiting Last Admin: 08/27/18 09:26 Dose: 4 mg Pantoprazole Sodium (Protonix Inj) 40 mg IVP DAILY [facility] Last Admin: 08/27/18 09:26 Dose: 40 mg Pneumococcal Polyvalent Vaccine (Pneumovax 23 Vaccine) 0.5 ml IM .ONCE ONE Stop: 08/30/18 10:01 Polyethylene Glycol (Miralax) 17 gm PO DAILY [facility] Last Admin: 08/27/18 09:29 Dose: 17 gm Simethicone (Mylicon Chew Tab) 80 mg PO Q6 PRN PRN Reason: GI distress Sucralfate (Carafate Tab) 1 gm PO Q6H [facility] Last Admin: 08/27/18 11:22 Dose: 1 gm - Labs Labs: 08/27/18 06:30 08/27/18 06:30 - Additional Findings Additional findings: - Constitutional Appears: Non-toxic - Head Exam Head Exam: ATRAUMATIC, NORMAL INSPECTION, NORMOCEPHALIC - Eye Exam Eye Exam: EOMI, Normal appearance, PERRL - ENT Exam ENT Exam: Mucous Membranes Dry, Normal Exam - Neck Exam Neck Exam: Full ROM, Normal Inspection - Respiratory Exam Respiratory Exam: Clear to Ausculation Bilateral, NORMAL BREATHING PATTERN. absent: Accessory Muscle Use, Rales, Rhonchi, Wheezes, Respiratory Distress - Cardiovascular Exam Cardiovascular Exam: Tachycardia, +S1, +S2 - GI/Abdominal Exam GI & Abdominal Exam: Soft, Tenderness (epigastrium), Normal Bowel Sounds. absent: Distended, Guarding, Rigidity - Extremities Exam Extremities Exam: Full ROM, Normal Inspection. absent: Calf Tenderness, Pedal Edema, Tenderness - Back Exam Back Exam: Full ROM, NORMAL INSPECTION - Neurological Exam Neurological Exam: Alert, Awake, Oriented x3 - Psychiatric Exam Psychiatric exam: Anxious, Normal Mood - Skin Skin Exam: Dry, Intact, Normal Color, Warm Assessment and Plan - Assessment and Plan (Free Text) Assessment: 48 year old female with PMHx of uncontrolled DM2, admitted for evaluation and treatment of symptomatic gastroparesis. Plan: Plan: Diabetic Gastroparesis - confirmed 1 yr ago via gastric emptying study - CT abd/pevis: refused as unable to tolerate PO contrast 2/2 nausea/vomiting, consider reordering if able to tolerate - Obstructive series: retained stool - Bentyl 10mg PO TID - Erythromycin 250mg PO TIDAC - simethicone 80mg PO q6 prn - sulcrafate 1gm PO q6 - Protonix 40mg IVP Qdaily - Reglan 10mg IVP Q6 MARY - to be given before meals - Zofran 4mg IVP Q6 PRN - NS @125cc/hr - multivitamins - colace 100mg po TID - miralax daily - GI consult- Dr Curry - help is appreciated; as per Dr. Curry - Continue supportive care and improve glycemic control -Will continue to follow patient - patient status changed now to inpatient NICK -Nephrology Dr. Wong on case - quantify protein excretion rate, when NICK resolves would use BROCK I, serial chemistries -NS IV fluids @125cc/hr - bladder us- b/l echogenic renal parenchyma, nonobstructing 3mm Rt midpole calculus, prevoid urine 76.7ml, postvoid 4.8 ml, bladder wall thickening measures 6mm HTN - lisinopril 2.5mg po qd - norvasc 10mg po qd - clonidine .1mg PO TID for HTN control as per Dr Wong Anxiety -anxiety could be aggravating her symptoms -Psych consult - Dr Orourke - Help is appreciated Uncontrolled DM2 w/ noncompliance +proteinuria with kidney disease stage 2 HbA1C - 12.3 Novolog sliding scale Q6hrs Lantus 12U Accuchecks Q6hrs Hypoglycemic protocols Endo consult- Dr Victoria -low dose correction novoLog insulin. basal and bolus insulin regime after diet is advance. Encourage diabetic education and adherence Anemia;chronic Hgb 9.1, down from 10.2 yesterday Iron studies - Iron/TIBC/%saturation/ferritin - 34/277/08/12 Stool occult negative continue to monitor hemoglobin levels Frothy urine/UTI Urine cx + E. Coli, Ceftriaxone 1g qd UA - protein 3+, glucose 3+, blood 1+, LE 1+ f/u protein 24 hour urine collection - 12411, total volume 1200 PPX: DVT: SCDs GI: protonix 40mg IVP Advanced to full liquid diet Case discussed with Dr. Sanchez <Cassy Sanchez V - Last Filed: 08/27/18 17:59> Objective - Vital Signs/Intake and Output Vital Signs (last 24 hours): Temp Pulse Resp BP Pulse Ox 99.0 F 84 20 149/72 99 08/27/18 15:36 08/27/18 15:36 08/27/18 15:36 08/27/18 15:36 08/27/18 15:36 Intake and Output: 08/27/18 08/27/18 06:59 18:59 Intake Total 1100 Balance 1100 - Medications Medications: Current Medications Acetaminophen (Tylenol 325mg Tab) 650 mg PO Q6 PRN PRN Reason: Pain, severe (8-10) Al Hydrox/Mg Hydrox/Simethicone (Maalox 30 Ml) 30 ml PO TID PRN PRN Reason: Indigestion Last Admin: 08/26/18 10:27 Dose: 30 ml Amlodipine Besylate (Norvasc) 5 mg PO DAILY [facility] Last Admin: 08/27/18 09:29 Dose: 5 mg Clonidine HCl (Catapres) 0.1 mg PO TID [facility] Last Admin: 08/27/18 17:17 Dose: 0.1 mg Dextrose (Dextrose 50% Inj) 0 ml IVP .STAT PRN; Protocol PRN Reason: Hypoglycemia Protocol Dextrose (Glutose 15) 0 gm PO .ONCE PRN; Protocol PRN Reason: Hypoglycemia Protocol Dicyclomine HCl (Bentyl) 10 mg PO TID [facility] Last Admin: 08/27/18 17:17 Dose: 10 mg Docusate Sodium (Colace) 100 mg PO BID [facility] Last Admin: 08/27/18 17:17 Dose: 100 mg Erythromycin (Erythromycin) 250 mg PO TIDAC [facility]; Protocol Last Admin: 08/27/18 12:50 Dose: 250 mg Glucagon (Glucagen Diagnostic Kit) 0 mg IM .STAT PRN; Protocol PRN Reason: Hypoglycemia Protocol Dextrose (Dextrose 5% In Water 1000 Ml) 1,000 mls @ 0 mls/hr IV .Q0M PRN; Protocol PRN Reason: Hypoglycemia Protocol Ceftriaxone Sodium (Rocephin Iv 1 Gm Duplex) 50 mls @ 100 mls/hr IVPB DAILY [facility]; Protocol Last Admin: 08/27/18 09:29 Dose: 100 mls/hr Multivitamins/Vitamin C 10 ml/Thiamine HCl 100 mg/ Folic Acid 1 mg/ Sodium Chloride 1,011.2 mls @ 75 mls/hr IV Q24H [facility] Last Admin: 08/27/18 13:04 Dose: 75 mls/hr Sodium Chloride (Sodium Chloride 0.9%) 1,000 mls @ 125 mls/hr IV .Q8H [facility] Last Admin: 08/27/18 09:59 Dose: Not Given Influenza Virus Vaccine (Fluzone Quad [id number]) 60 mcg IM .ONCE ONE Stop: 08/30/18 10:01 Insulin Aspart (Novolog) 0 unit SC [facility]; Protocol Last Admin: 08/27/18 17:15 Dose: Not Given Insulin Glargine (Lantus) 12 unit SC HS [facility] Last Admin: 08/26/18 22:03 Dose: 12 u Lisinopril (Zestril) 2.5 mg PO DAILY [facility] Last Admin: 08/27/18 16:03 Dose: 2.5 mg Metoclopramide HCl (Reglan) 10 mg IVP Q6H [facility] Last Admin: 08/27/18 12:40 Dose: 10 mg Ondansetron HCl (Zofran Inj) 4 mg IVP Q6 PRN PRN Reason: Nausea/Vomiting Last Admin: 08/27/18 09:26 Dose: 4 mg Pantoprazole Sodium (Protonix Inj) 40 mg IVP DAILY [facility] Last Admin: 08/27/18 09:26 Dose: 40 mg Pneumococcal Polyvalent Vaccine (Pneumovax 23 Vaccine) 0.5 ml IM .ONCE ONE Stop: 08/30/18 10:01 Polyethylene Glycol (Miralax) 17 gm PO DAILY [facility] Last Admin: 08/27/18 09:29 Dose: 17 gm Simethicone (Mylicon Chew Tab) 80 mg PO Q6 PRN PRN Reason: GI distress Sucralfate (Carafate Tab) 1 gm PO Q6H [facility] Last Admin: 08/27/18 17:16 Dose: 1 gm - Labs Labs: 08/27/18 06:30 08/27/18 06:30 Attending/Attestation - Attestation I have personally seen and examined this patient.: Yes I have fully participated in the care of the patient.: Yes I have reviewed all pertinent clinical information, including history, physical exam and plan: Yes Notes (Text): Patient seen, examined and case discussed with day-time resident. Patient noted feeling very anxious this morning but was not throwing up. Patient educated at bedside by the resident. patient re-evaluated in the afternoon, patient is calm, resting at bedside. We have emphasized her reglan and erythomycin to be given before meals. patient is amenable to advancing diet today. We will see if she tolerates eating for her to be discharge tomorrow. Patient is on day 3 of iv abx to cover for cystitis. We will continue IV fluids. Patient is on norvasc and lisnopril for blood pressure control. Assessment/Plan 1. diabetic Gastroperesis, Severe Assessment/Plan * GI consult- Dr Curry - help is appreciated * patient unable to tolerate PO contrast for CT scan * Obstructive series: moderate constipation * Lipase normal * gastric emptying study (03/12/17): delayed gastric emptying/gastroparesis * Abdominal US (08/24/18): increased renal cortical echogenicity bilaterally consistent with diffuse medical renal disease. mild fatty infiltration of the liver. 3 mm nonbstructing mid right renal calculus * Has had prior EHD in 03/20/17--> large amount of food residue in the stomach. * c/w Maalox 30mg POq TID PRN indigestion * c/w Sulcrafate 1gm PO QID * Pepcid 20mg IV qdaily * Zofran 4mg IVP Q6 PRN nausea/vomiting * Reglan 10mg IVP Q6 PRN * Add Bentyl 10mg PO TID * Add Erythomycin 250mg PO Q8H 2. Acute kidney injury possible secondary to dehydration secondary to vomitting Assessment/Plan * Nephrology (Dr. Wong) on case-->help appreciated * NS 100cc/hr * Recommended for 24 hour urine to check for possible nephrotic syndrome * Bladder/Renal us- b/l echogenic renal parenchyma, nonobstructing 3mm Rt midpole calculus, prevoid urine 76.7ml, postvoid 4.8 ml, bladder wall thickening measures 6mm 3. History of Uncontrolled diabetes Assessment/Plan * HbA1C - 12.3 (worsen from prior a1c on record) * Novolog sliding scale Q6hrs * Accuchecks Q6hrs * Hypoglycemic protocol * Endo consult- Dr Victoria medical transcriptionist-->help appreciated 4 Anemia Assessment/Plan * H/H 9.4//1 this am * Iron studies - Iron/TIBC/%saturation/ferritin - 34/277/08/12 * Stool occult negative * continue to monitor hemoglobin levels * reticulocyte count: 1.7 5. Cystitis Assessment/Plan * UA - protein 3+, glucose 3+, blood 1+, LE 1+ * f/u urine culture -E. coli * Start Rocephin 1 gram IV q daily (active since 08/25/18) * possible nephrotic syndrome; pending further workup 6. uncontrolled hypertension Assessment/Plan * Add norvasc 5mg PO daily * Add Lisinopril 5mg PO daily * noted blood pressure exacerbations by n/v and anxiety 7. PPX: * DVT Ppx: SCDs * Liquid diet * Tylenol Q6 PO PRN for pain * Urine HCG - negative * Hypoglycemic protocol
[2018-08-27] MEDS: (Lantus) Insulin Glargine, Recombinant SC SCH (21:48)
[2018-08-28] MEDS: Sodium Chloride 0.9% 1,000 ML IV SCH ×2 (05:34→09:40)
[2018-08-28] MEDS: (Novolog) Insulin Aspart, Recombinant 100 u/ml 10 ml vial SC SCH ×4 (07:38→21:30)
--- NOTE | 2018-08-28 09:26 | CP.PCM.PN ---
<Estefany Salomon Y - Last Filed: 08/28/18 17:02> Subjective - Date & Time of Evaluation Date of Evaluation: 08/28/18 Time of Evaluation: 08:40 - Subjective Subjective: PGY-1 Medicine Progress Note for Dr. Yury Carrillo Patient was seen and examined today sitting up eating breakfast in no acute distress. Nurse reports a drop in BG overnight which responded to juice. Patient state she's having continuing nausea with one episode of dry heaving, which was not endorsed to the nurse. Patient also has a history of sticking her finger down her throat when she's feeling nauseous to induce vomiting. She continues to feel weak, and hasn't had a BM in 3 days. Denies chest pain, shortness of breath, headache, fever. Objective - Vital Signs/Intake and Output Vital Signs (last 24 hours): Temp Pulse Resp BP Pulse Ox 97.9 F 74 20 133/76 98 08/28/18 08:25 08/28/18 08:25 08/28/18 08:25 08/28/18 08:25 08/28/18 08:25 Intake and Output: 08/28/18 08/28/18 06:59 18:59 Intake Total 1200 Balance 1200 - Medications Medications: Current Medications Acetaminophen (Tylenol 325mg Tab) 650 mg PO Q6 PRN PRN Reason: Pain, severe (8-10) Al Hydrox/Mg Hydrox/Simethicone (Maalox 30 Ml) 30 ml PO TID PRN PRN Reason: Indigestion Last Admin: 08/26/18 10:27 Dose: 30 ml Amlodipine Besylate (Norvasc) 5 mg PO DAILY [facility] Last Admin: 08/27/18 09:29 Dose: 5 mg Clonidine HCl (Catapres) 0.1 mg PO TID [facility] Last Admin: 08/27/18 17:17 Dose: 0.1 mg Dextrose (Dextrose 50% Inj) 0 ml IVP .STAT PRN; Protocol PRN Reason: Hypoglycemia Protocol Dextrose (Glutose 15) 0 gm PO .ONCE PRN; Protocol PRN Reason: Hypoglycemia Protocol Dicyclomine HCl (Bentyl) 10 mg PO TID [facility] Last Admin: 08/27/18 17:17 Dose: 10 mg Docusate Sodium (Colace) 100 mg PO BID [facility] Last Admin: 12/25/18 17:17 Dose: 100 mg Erythromycin (Erythromycin) 250 mg PO TIDAC [facility]; Protocol Last Admin: 08/27/18 16:35 Dose: 250 mg Glucagon (Glucagen Diagnostic Kit) 0 mg IM .STAT PRN; Protocol PRN Reason: Hypoglycemia Protocol Dextrose (Dextrose 5% In Water 1000 Ml) 1,000 mls @ 0 mls/hr IV .Q0M PRN; Protocol PRN Reason: Hypoglycemia Protocol Ceftriaxone Sodium (Rocephin Iv 1 Gm Duplex) 50 mls @ 100 mls/hr IVPB DAILY [facility]; Protocol Last Admin: 08/27/18 09:29 Dose: 100 mls/hr Multivitamins/Vitamin C 10 ml/Thiamine HCl 100 mg/ Folic Acid 1 mg/ Sodium Chloride 1,011.2 mls @ 75 mls/hr IV Q24H [facility] Last Admin: 08/27/18 13:04 Dose: 75 mls/hr Sodium Chloride (Sodium Chloride 0.9%) 1,000 mls @ 125 mls/hr IV .Q8H [facility] Last Admin: 08/28/18 05:34 Dose: Not Given Influenza Virus Vaccine (Fluzone Quad [id number]) 60 mcg IM .ONCE ONE Stop: 08/30/18 10:01 Insulin Aspart (Novolog) 0 unit SC [facility]; Protocol Last Admin: 08/28/18 07:38 Dose: Not Given Insulin Glargine (Lantus) 12 unit SC [facility] Last Admin: 08/27/18 21:48 Dose: 12 u Lisinopril (Zestril) 2.5 mg PO DAILY [facility] Last Admin: 08/27/18 16:03 Dose: 2.5 mg Metoclopramide HCl (Reglan) 10 mg IVP Q6H [facility] Last Admin: 08/28/18 06:00 Dose: 10 mg Ondansetron HCl (Zofran Inj) 4 mg IVP Q6 PRN PRN Reason: Nausea/Vomiting Last Admin: 08/27/18 09:26 Dose: 4 mg Pantoprazole Sodium (Protonix Inj) 40 mg IVP DAILY [facility] Last Admin: 08/27/18 09:26 Dose: 40 mg Pneumococcal Polyvalent Vaccine (Pneumovax 23 Vaccine) 0.5 ml IM .ONCE ONE Stop: 08/30/18 10:01 Polyethylene Glycol (Miralax) 17 gm PO DAILY [facility] Last Admin: 08/27/18 09:29 Dose: 17 gm Simethicone (Mylicon Chew Tab) 80 mg PO Q6 PRN PRN Reason: GI distress Sucralfate (Carafate Tab) 1 gm PO Q6H REPL[facility]ED [facility] Last Admin: 08/28/18 06:00 Dose: 1 gm - Labs Labs: 08/27/18 06:30 08/27/18 06:30 - Constitutional Appears: Non-toxic, No Acute Distress - Head Exam Head Exam: ATRAUMATIC, NORMOCEPHALIC - Eye Exam Eye Exam: EOMI, Normal appearance - ENT Exam ENT Exam: Mucous Membranes Moist - Respiratory Exam Respiratory Exam: Clear to Ausculation Bilateral, NORMAL BREATHING PATTERN. absent: Rales, Rhonchi, Wheezes - Cardiovascular Exam Cardiovascular Exam: REGULAR RHYTHM, +S1, +S2 - GI/Abdominal Exam GI & Abdominal Exam: Soft, Normal Bowel Sounds. absent: Distended, Firm, Guarding, Tenderness - Extremities Exam Extremities Exam: Normal Capillary Refill. absent: Calf Tenderness - Neurological Exam Neurological Exam: Alert, Awake, Oriented x3 - Psychiatric Exam Psychiatric exam: Anxious - Skin Skin Exam: Dry, Intact, Normal Color, Warm Assessment and Plan - Assessment and Plan (Free Text) Assessment: 48 year old female with history of uncontrolled Type 2 DM who presents for abdominal pain, nausea, vomiting, diarrhea w/ a hx of diabetic gastroparesis confirmed by gastric emptying study 1yr ago, continue to be nauseous. Plan: Diabetic Gastroparesis - confirmed last year via gastric emptying study - CT A/P with PO contrast cancelled d/t patient refusing to drink contrast d/t n/v - Obstructive series (08/23): retained stool - Tylenol x 1 dose given for pain in am - did not resolved pain - Patient refused Morphine 1mg IV - due to patient feeling anxious after morphine given in previous hospitalizations\ - start Bentyl 10mg PO TID - start Erythromycin 250mg PO Q8H - Maalox 30mg PO TID - sulcrafate 1gm PO QID - Protonix 40mg IVP Qdaily - Reglan 5mg IVP Q6 REPLACED BY [facility] - to be given before meals - for persistent nausea/vomiting after administration of Zofran, dosing considering renal dose appropriate for patient - Zofran 4mg IVP Q6 PRN nausea/vomiting -NS IV fluids @100cc/hr - continue when banana bag finished - Banana bag @75 cc qdaily - GI consult- Dr Curry - help is appreciated; as per Dr. Curry - Continue supportive care and improve glycemic control -Will continue to follow patient - patient status changed now to inpatient Acute kidney injury possible secondary to dehydration, hx of uncontrolled DM; improving -Nephrology Dr. Wong on case - quantify protein excretion rate - ACEi started: Lisinopril 2.5mg po daily -NS IV fluids @100cc/hr -Continue to monitor - bladder us- b/l echogenic renal parenchyma, nonobstructing 3mm Rt midpole calculus, prevoid urine 76.7ml, postvoid 4.8 ml, bladder wall thickening measures 6mm Hypertension - BP 155/80 - Clonidine 0.1mg po tid - Norvasc 5mg po daily -continue to monitor BP Possible Anxiety -Patient mentioned in the pm that she is worried about her currently condition -anxiety could be aggravating her symptoms - underlying anxiety - Psych consult - Dr Orourke - Help is appreciated Uncontrolled DM w/ noncompliance +proteinuria with kidney disease stage 2 HbA1C - 12.3 Novolog sliding scale Q6hrs Accuchecks Q6hrs Hypoglycemic protocols Endo consult- Dr Victoria - resume lantus 12 Units, low dose correction novoLog insulin. basal and bolus insulin regime after diet is advance. f/u am labs upon d/c patient must be on better coverage for insulin dependent diabetes - patient educated on importance of compliance Anemia;chronic H/H 10.2/30.1 - remains stable Iron studies - Iron/TIBC/%saturation/ferritin - 34/277/12/10 Stool occult negative continue to monitor hemoglobin levels UTI UA - protein 3+, glucose 3+, blood 1+, LE 1+ f/u protein 24 hour urine collection - 34619, total volume 1200 Urine Cx 08/23 E Coli - Ceftriaxone IVPB daily (started 08/25) - can switch to po abx for a total of 7 days on d/c PPX: DVT: SCDs Pt back to Clear liquid diet (from full liquids) - ADAT ice chips instead of water Tylenol Q6 PO PRN for pain Urine HCG - negative d/w Dr. Yury Salomon PGY-1 <Anshu Carrillo - Last Filed: 08/29/18 19:55> Objective - Vital Signs/Intake and Output Vital Signs (last 24 hours): Temp Pulse Resp BP Pulse Ox 97.3 F L 100 H 20 168/84 H 100 08/29/18 16:00 08/29/18 16:00 08/29/18 16:00 08/29/18 16:00 08/29/18 16:00 Intake and Output: 08/29/18 08/30/18 18:59 06:59 Intake Total 300 Balance 300 - Labs Labs: 08/29/18 06:58 08/29/18 06:58 Attending/Attestation - Attestation I have personally seen and examined this patient.: Yes I have fully participated in the care of the patient.: Yes I have reviewed all pertinent clinical information, including history, physical exam and plan: Yes Notes (Text): 08/29/18 19:55 This is a late entry Care of this patient was gone over in detail with resident Dr. Umm Carrillo D.O.
[2018-08-28] MEDS: POLYETHYLENE GLYCOL 3350 17 GM/Dose PACKET PO SCH (09:36)
[2018-08-28] MEDS: cefTRIAXone IV 1 gm in Dextros 50 ML IVPB SCH (11:00)
[2018-08-28 11:32] LABS: BASO # 0.1 K/uL (0.0-0.2); EOS # 0.2 K/uL (0.0-0.7); EOS % 1.8 % (0.0-4.0); HEMOGLOBIN 9.3 g/dL (11.0-16.0); LYMPH # 3.2 K/uL (1.0-4.3); LYMPH % 35.7 % (20.0-40.0); MEAN CELL VOLUME 79.4 fL (81.0-99.0); MEAN CORPUSCULAR HEMOGLOBIN 26.6 pg (27.0-31.0); MEAN CORPUSCULAR HGB CONC 33.5 g/dL (33.0-37.0); MEAN PLATELET VOLUME 10.1 fL (7.2-11.7); MONO # 0.7 K/uL (0.0-0.8); MONO % 8.5 % (0.0-10.0); NEUT # 4.7 K/uL (1.8-7.0); RBC 3.5 Mil/uL (3.80-5.20); WHITE BLOOD COUNT 8.8 K/uL (4.8-10.8)
[2018-08-28 12:02] LABS: ALBUMIN 2.4 g/dL (3.5-5.0); CALCIUM 7.3 mg/dl (8.6-10.4)
[2018-08-28] MEDS ORDERED: Potassium Chloride 20 mEq ER Tab PO ONE (12:12)
[2018-08-28] MEDS: Multivitamin (MVI) 10 ML, Thiamine 100 MG, Folic Acid 1 MG in Sodium Chloride 0.9% 1,00... IV SCH (13:00)
--- NOTE | 2018-08-28 13:07 | CP.PCM.PN ---
Subjective - Date & Time of Evaluation Date of Evaluation: 08/28/18 Time of Evaluation: 13:04 - Subjective Subjective: Noted to have induced vomiting HTN controlled BROCK I started for proteinuria- agree with this K still low- needs repletion Iron stores very low Objective - Vital Signs/Intake and Output Vital Signs (last 24 hours): Temp Pulse Resp BP Pulse Ox 97.9 F 74 20 133/76 98 08/28/18 08:25 08/28/18 08:25 08/28/18 08:25 08/28/18 08:25 08/28/18 08:25 Intake and Output: 08/28/18 08/28/18 06:59 18:59 Intake Total 1200 Balance 1200 - Medications Medications: Current Medications Acetaminophen (Tylenol 325mg Tab) 650 mg PO Q6 PRN PRN Reason: Pain, severe (8-10) Al Hydrox/Mg Hydrox/Simethicone (Maalox 30 Ml) 30 ml PO TID PRN PRN Reason: Indigestion Last Admin: 08/26/18 10:27 Dose: 30 ml Amlodipine Besylate (Norvasc) 5 mg PO DAILY [facility] Last Admin: 08/28/18 09:42 Dose: 5 mg Clonidine HCl (Catapres) 0.1 mg PO TID [facility] Last Admin: 08/28/18 09:36 Dose: 0.1 mg Dextrose (Dextrose 50% Inj) 0 ml IVP .STAT PRN; Protocol PRN Reason: Hypoglycemia Protocol Dextrose (Glutose 15) 0 gm PO .ONCE PRN; Protocol PRN Reason: Hypoglycemia Protocol Dicyclomine HCl (Bentyl) 10 mg PO TID [facility] Last Admin: 08/28/18 09:39 Dose: 10 mg Docusate Sodium (Colace) 100 mg PO BID [facility] Last Admin: 08/28/18 09:36 Dose: 100 mg Erythromycin (Erythromycin) 250 mg PO TIDAC [facility]; Protocol Last Admin: 08/28/18 11:16 Dose: 250 mg Glucagon (Glucagen Diagnostic Kit) 0 mg IM .STAT PRN; Protocol PRN Reason: Hypoglycemia Protocol Dextrose (Dextrose 5% In Water 1000 Ml) 1,000 mls @ 0 mls/hr IV .Q0M PRN; Protocol PRN Reason: Hypoglycemia Protocol Ceftriaxone Sodium (Rocephin Iv 1 Gm Duplex) 50 mls @ 100 mls/hr IVPB DAILY [facility]; Protocol Last Admin: 08/28/18 11:00 Dose: 100 mls/hr Multivitamins/Vitamin C 10 ml/Thiamine HCl 100 mg/ Folic Acid 1 mg/ Sodium Chloride 1,011.2 mls @ 75 mls/hr IV Q24H [facility] Last Admin: 08/27/18 13:04 Dose: 75 mls/hr Sodium Chloride (Sodium Chloride 0.9%) 1,000 mls @ 125 mls/hr IV .Q8H [facility] Last Admin: 08/28/18 09:40 Dose: 125 mls/hr Influenza Virus Vaccine (Fluzone Quad [id number]) 60 mcg IM .ONCE ONE Stop: 08/30/18 10:01 Insulin Aspart (Novolog) 0 unit SC [facility]; Protocol Last Admin: 08/28/18 12:11 Dose: Not Given Insulin Glargine (Lantus) 12 unit SC [facility] Last Admin: 08/27/18 21:48 Dose: 12 u Lisinopril (Zestril) 2.5 mg PO DAILY [facility] Last Admin: 08/28/18 09:39 Dose: 2.5 mg Metoclopramide HCl (Reglan) 10 mg IVP Q6H [facility] Last Admin: 08/28/18 12:11 Dose: 10 mg Ondansetron HCl (Zofran Inj) 4 mg IVP Q6 PRN PRN Reason: Nausea/Vomiting Last Admin: 08/27/18 09:26 Dose: 4 mg Pantoprazole Sodium (Protonix Inj) 40 mg IVP DAILY [facility] Last Admin: 08/28/18 09:37 Dose: 40 mg Pneumococcal Polyvalent Vaccine (Pneumovax 23 Vaccine) 0.5 ml IM .ONCE ONE Stop: 08/30/18 10:01 Polyethylene Glycol (Miralax) 17 gm PO DAILY [facility] Last Admin: 08/28/18 09:36 Dose: 17 gm Simethicone (Mylicon Chew Tab) 80 mg PO Q6 PRN PRN Reason: GI distress Sucralfate (Carafate Tab) 1 gm PO Q6H [facility] Last Admin: 08/28/18 11:16 Dose: 1 gm - Labs Labs: 08/28/18 11:07 08/28/18 11:07 - Constitutional Appears: No Acute Distress, Chronically Ill - Head Exam Head Exam: ATRAUMATIC, NORMAL INSPECTION - Eye Exam Eye Exam: EOMI, Normal appearance - Neck Exam Neck Exam: Normal Inspection. absent: Tenderness - Respiratory Exam Respiratory Exam: Clear to Ausculation Bilateral, NORMAL BREATHING PATTERN - Cardiovascular Exam Cardiovascular Exam: REGULAR RHYTHM, +S1 - GI/Abdominal Exam GI & Abdominal Exam: Soft. absent: Tenderness - Extremities Exam Extremities Exam: Normal Inspection. absent: Tenderness - Neurological Exam Neurological Exam: Awake, CN II-XII Intact - Skin Skin Exam: Dry, Warm Assessment and Plan (1) NICK (acute kidney injury) Status: Acute (2) Proteinuria Status: Acute (3) Gastroenteritis Status: Acute (4) Type 2 diabetes mellitus with diabetic nephropathy Status: Acute (5) Uncontrolled diabetes mellitus Status: Chronic - Assessment and Plan (Free Text) Plan: Agree with BROCK I initiation Add IV Fe replete K, add to IVs as well follow up chemistries
[2018-08-28] MEDS ORDERED: Ferric Sodium Gluconat Complex 62.5 mg/5 ml Vial IVPB SCH (13:15)
[2018-08-28] MEDS: Potassium Chloride 20 MEQ in Sodium Chloride 0.45% 1,000 ML IV SCH (14:04)
[2018-08-28] MEDS ORDERED: Ferric Sodium Gluconat Complex 62.5 mg/5 ml Vial ONE (16:56)
[2018-08-28] MEDS ORDERED: Ferric Sodium Gluconat Complex 125 MG in Sodium Chloride 0.9% 100 ML IVPB SCH (17:00)
[2018-08-28] MEDS: (Lantus) Insulin Glargine, Recombinant SC SCH (21:29)
[2018-08-29 07:07] LABS: BASO % 0.7 % (0.0-2.0); EOS # 0.2 K/uL (0.0-0.7); EOS % 3.2 % (0.0-4.0); HEMOGLOBIN 8.9 g/dL (11.0-16.0); LYMPH # 1.7 K/uL (1.0-4.3); LYMPH % 27.6 % (20.0-40.0); MEAN CELL VOLUME 78.8 fL (81.0-99.0); MEAN CORPUSCULAR HGB CONC 34.3 g/dL (33.0-37.0); MEAN PLATELET VOLUME 9.3 fL (7.2-11.7); MONO # 0.8 K/uL (0.0-0.8); MONO % 12.5 % (0.0-10.0); NEUT # 3.5 K/uL (1.8-7.0); RBC 3.28 Mil/uL (3.80-5.20); RED CELL DISTRIBUTION WIDTH 13.9 % (11.5-14.5); WHITE BLOOD COUNT 6.3 K/uL (4.8-10.8)
[2018-08-29] MEDS: Potassium Chloride 20 MEQ in Sodium Chloride 0.45% 1,000 ML IV SCH ×2 (07:30→08:39)
[2018-08-29 07:43] LABS: ALB/GLOB RATIO 0.9 (1.0-2.1); CALCIUM 7.3 mg/dl (8.6-10.4)
[2018-08-29] MEDS: (Novolog) Insulin Aspart, Recombinant 100 u/ml 10 ml vial SC SCH ×2 (08:13→13:12)
[2018-08-29] MEDS: Simethicone 80 mg Chewtab PO PRN ×2 (08:58→16:00)
--- NOTE | 2018-08-29 09:36 | CP.PCM.PN ---
Subjective - Date & Time of Evaluation Date of Evaluation: 08/29/18 Time of Evaluation: 09:34 - Subjective Subjective: Less nausea, vomiting Oral erythromycin was added HTN controlled Creat decreasing- NICK improved Objective - Vital Signs/Intake and Output Vital Signs (last 24 hours): Temp Pulse Resp BP Pulse Ox 98.5 F 78 20 149/85 97 08/29/18 08:00 08/29/18 08:00 08/29/18 08:00 08/29/18 08:00 08/29/18 08:00 Intake and Output: 08/29/18 08/29/18 06:59 18:59 Intake Total 840 Balance 840 - Medications Medications: Current Medications Acetaminophen (Tylenol 325mg Tab) 650 mg PO Q6 PRN PRN Reason: Pain, severe (8-10) Al Hydrox/Mg Hydrox/Simethicone (Maalox 30 Ml) 30 ml PO TID PRN PRN Reason: Indigestion Last Admin: 08/26/18 10:27 Dose: 30 ml Amlodipine Besylate (Norvasc) 5 mg PO DAILY [facility] Last Admin: 08/28/18 09:42 Dose: 5 mg Clonidine HCl (Catapres) 0.1 mg PO TID [facility] Last Admin: 08/28/18 17:45 Dose: 0.1 mg Dextrose (Dextrose 50% Inj) 0 ml IVP .STAT PRN; Protocol PRN Reason: Hypoglycemia Protocol Dextrose (Glutose 15) 0 gm PO .ONCE PRN; Protocol PRN Reason: Hypoglycemia Protocol Dicyclomine HCl (Bentyl) 10 mg PO TID [facility] Last Admin: 08/28/18 17:42 Dose: 10 mg Docusate Sodium (Colace) 100 mg PO BID [facility] Last Admin: 08/28/18 17:45 Dose: 100 mg Erythromycin (Erythromycin) 250 mg PO TIDAC [facility]; Protocol Last Admin: 08/29/18 08:38 Dose: 250 mg Glucagon (Glucagen Diagnostic Kit) 0 mg IM .STAT PRN; Protocol PRN Reason: Hypoglycemia Protocol Dextrose (Dextrose 5% In Water 1000 Ml) 1,000 mls @ 0 mls/hr IV .Q0M PRN; Protocol PRN Reason: Hypoglycemia Protocol Ceftriaxone Sodium (Rocephin Iv 1 Gm Duplex) 50 mls @ 100 mls/hr IVPB DAILY [facility]; Protocol Last Admin: 08/28/18 11:00 Dose: 100 mls/hr Multivitamins/Vitamin C 10 ml/Thiamine HCl 100 mg/ Folic Acid 1 mg/ Sodium Chloride 1,011.2 mls @ 75 mls/hr IV Q24H [facility] Last Admin: 08/28/18 13:00 Dose: 75 mls/hr Potassium Chloride 20 meq/ (Sodium Chloride) 1,010 mls @ 125 mls/hr IV .Q8H5M [facility] Last Admin: 08/29/18 08:39 Dose: 125 mls/hr Ferric Sodium Gluconate Complex 125 mg/ Sodium Chloride 110 mls @ 110 mls/hr IVPB Q24H [facility] Stop: 09/05/18 17:01 Last Admin: 08/28/18 16:57 Dose: 110 mls/hr Influenza Virus Vaccine (Fluzone Quad [id number]) 60 mcg IM .ONCE ONE Stop: 08/30/18 10:01 Insulin Aspart (Novolog) 0 unit SC [facility]; Protocol Last Admin: 08/29/18 08:13 Dose: Not Given Insulin Glargine (Lantus) 12 unit SC [facility] Last Admin: 08/28/18 21:29 Dose: 12 u Metoclopramide HCl (Reglan) 10 mg IVP Q6H [facility] Last Admin: 08/29/18 07:29 Dose: 10 mg Ondansetron HCl (Zofran Inj) 4 mg IVP Q6 PRN PRN Reason: Nausea/Vomiting Last Admin: 08/27/18 09:26 Dose: 4 mg Pantoprazole Sodium (Protonix Ec Tab) 40 mg PO DAILY [facility] Pneumococcal Polyvalent Vaccine (Pneumovax 23 Vaccine) 0.5 ml IM .ONCE ONE Stop: 08/30/18 10:01 Polyethylene Glycol (Miralax) 17 gm PO DAILY [facility] Last Admin: 08/28/18 09:36 Dose: 17 gm Simethicone (Mylicon Chew Tab) 80 mg PO Q6 PRN PRN Reason: GI distress Last Admin: 08/29/18 08:58 Dose: 80 mg Sucralfate (Carafate Tab) 1 gm PO Q6H [facility] Last Admin: 08/29/18 04:48 Dose: 1 gm - Labs Labs: 08/29/18 06:58 08/29/18 06:58 - Constitutional Appears: No Acute Distress, Chronically Ill - Head Exam Head Exam: ATRAUMATIC, NORMAL INSPECTION - Eye Exam Eye Exam: EOMI, Normal appearance - Neck Exam Neck Exam: Normal Inspection. absent: Tenderness - Respiratory Exam Respiratory Exam: Clear to Ausculation Bilateral, NORMAL BREATHING PATTERN - Cardiovascular Exam Cardiovascular Exam: REGULAR RHYTHM, +S1 - GI/Abdominal Exam GI & Abdominal Exam: Soft. absent: Tenderness - Extremities Exam Extremities Exam: Normal Inspection. absent: Tenderness - Neurological Exam Neurological Exam: Awake, CN II-XII Intact - Skin Skin Exam: Dry, Warm Assessment and Plan (1) NICK (acute kidney injury) Status: Acute (2) Proteinuria Status: Acute (3) Gastroenteritis Status: Acute (4) Type 2 diabetes mellitus with diabetic nephropathy Status: Acute (5) Uncontrolled diabetes mellitus Status: Chronic - Assessment and Plan (Free Text) Plan: Same GI meds for gastroparesis Increase lisinopril dose for proteinuria Same other meds IV fluids for now
[2018-08-29] MEDS: POLYETHYLENE GLYCOL 3350 17 GM/Dose PACKET PO SCH (09:49)
[2018-08-29] MEDS: cefTRIAXone IV 1 gm in Dextros 50 ML IVPB SCH (09:49)
--- NOTE | 2018-08-29 09:54 | CP.PCM.PCO ---
Physician Communication Note - Physician Communication Note Physician Communication Note: Please see above
[2018-08-29] MEDS ORDERED: Pantoprazole 40 mg EC Tab PO SCH (10:00)
--- NOTE | 2018-08-29 10:48 | CP.PCM.DIS ---
<Bradley Pickens - Last Filed: 08/29/18 18:40> Provider - Provider Date of Admission: 08/26/18 12:24 Attending physician: Anshu Carrillo MD Consults: 08/22/18 22:09 Physician Consult Routine Comment: Consulting Provider: Magda Lawson Consulting Physician: Magda Lawson Reason for Consult: NICK, hx of uncontrolled DM 08/23/18 08:58 Diabetic Education Referral Routine Comment: Physician Instructions: Reason For Exam: uncontrolled DM 08/23/18 11:15 Endocrinology Consult Routine Comment: Consulting Provider: Marizol Todd Consulting Physician: Marizol Todd Reason for Consult: uncontrolled DM2, HbA1c 12 08/23/18 14:24 Gastroenterology Consult Routine Comment: Consulting Provider: Sean Curry Consulting Physician: Sean Curry Reason for Consult: abdominal pain, nausea, vomiting, uncontrolled DM 08/26/18 15:25 Psychiatry Consult Routine Comment: Consulting Provider: Chao Orourke Consulting Physician: Chao Orourke Reason for Consult: nausea/vomiting, underlying anxiety, hx gastroparesis Time Spent in preparation of Discharge (in minutes): 180 Diagnosis - Discharge Diagnosis (1) Hyperglycemia due to type 2 diabetes mellitus Status: Acute (2) Diabetic gastroparesis associated with type 2 diabetes mellitus Status: Chronic (3) NICK (acute kidney injury) Status: Acute (4) Abdominal pain Status: Acute (5) Nausea and vomiting Status: Acute Hospital Course - Lab Results Lab Results: Micro Results 08/23/18 06:30 Urine Urine Culture - Final Escherichia Coli Most Recent Lab Values WBC 6.3 K/uL (4.8-10.8) 08/29/18 06:58 RBC 3.28 Mil/uL (3.80-5.20) L 08/29/18 06:58 Hgb 8.9 g/dL (11.0-16.0) L 08/29/18 06:58 Hct 25.9 % (34.0-47.0) L 08/29/18 06:58 MCV 78.8 fL (81.0-99.0) L 08/29/18 06:58 MCH 27.0 pg (27.0-31.0) 08/29/18 06:58 MCHC 34.3 g/dL (33.0-37.0) 08/29/18 06:58 RDW 13.9 % (11.5-14.5) 08/29/18 06:58 Plt Count 260 K/uL (130-400) 08/29/18 06:58 MPV 9.3 fL (7.2-11.7) 08/29/18 06:58 Neut % (Auto) 56.0 % (50.0-75.0) 08/29/18 06:58 Lymph % (Auto) 27.6 % (20.0-40.0) 08/29/18 06:58 Howell % (Auto) 12.5 % (0.0-10.0) H 08/29/18 06:58 Eos % (Auto) 3.2 % (0.0-4.0) 08/29/18 06:58 Baso % (Auto) 0.7 % (0.0-2.0) 08/29/18 06:58 Neut # (Auto) 3.5 K/uL (1.8-7.0) 08/29/18 06:58 Lymph # (Auto) 1.7 K/uL (1.0-4.3) 08/29/18 06:58 Howell # (Auto) 0.8 K/uL (0.0-0.8) 08/29/18 06:58 Eos # (Auto) 0.2 K/uL (0.0-0.7) 08/29/18 06:58 Baso # (Auto) 0.0 K/uL (0.0-0.2) 08/29/18 06:58 Retic Count 1.7 % (0.5-1.5) H 08/23/18 06:34 Sodium 132 mmol/L (132-148) 08/29/18 06:58 Potassium 3.6 mmol/L (3.6-5.2) 08/29/18 06:58 Chloride 110 mmol/L (98-107) H 08/29/18 06:58 Carbon Dioxide 21 mmol/L (22-30) L 08/29/18 06:58 Anion Gap 5 (10-20) L 08/29/18 06:58 BUN 14 mg/dL (7-17) 08/29/18 06:58 Creatinine 1.4 mg/dL (0.7-1.2) H 08/29/18 06:58 Est GFR ( Amer) 49 08/29/18 06:58 Est GFR (Non-Af Amer) 40 08/29/18 06:58 POC Glucose (mg/dL) 113 mg/dL (65-110) H 08/29/18 07:06 Random Glucose 112 mg/dL (65-105) H D 08/29/18 06:58 Hemoglobin A1c 12.3 % (4.2-6.5) H 08/23/18 06:34 Calcium 7.3 mg/dl (8.6-10.4) L 08/29/18 06:58 Phosphorus 3.8 mg/dL (2.5-4.5) 08/27/18 06:30 Magnesium 2.2 mg/dL (1.6-2.3) 08/27/18 06:30 Iron 16 ug/dL (37-170) L 08/24/18 13:59 TIBC 275 ug/dL (250-450) 08/24/18 13:59 % Saturation 6 (20-55) L 08/24/18 13:59 Ferritin 11.0 ng/mL 08/24/18 13:59 Total Bilirubin 0.1 mg/dL (0.2-1.3) L 08/29/18 06:58 AST 19 U/L (14-36) 08/29/18 06:58 ALT 19 U/L (9-52) 08/29/18 06:58 Alkaline Phosphatase 68 U/L (38-126) 08/29/18 06:58 Total Creatine Kinase 209 U/L (30-135) H 08/25/18 14:43 CK-MB (Mass) 1.39 ng/mL (0.0-3.38) 08/25/18 14:43 Troponin I < 0.0120 ng/mL (0.00-0.120) 08/25/18 14:43 Total Protein 4.4 g/dL (6.3-8.3) L 08/29/18 06:58 Albumin 2.0 g/dL (3.5-5.0) L 08/29/18 06:58 Globulin 2.4 gm/dL (2.2-3.9) 08/29/18 06:58 Albumin/Globulin Ratio 0.9 (1.0-2.1) L 08/29/18 06:58 Lipase 49 U/L (23-300) 08/23/18 06:34 Vitamin B12 640 pg/mL (239-931) 08/24/18 13:59 Folate > 20.0 ng/mL 08/24/18 13:59 TSH 3rd Generation Cancelled 08/23/18 06:34 PTH Intact Whole Molec 98 pg/mL (14-64) H 08/24/18 06:59 Urine Color Yellow (YELLOW) 08/23/18 06:30 Urine Clarity Hazy (Clear) 08/23/18 06:30 Urine pH 5.0 (5.0-8.0) 08/23/18 06:30 Ur Specific [place] 1.011 (1.003-1.030) 08/23/18 06:30 Urine Protein 3+ mg/dL (NEGATIVE) H 08/23/18 06:30 Urine Glucose (UA) 3+ mg/dL (Normal) H 08/23/18 06:30 Urine Ketones Trace mg/dL (NEGATIVE) 08/23/18 06:30 Urine Blood 1+ (NEGATIVE) H 08/23/18 06:30 Urine Nitrate Negative (NEGATIVE) 08/23/18 06:30 Urine Bilirubin Negative (NEGATIVE) 08/23/18 06:30 Urine Urobilinogen Normal mg/dL (0.2-1.0) 08/23/18 06:30 Ur Leukocyte Esterase 1+ Leoncio/uL (Negative) H 08/23/18 06:30 Urine WBC (Auto) 97 /hpf (0-5) H 08/23/18 06:30 Urine RBC (Auto) 6 /hpf (0-3) H 08/23/18 06:30 Urine WBC Clumps (Auto) Mod /hpf (NONE) H 08/23/18 06:30 Ur Squamous Epith Cells 3 /hpf (0-5) 08/23/18 06:30 Urine Bacteria Many (<OCC) H 08/23/18 06:30 Ur Random Sodium 83 mmol/L 08/23/18 15:36 Urine Collection Time 24 HRS 08/24/18 15:40 Urine Total Volume 1200 mL 08/24/18 15:40 Ur Protein 24 Hr Calc 62405.0 mg/24hr (42-225) H 12/22/18 15:40 Urine HCG, Qual Negative (NEGATIVE) 08/23/18 11:42 Stool Occult Blood Negative (NEGATIVE) 08/22/18 21:15 - Hospital Course Hospital Course: On admission: Patient is a 48 year old female with history of Type 2 diabetes who presents for sudden onset of epigastric abdominal pain associated with vomiting and diarrhea that started yesterday. She states she was at home when her symptoms started suddenly. She states her epigastric pain is intermittent in nature, rated a 7/10 and is worse when she vomits. She states she has had about 5 episodes of vomiting daily for the past 2 days, with 5 episodes daily. She describes her emesis as initially containing food contents, and then yellow material. She denies seeing any blood or dark material in her emesis. She states she has not been able to eat for 2 days because she cannot keep anything down. She last had a little bit of water at 10am this morning. She describes her diarrhea as 6 episodes of loose brown stools, denies any episodes of diarrhea today. She denies bloody or dark stools. She complains of feeling weak since her symptoms started 2 days ago. Also admits that her urine has been frothy with bad odor for the past 5 months. She states she had a renal ultrasound which was negative. She denies fevers, chills, chest pain, back pain, flank pain, palpitations, sh ortness of breath. On hospitalization: Patient was admitted for work up for abdominal pain, nausea, vomiting, diarrhea. Patient received NS IV fluids, Zofran and Bentyl with improvement of symptoms in the ER. ROMIx1 negative and EKG was unremarkable. Lipase 49. Obstructive series were found to be positive for retained stool. CT abd/pelvis PO contrast was not able to be done due to patient refused to drink contrast due to nausea and vomiting. GI Dr Curry was consulted which noted that patient had gastric emptying study last year which showed extreme gastroparesis with almost 70% of food retained in the patients stomach, and to continue supportive care and improve glycemic control. She was incorrectly taking her insulin, only dosing the Lantus at night instead of BID which is more physiologic. The patient has no problem filling the Lantus. on 08/25 patient was clear for discharge. Rapid response was called for patient in the afternoon of discharge day for patient complaining of crushing chest pain with shortness of breath, BP was 194/94, HR 105, 100% on RA, BS 168, Sublingual nitro was given, BP corrected to 177/95, second nitro was given after 5 min, BP was 154/84. Patient felt much better after the nitroglycerin. MOOK and EKG were negative and unremarkable respectively. chest xray clear with no cardiomegaly or infiltrates seen. the following medications were given to patient during hospital stay for management of her symptoms caused by gastroparesis: Bentyl 10mg PO TID, Erythromycin 250mg PO TIDA, simethicone 80mg PO q6 prn, sulcrafate 1gm PO q6, Protonix 40mg IVP Qdaily, Reglan 10mg IVP Q6 MARY - to be given before meals, Zofran 4mg IVP Q6 PRN. Multivitamins. Colace 100mg po TID Patient BUN/Cr on admission were 42/2.2. Nephrology DR Wong consulted. Continue IV fluids @100cc/hr. Bladder us- b/l echogenic renal parenchyma, nonobstructing 3mm Rt midpole calculus, prevoid urine 76.7ml, postvoid 4.8 ml, bladder wall thickening measures 6mm. For patient's hypertension, the following meds were ordered and given: lisinopril 2.5mg po qd, norvasc 10mg po qd, clonidine .1mg PO TID For hx of uncontrolled DM II, A1C was found to be 12.3. Patient was placed on Novolog sliding scale. Dr todd consulted which recommended to resume lantus 12 Units, low dose correction novoLog insulin. During admission, UA was found to have the following: protein 3+, glucose 3+, blood 1+, LE 1+ , f/u protein 24 hour urine collection - 06971, total volume 1200 Urine Cx 08/23 E Coli, Ceftriaxone IVPB daily (started 08/25). can switch to po abx for a total of 7 days on d/c Patient H/H was found to be 10.4/31.1 on admission, Iron studies show Iron/TIBC/%saturation/ferritin - 34/277/12/10. Stool occult was found to be negative. For prophylaxis, patient was placed on SCDs for DVT ppx, protonix 40mg IVP for GI prophylaxis. On 08/29, patient was seen and examined at bedside. Patient had no complains overnight. Patient stated last time he vomited was 2 days ago. Patient was tolerating full liquid diet. Patient has not have a BM since sunday. Patient admits to lower extremity swelling. Patient denies any fever, chills, chest pain, shortness of breath, abdominal pain, nausea, vomiting, diarrhea. Patient was order a Venous Doppler LE bilaterally which show no significant findings. Patient was given dulcolax x 1 dose stat. Patient was informed to be discharge later today. Later in the morning/early afternoon, floor nurse communicated to me that patient continued to feel bloated and was very anxious. As per nurse, patient was seen inducing vomiting using her fingers. There was no vomit in the plastic bucket next to her bed. Patient was revisited in the afternoon. Patient admitted to having anxiety that something bad is going to occur to her once she goes home, and that she feels very bloated and anxious. Patient was explained that she is medically clear for discharge and was told of the importance of managing her diabetes, as well as her anxiety in order to prevent her symptoms from recurring or getting worst. Patient was told that her symptoms will take time to resolve and that she will have to be compliant with all her medications as well as to follow up with her primary health doctor in order to continue her treatment for diabetes and her gastroparesis. Psychiatrist Dr Orourke was called to assess patient today for anxiety. As per Dr Orourke, patient presents with mood swings and generalized anxiety disorder, and recommends atarax 25mg PO Q6 as needed, and gabapentin 300mg PO TID,and to follow up with outpatient psychiatry at clinic for anxiety management. Patient's daughter Briseida spoke with me two times via phone, as her mother called her earlier to tell her that she was "in very bad shape". Daughter was explained the patient's diagnosis, as well as hospital work up and consults, and the treatment done at the hospital, as well as the plan for treatment after discharge. Patient daughter was given opportunity to ask any questions. Several family members asked to speak with a doctor later in the afternoon at bedside, including patient's sister, brother, son and . Patient continues feeling anxious, walking out of the room several times to the bathroom, as I was having a discussion with her and the family members present. Patient was observed to spit several times into the garbage. Patient's bed noticed to be stained with dry blood, and patient stated she was on her period and did not have a female pad. Nurse instructed to give patient a female pad to patient. Final discussion with patient and family members at bedside about patient's diagnosis, course of hospitalization, treatment and discharge plan. Patient and family members had opportunities to ask questions. Please see below for discharge plan discussed with family members. On discharge: The following final instructions were discussed with patient and were given as a copy both in Bengali and Namibian for patient and family to follow as patient gets discharged home: 1). There is an appointment scheduled for you on September AT 1:00 PM AT [facility] located on Floor [address] of [address] in [place], [place]. Telephone number [phone]. The doctors at this clinic will be your primary care physician and provide you with referral for follow up with [employer] for your history of Diabetic Gastroparesis and also will help to coordinate your health and provide you with prescriptions that you will have to refill. In the clinic, please ask for a referral for the clinic psychiatrist, and make sure to make an appointment to follow up with the psychiatrist. 2). At the time of your appointment with the clinic, you will need to have your urine tested again to make sure that the infection has cleared. Once the infection has cleared, you will need to be started on Iron Supplementation for your Anemia: Ferrous Sulfate 325 mg 1 tablet by mouth 1x/day. 3). Advance your diet as tolerated. If you are doing well with liquid diet then move onto soft diet and so on. 4). Drink 8 ounces of Prune Juice in the morning with your breakfast. 5). Stay well hydrated with water throughout the day. You should be getting at least 3 liters of water a day. 6). Please have the following prescriptions filled at your pharmacy on your way home from the hospital: Amlodipine 5 mg, 1 tablet by mouth 1x/day (8 AM), Dispense #30 Ciprofloxacin 500 mg, 1 tablet by mouth 2x/day (8 AM and 8 PM), Dispense #8 Clonidine 0.1 mg, 1 tablet by mouth 3x/day (8 AM, 2 PM, 8 PM), Dispense #90 Lantus 100 units/mL, 12 units SC at bedtime (10 PM), Dispense #1 vial Insulin synringes and needles, Box of 100 each Lisinopril 5 mg, 1 tablet by mouth 1x/day (8 PM), Dispense #30 Omeprazole 40 mg, 1 tablet by mouth 1x/day (8 AM), Dispense #30 Simethicone 80 mg, 1 tablet by mouth every 6 hours ONLY NEEDED if hard stools or no bowel movement in 2 to 3 days, Dispense #30 Erythromycin 250 mg, 1 tablet by mouth 3x/day (8 AM, 2 PM, 8 PM), Dispense #90 Colace 100 mg, 1 tablet by mouth 2x/day (8 AM and 8 PM), Dispense #60 Gabapentin 300mg, 1 tablet by mouth 3x a day (8AM, 2PM, 8PM), dispense #90 Atarax 25mg one tablet by mouth every 6 hours when needed for agitation and anxiety dispense #30 7). Please take care and be well. This is a brief summary of patient's hospitalization course. For more information, please see patient's electronic medical records (EMR). - Date & Time of H&P Date of H&P: 08/22/18 Time of H&P: 20:25 Discharge Exam - Head Exam Head Exam: ATRAUMATIC, NORMAL INSPECTION - Eye Exam Eye Exam: EOMI, Normal appearance Pupil Exam: NORMAL ACCOMODATION - ENT Exam ENT Exam: Mucous Membranes Moist, Normal Exam - Neck Exam Neck exam: Full Rom - Respiratory Exam Respiratory Exam: Clear to PA & Lateral, NORMAL BREATHING PATTERN, UNREMARKABLE. absent: Rhonchi, Wheezes, Respiratory Distress - Cardiovascular Exam Cardiovascular Exam: REGULAR RHYTHM, +S1, +S2 - GI/Abdominal Exam GI & Abdominal Exam: Normal Bowel Sounds, Soft, Unremarkable. absent: Distended, Tenderness - Extremities Exam Extremities exam: full ROM, pedal pulses present Additional comments: Mild nonpitting swelling b/l feet, non tender to palpation b/l - Back Exam Back exam: NORMAL INSPECTION - Neurological Exam Neurological exam: Alert, CN II-XII Intact, Oriented x3 - Psychiatric Exam Psychiatric exam: Normal Affect, Normal Mood - Skin Skin Exam: Dry, Intact, Normal Color, Warm Discharge Plan - Discharge Medications Prescriptions: amLODIPine [Norvasc] 5 mg PO DAILY #30 tab Ciprofloxacin [Cipro] 500 mg PO BID #8 tab cloNIDine [Catapres] 0.1 mg PO TID #90 tab Docusate [Colace] 100 mg PO BID #60 cap Erythromycin 250 mg PO TID #90 tab Gabapentin [Neurontin] 300 mg PO TID 14 Days cap hydrOXYzine HCl [Atarax] 25 mg PO TID 14 Days tab Insulin Glargine, Recombina [Lantus] 12 unit SC HS #1 vial Lisinopril [Zestril] 5 mg PO DAILY #30 tab Metoclopramide [Reglan] 10 mg PO Q8H 90 Days #270 tab Omeprazole 40 mg PO DAILY #30 tab Simethicone [Mylicon Chew Tab] 80 mg PO Q6 PRN #30 chew PRN Reason: Gi Distress - Follow Up Plan Condition: GOOD Disposition: HOME/ ROUTINE Instructions: Erythromycin (Systemic), Ciprofloxacin (Systemic), Diabetic N europathy, Diabetes Diet , Gastroparesis (Delayed Gastric Emptying) (DC), Amlodipine, Clonidine, Docusate, Lisinopril, Metoclopramide, Omeprazole, Simethicone, Insulin Glargine Additional Instructions: 1). se le lyles hecho jey sher de seguimiento EL DANIELA 10 DE ENERO A LA 1:00 DE LA TARDE con el [facility] ubicado en el [address] del [address] maksim de telefono [phone] . Los mdicos de esta clnica sern stuart mdico de atencin primaria y le proporcionarn jey referencia para un seguimiento con un gastroenterlogo para conocer stuart historial de gastroparesia diabtica y tambin lo ayudarn a coordinar stuart christianne y le brindarn las recetas que deber reabastecer. En la clinica, se le proveera con un referido para sacar jey sher con el siquiatra de la clinica. Por favor, pedir jey consulta con el siquiatra para poder hacer un seguimiento con el. 2). Al momento de stuart sher con la clnica, necesitar que stuart orina sea analizada nuevamente para asegurarse de que la infeccin haya desaparecido. Jey vez que la infeccin haya desaparecido, deber comenzar a aubrey Suplementos de zhen para stuart Anemia: Sulfato Ferroso de 325 mg 1 tableta por va oral 1 vez al da. 3). Avanza tu dieta segn lo tolerado. Si le va dakota con jey dieta lquida, contine con jey dieta blanda y as sucesivamente. 4). Jessi 8 onzas de jugo de ciruela en la maana con stuart desayuno. 5). Mantente dakota hidratado con agua severiano todo el da. Deberas obtener al menos 3 litros de agua al da. 6). Por favor, llene las siguientes recetas en stuart farmacia de uri a casa desde el hospital: Amlodipina 5 mg, 1 tableta por va oral 1x / da (8 AM), dispensado # 30 Ciprofloxacina 500 mg, 1 tableta por va oral 2 veces al da (8 AM y 8 PM), dispensado # 8 Clonidina 0,1 mg, 1 tableta por va oral 3x / da (8 AM, 2 PM, 8 PM), dispensado # 90 Lantus 100 unidades / ml, 12 unidades SC a la hora de acostarse (10 PM), vial de dispensacin # 1 Siningras y agujas de insulina, caja de 100 cada jey. Lisinopril 5 mg, 1 tableta por va oral 1x / da (8 PM), dispensado # 30 Omeprazol 40 mg, 1 tableta por va oral 1x / da (8 AM), dispensado # 30 Simethicone 80 mg, 1 tableta por va oral cada 6 horas SOLAMENTE OG SEA NECESARIO si las heces son duras o si no hay evacuacin intestinal en 2 a 3 huston, Dispense # 30 Eritromicina 250 mg, 1 tableta por va oral 3 veces al da (8 AM, 2 PM, 8 PM), dispensado # 90 Colace 100 mg, 1 tableta por va oral 2 veces al da (8 AM y 8 PM), dispensado # 60 Gabapentin 300mg, 1 tablet por via oral 3 veces al daniela (8AM, 2PM, 8PM), dispensado #90 Atarax 25mg jey pastilla por via oral inna 6 horas cuando sea necesario para ansiedad y agitacion, dispensado #30 7). Por favor cuidate y estar dakota. 1). There is an appointment schedule for you on September AT 1:00 PM AT [facility] located on [address] of [address] in [place], [place]. Telephine number [phone]. The doctors at this clinic will be your primary care physician and provide you with referral for follow up with [employer] for your history of Diabetic Ga stroparesis and also will help to coordinate your health and provide you with prescriptions that you will have to refill. In the clinic, please ask for a referral for the clinic psychiatrist, and make sure to make an appointment to follow up with the psychiatrist. 2). At the time of your appointment with the clinic, you will need to have your urine tested again to make sure that the infection has cleared. Once the infection has cleared, you will need to be started on Iron Supplementation for your Anemia: Ferrous Sulfate 325 mg 1 tablet by mouth 1x/day. 3). Advance your diet as tolerated. If you are doing well with liquid diet then move onto soft diet and so on. 4). Drink 8 ounces of Prune Juice in the morning with your breakfast. 5). Stay well hydrated with water throughout the day. You should be getting at least 3 liters of water a day. 6). Please have the following prescriptions filled at your pharmacy on your way home from the hospital: Amlodipine 5 mg, 1 tablet by mouth 1x/day (8 AM), Dispense #30 Ciprofloxacin 500 mg, 1 tablet by mouth 2x/day (8 AM and 8 PM), Dispense #8 Clonidine 0.1 mg, 1 tablet by mouth 3x/day (8 AM, 2 PM, 8 PM), Dispense #90 Lantus 100 units/mL, 12 units SC at bedtime (10 PM), Dispense #1 vial Insulin synringes and needles, Box of 100 each Lisinopril 5 mg, 1 tablet by mouth 1x/day (8 PM), Dispense #30 Omeprazole 40 mg, 1 tablet by mouth 1x/day (8 AM), Dispense #30 Simethicone 80 mg, 1 tablet by mouth every 6 hours ONLY NEEDED if hard stools or no bowel movement in 2 to 3 days, Dispense #30 Erythromycin 250 mg, 1 tablet by mouth 3x/day (8 AM, 2 PM, 8 PM), Dispense #90 Colace 100 mg, 1 tablet by mouth 2x/day (8 AM and 8 PM), Dispense #60 Gabapentin 300mg, 1 tablet by mouth 3x a day (8AM, 2PM, 8PM), dispense #90 Atarax 25mg one tablet by mouth every 6 hours when needed for agitation and anxiety dispense #30 7). Please take care and be well. Referrals: Layla Dennison MD [Staff Provider] - <Anshu Carrillo - Last Filed: 08/29/18 19:54> Provider - Provider Date of Admission: 08/26/18 12:24 Attending physician: Anshu Carrillo MD Consults: 08/22/18 22:09 Physician Consult Routine Comment: Consulting Provider: Magda Lawson Consulting Physician: Magda Lawson Reason for Consult: NICK, hx of uncontrolled DM 08/23/18 08:58 Diabetic Education Referral Routine Comment: Physician Instructions: Reason For Exam: uncontrolled DM 08/23/18 11:15 Endocrinology Consult Routine Comment: Consulting Provider: Marizol Todd Consulting Physician: Marizol Todd Reason for Consult: uncontrolled DM2, HbA1c 12 08/23/18 14:24 Gastroenterology Consult Routine Comment: Consulting Provider: Sean Curry Consulting Physician: Sean Curry Reason for Consult: abdominal pain, nausea, vomiting, uncontrolled DM 08/26/18 15:25 Psychiatry Consult Routine Comment: Consulting Provider: Chao Orourke Consulting Physician: Chao Orourke Reason for Consult: nausea/vomiting, underlying anxiety, hx gastroparesis Hospital Course - Lab Results Lab Results: Micro Results 08/23/18 06:30 Urine Urine Culture - Final Escherichia Coli Most Recent Lab Values WBC 6.3 K/uL (4.8-10.8) 08/29/18 06:58 RBC 3.28 Mil/uL (3.80-5.20) L 08/29/18 06:58 Hgb 8.9 g/dL (11.0-16.0) L 08/29/18 06:58 Hct 25.9 % (34.0-47.0) L 08/29/18 06:58 MCV 78.8 fL (81.0-99.0) L 08/29/18 06:58 MCH 27.0 pg (27.0-31.0) 08/29/18 06:58 MCHC 34.3 g/dL (33.0-37.0) 08/29/18 06:58 RDW 13.9 % (11.5-14.5) 08/29/18 06:58 Plt Count 260 K/uL (130-400) 08/29/18 06:58 MPV 9.3 fL (7.2-11.7) 08/29/18 06:58 Neut % (Auto) 56.0 % (50.0-75.0) 08/29/18 06:58 Lymph % (Auto) 27.6 % (20.0-40.0) 08/29/18 06:58 Howell % (Auto) 12.5 % (0.0-10.0) H 08/29/18 06:58 Eos % (Auto) 3.2 % (0.0-4.0) 08/29/18 06:58 Baso % (Auto) 0.7 % (0.0-2.0) 08/29/18 06:58 Neut # (Auto) 3.5 K/uL (1.8-7.0) 08/29/18 06:58 Lymph # (Auto) 1.7 K/uL (1.0-4.3) 08/29/18 06:58 Howell # (Auto) 0.8 K/uL (0.0-0.8) 08/29/18 06:58 Eos # (Auto) 0.2 K/uL (0.0-0.7) 08/29/18 06:58 Baso # (Auto) 0.0 K/uL (0.0-0.2) 08/29/18 06:58 Retic Count 1.7 % (0.5-1.5) H 08/23/18 06:34 Sodium 132 mmol/L (132-148) 08/29/18 06:58 Potassium 3.6 mmol/L (3.6-5.2) 08/29/18 06:58 Chloride 110 mmol/L (98-107) H 08/29/18 06:58 Carbon Dioxide 21 mmol/L (22-30) L 08/29/18 06:58 Anion Gap 5 (10-20) L 08/29/18 06:58 BUN 14 mg/dL (7-17) 08/29/18 06:58 Creatinine 1.4 mg/dL (0.7-1.2) H 08/29/18 06:58 Est GFR ( Amer) 49 08/29/18 06:58 Est GFR (Non-Af Amer) 40 08/29/18 06:58 POC Glucose (mg/dL) 155 mg/dL (65-110) H 08/29/18 12:14 Random Glucose 112 mg/dL (65-105) H D 08/29/18 06:58 Hemoglobin A1c 12.3 % (4.2-6.5) H 08/23/18 06:34 Calcium 7.3 mg/dl (8.6-10.4) L 08/29/18 06:58 Phosphorus 3.8 mg/dL (2.5-4.5) 08/27/18 06:30 Magnesium 2.2 mg/dL (1.6-2.3) 08/27/18 06:30 Iron 16 ug/dL (37-170) L 08/24/18 13:59 TIBC 275 ug/dL (250-450) 08/24/18 13:59 % Saturation 6 (20-55) L 08/24/18 13:59 Ferritin 11.0 ng/mL 08/24/18 13:59 Total Bilirubin 0.1 mg/dL (0.2-1.3) L 08/29/18 06:58 AST 19 U/L (14-36) 08/29/18 06:58 ALT 19 U/L (9-52) 08/29/18 06:58 Alkaline Phosphatase 68 U/L (38-126) 08/29/18 06:58 Total Creatine Kinase 209 U/L (30-135) H 08/25/18 14:43 CK-MB (Mass) 1.39 ng/mL (0.0-3.38) 08/25/18 14:43 Troponin I < 0.0120 ng/mL (0.00-0.120) 08/25/18 14:43 Total Protein 4.4 g/dL (6.3-8.3) L 08/29/18 06:58 Albumin 2.0 g/dL (3.5-5.0) L 08/29/18 06:58 Globulin 2.4 gm/dL (2.2-3.9) 08/29/18 06:58 Albumin/Globulin Ratio 0.9 (1.0-2.1) L 08/29/18 06:58 Lipase 49 U/L (23-300) 08/23/18 06:34 Vitamin B12 640 pg/mL (239-931) 08/24/18 13:59 Folate > 20.0 ng/mL 08/24/18 13:59 TSH 3rd Generation Cancelled 08/23/18 06:34 PTH Intact Whole Molec 98 pg/mL (14-64) H 08/24/18 06:59 Urine Color Yellow (YELLOW) 08/23/18 06:30 Urine Clarity Hazy (Clear) 08/23/18 06:30 Urine pH 5.0 (5.0-8.0) 08/23/18 06:30 Ur Specific [place] 1.011 (1.003-1.030) 08/23/18 06:30 Urine Protein 3+ mg/dL (NEGATIVE) H 08/23/18 06:30 Urine Glucose (UA) 3+ mg/dL (Normal) H 08/23/18 06:30 Urine Ketones Trace mg/dL (NEGATIVE) 08/23/18 06:30 Urine Blood 1+ (NEGATIVE) H 08/23/18 06:30 Urine Nitrate Negative (NEGATIVE) 08/23/18 06:30 Urine Bilirubin Negative (NEGATIVE) 08/23/18 06:30 Urine Urobilinogen Normal mg/dL (0.2-1.0) 08/23/18 06:30 Ur Leukocyte Esterase 1+ Leoncio/uL (Negative) H 08/23/18 06:30 Urine WBC (Auto) 97 /hpf (0-5) H 08/23/18 06:30 Urine RBC (Auto) 6 /hpf (0-3) H 08/23/18 06:30 Urine WBC Clumps (Auto) Mod /hpf (NONE) H 08/23/18 06:30 Ur Squamous Epith Cells 3 /hpf (0-5) 08/23/18 06:30 Urine Bacteria Many (<OCC) H 08/23/18 06:30 Ur Random Sodium 83 mmol/L 08/23/18 15:36 Urine Collection Time 24 HRS 08/24/18 15:40 Urine Total Volume 1200 mL 08/24/18 15:40 Ur Protein 24 Hr Calc 10825.0 mg/24hr (42-225) H 08/24/18 15:40 Urine HCG, Qual Negative (NEGATIVE) 08/23/18 11:42 Stool Occult Blood Negative (NEGATIVE) 08/22/18 21:15 Attending/Attestation - Attestation I have personally seen and examined this patient.: Yes I have fully participated in the care of the patient.: Yes I have reviewed all pertinent clinical information, including history, physical exam and plan: Yes
[2018-08-29] MEDS ORDERED: Bisacodyl 5mg EC Tab PO ONE (11:00)
--- NOTE | 2018-08-29 14:38 | VASCLAB ---
Date of service: 08/29/2018 PROCEDURE: Lower Extremity Venous Duplex Exam. HISTORY: b/l leg swelling, mild pain PRIORS: None. TECHNIQUE: Bilateral common femoral, femoral, popliteal and posterior tibial, peroneal and great saphenous veins were evaluated. Flow was assessed with color Doppler, compressibility, assessment of phasic flow and augmentation response. Report prepared by Candido Rasmussen, HOLLI, RVT FINDINGS: RIGHT: 1. Common Femoral Vein: 1.1. Compressibility - Fully compressible: Thrombus - None : Flow - Phasic: Augmentation -Normal: Reflux - None. 2. Femoral Vein: 2.1. Compressibility - Fully compressible: Thrombus - None : Flow - Phasic: Augmentation -Normal: Reflux - None. 3. Popliteal Vein: 3.1. Compressibility - Fully compressible: Thrombus - None : Flow - Phasic: Augmentation -Normal: Reflux - None. 4. Posterior Tibial Vein: 4.1. Compressibility - Fully compressible: Thrombus - None: Flow - Phasic: Augmentation -Normal: Reflux - None. 5. Peroneal Vein: 5.1. Compressibility - Fully compressible: Thrombus - None: Flow - Phasic: Augmentation -Normal: Reflux - None. 6. Great Saphenous Vein: 6.1. Compressibility - Fully compressible: Thrombus - None: Flow - Phasic: Augmentation - Normal: Reflux - None. LEFT: 1. Common Femoral Vein: 1.1. Compressibility - Fully compressible: Thrombus - None: Flow - Phasic: Augmentation -Normal: Reflux - None. 2. Femoral Vein: 2.1. Compressibility - Fully compressible: Thrombus - None: Flow - Phasic: Augmentation -Normal: Reflux - None. 3. Popliteal Vein: 3.1. Compressibility - Fully compressible: Thrombus - None : Flow - Phasic: Augmentation -Normal: Reflux - None. 4. Posterior Tibial Vein: 4.1. Compressibility - Fully compressible: Thrombus - None: Flow - Phasic: Augmentation -Normal: Reflux - None. 5. Peroneal Vein: 5.1. Compressibility - Fully compressible: Thrombus - None: Flow - Phasic: Augmentation -Normal: Reflux - None. 6. Great Saphenous Vein: 6.1. Compressibility - Fully compressible: Thrombus - None: Flow - Phasic: Augmentation - Normal: Reflux - None. OTHER FINDINGS: Right: None significant. Left: None significant. IMPRESSION: Right: No evidence of deep or superficial vein thrombosis of the right lower extremity. Normal valve function noted of the right side. Left: No evidence of deep or superficial vein thrombosis of the left lower extremity. Normal valve function noted of the left side.
--- NOTE | 2018-08-29 15:27 | PCM.PSYCH ---
Initial Psychiatric Evaluation - Initial Psychiatric Evaluation Type of Admission: Voluntary Legal Status: Capacity Chief Complaint (in patient's own words): I have a lot of panic attacks. History of Present Illness and Precipitating Events: Patient is a 48 year old female with history of Type 2 diabetes who presents for sudden onset of epigastric abdominal pain associated with vomiting and diarrhea. She states she was at home when her symptoms started suddenly. She states her epigastric pain is intermittent in nature, rated a 7/10 and is worse when she vomits. She states she has had about 5 episodes of vomiting daily for the past 2 days, with 5 episodes daily. Today psychiatry was consulted. Patient reports depressed mood, anxiety and panic attacks. However she denies any feelings of hopelessness or helplessness. She denies any suicidal ideation or any homicidal ideation. She denies any auditory hallucinations or any paranoia. She denies any drinking or any substance abuse. Current Medications: Active Medications Generic Name Dose Route Start Last Admin Trade Name Freq PRN Reason Stop Dose Admin Acetaminophen 650 mg 08/23/18 11:27 Tylenol 325mg Tab PO Q6 PRN Pain, severe (8-10) Al Hydrox/Mg Hydrox/Simethicone 30 ml 08/23/18 15:33 08/26/18 10:27 Maalox 30 Ml PO 30 ml TID PRN Administration Indigestion Amlodipine Besylate 5 mg 08/26/18 10:00 08/29/18 09:48 Norvasc PO 5 mg DAILY MARY Administration Clonidine HCl 0.1 mg 08/26/18 14:00 08/29/18 13:54 Catapres PO Not Given TID MARY Dextrose 0 ml 08/23/18 09:51 Dextrose 50% Inj IVP .STAT PRN Hypoglycemia Protocol Protocol Dextrose 0 gm 08/23/18 09:51 Glutose 15 PO .ONCE PRN Hypoglycemia Protocol Protocol Dicyclomine HCl 10 mg 08/26/18 10:00 08/29/18 13:54 Bentyl PO Not Given TID MARY Docusate Sodium 100 mg 08/23/18 18:00 08/29/18 09:48 Colace PO 100 mg BID MARY Administration Erythromycin 250 mg 08/27/18 12:05 08/29/18 12:08 Erythromycin PO 250 mg TIDAC MARY Administration Protocol Glucagon 0 mg 08/23/18 09:51 Glucagen Diagnostic Kit IM .STAT PRN Hypoglycemia Protocol Protocol Dextrose 1,000 mls @ 0 mls/hr 08/23/18 09:51 Dextrose 5% In Water 1000 Ml IV .Q0M PRN Hypoglycemia Protocol Protocol Per Protocol Ceftriaxone Sodium 50 mls @ 100 mls/hr 08/25/18 12:00 08/29/18 09:49 Rocephin Iv 1 Gm Duplex IVPB 100 mls/hr DAILY MARY Administration Protocol Ferric Sodium Gluconate 110 mls @ 110 mls/hr 08/28/18 17:00 08/28/18 16:57 Complex 125 mg/ Sodium IVPB 09/05/18 17:01 110 mls/hr Chloride Q24H MARY Administration Influenza Virus Vaccine 60 mcg 08/30/18 10:00 Fluzone Quad [id number] IM 08/30/18 10:01 .ONCE ONE Insulin Aspart 0 unit 08/25/18 11:30 08/29/18 13:12 Novolog SC Not Given ACHS MARY Protocol Insulin Glargine 12 unit 08/26/18 22:00 08/28/18 21:29 Lantus SC 12 u HS MARY Administration Lisinopril 5 mg 08/29/18 10:00 08/29/18 09:48 Zestril PO 5 mg DAILY MARY Administration Metoclopramide HCl 10 mg 08/26/18 12:30 08/29/18 12:07 Reglan IVP 10 mg Q6H MARY Administration Ondansetron HCl 4 mg 08/25/18 20:30 08/27/18 09:26 Zofran Inj IVP 4 mg Q6 PRN Administration Nausea/Vomiting Pantoprazole Sodium 40 mg 08/29/18 10:00 08/29/18 09:48 Protonix Ec Tab PO 40 mg DAILY MARY Administration Pneumococcal Polyvalent Vaccine 0.5 ml 08/30/18 10:00 Pneumovax 23 Vaccine IM 08/30/18 10:01 .ONCE ONE Polyethylene Glycol 17 gm 08/24/18 11:45 08/29/18 09:49 Miralax PO 17 gm DAILY MARY Administration Simethicone 80 mg 08/27/18 14:23 08/29/18 08:58 Mylicon Chew Tab PO 80 mg Q6 PRN Administration GI distress Sucralfate 1 gm 08/23/18 11:00 08/29/18 12:08 Carafate Tab PO 1 gm Q6H MARY Administration Past Psychiatric History - Past Psychiatric History Previous Treatment History: None Pertinent Medical Hx (Current Medical&Sleep Prob, Allergies): Allergies Allergy/AdvReac Type Severity Reaction Status Date / Time No Known Allergies Allergy Verified 08/22/18 18:09 Metoclopramide [Reglan] 10 mg PO Q8H 90 Days #270 tab 08/25/18 Ciprofloxacin [Cipro] 500 mg PO BID #8 tab 08/29/18 Docusate [Colace] 100 mg PO BID #60 cap 08/29/18 Erythromycin 250 mg PO TID #90 tab 08/29/18 Insulin Glargine, Recombina [Lantus] 12 unit SC HS #1 vial 08/29/18 Lisinopril [Zestril] 5 mg PO DAILY #30 tab 08/29/18 Omeprazole 40 mg PO DAILY #30 tab 08/29/18 Simethicone [Mylicon Chew Tab] 80 mg PO Q6 PRN #30 chew 08/29/18 amLODIPine [Norvasc] 5 mg PO DAILY #30 tab 08/29/18 cloNIDine [Catapres] 0.1 mg PO TID #90 tab 08/29/18 Review of Systems - Review of Systems All systems: reviewed and no additional remarkable complaints except - Psychiatric Psychiatric: Anxiety, Irritability. absent: Suicidal Ideation Mental Status Examination - Personal Presentation Personal Presentation: Looks stated age - Affect Affect: Constricted - Motor Activity Motor Activity: Calm - Reliability in Providing Information Reliability in Providing Information: Fair - Speech Speech: Organized - Mood Mood: Anxious - Formal Thought Process Formal Thought Process: No Impairment - Obsessions/Compulsions Obsessions: No Compulsions: No - Cognitive Functions Orientation: Person, Place, Situation, Time Sensorium: Alert Attention/Concentration: Attentive Abstract Thinking: Kila Estimate of Intelligence: Below average Judgement: Imparied, as evidence by: Poor judgement, Intact, as evidence by: Insight regarding need for hospitalization - Risk Risk: Diminished functioning - Strength & Assets Inventory Strength & Assets Inventory: Family support DSM 5 DX - DSM 5 DSM 5 Diagnosis: Depressive disorder Generalized Anxiety Disorder - Recommended/Plan of Treatment Treatment Recommendations and Plan of Treatment: Pt psych stable and cleared - Smoking Cessation Smoking Cessation Initiated: No
[2018-08-29 16:59] VITALS: BP 168/84; PULSE 100; TEMP 97.3; O2SAT 100
[2018-08-30] MEDS ORDERED: Pneumococcal 23-Valent Vaccine IM ONE (10:00)
[2018-08-30] MEDS ORDERED: Influenza Vaccine 60 MCG/0.5 ML SYR (3 yr & up) IM ONE (10:00)
== END 2018-08-29 17:32 | disposition home or self-care (01) | DRG 48 ==
LOC: C.ER 17:59 → UNDOADMOB 19:31 → OBSVTOIN 19:31 → INTOOBSV 19:31 → C.3T 19:31 → OBSVTOIN 08-26 12:24
PROVIDERS: ADMIT Family Medicine; ATTEND Family Medicine
DX: E11.43 Type 2 diabetes mellitus with diabetic autonomic (poly)neuropathy (principal); N17.9 Acute kidney failure, unspecified; E11.21 Type 2 diabetes mellitus with diabetic nephropathy; E11.65 Type 2 diabetes mellitus with hyperglycemia; K31.84 Gastroparesis; N30.90 Cystitis, unspecified without hematuria; Z79.4 Long term (current) use of insulin; N04.9 Nephrotic syndrome with unspecified morphologic changes; Z91.19 Patient's noncompliance with other medical treatment and regimen; E86.0 Dehydration; F39 Unspecified mood [affective] disorder; F41.1 Generalized anxiety disorder

== ENCOUNTER 2018-12-01 11:06 | Emergency (ER) | payer OTHER ==
[2018-12-01 11:10] VITALS: BMI 21.4
[2018-12-01 11:12] VITALS: TEMP 98.9
[2018-12-01] MEDS ORDERED: Albuterol-Ipratrop 3 mg / 0.5 (3 ml) UD IH STA (11:48)
[2018-12-01] MEDS ORDERED: Albuterol-Ipratrop 3 mg / 0.5 (3 ml) UD ONE (12:07)
--- NOTE | 2018-12-01 13:03 | C.PDOC ---
History Of Present Illness Patient is a 48 year old female who presents to the ED c/o nasal congestion, headache, sore throat, fever, and cough that began two weeks ago. Patient reports that over the 2 weeks her cough has progressively gotten worse with green sputum. HPI: Influenza Time Seen by Provider: 12/01/18 11:28 Chief Complaint: Flu-like Symptoms History Per: Patient Exam Limitations: no limitations Onset/Duration Of Symptoms: Days (2 weeks ) Past Medical History Reviewed: Historical Data, Nursing Documentation, Vital Signs Vital Signs: Last Vital Signs Temp 98.9 F 12/01/18 11:09 Pulse 80 12/01/18 11:09 Resp 18 12/01/18 11:09 BP 144/77 12/01/18 11:09 Pulse Ox 100 12/01/18 11:09 - Medical History PMH: Diabetes (type II), Gastritis Denies: Chronic Kidney Disease Surgical History: No Surg Hx - [facility] Procedures EXCISION OF LOWER ESOPHAGUS, ENDO, DIAGN (03/10/17) EXCISION OF MIDDLE ESOPHAGUS, ENDO, DIAGN (03/10/17) INJECT/INFUSE NEC (11/10/14) INSPECTION OF UPPER INTESTINAL TRACT, ENDO (12/13/15) Family History: States: Diabetes - Social History Hx Tobacco Use: No Hx Alcohol Use: No Hx Substance Use: No - Immunization History Hx Tetanus Toxoid Vaccination: No Hx Influenza Vaccination: No Hx Pneumococcal Vaccination: No Review Of Systems Except As Marked, All Systems Reviewed And Found Negative. Constitutional: Positive for: Fever ENT: Positive for: Nose Congestion, Throat Pain Respiratory: Positive for: Cough (green sputum ) Neurological: Positive for: Headache Physical Exam - Physical Exam Appears: Non-toxic, No Acute Distress Skin: Normal Color, Warm, Dry Head: Atraumatic, Normacephalic Eye(s): bilateral: Normal Inspection Chest: Symmetrical, No Deformity Cardiovascular: Rhythm Regular, No Murmur Respiratory: Normal Breath Sounds, No Rales, No Rhonchi, No Wheezing, Other (cough) Gastrointestinal/Abdominal: Soft, No Tenderness Neurological/Psych: Oriented x3, Normal Speech, Normal Cognition - ECG O2 Sat by Pulse Oximetry: 100 (on RA) Pulse Ox Interpretation: Normal - Progress ED Course And Treament: Plan: CXR Nebulizer Treatment Duoneb 3ml IH Zithromax 500mg PO Date of service: 12/01/2018 HISTORY: cough x 2 weeks COMPARISON: Comparison is made with 08/25/2018 TECHNIQUE: Chest PA and lateral views FINDINGS: LUNGS: No active pulmonary disease. PLEURA: No significant pleural effusion identified. No pneumothorax apparent. CARDIOVASCULAR: No aortic atherosclerotic calcification present. Normal cardiac size. No pulmonary vascular congestion. OSSEOUS STRUCTURES: No significant abnormalities. VISUALIZED UPPER ABDOMEN: Normal. OTHER FINDINGS: None. IMPRESSION: No active disease. Disposition - Disposition Referrals: [facility] [Outside] Disposition: HOME/ ROUTINE Disposition Time: 13:01 Condition: STABLE Additional Instructions: Follow up in Clinic within 1-2 days. Return to ED if feel worse. Prescriptions: predniSONE [predniSONE Tab] 2 tab PO DAILY #8 tab Benzonatate [Tessalon Perles] 2 tab PO TID #60 sgl Albuterol HFA [Ventolin HFA 90 mcg/actuation (8 g)] 1 puff IH .Q4-6H #1 inhaler Azithromycin [Zithromax] 250 mg PO DAILY #4 tab Instructions: Acute Bronchitis Forms: [employer] (Swedish) Print Language: GREEK - Clinical Impression Clinical Impression: Bronchitis - PA / CREDIT COLLECTION ASSOCIATE / Resident Statement MD/DO has examined the patient and agrees with the treatment plan. - Scribe Statement The provider has reviewed the documentation as recorded by the Jose Issa All medical record entries made by the Prashanthibmichael were at my direction and personally dictated by me. I have reviewed the chart and agree that the record accurately reflects my personal performance of the history, physical exam, medical decision making, and the department course for this patient. I have also personally directed, reviewed, and agree with the discharge instructions and disposition.
[2018-12-01 13:19] VITALS: BP 130/72; PULSE 85; RESP 16
--- NOTE | 2018-12-01 13:25 | RAD ---
Date of service: 12/01/2018 HISTORY: cough x 2 weeks COMPARISON: Comparison is made with 08/25/2018 TECHNIQUE: Chest PA and lateral views FINDINGS: LUNGS: No active pulmonary disease. PLEURA: No significant pleural effusion identified. No pneumothorax apparent. CARDIOVASCULAR: No aortic atherosclerotic calcification present. Normal cardiac size. No pulmonary vascular congestion. OSSEOUS STRUCTURES: No significant abnormalities. VISUALIZED UPPER ABDOMEN: Normal. OTHER FINDINGS: None. IMPRESSION: No active disease.
[2018-12-01 14:14] VITALS: O2SAT 100
== END 2018-12-01 13:18 | disposition home or self-care (01) ==
LOC: C.ER 11:06
DX: J40 Bronchitis, not specified as acute or chronic (principal)

== ENCOUNTER 2018-12-31 11:49 | Inpatient (IN) | payer OTHER ==
[2018-12-31 11:50] VITALS: BMI 21.4
[2018-12-31 13:28] LABS: BASO % 0.5 % (0.0-2.0); EOS # 0.2 K/uL (0.0-0.7); EOS % 1.9 % (0.0-4.0); HEMOGLOBIN 9.2 g/dL (11.0-16.0); LYMPH # 2.4 K/uL (1.0-4.3); LYMPH % 30.5 % (20.0-40.0); MEAN CELL VOLUME 81.1 fL (81.0-99.0); MEAN CORPUSCULAR HGB CONC 33.3 g/dL (33.0-37.0); MEAN PLATELET VOLUME 9.5 fL (7.2-11.7); MONO # 0.6 K/uL (0.0-0.8); MONO % 7.1 % (0.0-10.0); NEUT # 4.8 K/uL (1.8-7.0); RBC 3.4 Mil/uL (3.80-5.20); RED CELL DISTRIBUTION WIDTH 14.6 % (11.5-14.5)
[2018-12-31 13:39] LABS: SQUAMOUS EPITHIAL 3 /hpf (0-5); URINE BACTERIA FEW (<OCC); URINE BILIRUBIN NEGATIVE (NEGATIVE); URINE BLOOD NEGATIVE (NEGATIVE); URINE CLARITY Hazy (Clear); URINE GLUCOSE (UA) 3+ mg/dL (Normal); URINE PROTEIN 3+ mg/dL (NEGATIVE); URINE UROBILINOGEN NORMAL mg/dL (0.2-1.0); WBC CLUMPS FEW /hpf
[2018-12-31 13:46] LABS: URINE COLOR YELLOW (YELLOW); URINE LEUKOCYTE ESTERASE 1+ Leu/uL (Negative)
[2018-12-31 13:47] LABS: ALB/GLOB RATIO 1.1 (1.0-2.1); ALBUMIN 3.1 g/dL (3.5-5.0); ALT/SGPT 15 U/L (9-52); AST/SGOT 33 U/L (14-36); BLOOD UREA NITROGEN 35 mg/dL (7-17); CALCIUM 8.1 mg/dl (8.6-10.4); GFR NON-AFRICAN AMERICAN 21
[2018-12-31 13:53] LABS: B-TYPE NATRIURETIC PEPTIDE 2810 pg/mL (0-450)
--- NOTE | 2018-12-31 14:43 | RAD ---
HISTORY: SOB COMPARISON: Chest x-ray performed 12/01/18 TECHNIQUE: Chest, one view. FINDINGS: Examination limited by habitus and hypoinflation. LUNGS: No focal consolidation. Please note that chest x-ray has limited sensitivity for the detection of pulmonary masses. PLEURA: No significant pleural effusion identified. No definite pneumothorax . CARDIOVASCULAR: Heart size appears top normal. No significant atherosclerotic calcification present. OSSEOUS STRUCTURES: No acute osseous abnormality identified. VISUALIZED UPPER ABDOMEN: Unremarkable. OTHER FINDINGS: None. IMPRESSION: Hypoinflation. No focal consolidation. Heart size appears top normal.
--- NOTE | 2018-12-31 16:15 | C.PDOC ---
History Of Present Illness 48 y/o female presents to the ER complaining of worsening shortness of breath which has been present for the past 4 days.Patient states that she has dyspnea on exertion.Patient reports that her legs are "increasing in size." Denies h aving CP,fever,chills, and cough. Chief Complaint (Nursing): Shortness Of Breath History Per: Patient History/Exam Limitations: no limitations Onset/Duration Of Symptoms: Days Current Symptoms Are (Timing): Still Present Severity: Moderate Past Medical History Reviewed: Historical Data, Nursing Documentation, Vital Signs Vital Signs: Last Vital Signs Temp 98 F 12/31/18 12:36 Pulse 80 12/31/18 14:29 Resp 20 12/31/18 14:29 BP 181/87 H 12/31/18 14:29 Pulse Ox 100 12/31/18 14:29 Primary Care Provider: Non [facility] Provider, - Medical History PMH: Diabetes (type II), Gastritis Denies: Chronic Kidney Disease Other Surgeries: Hx of surgeries - [facility] Procedures EXCISION OF LOWER ESOPHAGUS, ENDO, DIAGN (03/10/17) EXCISION OF MIDDLE ESOPHAGUS, ENDO, DIAGN (03/10/17) INJECT/INFUSE NEC (11/10/14) INSPECTION OF UPPER INTESTINAL TRACT, ENDO (12/13/15) Family History: States: Diabetes - Social History Hx Tobacco Use: No Hx Alcohol Use: No Hx Substance Use: No - Immunization History Hx Tetanus Toxoid Vaccination: No Hx Influenza Vaccination: No Hx Pneumococcal Vaccination: No Review Of Systems Except As Marked, All Systems Reviewed And Found Negative. Constitutional: Negative for: Fever, Chills Cardiovascular: Negative for: Chest Pain Respiratory: Positive for: Shortness of Breath. Negative for: Cough Gastrointestinal: Negative for: Nausea, Vomiting Physical Exam - Physical Exam Appears: Non-toxic, No Acute Distress Skin: Normal Color, Warm, Dry Head: Atraumatic, Normacephalic Eye(s): bilateral: Normal Inspection Nose: Normal Oral Mucosa: Moist Neck: Supple Cardiovascular: Rhythm Regular Respiratory: Rales (some rales at bases), No Rhonchi, No Wheezing Gastrointestinal/Abdominal: Normal Exam, Soft, No Tenderness, No Guarding, No Rebound Extremity: Normal ROM, Other (2+ pitting edema of bilateral lower extremities) Neurological/Psych: Oriented x3, Normal Speech ED Course And Treatment - Laboratory Results Result Diagrams: 12/31/18 13:19 12/31/18 13:19 Lab Results: Troponin I < 0.0120 ng/mL (0.00-0.120) 12/31/18 13:19 NT-Pro-B Natriuret Pep 2810 pg/mL (0-450) H 12/31/18 13:19 Total Bilirubin 0.4 mg/dL (0.2-1.3) 12/31/18 13:19 AST 33 U/L (14-36) 12/31/18 13:19 ALT 15 U/L (9-52) 12/31/18 13:19 Alkaline Phosphatase 85 U/L (38-126) 12/31/18 13:19 Total Protein 5.8 g/dL (6.3-8.3) L 12/31/18 13:19 Albumin 3.1 g/dL (3.5-5.0) L 12/31/18 13:19 Globulin 2.7 gm/dL (2.2-3.9) 12/31/18 13:19 Albumin/Globulin Ratio 1.1 (1.0-2.1) 12/31/18 13:19 Urine Color Yellow (YELLOW) 12/31/18 13:19 Urine Clarity Hazy (Clear) 12/31/18 13:19 Urine pH 5.0 (5.0-8.0) 12/31/18 13:19 Ur Specific [place] 1.013 (1.003-1.030) 12/31/18 13:19 Urine Protein 3+ mg/dL (NEGATIVE) H 12/31/18 13:19 Urine Glucose (UA) 3+ mg/dL (Normal) H 12/31/18 13:19 Urine Ketones Negative mg/dL (NEGATIVE) 12/31/18 13:19 Urine Blood Negative (NEGATIVE) 12/31/18 13:19 Urine Nitrate Negative (NEGATIVE) 12/31/18 13:19 Urine Bilirubin Negative (NEGATIVE) 12/31/18 13:19 Urine Urobilinogen Normal mg/dL (0.2-1.0) 12/31/18 13:19 Ur Leukocyte Esterase 1+ Leoncio/uL (Negative) H 12/31/18 13:19 Urine WBC (Auto) 176 /hpf (0-5) H 12/31/18 13:19 Urine RBC (Auto) 5 /hpf (0-3) H 12/31/18 13:19 Urine WBC Clumps (Auto) Few /hpf (NONE) H 12/31/18 13:19 Ur Squamous Epith Cells 3 /hpf (0-5) 12/31/18 13:19 Urine Bacteria Few (<OCC) H 12/31/18 13:19 ECG: Interpreted By Me, Viewed By Me ECG Rhythm: Sinus Rhythm Interpretation Of ECG: NSR with normal intervals and normal axises Rate From EC O2 Sat by Pulse Oximetry: 100 (RA) Pulse Ox Interpretation: Normal - Other Rad CXR X-Ray: Viewed By Me, Read By Radiologist Interpretation: HISTORY: SOB. COMPARISON: Chest x-ray performed 12/01/18. TECHNIQUE: Chest, one view. FINDINGS: Examination limited by habitus and hypoinflation. LUNGS: No focal consolidation. Please note that chest x-ray lyles s limited sensitivity for the detection of pulmonary masses. PLEURA: No significant pleural effusion identified. No definite pneumothorax . CARDIOVASCULAR: Heart size appears top normal. No significant atherosclerotic calcification present. OSSEOUS STRUCTURES: No acute osseous abnormality jessica ntified. VISUALIZED UPPER ABDOMEN: Unremarkable. OTHER FINDINGS: None. IMPRESSION: Hypoinflation. No focal consolidation. Heart size appears top normal. - CT Scan/US US-Renal Other Rad Studies (CT/US): Read By Radiologist, Radiology Report Reviewed CT/US Interpretation: Date of service: 12/31/2018. PROCEDURE: Ultrasound of the Kidneys. HISTORY: worsening renal function. COMPARISON: 08/24/2018. TECHNIQUE: Sonogram of the kidneys. FINDINGS: RIGHT KIDNEY: Measures: 9.8 cm. Normal in size, contour with diffuse increased echogenicity. There is a 3 mm nonobstructing stone in the interpolar region. No solid mass lesion or hydronephrosis visualized. There is trace perinephric fluid. LEFT KIDNEY: Measures: 10.5 cm. Normal in size, contour with diffuse increased echogenicity. No stone, solid mass lesion or hydronephrosis visualized. There is trace perinephric fluid. OTHER FINDINGS: None. IMPRESSION: 1. Diffuse increased echogenicity in both kidneys consistent with medical renal disease. 2. 3 mm nonobstructing stone in the right interpolar region. 3. Trace perinephric fluid bilaterally, nonspecific. Medical Decision Making Medical Decision Making: Plan: --Labs --UA --CXR --Lasix IV Updates: Case reviewed with . notes that patient's renal function has been becoming progressively worse over the past 3 months. He states that the etiology is unknown. He recommends ordering an Renal US and admitting patient. Case discussed with Dr.N Carrillo, hospitalist. Patient will be admitted to the floor for CHF and acute on chronic renal failure. Disposition - Disposition Disposition: HOSPITALIZED Disposition Time: 14:15 Condition: STABLE - Clinical Impression Clinical Impression: Acute on chronic renal insufficiency, CHF (congestive heart failure) - Scribe Statement The provider has reviewed the documentation as recorded by the Scribe Lokesh Zhang Provider Attestation: All medical record entries made by the Scribe were at my direction and personally dictated by me. I have reviewed the chart and agree that the record accurately reflects my personal performance of the history, physical exam, medical decision making, and the department course for this patient. I have also personally directed, reviewed, and agree with the discharge instructions and disposition.
--- NOTE | 2018-12-31 16:20 | US ---
Date of service: 12/31/2018 PROCEDURE: Ultrasound of the Kidneys HISTORY: worsening renal function COMPARISON: 08/24/2018. TECHNIQUE: Sonogram of the kidneys. FINDINGS: RIGHT KIDNEY: Measures: 9.8 cm. Normal in size, contour with diffuse increased echogenicity. There is a 3 mm nonobstructing stone in the interpolar region. No solid mass lesion or hydronephrosis visualized. There is trace perinephric fluid. LEFT KIDNEY: Measures: 10.5 cm. Normal in size, contour with diffuse increased echogenicity. No stone, solid mass lesion or hydronephrosis visualized. There is trace perinephric fluid. OTHER FINDINGS: None. IMPRESSION: 1. Diffuse increased echogenicity in both kidneys consistent with medical renal disease. 2. 3 mm nonobstructing stone in the right interpolar region. 3. Trace perinephric fluid bilaterally, nonspecific.
--- NOTE | 2018-12-31 16:31 | CP.PCM.HP ---
<Linda Miller - Last Filed: 12/31/18 17:56> History of Present Illness - History of Present Illness History of Present Illness: PGY-1 Linda Miller D.O. H&P for Dr. Humphreys's service: Patient is a 48 yo female with insulin dependent T2DM, gastroparesis, HTN, chronic gastritis, HLD, anxiety, and anemia who presented after being send by her PMD (clinic) for acute worsening of creatinine. Patient was being seen in the clinic for routine blood work follow-up and her creatinine increaed from 1.4 in 08/2018 to 2.5. Patient was previously hospitalized last year during which she had an NICK with max creatinine 2.2- this resolved with IVF. Patient was treated for a UTI one month ago during which time she complained of dysuria. Presently complains of bilateral flank pain, foul-smelling and foamy urine, SOB on exertion, mild chest pain, and bilateral lower extremity swelling. Patient denies dysuria, urinary frequency, urinary hesitancy, and hematuria. She describes the flank pain as "pressure" 7/10 severity. She says all of these symptoms have been occurring for approximately 2 weeks. PMH: T2DM- insulin dependent, gastroparesis, HTN, chronic gastritis, HLD, anxiety, anemia, hyperprolactinemia, h/o NICK, h/o E. coli UTI PSH: b/l retinal Sx in 2017, EGD 2016 (gastritis) Meds: Lantus 12 units SC Q12H, Losartan 100 mg PO daily, Simvastatin 10 mg PO QHS All: NKA FH: mother (60)- of complications from diabetes, father- of accident SH: lives with in [place], 5 children; used to work in factory until eye surgery in 2017; denies alcohol, tobacco, and drugs PMD: clinic (Rl) Present on Admission - Present on Admission Any Indicators Present on Admission: Yes History of DVT/PE: No History of Uncontrolled Diabetes: Yes Urinary Catheter: No Decubitus Ulcer Present: No History Surgical Site Infection Following: None Review of Systems - Constitutional Constitutional: absent: Chills, Fever, Weakness - EENT Eyes: absent: Change in Vision Ears: absent: Decreased Hearing, Tinnitus Nose/Mouth/Throat: absent: Nasal Congestion, Sore Throat - Cardiovascular Cardiovascular: Chest Pain, Dyspnea on Exertion, Pedal Edema. absent: Palpitations, Syncope - Respiratory Respiratory: Dyspnea on Exertion. absent: Cough - Gastrointestinal Gastrointestinal: Nausea. absent: Abdominal Pain, Constipation, Diarrhea, Vomiting - Genitourinary Genitourinary: Pyuria. absent: Dysuria, Hematuria, Urinary Frequency, Urinary Hesitance - Musculoskeletal Musculoskeletal: absent: Arthralgias, Numbness, Tingling - Integumentary Integumentary: absent: Lesions, Pruritus, Rash - Neurological Neurological: absent: Dizziness, Focal Weakness, Headaches, Sensory Deficit - Psychiatric Psychiatric: Anxiety - Endocrine Endocrine: absent: Polydipsia, Polyuria - Hematologic/Lymphatic Hematologic: absent: Easy Bleeding, Easy Bruising, Lymphadenopathy Past Patient History - Infectious Disease Hx of Infectious Diseases: None - Past Medical History & Family History Past Medical History?: Yes Pertinent Family History: mother (60)- with diabetes - Past Social History Smoking Status: Never Smoked Chewing Tobacco Use: No Cigar Use: No Alcohol: None Drugs: Denies Home Situation {Lives}: With Family () - CARDIAC Hx Cardiac Disorders: No - PULMONARY Hx Respiratory Disorders: No - NEUROLOGICAL Hx Neurological Disorder: No - HEENT Hx HEENT Problems: No - RENAL Hx Chronic Kidney Disease: No - ENDOCRINE/METABOLIC Hx Endocrine Disorders: Yes Hx Diabetes Mellitus Type 2: Yes - HEMATOLOGICAL/ONCOLOGICAL Hx Blood Disorders: No Hx Cirrhosis: No Hx Hepatitis A: No Hx Hepatitis B: No Hx Hepatitis C: No - INTEGUMENTARY Hx Dermatological Problems: No - MUSCULOSKELETAL/RHEUMATOLOGICAL Hx Falls: No - GASTROINTESTINAL Hx Gastritis: Yes - GENITOURINARY/GYNECOLOGICAL Hx Genitourinary Disorders: No - PSYCHIATRIC Hx Substance Use: No - SURGICAL HISTORY Hx Surgeries: Yes Other/Comment: Rt. eye vitrectomy. - ANESTHESIA Hx Anesthesia: Yes Hx Anesthesia Reactions: No Hx Malignant Hyperthermia: No Meds Allergies/Adverse Reactions: Allergies Allergy/AdvReac Type Severity Reaction Status Date / Time No Known Allergies Allergy Verified 12/31/18 12:27 Physical Exam - Constitutional Appears: Non-toxic, No Acute Distress - Head Exam Head Exam: ATRAUMATIC, NORMAL INSPECTION - Eye Exam Eye Exam: EOMI, Normal appearance, PERRL - ENT Exam ENT Exam: Mucous Membranes Moist - Neck Exam Neck exam: Positive for: Normal Inspection. Negative for: Lymphadenopathy - Respiratory Exam Respiratory Exam: Clear to Auscultation Bilateral, NORMAL BREATHING PATTERN. absent: Respiratory Distress - Cardiovascular Exam Cardiovascular Exam: RRR, +S1, +S2 - GI/Abdominal Exam GI & Abdominal Exam: Normal Bowel Sounds, Soft. absent: Distended, Tenderness - Extremities Exam Extremities exam: Positive for: pedal edema (1+ b/l ankles), pedal pulses present. Negative for: tenderness - Back Exam Back exam: CVA tenderness (L), CVA tenderness (R) - Neurological Exam Neurological exam: Alert, CN II-XII Intact, Normal Gait, Oriented x3 - Psychiatric Exam Psychiatric exam: Normal Affect, Normal Mood - Skin Skin Exam: Dry, Normal Color, Warm Results - Vital Signs Recent Vital Signs: Last Vital Signs Temp 98 F 12/31/18 12:36 Pulse 80 12/31/18 14:29 Resp 20 12/31/18 14:29 BP 181/87 H 12/31/18 14:29 Pulse Ox 100 12/31/18 16:22 - Labs Result Diagrams: 12/31/18 13:19 12/31/18 13:19 Labs: Laboratory Results - last 24 hr 12/31/18 12/31/18 12/31/18 13:19 13:19 13:19 WBC 8.0 RBC 3.40 L Hgb 9.2 L Hct 27.6 L MCV 81.1 MCH 27.0 MCHC 33.3 RDW 14.6 H Plt Count 244 MPV 9.5 Neut % (Auto) 60.0 Lymph % (Auto) 30.5 [place] % (Auto) 7.1 Eos % (Auto) 1.9 Baso % (Auto) 0.5 Neut # (Auto) 4.8 Lymph # (Auto) 2.4 [place] # (Auto) 0.6 Eos # (Auto) 0.2 Baso # (Auto) 0.0 Sodium 136 Potassium 4.9 Chloride 109 H Carbon Dioxide 19 L Anion Gap 13 BUN 35 H Creatinine 2.5 H Est GFR ( Amer) 25 Est GFR (Non-Af Amer) 21 Random Glucose 161 H Calcium 8.1 L Total Bilirubin 0.4 AST 33 ALT 15 Alkaline Phosphatase 85 Troponin I < 0.0120 NT-Pro-B Natriuret Pep 2810 H Total Protein 5.8 L Albumin 3.1 L Globulin 2.7 Albumin/Globulin Ratio 1.1 Urine Color Yellow Urine Clarity Hazy Urine pH 5.0 Ur Specific [place] 1.013 Urine Protein 3+ H Urine Glucose (UA) 3+ H Urine Ketones Negative Urine Blood Negative Urine Nitrate Negative Urine Bilirubin Negative Urine Urobilinogen Normal Ur Leukocyte Esterase 1+ H Urine WBC (Auto) 176 H Urine RBC (Auto) 5 H Urine WBC Clumps (Auto) Few H Ur Squamous Epith Cells 3 Urine Bacteria Few H Assessment & Plan - Assessment and Plan (Free Text) Assessment: Patient is a 48 yo female with insulin dependent T2DM, gastroparesis, HTN, chronic gastritis, HLD, anxiety, and anemia who presented after being send by her PMD (clinic) for acute worsening of creatinine. Plan: Acute renal failure - Creatinine 1.4--> 2.5 - Renal US: b/l kidney echogenicity, trace - CT A/P pending - UA: 3+ prot, 3+ gluc, 1+ LE, 176 WBC, 5 RBC, few salima - UCx pending - Rocephin 1 g IV Q12H - Nephrology consulted ([facility] [place]) Hypertensive urgency, acute - Vitals Q4H - Monitor on telemetry - Hold Losartan due to ARF - Hydralazine 25 mg PO TID - Coreg 3.125 mg PO BID Elevated BNP - Trop negative - EKG: NSR - Echo pending Type 2 diabetes mellitus, insulin dependent, chronic - A1c 8.2 in 11/2018 - Accuchecks ACHS - Hypoglycemia protocol - Lantus 12 units SC Q12H - ISS med Hyperlipidemia, chronic - Lipid panel 11/2018: TG 152, choles 301, LDL 187, HDL 62 - Crestor 10 mg PO QHS Gastritis, chronic - Protonix 40 mg PO daily Anemia, chronic - Hgb stable (baseline 9s-10s) - Monitor CBC Ppx: VTE: SCDs contraindicated due to edema, chemical anticoag contraindicated due to anemia GI: Protonix 40 mg PO daily Diet: Renal, heart healthy Code status: full code Dispo: Pending [facility] recs, imaging, labs, cultures. Case discussed with attending, Dr. Humphreys. <Dorian Humphreys - Last Filed: 12/31/18 18:37> Results - Vital Signs Recent Vital Signs: Last Vital Signs Temp 98.4 F 12/31/18 17:07 Pulse 80 12/31/18 17:07 Resp 20 12/31/18 17:07 BP 196/83 H 12/31/18 17:07 Pulse Ox 100 12/31/18 17:20 - Labs Result Diagrams: 12/31/18 13:19 12/31/18 13:19 Labs: Laboratory Results - last 24 hr 12/31/18 12/31/18 12/31/18 13:19 13:19 13:19 WBC 8.0 RBC 3.40 L Hgb 9.2 L Hct 27.6 L MCV 81.1 MCH 27.0 MCHC 33.3 RDW 14.6 H Plt Count 244 MPV 9.5 Neut % (Auto) 60.0 Lymph % (Auto) 30.5 [place] % (Auto) 7.1 Eos % (Auto) 1.9 Baso % (Auto) 0.5 Neut # (Auto) 4.8 Lymph # (Auto) 2.4 [place] # (Auto) 0.6 Eos # (Auto) 0.2 Baso # (Auto) 0.0 Sodium 136 Potassium 4.9 Chloride 109 H Carbon Dioxide 19 L Anion Gap 13 BUN 35 H Creatinine 2.5 H Est GFR ( Amer) 25 Est GFR (Non-Af Amer) 21 POC Glucose (mg/dL) Random Glucose 161 H Calcium 8.1 L Total Bilirubin 0.4 AST 33 ALT 15 Alkaline Phosphatase 85 Troponin I < 0.0120 NT-Pro-B Natriuret Pep 2810 H Total Protein 5.8 L Albumin 3.1 L Globulin 2.7 Albumin/Globulin Ratio 1.1 Urine Color Yellow Urine Clarity Hazy Urine pH 5.0 Ur Specific [place] 1.013 Urine Protein 3+ H Urine Glucose (UA) 3+ H Urine Ketones Negative Urine Blood Negative Urine Nitrate Negative Urine Bilirubin Negative Urine Urobilinogen Normal Ur Leukocyte Esterase 1+ H Urine WBC (Auto) 176 H Urine RBC (Auto) 5 H Urine WBC Clumps (Auto) Few H Ur Squamous Epith Cells 3 Urine Bacteria Few H 12/31/18 17:36 WBC RBC Hgb Hct MCV MCH MCHC RDW Plt Count MPV Neut % (Auto) Lymph % (Auto) [place] % (Auto) Eos % (Auto) Baso % (Auto) Neut # (Auto) Lymph # (Auto) [place] # (Auto) Eos # (Auto) Baso # (Auto) Sodium Potassium Chloride Carbon Dioxide Anion Gap BUN Creatinine Est GFR ( Amer) Est GFR (Non-Af Amer) POC Glucose (mg/dL) 154 H Random Glucose Calcium Total Bilirubin AST ALT Alkaline Phosphatase Troponin I NT-Pro-B Natriuret Pep Total Protein Albumin Globulin Albumin/Globulin Ratio Urine Color Urine Clarity Urine pH Ur Specific [place] Urine Protein Urine Glucose (UA) Urine Ketones Urine Blood Urine Nitrate Urine Bilirubin Urine Urobilinogen Ur Leukocyte Esterase Urine WBC (Auto) Urine RBC (Auto) Urine WBC Clumps (Auto) Ur Squamous Epith Cells Urine Bacteria Attending/Attestation - Attestation I have personally seen and examined this patient.: Yes I have fully participated in the care of the patient.: Yes I have reviewed all pertinent clinical information: Yes Notes (Text): Medical attending: Patient was seen and examined by me Reviewed the above note by the medical affairs leader The patient has an elevated creatine of 2.5, this is higher than previous. Per review of previous medical records she has had uncontrolled DM with a Hgb A1C of 12 and very out of control BP readings. She says she has bilateral flank pain with palpation. There was an ultrasound done which suggest there was perinephric stranding. UA suggest maybe UTI, we are starting abx Rocephin IV for the time being. Also will get a CT of the abdomen and pelvis without contrast just to see if there maybe some sort of an obstruction. All this being said it is also possible that given her uncontrolled HTN and uncontrolled DM that creatine is higher because of these. She was moved to 3T however given the elevated HTN like this will move to telemetry for further monitoring. On CXRAY there is cardiomegaly and so will check a 2D echo as well Per review of previous discharge, the patient had a reported episode of self induced vommitting, and it appears a history of anxiety as well. Dorian Humphreys
[2018-12-31] MEDS ORDERED: Glucagon Recombinant 1 mg Inj IM PRN (17:23)
[2018-12-31] MEDS ORDERED: Dextrose 50% SYRINGE Inj (50 ml) IV PRN (17:23)
[2018-12-31] MEDS: cefTRIAXone IV 1 gm in Dextros 50 ML IVPB SCH (18:47)
[2018-12-31] MEDS: (Lantus) Insulin Glargine, Recombinant SC SCH (20:21)
[2018-12-31] MEDS: (Novolin R) Insulin Human Regular 100 units/ml vial SC SCH (21:11)
--- NOTE | 2019-01-01 04:51 | CON ---
DATE: 12/31/2018 NEPHROLOGY CONSULTATION HISTORY OF PRESENT ILLNESS: The patient is a 48-year-old female with past medical history of diabetes with gastroparesis, hypertension, chronic gastritis, hyperlipidemia, anxiety, anemia and CKD, sent by PMD for worsening renal function for which Nephrology is being consulted. The patient reports increased shortness of breath since approximately for the past one month with associated cough with white phlegm production. Also with increased bilateral leg swelling since past two weeks. Denies any change in urination. The patient reports being compliant with her medication, which is only losartan 100 mg daily. She also reports recent bilateral low back pain, but without any associated fever, chills, or dysuria. The patient otherwise reports good appetite. Does have nausea in the morning. No vomiting. No diarrhea. PAST MEDICAL HISTORY: As above. The patient had admission with vomiting and acute kidney injury that resolved at the time of discharge. SOCIAL HISTORY: Denies tobacco use. FAMILY HISTORY: Mother with diabetes. REVIEW OF SYSTEMS: CONSTITUTIONAL: Denies any fevers or chills. HEENT: Reports some difficulty swallowing. No odynophagia. RESPIRATORY: As per HPI. CARDIOVASCULAR: Denies any chest pain or palpitations. GASTROINTESTINAL: As per HPI. GENITOURINARY: As per HPI. MUSCULOSKELETAL: Denies any arthralgias. Only taking Tylenol for her back pain. EXTREMITIES: Increased bilateral lower leg edema. PSYCHIATRIC: History of anxiety. SKIN: Denies any pruritus or rashes. NEUROLOGIC: Denies any dizziness or headache. PHYSICAL EXAMINATION: VITAL SIGNS: Currently, blood pressure 132/75, heart rate 81, respirations 20, temperature 98.4, and O2 sat 100% on room air. GENERAL: No distress. Conversing coherently in full sentences. HEENT: Moist mucous membranes. Nonicteric. No cervical lymphadenopathy. No elevation in JVD. RESPIRATORY: Lungs are clear to auscultation bilaterally. No rales. No rhonchi. No wheezes. CARDIOVASCULAR: Heart sounds S1 and S2 normal. No murmurs. No gallops. No rubs. Regular rate and rhythm. GASTROINTESTINAL: Abdomen is soft, nontender, and nondistended. GENITOURINARY: No bladder distention. Does have mild bilateral CVA tenderness. SKIN: Warm. No cyanosis. NEUROLOGIC: No resting tremor. PSYCHIATRIC: Normal mood. Normal affect. LABORATORY DATA: CBC: WBC 8, hemoglobin 9.2, hematocrit 27.6, and platelets 244. Chemistry panel: Sodium 136, potassium 4.9, chloride 109, bicarb 19, BUN 35, creatinine 2.5, glucose 151, calcium 8.1. AST 33, ALT 15, albumin 3.1. Urine studies: UA: 3+ protein, 3+ glucose, 176 wbc's per high-power field, 5 rbc's per high-power field, few bacteria. Chest x-ray directly visualized showing lungs are clear. ASSESSMENT AND PLAN: 1. Acute renal failure, acute kidney injury on chronic kidney disease, stage 3. Increase of serum creatinine from baseline of 1.4 just 4 months ago; patient does have underlying neprhotic syndrome and is prone to ATN insults (though high BP argues against this); patient had 13 g proteinuria on 24-hour urine collection done a few months ago and hypoalbuminemia, likely secondary to diabetic kidney disease; underlying cause of nephrotic syndrome still needs further workup and we cannot r/o RPGN at this time; -We will obtain detailed serologic workup for proteinuric kidney disease. -We will consider a renal biopsy on this admission. -Avoid nephrotoxic agents. -Checking PTH, 25-OH vit D level 2. Hypertensive urgency. Blood pressure is markedly uncontrolled on presentation; although, etiology is somewhat unclear. The patient reports taking her losartan 100 mg regularly. Blood pressure responded to one dose of intravenous Lasix 20 mg as well as hydralazine 25 mg and Coreg 3.125 mg. a. Agree with current medications. Agree with holding losartan for now. Continue with intravenous Lasix 20 mg twice a day. b. Obtain echocardiogram. 3. Dyspnea. Lungs are clear and no jugular venous distention on examination. Currently appears comfortable without need for supplemental oxygen. Echocardiogram will be helpful. 4. Anemia, likely due to chronic kidney disease. Obtaining iron studies. Ferritin previously low; if remains low, we will start intravenous iron loading. Thank you for this referral. We will be following closely. Gerard Branham MD CARL[facility] ALBERTO
[2019-01-01] MEDS: cefTRIAXone IV 1 gm in Dextros 50 ML IVPB SCH ×2 (06:00→17:46)
--- NOTE | 2019-01-01 07:40 | CP.PCM.PN ---
<Maxx Strong - Last Filed: 01/01/19 14:57> Subjective - Date & Time of Evaluation Date of Evaluation: 01/01/19 Time of Evaluation: 09:40 - Subjective Subjective: Nephro Progress Note for Dr. Branham Service Maxx Strong DO, IM PGY-3 Patient seen and examined at bedside. Using Georgian-speech and language specialist, patient reports compliance with medications, but is unable to describe any medications other than Losartan. Reports 2 episodes of emesis overnight, non-bloody/non-bilious, but urinating well, denies dysuria, hematuria, diarrhea. Objective - Vital Signs/Intake and Output Vital Signs (last 24 hours): Temp Pulse Resp BP Pulse Ox 98.4 F 76 20 149/75 100 12/31/18 23:40 01/01/19 04:09 12/31/18 23:40 12/31/18 23:40 01/01/19 00:08 - Medications Medications: Current Medications Acetaminophen (Tylenol 325mg Tab) 650 mg PO Q6 PRN PRN Reason: Pain, moderate (4-7) Last Admin: 12/31/18 20:20 Dose: 650 mg Carvedilol (Coreg) 3.125 mg PO BID MARY Last Admin: 12/31/18 17:43 Dose: 3.125 mg Dextrose (Dextrose 50% Inj) 0 ml IV STAT PRN; Protocol PRN Reason: Hypoglycemia Protocol Dextrose (Glutose 15) 0 gm PO ONCE PRN; Protocol PRN Reason: Hypoglycemia Protocol Glucagon (Glucagen Diagnostic Kit) 0 mg IM STAT PRN; Protocol PRN Reason: Hypoglycemia Protocol Hydralazine HCl (Apresoline) 25 mg PO TID MARY Last Admin: 12/31/18 17:43 Dose: 25 mg Ceftriaxone Sodium (Rocephin Iv 1 Gm Duplex) 50 mls @ 100 mls/hr IVPB Q12H MARY; Protocol Last Admin: 01/01/19 06:00 Dose: 100 mls/hr Dextrose (Dextrose 5% In Water 1000 Ml) 1,000 mls @ 0 mls/hr IV .Q0M PRN; Protocol PRN Reason: Hypoglycemia Protocol Insulin Glargine (Lantus) 12 unit SC Q12H MARY Last Admin: 12/31/18 20:21 Dose: 12 units Insulin Human Regular (Novolin R) 0 unit SC ACHS MARY; Protocol Last Admin: 04/30/19 21:11 Dose: Not Given Pantoprazole Sodium (Protonix Ec Tab) 40 mg PO DAILY MARY Pneumococcal Polyvalent Vaccine (Pneumovax 23 Vaccine) 0.5 ml IM .ONCE ONE Stop: 01/03/19 10:01 Rosuvastatin Calcium (Crestor) 10 mg PO HS MARY Last Admin: 12/31/18 21:11 Dose: 10 mg - Labs Labs: 12/31/18 13:19 12/31/18 13:19 - Constitutional Appears: Non-toxic, No Acute Distress - Head Exam Head Exam: ATRAUMATIC, NORMAL INSPECTION, NORMOCEPHALIC - Eye Exam Eye Exam: EOMI, Normal appearance. absent: Conjunctival injection, Scleral icterus Pupil Exam: absent: Irregular, Unequal - ENT Exam ENT Exam: Mucous Membranes Moist - Neck Exam Neck Exam: Full ROM. absent: Lymphadenopathy, Thyromegaly - Respiratory Exam Respiratory Exam: Clear to Ausculation Bilateral, NORMAL BREATHING PATTERN. absent: Accessory Muscle Use, Chest Wall Tenderness, Decreased Breath Sounds, Rales, Rhonchi, Wheezes - Cardiovascular Exam Cardiovascular Exam: REGULAR RHYTHM, RRR, +S1, +S2. absent: Bradycardia, Tachycardia, Irregular Rhythm, JVD, +S4 - GI/Abdominal Exam GI & Abdominal Exam: Soft, Tenderness (mild tenderness epigastrically with deep palpation). absent: Distended, Firm, Rigid - Extremities Exam Extremities Exam: Full ROM, Pedal Edema (+1-2 pitting edema in bilateral LE from ankles to mid-[place], no involvement of knee). absent: Calf Tenderness, Joint Swelling, Tenderness - Back Exam Back Exam: absent: CVA tenderness (L), CVA tenderness (R) - Neurological Exam Additional comments: awake and alert, moving all extremities, following all commands appropriately - Psychiatric Exam Psychiatric exam: Normal Affect, Normal Mood - Skin Skin Exam: Dry, Intact, Normal Color, Warm Assessment and Plan - Assessment and Plan (Free Text) Assessment: This is a 48yo F with PMH of IDDM, DM gastroparesis, HTN, chronic gastritis, HLD, anxiety, anemia, hyperprolactinemia, and hx of NICK with last admission who presented with complaint of shortness of breath, leg swelling, emesis, and increased Cr on recent outpatient bloodwork (2.4). Nephro was consulted for worsening Cr concerning for acute renal failure vs NICK on CKD. Plan: 1) Worsening Cr: Acute Renal Failure vs NICK on CKD 2) IDDM 3) HTN urgency 4) Dyspnea 5) Gastroparesis 6) HLD 7) Medication non-compliance -Acute renal failure vs NICK overlying CKD Cr 2.5 on admit, 2.7 today, baseline over last year (as per charting) 1.4- 1.6, was 0.5 to 0.8 in 2017 and earlier Prior admission notable for 13g protein in urine, suggestive of nephrotic disease (2/2 uncontrolled DM and/or HTN) Need renal biopsy to r/o other causes given progression of Cr over last 2 yrs, pt amenable to bx Vit D level low, pending PTH -Hypertensive urgency with SBP 180's-190's on presentation May be some contribution from gastroparesis and emesis, but still requires more aggressive control Better controlled today, SBP 140's-150 Current regimen: Coreg 6.25 BID, Hydralazine 25mg TID Continuing IV Lasix 20mg daily, continue holding home losartan, avoid further ACEi/ARB at this time -Given dyspnea with LE swelling and uncontrolled HTN/DM, at risk for CHF Pending Echo Continue IV lasix 20mg daily -Anemia likely anemia of chronic disease Ferritin, Iron, and TOBC wnl, but % Sat low, can consider iron repletion Reviewed and discussed with attending, Dr Branham <Gerard Branham - Last Filed: 01/02/19 06:08> Objective - Vital Signs/Intake and Output Vital Signs (last 24 hours): Temp Pulse Resp BP Pulse Ox 98.5 F 83 20 130/72 98 01/02/19 04:00 01/02/19 04:00 01/02/19 04:00 01/02/19 04:00 01/02/19 04:00 - Medications Medications: Current Medications Acetaminophen (Tylenol 325mg Tab) 650 mg PO Q6 PRN PRN Reason: Pain, moderate (4-7) Last Admin: 12/31/18 20:20 Dose: 650 mg Carvedilol (Coreg) 6.25 mg PO BID MARY Last Admin: 01/01/19 17:51 Dose: 6.25 mg Dextrose (Dextrose 50% Inj) 0 ml IV STAT PRN; Protocol PRN Reason: Hypoglycemia Protocol Dextrose (Glutose 15) 0 gm PO ONCE PRN; Protocol PRN Reason: Hypoglycemia Protocol Glucagon (Glucagen Diagnostic Kit) 0 mg IM STAT PRN; Protocol PRN Reason: Hypoglycemia Protocol Hydralazine HCl (Apresoline) 25 mg PO TID [facility] Last Admin: 01/01/19 17:47 Dose: 25 mg Ceftriaxone Sodium (Rocephin Iv 1 Gm Duplex) 50 mls @ 100 mls/hr IVPB Q12H MARY; Protocol Last Admin: 01/01/19 17:46 Dose: 100 mls/hr Dextrose (Dextrose 5% In Water 1000 Ml) 1,000 mls @ 0 mls/hr IV .Q0M PRN; Protocol PRN Reason: Hypoglycemia Protocol Insulin Glargine (Lantus) 15 unit SC Q12 [facility] Last Admin: 01/01/19 22:18 Dose: Not Given Insulin Human Regular (Novolin R) 0 unit SC Q4H MARY; Protocol Last Admin: 01/01/19 20:24 Dose: 4 units Pantoprazole Sodium (Protonix Ec Tab) 40 mg PO DAILY [facility] Last Admin: 01/01/19 09:34 Dose: 40 mg Pneumococcal Polyvalent Vaccine (Pneumovax 23 Vaccine) 0.5 ml IM .ONCE ONE Stop: 01/03/19 10:01 Rosuvastatin Calcium (Crestor) 10 mg PO HS [facility] Last Admin: 01/01/19 22:19 Dose: 10 mg - Labs Labs: 01/01/19 07:30 01/01/19 07:30 PT 10.3 SECONDS (9.7-12.2) 01/01/19 07:30 INR 0.9 01/01/19 07:30 APTT 42.0 SECONDS (21-34) H 01/01/19 07:30 Attending/Attestation - Attestation I have personally seen and examined this patient.: Yes I have fully participated in the care of the patient.: Yes I have reviewed all pertinent clinical information, including history, physical exam and plan: Yes Notes (Text): Patient seen and examined; I agree with the resident's note as above with the following additions/edits: 48 yo F w/ pmh of htn, poorly controlled DM, and CKD IIIB with nephrotic syndrome, admitted with hypertensive urgency and acute renal failure; Serum creatinine increased today further after getting IV diuretics yesterday and with control of BP; stable volume and electrolyte status; serologic workup for etiology of proteinuric kidney disease thus far unremarkable, awaiting rest of results; direct urine microscopy was contaminated sample (numerous squamous epithelial cells), however, pyuria had decreased possibly due to being on antibiotics (persistent pyuria on multiple UA samples and with cultures always positive); diabetic nephropathy most likely cause but will pursue renal biopsy tomorrow to rule out treatable causes; Hypertensive CKD, BP improved on small doses of coreg and hydralazine, along w ith IV lasix 20 mg daily, continue same; will hold ARB indefinitely until renal function improves (too risky at this advanced stage of renal failure); Anemia of CKD with iron deficiency component, will load with IV iron; Much improved hgbA1c likely due to at least in part to worsening renal failure; will need to reduce insulin doses moving forward; -NPO past MN for biopsy; -Avoid nephrotoxic agents (NSAIDS, phosphate enema, etc); -f/u echo;
[2019-01-01 07:56] LABS: BASO # 0.1 K/uL (0.0-0.2); BASO % 0.8 % (0.0-2.0); EOS # 0.2 K/uL (0.0-0.7); EOS % 3.6 % (0.0-4.0); HEMOGLOBIN 8.9 g/dL (11.0-16.0); LYMPH # 2.3 K/uL (1.0-4.3); LYMPH % 35.3 % (20.0-40.0); MEAN CELL VOLUME 80.5 fL (81.0-99.0); MEAN CORPUSCULAR HEMOGLOBIN 27.4 pg (27.0-31.0); MEAN PLATELET VOLUME 9.5 fL (7.2-11.7); MONO # 0.5 K/uL (0.0-0.8); MONO % 8.3 % (0.0-10.0); NEUT # 3.4 K/uL (1.8-7.0); RBC 3.26 Mil/uL (3.80-5.20); RED CELL DISTRIBUTION WIDTH 14.7 % (11.5-14.5); WHITE BLOOD COUNT 6.6 K/uL (4.8-10.8)
[2019-01-01 08:00] LABS: INR 0.9; PROTHROMBIN TIME 10.3 SECONDS (9.7-12.2)
[2019-01-01 08:08] LABS: IRON 47 ug/dL (37-170)
[2019-01-01 08:18] LABS: % IRON SATURATION 18 (20-55); TOTAL IRON BINDING CAPACITY 260 ug/dL (250-450)
[2019-01-01] MEDS: (Novolin R) Insulin Human Regular 100 units/ml vial SC SCH ×5 (08:21→23:47)
[2019-01-01] MEDS: (Lantus) Insulin Glargine, Recombinant SC SCH ×3 (08:37→22:18)
[2019-01-01 08:51] LABS: ALBUMIN 2.7 g/dL (3.5-5.0); ALT/SGPT 17 U/L (9-52); AST/SGOT 22 U/L (14-36); BLOOD UREA NITROGEN 35 mg/dL (7-17); CALCIUM 8.4 mg/dl (8.6-10.4); COMPLEMENT C4 27.7 mg/dL (14.0-44.0); GFR NON-AFRICAN AMERICAN 19
[2019-01-01 09:18] LABS: HEPATITIS B SURFACE AG Negative (NEGATIVE)
[2019-01-01 09:22] LABS: FERRITIN 10.7 ng/mL
[2019-01-01] MEDS ORDERED: (Novolin R) Insulin Human Regular 100 units/ml vial SC SCH ×2 (09:34→10:45)
[2019-01-01] MEDS: Pantoprazole 40 mg EC Tab PO SCH (09:34)
--- NOTE | 2019-01-01 09:35 | CP.PCM.PN ---
<Yadira Serrano - Last Filed: 01/01/19 15:45> Subjective - Date & Time of Evaluation Date of Evaluation: 01/01/19 Time of Evaluation: 09:35 - Subjective Subjective: PGY1 Medicine Progress Note for Dr. Humphreys Patient was seen and evaluated at bedside this morning. No acute events overnight. No new complaints. Patient otherwise denies fever, chills, nausea, vomiting, blurred vision, headache, chest pain, abdominal pain, diarrhea, constipation, lower extremity pain/edema, flank pain, diaphoresis. Objective - Vital Signs/Intake and Output Vital Signs (last 24 hours): Temp Pulse Resp BP Pulse Ox 98.8 F 79 20 156/86 H 96 01/01/19 07:20 01/01/19 07:20 01/01/19 07:20 01/01/19 07:20 01/01/19 07:20 - Medications Medications: Current Medications Acetaminophen (Tylenol 325mg Tab) 650 mg PO Q6 PRN PRN Reason: Pain, moderate (4-7) Last Admin: 12/31/18 20:20 Dose: 650 mg Carvedilol (Coreg) 3.125 mg PO BID [facility] Last Admin: 12/31/18 17:43 Dose: 3.125 mg Dextrose (Dextrose 50% Inj) 0 ml IV STAT PRN; Protocol PRN Reason: Hypoglycemia Protocol Dextrose (Glutose 15) 0 gm PO ONCE PRN; Protocol PRN Reason: Hypoglycemia Protocol Glucagon (Glucagen Diagnostic Kit) 0 mg IM STAT PRN; Protocol PRN Reason: Hypoglycemia Protocol Hydralazine HCl (Apresoline) 25 mg PO TID [facility] Last Admin: 12/31/18 17:43 Dose: 25 mg Ceftriaxone Sodium (Rocephin Iv 1 Gm Duplex) 50 mls @ 100 mls/hr IVPB Q12H MARY; Protocol Last Admin: 01/01/19 06:00 Dose: 100 mls/hr Dextrose (Dextrose 5% In Water 1000 Ml) 1,000 mls @ 0 mls/hr IV .Q0M PRN; Protocol PRN Reason: Hypoglycemia Protocol Insulin Glargine (Lantus) 12 unit SC Q12H MARY Last Admin: 01/01/19 08:37 Dose: 12 units Insulin Human Regular (Novolin R) 0 unit SC ACHS [facility]; Protocol Pantoprazole Sodium (Protonix Ec Tab) 40 mg PO DAILY [facility] Pneumococcal Polyvalent Vaccine (Pneumovax 23 Vaccine) 0.5 ml IM .ONCE ONE Stop: 01/03/19 10:01 Rosuvastatin Calcium (Crestor) 10 mg PO [facility] Last Admin: 12/31/18 21:11 Dose: 10 mg - Labs Labs: 01/01/19 07:30 01/01/19 07:30 PT 10.3 SECONDS (9.7-12.2) 01/01/19 07:30 INR 0.9 01/01/19 07:30 APTT 42.0 SECONDS (21-34) H 01/01/19 07:30 - Additional Findings Additional findings: - Head Exam Head Exam: ATRAUMATIC, NORMAL INSPECTION, NORMOCEPHALIC - Eye Exam Eye Exam: EOMI, Normal appearance, PERRL Pupil Exam: NORMAL ACCOMODATION - ENT Exam ENT Exam: Mucous Membranes Moist, Normal Exam - Neck Exam Neck Exam: Normal Inspection - Respiratory Exam Respiratory Exam: Clear to Ausculation Bilateral, NORMAL BREATHING PATTERN - Cardiovascular Exam Cardiovascular Exam: RRR, +S1, +S2 - GI/Abdominal Exam GI & Abdominal Exam: Soft, Normal Bowel Sounds. absent: Tenderness - Extremities Exam Extremities Exam: Normal Capillary Refill, Normal Inspection. absent: Calf Tenderness, Joint Swelling, Pedal Edema - Back Exam Back Exam: NORMAL INSPECTION - Neurological Exam Neurological Exam: Alert, Awake, CN II-XII Intact - Psychiatric Exam Psychiatric exam: Normal Affect, Normal Mood - Skin Skin Exam: Dry, Intact, Normal Color, Warm Assessment and Plan - Assessment and Plan (Free Text) Assessment: Patient is a 48 yo female with insulin dependent T2DM, gastroparesis, HTN, chronic gastritis, HLD, anxiety, and anemia who presented after being send by her PMD (clinic) for acute worsening of creatinine. Patient was being seen in the clinic for routine blood work follow-up and her creatinine increaed from 1.4 in 08/2018 to 2.5. Patient subsequently admitted for NICK in the setting of poorly controlled diabetes type 2 as well as hypertensive urgency. Acute renal failure in the setting of Poorly Controlled Type 2 Diabetes Mellitus - Creatinine 1.4--> 2.5 --> 2.7 (01/01/19) - Renal US: b/l kidney echogenicity, trace - CT A/P pending report - UA: 3+ prot, 3+ gluc, 1+ LE, 176 WBC, 5 RBC, few salima - UCx pending - Rocephin 1 g IV Q12H - Nephrology consulted ([facility]) Recommended ECHO (ordered) F/U Lab tests ordered: HIV antibodies, kappa/lamda, HCV antibodies, PTH, JEVON with reflex - Monitor CMP with Mg, Phos daily - Replete electrolytes as needed Hypertensive urgency, acute - Vitals Q4H - Monitor on telemetry - Hold Losartan due to ARF - Continue Hydralazine 25 mg PO TID - Increase Coreg 6.125 mg PO BID Elevated BNP - Trop negative - EKG: NSR - ECHO (ordered) Type 2 diabetes mellitus, insulin dependent, chronic - A1c 8.2 in 11/2018 - Accuchecks changed to Q4H - Hypoglycemia protocol - Increased to Lantus 15 units SC Q12H - Increased to ISS - high Hyperlipidemia, chronic - Lipid panel 11/2018: TG 152, choles 301, LDL 187, HDL 62 - Crestor 10 mg PO QHS Gastritis, chronic - Protonix 40 mg PO daily Anemia, chronic - Hgb stable (baseline 9s-10s) - Monitor CBC Ppx: VTE: SCDs contraindicated due to edema, chemical anticoag contraindicated due to anemia GI: Protonix 40 mg PO daily Diet: Renal, heart healthy Code status: full code Dispo: Pending neprho recs, imaging, labs, cultures. Patient seen and case discussed with Dr. Juliann Serrano PGY1 <Dorian Humphreys - Last Filed: 01/01/19 17:29> Objective - Vital Signs/Intake and Output Vital Signs (last 24 hours): Temp Pulse Resp BP Pulse Ox 98.8 F 75 20 120/70 96 01/01/19 07:20 01/01/19 13:10 01/01/19 07:20 01/01/19 13:59 01/01/19 07:20 - Medications Medications: Current Medications Acetaminophen (Tylenol 325mg Tab) 650 mg PO Q6 PRN PRN Reason: Pain, moderate (4-7) Last Admin: 12/31/18 20:20 Dose: 650 mg Carvedilol (Coreg) 6.125 mg PO BID MARY Dextrose (Dextrose 50% Inj) 0 ml IV STAT PRN; Protocol PRN Reason: Hypoglycemia Protocol Dextrose (Glutose 15) 0 gm PO ONCE PRN; Protocol PRN Reason: Hypoglycemia Protocol Glucagon (Glucagen Diagnostic Kit) 0 mg IM STAT PRN; Protocol PRN Reason: Hypoglycemia Protocol Hydralazine HCl (Apresoline) 25 mg PO TID [facility] Last Admin: 01/01/19 13:59 Dose: 25 mg Ceftriaxone Sodium (Rocephin Iv 1 Gm Duplex) 50 mls @ 100 mls/hr IVPB Q12H MARY; Protocol Last Admin: 01/01/19 06:00 Dose: 100 mls/hr Dextrose (Dextrose 5% In Water 1000 Ml) 1,000 mls @ 0 mls/hr IV .Q0M PRN; Protocol PRN Reason: Hypoglycemia Protocol Insulin Glargine (Lantus) 15 unit SC Q12 [facility] Last Admin: 01/01/19 11:54 Dose: Not Given Insulin Human Regular (Novolin R) 0 unit SC Q4H MARY; Protocol Last Admin: 01/01/19 12:21 Dose: Not Given Pantoprazole Sodium (Protonix Ec Tab) 40 mg PO DAILY [facility] Last Admin: 01/01/19 09:34 Dose: 40 mg Pneumococcal Polyvalent Vaccine (Pneumovax 23 Vaccine) 0.5 ml IM .ONCE ONE Stop: 01/03/19 10:01 Rosuvastatin Calcium (Crestor) 10 mg PO HS [facility] Last Admin: 12/31/18 21:11 Dose: 10 mg - Labs Labs: 01/01/19 07:30 01/01/19 07:30 PT 10.3 SECONDS (9.7-12.2) 01/01/19 07:30 INR 0.9 01/01/19 07:30 APTT 42.0 SECONDS (21-34) H 01/01/19 07:30 Attending/Attestation - Attestation I have personally seen and examined this patient.: Yes I have fully participated in the care of the patient.: Yes I have reviewed all pertinent clinical information, including history, physical exam and plan: Yes Notes (Text): Medical attending: Patient was seen and examined by me. Reviewed the above note by the resident and agree with the above The patient was not in any acute distress when we came and saw her. She had a CT of the abdomen and pelvis and we are pending read a this moment The patient has also had blood testing by nephrology as well. The creatine did increase slightly. We also had a really good features reporter with us and supposedly the patient takes her medications for HTN and DM Today the HTN is less, but will increase the coreg and continue with the hydralazine. We are not giving the ARB at this moment. With reguards to her DM the lantus was increased and SSI increased While we were talking to her today with the manager endoscopy I got the feeling she does not take her medications however this is hard to say given my limited Spani sh. Dorian Humphreys
--- NOTE | 2019-01-01 11:17 | CARD ---
APPROVED REPORT Date of service: 12/31/2018 EKG Measurement Heart [id number] OR [id number] <Conclusion> Normal sinus rhythm Normal ECG
[2019-01-02] MEDS: (Novolin R) Insulin Human Regular 100 units/ml vial SC SCH ×5 (04:00→20:58)
--- NOTE | 2019-01-02 06:49 | CP.PCM.PN ---
<Maxx Strong - Last Filed: 01/02/19 16:51> Subjective - Date & Time of Evaluation Date of Evaluation: 01/02/19 Time of Evaluation: 07:40 - Subjective Subjective: Nephro Progress Note for Dr. Carrol Strong DO, IM PGY-3 Patient seen and examined at bedside. No acute events overnight reported. Denies chest pain, abdominal pain, nausea, emesis, shortness of breath, dyspnea, or fevers. NPO overnight, pending renal biopsy today. Objective - Vital Signs/Intake and Output Vital Signs (last 24 hours): Temp Pulse Resp BP Pulse Ox 98.5 F 83 20 130/72 98 01/02/19 04:00 01/02/19 04:00 01/02/19 04:00 01/02/19 04:00 01/02/19 04:00 - Medications Medications: Current Medications Acetaminophen (Tylenol 325mg Tab) 650 mg PO Q6 PRN PRN Reason: Pain, moderate (4-7) Last Admin: 12/31/18 20:20 Dose: 650 mg Carvedilol (Coreg) 6.25 mg PO BID [facility] Last Admin: 01/01/19 17:51 Dose: 6.25 mg Dextrose (Dextrose 50% Inj) 0 ml IV STAT PRN; Protocol PRN Reason: Hypoglycemia Protocol Dextrose (Glutose 15) 0 gm PO ONCE PRN; Protocol PRN Reason: Hypoglycemia Protocol Glucagon (Glucagen Diagnostic Kit) 0 mg IM STAT PRN; Protocol PRN Reason: Hypoglycemia Protocol Hydralazine HCl (Apresoline) 25 mg PO TID [facility] Last Admin: 01/01/19 17:47 Dose: 25 mg Ceftriaxone Sodium (Rocephin Iv 1 Gm Duplex) 50 mls @ 100 mls/hr IVPB Q12H [facility]; Protocol Last Admin: 01/01/19 17:46 Dose: 100 mls/hr Dextrose (Dextrose 5% In Water 1000 Ml) 1,000 mls @ 0 mls/hr IV .Q0M PRN; Protocol PRN Reason: Hypoglycemia Protocol Insulin Glargine (Lantus) 15 unit SC Q12 [facility] Last Admin: 01/01/19 22:18 Dose: Not Given Insulin Human Regular (Novolin R) 0 unit SC Q4H [facility]; Protocol Last Admin: 01/01/19 20:24 Dose: 4 units Pantoprazole Sodium (Protonix Ec Tab) 40 mg PO DAILY [facility] Last Admin: 01/01/19 09:34 Dose: 40 mg Pneumococcal Polyvalent Vaccine (Pneumovax 23 Vaccine) 0.5 ml IM .ONCE ONE Stop: 01/03/19 10:01 Rosuvastatin Calcium (Crestor) 10 mg PO HS [facility] Last Admin: 01/01/19 22:19 Dose: 10 mg - Labs Labs: 01/01/19 07:30 01/01/19 07:30 PT 10.3 SECONDS (9.7-12.2) 01/01/19 07:30 INR 0.9 01/01/19 07:30 APTT 42.0 SECONDS (21-34) H 01/01/19 07:30 - Additional Findings Additional findings: - Constitutional Appears: Non-toxic, No Acute Distress - Head Exam Head Exam: ATRAUMATIC, NORMAL INSPECTION, NORMOCEPHALIC - Eye Exam Eye Exam: EOMI, Normal appearance. - ENT Exam ENT Exam: Mucous Membranes Moist - Neck Exam Neck Exam: Full ROM. - Respiratory Exam Respiratory Exam: Clear to Ausculation Bilateral, NORMAL BREATHING PATTERN. absent: Accessory Muscle Use, Chest Wall Tenderness, Decreased Breath Sounds, Rales, Rhonchi, Wheezes - Cardiovascular Exam Cardiovascular Exam: RRR, +S1, +S2. absent: Bradycardia, Tachycardia, Irregular Rhythm, JVD, +S4 - GI/Abdominal Exam GI & Abdominal Exam: Soft, Nontender, Normal Bowel Sounds. absent: Distended, Firm, Rigid, Tenderness - Extremities Exam Extremities Exam: Full ROM, Pedal Edema (+1-2 pitting edema in bilateral LE from ankles to mid-bur[place], no involvement of knee). absent: Calf Tenderness, Joint Sw elling, Tenderness - Back Exam Back Exam: absent: CVA tenderness (L), CVA tenderness (R) - Neurological Exam awake and alert, moving all extremities, following all commands appropriately - Psychiatric Exam Psychiatric exam: Normal Affect, Normal Mood - Skin Skin Exam: Dry, Intact, Normal Color, Warm Assessment and Plan - Assessment and Plan (Free Text) Assessment: This is a 48yo F with PMH of IDDM, DM gastroparesis, HTN, chronic gastritis, HLD, anxiety, anemia, hyperprolactinemia, and hx of NICK with last admission who presented with complaint of shortness of breath, leg swelling, emesis, and increased Cr on recent outpatient bloodwork (2.4). Nephro was consulted for worsening Cr concerning for acute renal failure vs NICK on CKD. Pending renal biopsy today. Plan: 1) Worsening Cr: Acute Renal Failure vs NICK on CKD 2) IDDM 3) HTN urgency 4) Dyspnea 5) Gastroparesis 6) HLD 7) Medication non-compliance -Acute renal failure vs NICK overlying CKD Cr 2.5 on admit, 2.6 today, baseline over last year (as per charting) 1.4- 1.6, was 0.5 to 0.8 in 2017 and earlier Prior admission notable for 13g protein in urine with low serum albumin, suggestive of nephrotic disease (2/2 uncontrolled DM and/or HTN) Chronically with pyuria on UA, microscopy sample yesterday contaminated/unreliable Hepatitis panel negative, pending HIV Complement wnl, JEVON and protein studies (SPEP, kappa chains, etc) still pending Pending renal bx for definitive etiology of renal dysfunction Vit D level low, pending PTH -Hypertensive urgency with SBP 180's-190's on presentation, better controlled now with minimal intervention (strongly suspect was not taking her meds outpt) Current regimen: Coreg 6.25 BID, Hydralazine 25mg TID Continue IV Lasix 20mg daily Continue holding home losartan, avoid further ACEi/ARB at this time -Given dyspnea with LE swelling and uncontrolled HTN/DM, at risk for CHF Pending Echo Continue IV lasix 20mg daily -Anemia likely anemia of chronic disease Ferritin, Iron, and TIBC wnl, but % Sat low, will load with IV iron Reviewed and discussed with attending, Dr Branham <Gerard Branham - Last Filed: 01/03/19 07:02> Objective - Vital Signs/Intake and Output Vital Signs (last 24 hours): Temp Pulse Resp BP Pulse Ox 98.6 F 80 20 141/80 95 01/03/19 02:41 01/03/19 04:11 01/03/19 02:41 01/03/19 02:41 01/03/19 02:41 Intake and Output: 01/02/19 01/03/19 18:59 06:59 Intake Total 580 Balance 580 - Medications Medications: Current Medications Acetaminophen (Tylenol 325mg Tab) 650 mg PO Q6 PRN PRN Reason: Pain, moderate (4-7) Last Admin: 01/02/19 13:52 Dose: 650 mg Carvedilol (Coreg) 6.25 mg PO BID [facility] Last Admin: 01/02/19 17:51 Dose: 6.25 mg Dextrose (Dextrose 50% Inj) 0 ml IV STAT PRN; Protocol PRN Reason: Hypoglycemia Protocol Dextrose (Glutose 15) 0 gm PO ONCE PRN; Protocol PRN Reason: Hypoglycemia Protocol Ergocalciferol (Drisdol 50,000 Intl Units Cap) 1 cap PO Q7D [facility] Last Admin: 01/02/19 19:00 Dose: 1 cap Ferric Sodium Gluconate Complex (Ferrlecit) 125 mg IVPB DAILY [facility] Stop: 01/10/19 13:01 Last Admin: 01/02/19 13:53 Dose: 125 mg Furosemide (Lasix) 20 mg IVP DAILY [facility] Glucagon (Glucagen Diagnostic Kit) 0 mg IM STAT PRN; Protocol PRN Reason: Hypoglycemia Protocol Hydralazine HCl (Apresoline) 25 mg PO TID [facility] Last Admin: 01/02/19 17:51 Dose: 25 mg Ceftriaxone Sodium (Rocephin Iv 1 Gm Duplex) 50 mls @ 100 mls/hr IVPB Q12H [facility]; Protocol Last Admin: 01/03/19 05:51 Dose: 100 mls/hr Dextrose (Dextrose 5% In Water 1000 Ml) 1,000 mls @ 0 mls/hr IV .Q0M PRN; Protocol PRN Reason: Hypoglycemia Protocol Insulin Glargine (Lantus) 15 unit SC Q12 [facility] Last Admin: 01/02/19 20:59 Dose: Not Given Insulin Human Regular (Novolin R) 0 unit SC Q4H [facility]; Protocol Last Admin: 01/03/19 04:14 Dose: Not Given Pantoprazole Sodium (Protonix Ec Tab) 40 mg PO DAILY [facility] Last Admin: 01/02/19 09:37 Dose: 40 mg Pneumococcal Polyvalent Vaccine (Pneumovax 23 Vaccine) 0.5 ml IM .ONCE ONE Stop: 01/03/19 10:01 Rosuvastatin Calcium (Crestor) 10 mg PO HS [facility] Last Admin: 01/01/19 22:19 Dose: 10 mg Sodium Bicarbonate (Sodium Bicarbonate Tab) 1,300 mg PO BID [facility] Last Admin: 01/02/19 18:59 Dose: 1,300 mg - Labs Labs: 01/02/19 07:19 01/02/19 07:19 PT 10.1 SECONDS (9.7-12.2) 01/02/19 07:19 INR 0.9 01/02/19 07:19 APTT 39.0 SECONDS (21-34) H 01/02/19 07:19 Attending/Attestation - Attestation I have personally seen and examined this patient.: Yes I have fully participated in the care of the patient.: Yes I have reviewed all pertinent clinical information, including history, physical exam and plan: Yes Notes (Text): Patient seen and examined; I agree with the resident's note as above with the following additions/edits: 48 yo F w/ pmh of htn, dm and CKD with nephrotic syndrome, admitted with acute renal failure and hypertensive urgency; Patient underwent renal biopsy today in the setting of marked worsening of renal function since past few months; otherwise stable volume and electrolyte status; BP much better controlled; will continue current meds including IV lasix 20 mg daily; holding off on BROCK inhibitor/ARB to avoid dropping GFR further; Anemia of CKD, hgb dropping; has component of iron deficiency; starting IV iron loading and giving dose of EPO 10,000 u; Metabolic acidosis noted; starting sodium bicarb 1300 mg bid; -Avoid nephrotoxic agents; -f/u renal biopsy results; will determine 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
[2019-01-02 07:43] LABS: BASO % 0.6 % (0.0-2.0); EOS # 0.2 K/uL (0.0-0.7); EOS % 2.5 % (0.0-4.0); HEMOGLOBIN 8.4 g/dL (11.0-16.0); LYMPH # 2.9 K/uL (1.0-4.3); LYMPH % 39.3 % (20.0-40.0); MEAN CELL VOLUME 80.3 fL (81.0-99.0); MEAN CORPUSCULAR HEMOGLOBIN 27.1 pg (27.0-31.0); MEAN CORPUSCULAR HGB CONC 33.8 g/dL (33.0-37.0); MEAN PLATELET VOLUME 10.3 fL (7.2-11.7); MONO # 0.6 K/uL (0.0-0.8); MONO % 7.9 % (0.0-10.0); NEUT # 3.7 K/uL (1.8-7.0); NEUT % 49.7 % (50.0-75.0); RBC 3.1 Mil/uL (3.80-5.20); WHITE BLOOD COUNT 7.5 K/uL (4.8-10.8)
[2019-01-02] MEDS: cefTRIAXone IV 1 gm in Dextros 50 ML IVPB SCH ×2 (07:43→17:51)
--- NOTE | 2019-01-02 07:48 | CP.PCM.PN ---
<Jett Ann - Last Filed: 01/02/19 14:35> Subjective - Date & Time of Evaluation Date of Evaluation: 01/02/19 Time of Evaluation: 07:48 - Subjective Subjective: PGY-1 Medicine Progress Note for Dr. Humphreys Patient seen and examined sitting by bedside, in no acute distress. No overnight events reported. She endorses some mild R sided flank pain but otherwise no acute somatic complaints. 12 pt ROS reviewed and otherwise negative. Patient is aware of need for renal biopsy, per Nephrology recommendations. Objective - Vital Signs/Intake and Output Vital Signs (last 24 hours): Temp Pulse Resp BP Pulse Ox 98.3 F 88 20 155/84 H 98 01/02/19 07:15 01/02/19 07:15 01/02/19 07:15 01/02/19 07:15 01/02/19 07:15 Intake and Output: 01/02/19 01/02/19 06:59 18:59 Intake Total 240 Balance 240 - Medications Medications: Current Medications Acetaminophen (Tylenol 325mg Tab) 650 mg PO Q6 PRN PRN Reason: Pain, moderate (4-7) Last Admin: 12/31/18 20:20 Dose: 650 mg Carvedilol (Coreg) 6.25 mg PO BID [facility] Last Admin: 01/01/19 17:51 Dose: 6.25 mg Dextrose (Dextrose 50% Inj) 0 ml IV STAT PRN; Protocol PRN Reason: Hypoglycemia Protocol Dextrose (Glutose 15) 0 gm PO ONCE PRN; Protocol PRN Reason: Hypoglycemia Protocol Glucagon (Glucagen Diagnostic Kit) 0 mg IM STAT PRN; Protocol PRN Reason: Hypoglycemia Protocol Hydralazine HCl (Apresoline) 25 mg PO TID [facility] Last Admin: 01/01/19 17:47 Dose: 25 mg Ceftriaxone Sodium (Rocephin Iv 1 Gm Duplex) 50 mls @ 100 mls/hr IVPB Q12H [facility]; Protocol Last Admin: 01/02/19 07:43 Dose: 100 mls/hr Dextrose (Dextrose 5% In Water 1000 Ml) 1,000 mls @ 0 mls/hr IV .Q0M PRN; Protocol PRN Reason: Hypoglycemia Protocol Insulin Glargine (Lantus) 15 unit SC Q12 [facility] Last Admin: 01/01/19 22:18 Dose: Not Given Insulin Human Regular (Novolin R) 0 unit SC Q4H [facility]; Protocol Last Admin: 01/01/19 20:24 Dose: 4 units Pantoprazole Sodium (Protonix Ec Tab) 40 mg PO DAILY [facility] Last Admin: 01/01/19 09:34 Dose: 40 mg Pneumococcal Polyvalent Vaccine (Pneumovax 23 Vaccine) 0.5 ml IM .ONCE ONE Stop: 01/03/19 10:01 Rosuvastatin Calcium (Crestor) 10 mg PO HS [facility] Last Admin: 01/01/19 22:19 Dose: 10 mg - Labs Labs: 01/02/19 07:19 01/01/19 07:30 PT 10.3 SECONDS (9.7-12.2) 01/01/19 07:30 INR 0.9 01/01/19 07:30 APTT 42.0 SECONDS (21-34) H 01/01/19 07:30 - Constitutional Appears: Non-toxic, No Acute Distress - Head Exam Head Exam: ATRAUMATIC, NORMAL INSPECTION, NORMOCEPHALIC - Eye Exam Eye Exam: EOMI, Normal appearance, PERRL Pupil Exam: NORMAL ACCOMODATION - ENT Exam ENT Exam: Mucous Membranes Moist, Normal Exam - Neck Exam Neck Exam: Full ROM, Normal Inspection - Respiratory Exam Respiratory Exam: Clear to Ausculation Bilateral, NORMAL BREATHING PATTERN. absent: Accessory Muscle Use, Rales, Rhonchi, Wheezes, Respiratory Distress, Stridor - Cardiovascular Exam Cardiovascular Exam: REGULAR RHYTHM, +S1, +S2 - GI/Abdominal Exam GI & Abdominal Exam: Soft, Normal Bowel Sounds. absent: Distended, Firm, Guarding, Rigid, Tenderness, Rebound - Extremities Exam Extremities Exam: Full ROM, Normal Capillary Refill, Normal Inspection. absent: Calf Tenderness, Pedal Edema - Back Exam Back Exam: NORMAL INSPECTION. absent: CVA tenderness (L), CVA tenderness (R) - Neurological Exam Neurological Exam: Alert, Awake, Normal Gait, Oriented x3 - Skin Skin Exam: Dry, Intact, Normal Color, Warm Assessment and Plan - Assessment and Plan (Free Text) Assessment: 48 year old female with pmhx of IDDM, DM gastroparesis, HTN, chronic gastritis, HLD, anxiety, anemia, hyperprolactinemia, and hx of NICK with last admission who presented with complaint of shortness of breath, leg swelling, emesis, and increased Cr on recent outpatient bloodwork (2.4). Nephro was consulted for worsening Cr concerning for acute renal failure vs NICK on CKD. Plan: NICK CKD IIIB with Nephrotic Syndrome -Nephrology recs (Dr. Branham) appreciated -likely diabetic nephropathy but will pursue renal biopsy to rule out treatable causes -c/w coreg, hydralazine -c/w lasix 20 mg IV daily -ARB held indefinitely until renal fxn improves HTN Hypertensive CKD -currently normotensive, continue to monitor -coreg 6.125 mg PO BID -hydralazine 25 mg PO TID Elevated BNP -Trop negative -EKG: NSR -ECHO: Mild concentric LVH. EF 55-60%. Mild aortic regurgitation, moderate mitral regurgitation. IDDM -A1c 8.2 in 11/2018 -Accuchecks Q4H -Hypoglycemia protocol -Lantus 15 units SC Q12H -ISS high HLD -Crestor 10 mg PO HS Gastritis, chronic -Protonix 40 mg PO daily Anemia, chronic -likely anemia of CKD, with iron deficient component -loading with IV iron -Hgb stable (baseline 9s-10s) -continue to monitor PPx, Diet, Disposition -DVT ppx: SCDs contraindicated due to edema, chemical anticoag contraindicated due to anemia -GI ppx: Protonix 40 mg PO daily -Diet: Renal, heart healthy Case discussed with Dr. Juliann Ann DO, PGY-1 <Dorian Humphreys - Last Filed: 01/02/19 15:37> Objective - Vital Signs/Intake and Output Vital Signs (last 24 hours): Temp Pulse Resp BP Pulse Ox 97.6 F 71 20 125/76 98 01/02/19 14:00 01/02/19 14:00 01/02/19 14:00 01/02/19 14:00 01/02/19 07:15 Intake and Output: 01/02/19 01/02/19 06:59 18:59 Intake Total 240 580 Balance 240 580 - Medications Medications: Current Medications Acetaminophen (Tylenol 325mg Tab) 650 mg PO Q6 PRN PRN Reason: Pain, moderate (4-7) Last Admin: 01/02/19 13:52 Dose: 650 mg Carvedilol (Coreg) 6.25 mg PO BID [facility] Last Admin: 01/02/19 09:36 Dose: 6.25 mg Dextrose (Dextrose 50% Inj) 0 ml IV STAT PRN; Protocol PRN Reason: Hypoglycemia Protocol Dextrose (Glutose 15) 0 gm PO ONCE PRN; Protocol PRN Reason: Hypoglycemia Protocol Ferric Sodium Gluconate Complex (Ferrlecit) 125 mg IVPB DAILY [facility] Stop: 01/10/19 13:01 Last Admin: 01/02/19 13:53 Dose: 125 mg Furosemide (Lasix) 20 mg IVP DAILY [facility] Glucagon (Glucagen Diagnostic Kit) 0 mg IM STAT PRN; Protocol PRN Reason: Hypoglycemia Protocol Hydralazine HCl (Apresoline) 25 mg PO TID [facility] Last Admin: 01/02/19 13:53 Dose: 25 mg Ceftriaxone Sodium (Rocephin Iv 1 Gm Duplex) 50 mls @ 100 mls/hr IVPB Q12H [facility]; Protocol Last Admin: 01/02/19 07:43 Dose: 100 mls/hr Dextrose (Dextrose 5% In Water 1000 Ml) 1,000 mls @ 0 mls/hr IV .Q0M PRN; Protocol PRN Reason: Hypoglycemia Protocol Insulin Glargine (Lantus) 15 unit SC Q12 [facility] Last Admin: 01/02/19 09:35 Dose: Not Given Insulin Human Regular (Novolin R) 0 unit SC Q4H [facility]; Protocol Last Admin: 01/02/19 11:30 Dose: Not Given Pantoprazole Sodium (Protonix Ec Tab) 40 mg PO DAILY [facility] Last Admin: 01/02/19 09:37 Dose: 40 mg Pneumococcal Polyvalent Vaccine (Pneumovax 23 Vaccine) 0.5 ml IM .ONCE ONE Stop: 01/03/19 10:01 Rosuvastatin Calcium (Crestor) 10 mg PO HS [facility] Last Admin: 01/01/19 22:19 Dose: 10 mg - Labs Labs: 01/02/19 07:19 01/02/19 07:19 PT 10.1 SECONDS (9.7-12.2) 01/02/19 07:19 INR 0.9 01/02/19 07:19 APTT 39.0 SECONDS (21-34) H 01/02/19 07:19 Attending/Attestation - Attestation I have personally seen and examined this patient.: Yes I have fully participated in the care of the patient.: Yes I have reviewed all pertinent clinical information, including history, physical exam and plan: Yes Notes (Text): 01/02/19 15:24 Medical attending: Patient was seen and examined by me with the medical claims analyst The patient was not in any acute distress when I came and saw She was pending renal biopsy for later today. Patient was aware of this. Her family member also came and we explained to them as well Her blood pressure is much better controlled now, currently on Hydralazine as well as Coreg Blood sugars stable for the time being Dorian Humphreys
[2019-01-02 07:57] LABS: INR 0.9
[2019-01-02 08:14] LABS: PROTHROMBIN TIME 10.1 SECONDS (9.7-12.2)
[2019-01-02 08:16] LABS: ALBUMIN 2.5 g/dL (3.5-5.0); CALCIUM 7.8 mg/dl (8.6-10.4)
[2019-01-02] MEDS: (Lantus) Insulin Glargine, Recombinant SC SCH ×2 (09:35→20:59)
[2019-01-02] MEDS: Pantoprazole 40 mg EC Tab PO SCH (09:37)
--- NOTE | 2019-01-02 11:56 | CARD ---
APPROVED REPORT Date of service: 01/02/2019 EXAM: Two-dimensional and M-mode echocardiogram with Doppler and color Doppler. Other Information Quality : GoodRhythm : INDICATION Dyspnea Peripheral Edema Chest Pain RISK FACTORS Hypertension Hyperlipidemia Diabetes 2D DIMENSIONS IVSd1.3 (0.7-1.1cm)LVDd4.8 (3.9-5.9cm) PWd1.1 (0.7-1.1cm)LA [id number] (18-58mL) LVDs3.4 (2.5-4.0cm)FS (%) 29.4 % LVEF (%)56.3 (>50%)LVEF (De La Cruz's)60.74 % IVC0.00 cm M-Mode DIMENSIONS RVDd2.21 (2.1-3.2cm)Left Atrium (MM)3.65 (2.5-4.0cm) IVSd1.35 (0.7-1.1cm)Aortic Root3.28 (2.2-3.7cm) LVDd4.99 (4.0-5.6cm)Aortic Cusp Exc.1.99 (1.5-2.0cm) PWd0.98 (0.7-1.1cm)FS (%) 33 % LVDs3.37 (2.0-3.8cm)LVEF (%)61 (>50%) Aortic Valve AI P 1/2 [id number] Mitral Valve MV E Aqtjdppq09.6cm/sMV A Vjnsooju301.9cm/sE/A ratio0.7 FSXN807.89 cm/s TDI Lateral E' Peak V7.19cm/sMedial E' Peak V5.58cm/sE/Lateral E'9.8 E/Medial E'12.7 Tricuspid Valve TR Peak Uqlyiiro627hm/sTR Peak Gr.[id number] LEFT VENTRICLE The left ventricle is normal size. There is mild concentric left ventricular hypertrophy. The Ejection Fraction is 55-60%. There is normal LV segmental wall motion. Transmitral Doppler flow pattern is Grade I-abnormal relaxation pattern. RIGHT VENTRICLE The right ventricle is normal size. The right ventricular systolic function is normal. ATRIA The left atrium size is normal. The right atrium size is normal. The interatrial septum is intact with no evidence for an atrial septal defect. AORTIC VALVE The aortic valve is normal in structure. There is mild aortic regurgitation. MITRAL VALVE The mitral valve is normal in structure. Mitral regurgitation is moderate. TRICUSPID VALVE The tricuspid valve is normal in structure. There is mild tricuspid regurgitation. Right ventricular systolic pressure is estimated at 18 mmHg. There is no pulmonary hypertension. PULMONIC VALVE The pulmonary valve is normal in structure. GREAT VESSELS The aortic root is normal in size. The IVC is normal in size and collapses >50% with inspiration. PERICARDIAL EFFUSION There is no pericardial effusion. <Conclusion> The left ventricle is normal size. There is mild concentric left ventricular hypertrophy. The Ejection Fraction is 55-60%. There is mild aortic regurgitation. Mitral regurgitation is moderate. The aortic root is normal in size. The IVC is normal in size and collapses >50% with inspiration. Transmitral Doppler flow pattern is Grade I-abnormal relaxation pattern.
[2019-01-02] MEDS ORDERED: Midazolam 2 MG/2 ML VIAL ONE (12:02)
[2019-01-02] MEDS ORDERED: Absorbable Gelatin Sponge Size 12-7 ONE (12:09)
[2019-01-02] MEDS: Ferric Sodium Gluconat Complex 62.5 mg/5 ml Vial IVPB SCH (13:53)
--- NOTE | 2019-01-02 16:47 | CT ---
Date of service: 12/31/2018 PROCEDURE: CT Abdomen and Pelvis without intravenous contrast HISTORY: cva tenderness COMPARISON: 09/14/2017 TECHNIQUE: Without contrast.. Contrast dose: 0 Radiation dose: Total exam DLP = 378.42 mGy-cm. This CT exam was performed using one or more of the following dose reduction techniques: Automated exposure control, adjustment of the mA and/or kV according to patient size, and/or use of iterative reconstruction technique. FINDINGS: LOWER THORAX: Unremarkable. LIVER: Unremarkable. No gross lesion or ductal dilatation. GALLBLADDER AND BILE DUCTS: Unremarkable. PANCREAS: Subtle hazy increased attenuation about the head and body of the pancreas. Possible pancreatitis. No yasmani peripancreatic fluid collection. No pancreatic mass or pancreatic ductal dilatation. Please correlate with clinical and laboratory evaluation. SPLEEN: Unremarkable. ADRENALS: Unremarkable. No mass. KIDNEYS AND URETERS: Unremarkable. No hydronephrosis. No solid mass. VASCULATURE: Unremarkable. No aortic aneurysm. There is atherosclerotic calcification of the abdominal aorta. BOWEL: Unremarkable. No obstruction. No gross mural thickening. APPENDIX: Normal appendix identified PERITONEUM: Trace fluid in the cul-de-sac LYMPH NODES: Unremarkable. No enlarged lymph nodes. BLADDER: Unremarkable. REPRODUCTIVE: Unremarkable uterus BONES: No acute fracture. OTHER FINDINGS: None. IMPRESSION: Subtle hazy increased attenuation about the head and body of the pancreas. This may reflect mild acute pancreatitis. Please correlate with clinical and laboratory evaluation. No evidence of urinary calculus or urinary tract obstruction. No other significant abnormality identified. The preliminary findings for this examination were reported by [facility] Rad[facility] at 8:04 p.m. on 12/31/2018. There is discordance of this report with the preliminary findings. The possibility of acute pancreatitis was not described in the preliminary report for this examination. This discrepancy was discussed by telephone with Dr. Dorian Humphreys at 4:40 p.m. on 01/02/2019.
[2019-01-02] MEDS ORDERED: Ergocalciferol 50,000 Intl Units Cap PO SCH (18:00)
[2019-01-02] MEDS ORDERED: Epoetin Alfa 10,000 unit/ml Dialysis SC ONE (18:30)
[2019-01-03] MEDS: (Novolin R) Insulin Human Regular 100 units/ml vial SC SCH ×6 (00:14→21:08)
[2019-01-03] MEDS: cefTRIAXone IV 1 gm in Dextros 50 ML IVPB SCH ×2 (05:51→19:00)
--- NOTE | 2019-01-03 07:07 | CP.PCM.PN ---
<Yadira Serrano - Last Filed: 01/03/19 14:29> Subjective - Date & Time of Evaluation Date of Evaluation: 01/03/19 Time of Evaluation: 07:01 - Subjective Subjective: PGY1 Medicine Progress Note for Dr. Humprheys Patient was seen and evaluated at bedside this morning. No acute events overnight. No new complaints. Patient otherwise denies fever, chills, nausea, vomiting, blurred vision, headache, chest pain, abdominal pain, diarrhea, constipation, lower extremity pain/edema, flank pain, diaphoresis. Objective - Vital Signs/Intake and Output Vital Signs (last 24 hours): Temp Pulse Resp BP Pulse Ox 98.6 F 80 20 141/80 95 01/03/19 02:41 01/03/19 04:11 01/03/19 02:41 01/03/19 02:41 01/03/19 02:41 - Medications Medications: Current Medications Acetaminophen (Tylenol 325mg Tab) 650 mg PO Q6 PRN PRN Reason: Pain, moderate (4-7) Last Admin: 01/02/19 13:52 Dose: 650 mg Carvedilol (Coreg) 6.25 mg PO BID [facility] Last Admin: 01/02/19 17:51 Dose: 6.25 mg Dextrose (Dextrose 50% Inj) 0 ml IV STAT PRN; Protocol PRN Reason: Hypoglycemia Protocol Dextrose (Glutose 15) 0 gm PO ONCE PRN; Protocol PRN Reason: Hypoglycemia Protocol Ergocalciferol (Drisdol 50,000 Intl Units Cap) 1 cap PO Q7D [facility] Last Admin: 01/02/19 19:00 Dose: 1 cap Ferric Sodium Gluconate Complex (Ferrlecit) 125 mg IVPB DAILY [facility] Stop: 01/10/19 13:01 Last Admin: 01/02/19 13:53 Dose: 125 mg Furosemide (Lasix) 20 mg IVP DAILY [facility] Glucagon (Glucagen Diagnostic Kit) 0 mg IM STAT PRN; Protocol PRN Reason: Hypoglycemia Protocol Hydralazine HCl (Apresoline) 25 mg PO TID [facility] Last Admin: 01/02/19 17:51 Dose: 25 mg Ceftriaxone Sodium (Rocephin Iv 1 Gm Duplex) 50 mls @ 100 mls/hr IVPB Q12H MARY; Protocol Last Admin: 01/03/19 05:51 Dose: 100 mls/hr Dextrose (Dextrose 5% In Water 1000 Ml) 1,000 mls @ 0 mls/hr IV .Q0M PRN; Protocol PRN Reason: Hypoglycemia Protocol Insulin Glargine (Lantus) 15 unit SC Q12 [facility] Last Admin: 01/02/19 20:59 Dose: Not Given Insulin Human Regular (Novolin R) 0 unit SC Q4H [facility]; Protocol Last Admin: 01/03/19 04:14 Dose: Not Given Pantoprazole Sodium (Protonix Ec Tab) 40 mg PO DAILY [facility] Last Admin: 01/02/19 09:37 Dose: 40 mg Pneumococcal Polyvalent Vaccine (Pneumovax 23 Vaccine) 0.5 ml IM .ONCE ONE Stop: 01/03/19 10:01 Rosuvastatin Calcium (Crestor) 10 mg PO HS [facility] Last Admin: 01/01/19 22:19 Dose: 10 mg Sodium Bicarbonate (Sodium Bicarbonate Tab) 1,300 mg PO BID [facility] Last Admin: 01/02/19 18:59 Dose: 1,300 mg - Labs Labs: 01/02/19 07:19 01/02/19 07:19 PT 10.1 SECONDS (9.7-12.2) 01/02/19 07:19 INR 0.9 01/02/19 07:19 APTT 39.0 SECONDS (21-34) H 01/02/19 07:19 - Eye Exam Additional comments: mild puffiness in the face - Additional Findings Additional findings: - Head Exam Head Exam: ATRAUMATIC, NORMAL INSPECTION, NORMOCEPHALIC - Eye Exam Eye Exam: EOMI, Normal appearance, PERRL Pupil Exam: NORMAL ACCOMODATION - ENT Exam ENT Exam: Mucous Membranes Moist, Normal Exam - Neck Exam Neck Exam: Normal Inspection - Respiratory Exam Respiratory Exam: Clear to Ausculation Bilateral, NORMAL BREATHING PATTERN - Cardiovascular Exam Cardiovascular Exam: RRR, +S1, +S2 - GI/Abdominal Exam GI & Abdominal Exam: Soft, Normal Bowel Sounds. absent: Tenderness - Extremities Exam Extremities Exam: Normal Capillary Refill, Normal Inspection. absent: Calf Tenderness, Joint Swelling, Pedal Edema - Back Exam Back Exam: NORMAL INSPECTION - Neurological Exam Neurological Exam: Alert, Awake, CN II-XII Intact - Psychiatric Exam Psychiatric exam: Normal Affect, Normal Mood - Skin Skin Exam: Dry, Intact, Normal Color, Warm Assessment and Plan - Assessment and Plan (Free Text) Assessment: 48 year old female with pmhx of IDDM, DM gastroparesis, HTN, chronic gastritis, HLD, anxiety, anemia, hyperprolactinemia, and hx of NICK with last admission who presented with complaint of shortness of breath, leg swelling, emesis, and increased Cr on recent outpatient bloodwork (2.4). Nephro was consulted for worsening Cr concerning for acute renal failure vs NICK on CKD. Likely diabetic nephropathy but will pursue renal biopsy to rule out treatable causes. Biopsy performed 01/02/19. Patient tolerated well. Pending pathology results. Monitor for hematoma. Plan: NICK in the setting of CKD IIIB with Nephrotic Syndrome - Nephrology recs (Dr. Branham) appreciated - Likely diabetic nephropathy but will pursue renal biopsy to rule out treatable causes - F/U labs: alpha, beta, gamma globulins, PTH, vitamin D - Dr. Escamilla consulted for renal biopsy - Biopsy performed 01/02/19. Patient tolerated well. Pending pathology results. Monitor for hematoma. - c/w coreg, hydralazine - c/w lasix 20 mg IV daily - ARB held indefinitely until renal fxn improves - Monitor CMP, Mg, Phos HTN in the setting of CKD - Currently normotensive, continue to monitor - Coreg 6.125 mg PO BID - Hydralazine 25 mg PO TID - Monitor Elevated BNP - Trop negative - EKG: NSR - ECHO: Mild concentric LVH. EF 55-60%. Mild aortic regurgitation, moderate mitral regurgitation. IDDM - A1c 8.2 in 11/2018 - Accuchecks Q4H - Hypoglycemia protocol - Lantus 15 units SC Q12H - ISS high HLD - Crestor 10 mg PO HS Gastritis, chronic - Protonix 40 mg PO daily Anemia, chronic - Likely anemia of CKD, with iron deficient component - Loading with IV iron - Hgb stable (baseline 9s-10s) - Continue to monitor PPx, Diet, Disposition - DVT ppx: SCDs contraindicated due to edema, chemical anticoag contraindicated due to anemia - GI ppx: Protonix 40 mg PO daily - Diet: Renal, heart healthy Patient seen and case discussed with Dr. Juliann Serrano PGY1 <Dorian Humphreys - Last Filed: 01/03/19 14:59> Objective - Vital Signs/Intake and Output Vital Signs (last 24 hours): Temp Pulse Resp BP Pulse Ox 98.1 F 87 20 136/75 98 01/03/19 07:00 01/03/19 13:06 01/03/19 07:00 01/03/19 13:06 01/03/19 07:00 Intake and Output: 01/03/19 01/03/19 06:59 18:59 Intake Total 50 350 Balance 50 350 - Medications Medications: Current Medications Acetaminophen (Tylenol 325mg Tab) 650 mg PO Q6 PRN PRN Reason: Pain, moderate (4-7) Last Admin: 01/02/19 13:52 Dose: 650 mg Carvedilol (Coreg) 6.25 mg PO BID [facility] Last Admin: 01/03/19 10:01 Dose: 6.25 mg Dextrose (Dextrose 50% Inj) 0 ml IV STAT PRN; Protocol PRN Reason: Hypoglycemia Protocol Dextrose (Glutose 15) 0 gm PO ONCE PRN; Protocol PRN Reason: Hypoglycemia Protocol Ergocalciferol (Drisdol 50,000 Intl Units Cap) 1 cap PO Q7D [facility] Last Admin: 01/02/19 19:00 Dose: 1 cap Ferric Sodium Gluconate Complex (Ferrlecit) 125 mg IVPB DAILY MARY Stop: 01/10/19 13:01 Last Admin: 01/03/19 10:00 Dose: 125 mg Furosemide (Lasix) 20 mg IVP DAILY [facility] Last Admin: 01/03/19 10:02 Dose: 20 mg Glucagon (Glucagen Diagnostic Kit) 0 mg IM STAT PRN; Protocol PRN Reason: Hypoglycemia Protocol Hydralazine HCl (Apresoline) 25 mg PO TID [facility] Last Admin: 01/03/19 13:06 Dose: 25 mg Ceftriaxone Sodium (Rocephin Iv 1 Gm Duplex) 50 mls @ 100 mls/hr IVPB Q12H MARY; Protocol Last Admin: 01/03/19 05:51 Dose: 100 mls/hr Dextrose (Dextrose 5% In Water 1000 Ml) 1,000 mls @ 0 mls/hr IV .Q0M PRN; Protocol PRN Reason: Hypoglycemia Protocol Insulin Glargine (Lantus) 15 unit SC Q12 [facility] Last Admin: 01/03/19 10:11 Dose: Not Given Insulin Human Regular (Novolin R) 0 unit SC Q4H MARY; Protocol Last Admin: 01/03/19 11:48 Dose: 4 units Pantoprazole Sodium (Protonix Ec Tab) 40 mg PO DAILY MARY Last Admin: 01/03/19 10:01 Dose: 40 mg Rosuvastatin Calcium (Crestor) 10 mg PO HS MARY Last Admin: 01/01/19 22:19 Dose: 10 mg Sodium Bicarbonate (Sodium Bicarbonate Tab) 1,300 mg PO BID MARY Last Admin: 01/03/19 10:01 Dose: 1,300 mg - Labs Labs: 01/03/19 08:28 01/03/19 08:28 PT 10.1 SECONDS (9.7-12.2) 01/02/19 07:19 INR 0.9 01/02/19 07:19 APTT 39.0 SECONDS (21-34) H 01/02/19 07:19 Attending/Attestation - Attestation I have personally seen and examined this patient.: Yes I have fully participated in the care of the patient.: Yes I have reviewed all pertinent clinical information, including history, physical exam and plan: Yes Notes (Text): 01/03/19 14:57 Medical attending: Patient was seen and examined by me. Agree with the above note by the resident The patient reports feeling well. She denied fever or chills. She reports only minimal flank pain She is S/P kidney biopsy yesterday. I was told it is a send out lab and may not come back for a few days In the mean time we will monitor the Hgb and HTN and blood sugars Dorian Humphreys
[2019-01-03 08:50] LABS: BASO % 0.4 % (0.0-2.0); EOS # 0.2 K/uL (0.0-0.7); HEMOGLOBIN 7.9 g/dL (11.0-16.0); LYMPH % 24.5 % (20.0-40.0); MEAN CELL VOLUME 80.3 fL (81.0-99.0); MEAN CORPUSCULAR HEMOGLOBIN 26.9 pg (27.0-31.0); MEAN CORPUSCULAR HGB CONC 33.5 g/dL (33.0-37.0); MEAN PLATELET VOLUME 9.3 fL (7.2-11.7); MONO # 0.9 K/uL (0.0-0.8); MONO % 10.4 % (0.0-10.0); NEUT # 5.2 K/uL (1.8-7.0); NEUT % 62.7 % (50.0-75.0); RBC 2.95 Mil/uL (3.80-5.20); RED CELL DISTRIBUTION WIDTH 14.3 % (11.5-14.5); WHITE BLOOD COUNT 8.3 K/uL (4.8-10.8)
[2019-01-03 09:03] LABS: ALBUMIN 2.5 g/dL (3.5-5.0); ALT/SGPT 17 U/L (9-52); AST/SGOT 15 U/L (14-36); BLOOD UREA NITROGEN 41 mg/dL (7-17); CALCIUM 7.7 mg/dl (8.6-10.4); GFR NON-AFRICAN AMERICAN 17
[2019-01-03] MEDS ORDERED: Pneumococcal 23-Valent Vaccine IM ONE (10:00)
[2019-01-03] MEDS: Ferric Sodium Gluconat Complex 62.5 mg/5 ml Vial IVPB SCH (10:00)
[2019-01-03] MEDS: Pantoprazole 40 mg EC Tab PO SCH (10:01)
[2019-01-03] MEDS: (Lantus) Insulin Glargine, Recombinant SC SCH ×3 (10:01→21:30)
[2019-01-03 10:50] LABS: ALBUMIN (PEP) 2.3 g/dL (3.8-4.8); ALPHA-1-GLOBULIN (PEP) 0.3 g/dL (0.2-0.3)
--- NOTE | 2019-01-03 13:10 | US ---
PROCEDURE: Date of procedure: 01/02/2019 Procedure: Ultrasound-guided left renal biopsy, CPT 34183 Ultrasound guidance for biopsy, 237[address] Medication: 8 cc 2% Lidocaine, patient received IV sedation by the anesthesiologist along with physiologic monitoring. HISTORY: Renal failure TECHNIQUE: Following informed consent and procedure time-out, the patient was placed prone on the interventional table and a limited ultrasound showed slightly echogenic left kidney consistent with medical renal disease. There is no hydronephrosis or mass. The patient left back was prepped and draped in the usual sterile fashion. After patient sedated by the anesthesiologist and the skin anesthetized with lidocaine, an 18 gauge core needle was advanced percutaneously towards the lower pole cortex. Upon confirmation of needle position, three-18 gauge core specimens were obtained and sent for routine pathology. The biopsy tract was then embolized with Gelfoam. A post biopsy ultrasound showed no hematoma. There were no immediate complications. IMPRESSION: Ultrasound-guided left renal biopsy.
--- NOTE | 2019-01-03 15:45 | CP.PCM.PN ---
Subjective - Date & Time of Evaluation Date of Evaluation: 01/03/19 Time of Evaluation: 09:40 - Subjective Subjective: Nephro Progress Note for Dr. Carrol Strong DO, IM PGY-3 Patient seen and examined at bedside. No acute events overnight reported. Denies chest pain, abdominal pain, nausea, emesis, shortness of breath, dyspnea, or fevers. S/p renal biopsy yesterday, denies any flank pain, hematuria, dysuria. Objective - Vital Signs/Intake and Output Vital Signs (last 24 hours): Temp Pulse Resp BP Pulse Ox 98.1 F 77 20 136/75 98 01/03/19 07:00 01/03/19 15:15 01/03/19 07:00 01/03/19 13:06 01/03/19 07:00 Intake and Output: 01/03/19 01/03/19 06:59 18:59 Intake Total 50 350 Balance 50 350 - Medications Medications: Current Medications Acetaminophen (Tylenol 325mg Tab) 650 mg PO Q6 PRN PRN Reason: Pain, moderate (4-7) Last Admin: 01/02/19 13:52 Dose: 650 mg Albumin Human (Albumin Human 5% (12.5 Gm/250 Ml)) 12.5 gm IV Q5H [facility] Stop: 01/03/19 20:46 Carvedilol (Coreg) 6.25 mg PO BID [facility] Last Admin: 01/03/19 10:01 Dose: 6.25 mg Dextrose (Dextrose 50% Inj) 0 ml IV STAT PRN; Protocol PRN Reason: Hypoglycemia Protocol Dextrose (Glutose 15) 0 gm PO ONCE PRN; Protocol PRN Reason: Hypoglycemia Protocol Ergocalciferol (Drisdol 50,000 Intl Units Cap) 1 cap PO Q7D [facility] Last Admin: 01/02/19 19:00 Dose: 1 cap Ferric Sodium Gluconate Complex (Ferrlecit) 125 mg IVPB DAILY [facility] Stop: 01/10/19 13:01 Last Admin: 01/03/19 10:00 Dose: 125 mg Furosemide (Lasix) 20 mg IVP DAILY [facility] Last Admin: 01/03/19 10:02 Dose: 20 mg Glucagon (Glucagen Diagnostic Kit) 0 mg IM STAT PRN; Protocol PRN Reason: Hypoglycemia Protocol Hydralazine HCl (Apresoline) 25 mg PO TID [facility] Last Admin: 01/03/19 13:06 Dose: 25 mg Ceftriaxone Sodium (Rocephin Iv 1 Gm Duplex) 50 mls @ 100 mls/hr IVPB Q12H [facility]; Protocol Last Admin: 01/03/19 05:51 Dose: 100 mls/hr Dextrose (Dextrose 5% In Water 1000 Ml) 1,000 mls @ 0 mls/hr IV .Q0M PRN; Protocol PRN Reason: Hypoglycemia Protocol Insulin Glargine (Lantus) 15 unit SC Q12 [facility] Last Admin: 01/03/19 10:11 Dose: Not Given Insulin Human Regular (Novolin R) 0 unit SC Q4H [facility]; Protocol Last Admin: 01/03/19 11:48 Dose: 4 units Pantoprazole Sodium (Protonix Ec Tab) 40 mg PO DAILY [facility] Last Admin: 01/03/19 10:01 Dose: 40 mg Rosuvastatin Calcium (Crestor) 10 mg PO HS [facility] Last Admin: 01/01/19 22:19 Dose: 10 mg Sodium Bicarbonate (Sodium Bicarbonate Tab) 1,300 mg PO BID [facility] Last Admin: 01/03/19 10:01 Dose: 1,300 mg - Labs Labs: 01/03/19 08:28 01/03/19 08:28 PT 10.1 SECONDS (9.7-12.2) 01/02/19 07:19 INR 0.9 01/02/19 07:19 APTT 39.0 SECONDS (21-34) H 01/02/19 07:19 - Additional Findings Additional findings: - Constitutional Appears: Non-toxic, No Acute Distress - Head Exam Head Exam: ATRAUMATIC, NORMAL INSPECTION, NORMOCEPHALIC - Eye Exam Eye Exam: EOMI, Normal appearance. - ENT Exam ENT Exam: Mucous Membranes Moist - Neck Exam Neck Exam: Full ROM. - Respiratory Exam Respiratory Exam: Clear to Ausculation Bilateral, NORMAL BREATHING PATTERN. absent: Accessory Muscle Use, Chest Wall Tenderness, Decreased Breath Sounds, Rales, Rhonchi, Wheezes - Cardiovascular Exam Cardiovascular Exam: RRR, +S1, +S2. absent: Bradycardia, Tachycardia, Irregular Rhythm, JVD, +S4 - GI/Abdominal Exam GI & Abdominal Exam: Soft, Nontender, Normal Bowel Sounds. absent: Distended, Firm, Rigid, Tenderness - Extremities Exam Extremities Exam: Full ROM, Pedal Edema (+1-2 pitting edema in bilateral LE from ankles to mid-[place], no involvement of knee). absent: Calf Tenderness, Joint Swelling, Tenderness - Back Exam Back Exam: Bandaging at site of prior renal bx, but no surrounding erythema/edema/hematoma, no surrounding tenderness - Neurological Exam awake and alert, moving all extremities, following all commands appropriately - Psychiatric Exam Psychiatric exam: Normal Affect, Normal Mood - Skin Skin Exam: Dry, Intact, Normal Color, Warm Assessment and Plan - Assessment and Plan (Free Text) Assessment: This is a 48yo F with PMH of IDDM, DM gastroparesis, HTN, chronic gastritis, HLD, anxiety, anemia, hyperprolactinemia, and hx of NICK with last admission who presented with complaint of shortness of breath, leg swelling, emesis, and increased Cr on recent outpatient bloodwork (2.4). Nephro was consulted for worsening Cr concerning for acute renal failure vs NICK on CKD. S/p renal bx yesterday. Plan: 1) Worsening Cr: Acute Renal Failure vs NICK on CKD 2) IDDM 3) HTN urgency 4) Dyspnea 5) Gastroparesis 6) HLD 7) Medication non-compliance -Acute renal failure vs NICK overlying CKD Cr 2.5 on admit, 3 today, baseline over last year (as per charting) 1.4-1.6, was 0.5 to 0.8 in 2017 and earlier Prior admission notable for 13g protein in urine with low serum albumin, suggestive of nephrotic syndrome (2/2 uncontrolled DM and/or HTN) Will give 5% albumin x2 doses today Chronically with pyuria on UA, most recent microscopy sample contaminated/unreliable, repeat UA today Hepatitis panel negative, pending HIV Complement wnl, JEVON negative, protein studies (SPEP, kappa chains, etc) low to normal Renal bx obtained, pending path Vit D level low, pending PTH -Hypertensive urgency with SBP 180's-190's on presentation, better controlled now with minimal intervention (strongly suspect was not taking her meds outpt) Current regimen: Coreg 6.25 BID, Hydralazine 25mg TID Given worsening renal function today, holding further lasix Continue holding home losartan, avoid further ACEi/ARB at this time -Given dyspnea with LE swelling and uncontrolled HTN/DM, at risk for CHF Echo: EF 56%, mild concentric LVH, mild AR/MR, mild diastolic dysfunction Holding lasix due to worsening renal function -Anemia likely anemia of chronic disease Ferritin, Iron, and TIBC wnl, but % Sat low Continue daily IV iron Reviewed and discussed with attending, Dr Branham
[2019-01-03] MEDS: Albumin Human 5% (12.5 gm/250 ml) IV SCH ×2 (16:52→21:31)
[2019-01-03 22:16] LABS: SQUAMOUS EPITHIAL 19 /hpf (0-5); URINE BACTERIA OCC (<OCC); URINE BILIRUBIN NEGATIVE (NEGATIVE); URINE BLOOD NEGATIVE (NEGATIVE); URINE CLARITY Hazy (Clear); URINE COLOR Straw (YELLOW); URINE GLUCOSE (UA) 2+ mg/dL (Normal); URINE LEUKOCYTE ESTERASE NEG Leu/uL (Negative); URINE PROTEIN 2+ mg/dL (NEGATIVE); URINE UROBILINOGEN NORMAL mg/dL (0.2-1.0)
[2019-01-04] MEDS: (Novolin R) Insulin Human Regular 100 units/ml vial SC SCH ×6 (00:16→21:43)
--- NOTE | 2019-01-04 07:48 | CP.PCM.PN ---
<Larry Jimenez - Last Filed: 01/04/19 09:31> Subjective - Date & Time of Evaluation Date of Evaluation: 01/04/19 Time of Evaluation: 09:05 - Subjective Subjective: Medicine progress note for hospitalist Dr. Humphreys. Pt seen and examined at bedside. Pt POD # 2 s/p renal biopsy reports minor pain around incision site only on deep inspiration. Denies fevers, chills, headaches, vision changes, chest pain, SOB, abdominal pain, constipation, diarrhea, hematuria, dysuria. Objective - Vital Signs/Intake and Output Vital Signs (last 24 hours): Temp Pulse Resp BP Pulse Ox 99.2 F 91 H 20 123/67 99 01/04/19 04:34 01/04/19 07:34 01/04/19 04:34 01/04/19 04:34 01/04/19 04:34 - Medications Medications: Current Medications Acetaminophen (Tylenol 325mg Tab) 650 mg PO Q6 PRN PRN Reason: Pain, moderate (4-7) Last Admin: 01/02/19 13:52 Dose: 650 mg Carvedilol (Coreg) 6.25 mg PO BID [facility] Last Admin: 01/03/19 17:58 Dose: 6.25 mg Dextrose (Dextrose 50% Inj) 0 ml IV STAT PRN; Protocol PRN Reason: Hypoglycemia Protocol Dextrose (Glutose 15) 0 gm PO ONCE PRN; Protocol PRN Reason: Hypoglycemia Protocol Ergocalciferol (Drisdol 50,000 Intl Units Cap) 1 cap PO Q7D [facility] Last Admin: 01/02/19 19:00 Dose: 1 cap Ferric Sodium Gluconate Complex (Ferrlecit) 125 mg IVPB DAILY [facility] Stop: 01/10/19 13:01 Last Admin: 01/03/19 10:00 Dose: 125 mg Furosemide (Lasix) 20 mg IVP DAILY [facility] Last Admin: 01/03/19 10:02 Dose: 20 mg Glucagon (Glucagen Diagnostic Kit) 0 mg IM STAT PRN; Protocol PRN Reason: Hypoglycemia Protocol Hydralazine HCl (Apresoline) 25 mg PO TID [facility] Last Admin: 01/03/19 17:58 Dose: 25 mg Insulin Glargine (Lantus) 15 unit SC Q12 [facility] Last Admin: 01/03/19 21:30 Dose: 15 units Insulin Human Regular (Novolin R) 0 unit SC Q4H [facility]; Protocol Last Admin: 01/04/19 04:05 Dose: Not Given Pantoprazole Sodium (Protonix Ec Tab) 40 mg PO DAILY [facility] Last Admin: 01/03/19 10:01 Dose: 40 mg Rosuvastatin Calcium (Crestor) 10 mg PO HS [facility] Last Admin: 01/03/19 21:30 Dose: 10 mg Sodium Bicarbonate (Sodium Bicarbonate Tab) 1,300 mg PO BID [facility] Last Admin: 01/03/19 17:58 Dose: 1,300 mg - Labs Labs: 01/03/19 08:28 01/03/19 08:28 PT 10.1 SECONDS (9.7-12.2) 01/02/19 07:19 INR 0.9 01/02/19 07:19 APTT 39.0 SECONDS (21-34) H 01/02/19 07:19 <Dorian Humphreys H - Last Filed: 01/04/19 11:43> Objective - Vital Signs/Intake and Output Vital Signs (last 24 hours): Temp Pulse Resp BP Pulse Ox 98.2 F 73 20 119/58 L 99 01/04/19 07:00 01/04/19 11:10 01/04/19 07:00 01/04/19 07:00 01/04/19 04:34 - Medications Medications: Current Medications Acetaminophen (Tylenol 325mg Tab) 650 mg PO Q6 PRN PRN Reason: Pain, moderate (4-7) Last Admin: 01/04/19 09:05 Dose: 650 mg Carvedilol (Coreg) 6.25 mg PO BID [facility] Last Admin: 01/04/19 09:06 Dose: 6.25 mg Dextrose (Dextrose 50% Inj) 0 ml IV STAT PRN; Protocol PRN Reason: Hypoglycemia Protocol Dextrose (Glutose 15) 0 gm PO ONCE PRN; Protocol PRN Reason: Hypoglycemia Protocol Ergocalciferol (Drisdol 50,000 Intl Units Cap) 1 cap PO Q7D [facility] Last Admin: 01/02/19 19:00 Dose: 1 cap Ferric Sodium Gluconate Complex (Ferrlecit) 125 mg IVPB DAILY [facility] Stop: 01/10/19 13:01 Last Admin: 01/04/19 09:06 Dose: 125 mg Furosemide (Lasix) 20 mg IVP DAILY [facility] Last Admin: 01/03/19 10:02 Dose: 20 mg Glucagon (Glucagen Diagnostic Kit) 0 mg IM STAT PRN; Protocol PRN Reason: Hypoglycemia Protocol Hydralazine HCl (Apresoline) 25 mg PO TID [facility] Last Admin: 01/04/19 09:05 Dose: 25 mg Insulin Glargine (Lantus) 15 unit SC Q12 [facility] Last Admin: 01/04/19 09:06 Dose: 15 units Insulin Human Regular (Novolin R) 0 unit SC Q4H [facility]; Protocol Last Admin: 01/04/19 08:01 Dose: 4 units Pantoprazole Sodium (Protonix Ec Tab) 40 mg PO DAILY [facility] Last Admin: 01/04/19 09:05 Dose: 40 mg Rosuvastatin Calcium (Crestor) 10 mg PO HS [facility] Last Admin: 01/03/19 21:30 Dose: 10 mg Sodium Bicarbonate (Sodium Bicarbonate Tab) 1,300 mg PO BID [facility] Last Admin: 01/04/19 09:05 Dose: 1,300 mg - Labs Labs: 01/04/19 08:44 01/04/19 08:44 PT 10.1 SECONDS (9.7-12.2) 01/02/19 07:19 INR 0.9 01/02/19 07:19 APTT 39.0 SECONDS (21-34) H 01/02/19 07:19 - Constitutional Appears: Well, No Acute Distress - Head Exam Head Exam: NORMAL INSPECTION, NORMOCEPHALIC - Eye Exam Eye Exam: EOMI, Normal appearance - ENT Exam ENT Exam: Mucous Membranes Moist - Respiratory Exam Respiratory Exam: Decreased Breath Sounds, Rhonchi - Cardiovascular Exam Cardiovascular Exam: REGULAR RHYTHM - GI/Abdominal Exam GI & Abdominal Exam: Soft, Normal Bowel Sounds Additional comments: She reports very minimal tenderness on the flank where the biopsy was done. No bleeding, no echymosis. Area is dry. - Neurological Exam Neurological Exam: Alert, Awake, Oriented x3 Neuro motor strength exam: Left Upper Extremity: 5, Right Upper Extremity: 5, Left Lower Extremity: 5, Right Lower Extremity: 5 - Skin Skin Exam: Warm Assessment and Plan - Assessment and Plan (Free Text) Assessment: 48 year old female with pmhx of IDDM, DM gastroparesis, HTN, chronic gastritis, HLD, anxiety, anemia, hyperprolactinemia, and hx of NICK with last admission who presented with complaint of shortness of breath, leg swelling, emesis, and increased Cr on recent outpatient bloodwork (2.4). Nephro was consulted for worsening Cr concerning for acute renal failure vs NICK on CKD. Likely diabetic nephropathy but will pursue renal biopsy to rule out treatable causes. Biopsy performed 01/02/19. Patient tolerated well. Pending pathology results. Monitor for hematoma. Plan: NICK in the setting of CKD IIIB with Nephrotic Syndrome 54: Today transfuse 1 unit of PRBC. She reported only minimal flank tenderness and denied abdominal pain I explained this to her and also got consent We are pending the return of the biopsy. Nephrology recs (Dr. Branham) appreciated - Likely diabetic nephropathy but will pursue renal biopsy to rule out treatable causes - F/U labs: alpha, beta, gamma globulins, PTH, vitamin D - Dr. Escamilla consulted for renal biopsy - Biopsy performed 01/02/19. Patient tolerated well. Pending pathology results. c/w coreg, hydralazine c/w lasix 20 mg IV daily ARB held indefinitely until renal fxn improves Anemia, chronic, and status post biopsy 5: Transfusing one unit of PRBC. Continue to monitor CBC Likely anemia of CKD and she just had the biopsy, HTN in the setting of CKD 01/04: Her systolic numbers have been very good now and this makes me wonder if she was taking her medications outpatient. We used a really good mycologist when she was admitted with systolics in the 190s to 200s and she claimed she did take her medications at that time. Coreg 6.125 mg PO BID Hydralazine 25 mg PO TID Lasix 20 IV QD For the time being hold off on ARBs/ACEI Elevated BNP - Trop negative - EKG: NSR - ECHO: Mild concentric LVH. EF 55-60%. Mild aortic regurgitation, moderate mitral regurgitation. IDDM 5/: Stable. Recent accuchecks 200 to 150 range A1c 8.2 in 11/2018 Accuchecks Q4H Lantus 15 units SC Q12H ISS high HLD - Crestor 10 mg PO HS Gastritis, chronic - Protonix 40 mg PO daily PPx, Diet, Disposition - DVT ppx: SCDs contraindicated due to edema, chemical anticoag contraindicated due to anemia - GI ppx: Protonix 40 mg PO daily - Diet: Renal, heart healthy
[2019-01-04] MEDS: Pantoprazole 40 mg EC Tab PO SCH (09:05)
[2019-01-04] MEDS: (Lantus) Insulin Glargine, Recombinant SC SCH ×3 (09:06→22:07)
[2019-01-04] MEDS: Ferric Sodium Gluconat Complex 62.5 mg/5 ml Vial IVPB SCH (09:06)
[2019-01-04 09:08] LABS: BASO # 0.1 K/uL (0.0-0.2); BASO % 0.7 % (0.0-2.0); EOS # 0.3 K/uL (0.0-0.7); EOS % 3.2 % (0.0-4.0); HEMOGLOBIN 7.2 g/dL (11.0-16.0); LYMPH # 2.4 K/uL (1.0-4.3); LYMPH % 26.8 % (20.0-40.0); MEAN CELL VOLUME 81.1 fL (81.0-99.0); MEAN CORPUSCULAR HEMOGLOBIN 27.2 pg (27.0-31.0); MEAN CORPUSCULAR HGB CONC 33.6 g/dL (33.0-37.0); MEAN PLATELET VOLUME 10.2 fL (7.2-11.7); MONO # 1.1 K/uL (0.0-0.8); MONO % 12.2 % (0.0-10.0); NEUT # 5.1 K/uL (1.8-7.0); NEUT % 57.1 % (50.0-75.0); RBC 2.63 Mil/uL (3.80-5.20); RED CELL DISTRIBUTION WIDTH 14.7 % (11.5-14.5); WHITE BLOOD COUNT 8.9 K/uL (4.8-10.8)
[2019-01-04 09:23] LABS: ALB/GLOB RATIO 1.2 (1.0-2.1); ALBUMIN 2.7 g/dL (3.5-5.0); ALT/SGPT 18 U/L (9-52); AST/SGOT 20 U/L (14-36); BLOOD UREA NITROGEN 40 mg/dL (7-17); CALCIUM 8.1 mg/dl (8.6-10.4); GFR NON-AFRICAN AMERICAN 16
[2019-01-04] MEDS ORDERED: EPOETIN ALFA 10,000 UNIT/ML ML SC SCH (13:00)
--- NOTE | 2019-01-04 14:17 | CT ---
Date of service: 01/04/2019 PROCEDURE: CT Abdomen and Pelvis without intravenous contrast HISTORY: Anemia, she had renal biopsy two days prior COMPARISON: Comparison is made to the previous study dated 12/31/2018 TECHNIQUE: Axial and reformatted coronal and sagittal CT images of the abdomen and pelvis were obtained without IV or oral contrast administration.. Contrast dose: 0 Radiation dose: Total exam DLP = 395.11 mGy-cm. This CT exam was performed using one or more of the following dose reduction techniques: Automated exposure control, adjustment of the mA and/or kV according to patient size, and/or use of iterative reconstruction technique. FINDINGS: LOWER THORAX: Unremarkable. LIVER: Unremarkable. No gross lesion or ductal dilatation. GALLBLADDER AND BILE DUCTS: Unremarkable. PANCREAS: No significant interval change in the pancreas no previous exam. SPLEEN: Unremarkable. ADRENALS: Unremarkable. No mass. KIDNEYS AND URETERS: Interval appearance of small foci of air lateral to the left kidney. Interval appearance of slightly high attenuation fluid collection lateral to the left kidney extending from the inferior border of the spleen to the left lower abdomen measures 8.3 centimeter in the longitudinal diameter and 3.5 centimeter in the transverse diameter likely represent hematoma. The right kidney is grossly unremarkable. VASCULATURE: Unremarkable. No aortic aneurysm. Foci of atherosclerotic calcification are again noted. BOWEL: Unremarkable. No obstruction. No gross mural thickening. APPENDIX: Unremarkable. Normal appendix. PERITONEUM: Unremarkable. No free fluid. No free air. LYMPH NODES: Unremarkable. No enlarged lymph nodes. BLADDER: Unremarkable. REPRODUCTIVE: Unremarkable. BONES: No acute fracture. OTHER FINDINGS: None. IMPRESSION: Interval appearance of high attenuation fluid collection lateral to the left kidney extending from the inferior border of the spleen to the mid/lower left abdomen measures 8.3 x 3.5 centimeter consistent with hematoma. Otherwise no significant interval changes.
--- NOTE | 2019-01-04 21:56 | CP.PCM.PN ---
Subjective - Date & Time of Evaluation Date of Evaluation: 01/04/19 Time of Evaluation: 12:30 - Subjective Subjective: Patient reports feeling well; no difficulty breathing; tolerating diet; Objective - Vital Signs/Intake and Output Vital Signs (last 24 hours): Temp Pulse Resp BP Pulse Ox 98.4 F 86 20 174/90 H 97 01/04/19 20:35 01/04/19 20:35 01/04/19 19:30 01/04/19 20:35 01/04/19 16:00 Intake and Output: 01/04/19 01/05/19 18:59 06:59 Intake Total 0 Balance 0 - Medications Medications: Current Medications Acetaminophen (Tylenol 325mg Tab) 650 mg PO Q6 PRN PRN Reason: Pain, moderate (4-7) Last Admin: 01/04/19 09:05 Dose: 650 mg Carvedilol (Coreg) 6.25 mg PO BID [facility] Last Admin: 01/04/19 17:31 Dose: 6.25 mg Dextrose (Dextrose 50% Inj) 0 ml IV STAT PRN; Protocol PRN Reason: Hypoglycemia Protocol Dextrose (Glutose 15) 0 gm PO ONCE PRN; Protocol PRN Reason: Hypoglycemia Protocol Epoetin Rick (Procrit) 10,000 unit SC TTS [facility] Last Admin: 01/04/19 12:37 Dose: 10,000 unit Ergocalciferol (Drisdol 50,000 Intl Units Cap) 1 cap PO Q7D [facility] Last Admin: 01/02/19 19:00 Dose: 1 cap Ferric Sodium Gluconate Complex (Ferrlecit) 125 mg IVPB DAILY [facility] Stop: 01/10/19 13:01 Last Admin: 01/04/19 09:06 Dose: 125 mg Furosemide (Lasix) 20 mg IVP DAILY [facility] Last Admin: 01/03/19 10:02 Dose: 20 mg Glucagon (Glucagen Diagnostic Kit) 0 mg IM STAT PRN; Protocol PRN Reason: Hypoglycemia Protocol Hydralazine HCl (Apresoline) 25 mg PO TID [facility] Last Admin: 01/04/19 17:31 Dose: 25 mg Ceftriaxone Sodium 1 gm/ (Sodium Chloride) 100 mls @ 100 mls/hr IVPB Q12H [facility]; Protocol Last Admin: 01/04/19 14:27 Dose: Not Given Insulin Glargine (Lantus) 15 unit SC Q12 [facility] Last Admin: 01/04/19 09:06 Dose: 15 units Insulin Human Regular (Novolin R) 0 unit SC Q4H [facility]; Protocol Last Admin: 01/04/19 21:43 Dose: Not Given Pantoprazole Sodium (Protonix Ec Tab) 40 mg PO DAILY [facility] Last Admin: 01/04/19 09:05 Dose: 40 mg Rosuvastatin Calcium (Crestor) 10 mg PO HS [facility] Last Admin: 01/03/19 21:30 Dose: 10 mg Sodium Bicarbonate (Sodium Bicarbonate Tab) 1,300 mg PO BID [facility] Last Admin: 01/04/19 17:31 Dose: 1,300 mg - Labs Labs: 01/04/19 08:44 01/04/19 08:44 PT 10.1 SECONDS (9.7-12.2) 01/02/19 07:19 INR 0.9 01/02/19 07:19 APTT 39.0 SECONDS (21-34) H 01/02/19 07:19 - Constitutional Appears: Non-toxic, No Acute Distress - Eye Exam Eye Exam: Normal appearance. absent: Scleral icterus - Respiratory Exam Respiratory Exam: Clear to Ausculation Bilateral. absent: Respiratory Distress - Cardiovascular Exam Cardiovascular Exam: RRR, +S1, +S2 - GI/Abdominal Exam GI & Abdominal Exam: Soft. absent: Distended, Tenderness - Extremities Exam Additional comments: mild lower leg edema (improved); - Neurological Exam Neurological Exam: Alert, Awake - Psychiatric Exam Psychiatric exam: Normal Affect, Normal Mood. absent: Agitated - Skin Skin Exam: Warm. absent: Cyanosis Assessment and Plan (1) NICK (acute kidney injury) Assessment & Plan: Rapidly worsening renal function appears consistent with progression of disease rather than a new acute insult; renal biopsy discussed with pathologist yesterday; patient has extensive diabetic nephropathy changes along with marked chronicity (70% globally sclerosed glomeruli, significant interstitial fibrosis); 20 minute long discussion with patient using spanish interpreter; at this point, she is heading toward ESRD status in the near future; I explained to her the need for preparing for dialysis; both PD and HD options offered to her; patient will discuss with her family; For now, we will obtain 24 hr urine for CrCl to help us decide if dialysis should be started during this admission; IV albumin was tried yesterday to offset any pre-renal component of NICK from diuretics, but without improvement; -continue to avoid nephrotoxic agents; -will obtain vein mapping; Status: Acute (2) Anemia Assessment & Plan: Anemia of CKD, now complicated by large hematoma following renal biopsy (although overall drop in hgb following biopsy is not excessive, 8.4 -> 7.2); agree with 1u prbc transfusion; will continue IV iron loading and EPO; Status: Acute (3) Hypertensive CKD (chronic kidney disease) Assessment & Plan: BP mostly controlled, continue coreg and hydralazine; lasix on hold for now; Status: Acute (4) Chronic kidney disease-mineral and bone disorder Assessment & Plan: Phos controlled off binders; continue ergocalciferol 50,000 u weekly; Status: Chronic
[2019-01-05] MEDS: (Novolin R) Insulin Human Regular 100 units/ml vial SC SCH ×6 (04:22→21:00)
--- NOTE | 2019-01-05 07:22 | CP.PCM.PN ---
<JimenezLiliams M - Last Filed: 01/05/19 07:22> Objective - Vital Signs/Intake and Output Vital Signs (last 24 hours): Temp Pulse Resp BP Pulse Ox 98.1 F 85 20 161/75 H 98 01/04/19 23:40 01/04/19 23:40 01/04/19 23:40 01/04/19 23:40 01/04/19 23:40 Intake and Output: 01/05/19 01/05/19 06:59 18:59 Intake Total 335 Balance 335 - Medications Medications: Current Medications Acetaminophen (Tylenol 325mg Tab) 650 mg PO Q6 PRN PRN Reason: Pain, moderate (4-7) Last Admin: 01/04/19 09:05 Dose: 650 mg Carvedilol (Coreg) 6.25 mg PO BID [facility] Last Admin: 01/04/19 17:31 Dose: 6.25 mg Dextrose (Dextrose 50% Inj) 0 ml IV STAT PRN; Protocol PRN Reason: Hypoglycemia Protocol Dextrose (Glutose 15) 0 gm PO ONCE PRN; Protocol PRN Reason: Hypoglycemia Protocol Epoetin Rick (Procrit) 10,000 unit SC TTS [facility] Last Admin: 01/04/19 12:37 Dose: 10,000 unit Ergocalciferol (Drisdol 50,000 Intl Units Cap) 1 cap PO Q7D [facility] Last Admin: 01/02/19 19:00 Dose: 1 cap Ferric Sodium Gluconate Complex (Ferrlecit) 125 mg IVPB DAILY [facility] Stop: 01/10/19 13:01 Last Admin: 01/04/19 09:06 Dose: 125 mg Furosemide (Lasix) 20 mg IVP DAILY [facility] Last Admin: 01/03/19 10:02 Dose: 20 mg Glucagon (Glucagen Diagnostic Kit) 0 mg IM STAT PRN; Protocol PRN Reason: Hypoglycemia Protocol Hydralazine HCl (Apresoline) 25 mg PO TID [facility] Last Admin: 01/04/19 17:31 Dose: 25 mg Ceftriaxone Sodium 1 gm/ (Sodium Chloride) 100 mls @ 100 mls/hr IVPB Q12H [facility]; Protocol Last Admin: 01/05/19 01:26 Dose: 100 mls/hr Insulin Glargine (Lantus) 15 unit SC Q12 [facility] Last Admin: 01/04/19 22:07 Dose: Not Given Insulin Human Regular (Novolin R) 0 unit SC Q4H [facility]; Protocol Last Admin: 01/05/19 04:22 Dose: Not Given Pantoprazole Sodium (Protonix Ec Tab) 40 mg PO DAILY [facility] Last Admin: 01/04/19 09:05 Dose: 40 mg Rosuvastatin Calcium (Crestor) 10 mg PO HS [facility] Last Admin: 01/04/19 22:05 Dose: 10 mg Sodium Bicarbonate (Sodium Bicarbonate Tab) 1,300 mg PO BID [facility] Last Admin: 01/04/19 17:31 Dose: 1,300 mg - Labs Labs: 01/04/19 08:44 01/04/19 08:44 PT 10.1 SECONDS (9.7-12.2) 01/02/19 07:19 INR 0.9 01/02/19 07:19 APTT 39.0 SECONDS (21-34) H 01/02/19 07:19 <Dorian Humphreys H - Last Filed: 01/05/19 11:17> Subjective - Date & Time of Evaluation Date of Evaluation: 01/05/19 Time of Evaluation: 11:00 - Subjective Subjective: Patient was seen and examined by me. She reported some tenderness at the biopsy site that she described as minimal. Yesterday had one unit of PRBC, the Hgb is 8.9 this morning. Yesterday also had a discussion with nephrology and today there are urine collection studies pending. The biopsy results returned and patient will be needing dialysis in the near future. Objective - Vital Signs/Intake and Output Vital Signs (last 24 hours): Temp Pulse Resp BP Pulse Ox 98.4 F 79 20 157/75 H 99 01/05/19 09:05 01/05/19 09:05 01/05/19 09:05 01/05/19 09:26 01/05/19 09:05 Intake and Output: 01/05/19 01/05/19 06:59 18:59 Intake Total 335 Balance 335 - Medications Medications: Current Medications Acetaminophen (Tylenol 325mg Tab) 650 mg PO Q6 PRN PRN Reason: Pain, moderate (4-7) Last Admin: 01/04/19 09:05 Dose: 650 mg Carvedilol (Coreg) 6.25 mg PO BID [facility] Last Admin: 01/05/19 09:24 Dose: 6.25 mg Dextrose (Dextrose 50% Inj) 0 ml IV STAT PRN; Protocol PRN Reason: Hypoglycemia Protocol Dextrose (Glutose 15) 0 gm PO ONCE PRN; Protocol PRN Reason: Hypoglycemia Protocol Epoetin Rick (Procrit) 10,000 unit SC TTS [facility] Last Admin: 01/04/19 12:37 Dose: 10,000 unit Ergocalciferol (Drisdol 50,000 Intl Units Cap) 1 cap PO Q7D [facility] Last Admin: 01/02/19 19:00 Dose: 1 cap Ferric Sodium Gluconate Complex (Ferrlecit) 125 mg IVPB DAILY [facility] Stop: 01/10/19 13:01 Last Admin: 01/05/19 09:24 Dose: 125 mg Furosemide (Lasix) 20 mg IVP DAILY [facility] Last Admin: 01/03/19 10:02 Dose: 20 mg Glucagon (Glucagen Diagnostic Kit) 0 mg IM STAT PRN; Protocol PRN Reason: Hypoglycemia Protocol Hydralazine HCl (Apresoline) 25 mg PO TID [facility] Last Admin: 01/05/19 09:24 Dose: 25 mg Ceftriaxone Sodium 1 gm/ (Sodium Chloride) 100 mls @ 100 mls/hr IVPB Q12H [facility]; Protocol Last Admin: 01/05/19 01:26 Dose: 100 mls/hr Insulin Glargine (Lantus) 15 unit SC Q12 [facility] Last Admin: 01/05/19 09:24 Dose: 15 units Insulin Human Regular (Novolin R) 0 unit SC Q4H [facility]; Protocol Last Admin: 01/05/19 07:40 Dose: Not Given Pantoprazole Sodium (Protonix Ec Tab) 40 mg PO DAILY [facility] Last Admin: 01/05/19 09:23 Dose: 40 mg Rosuvastatin Calcium (Crestor) 10 mg PO HS [facility] Last Admin: 01/04/19 22:05 Dose: 10 mg Sodium Bicarbonate (Sodium Bicarbonate Tab) 1,300 mg PO BID [facility] Last Admin: 01/05/19 09:23 Dose: 1,300 mg - Labs Labs: 01/05/19 08:20 01/05/19 08:20 PT 10.1 SECONDS (9.7-12.2) 01/02/19 07:19 INR 0.9 01/02/19 07:19 APTT 39.0 SECONDS (21-34) H 01/02/19 07:19 - Constitutional Appears: No Acute Distress, Chronically Ill - Head Exam Head Exam: NORMAL INSPECTION, NORMOCEPHALIC - Eye Exam Eye Exam: EOMI, Normal appearance - ENT Exam ENT Exam: Mucous Membranes Moist - Respiratory Exam Respiratory Exam: Clear to Ausculation Bilateral, NORMAL BREATHING PATTERN - Cardiovascular Exam Cardiovascular Exam: REGULAR RHYTHM - GI/Abdominal Exam GI & Abdominal Exam: Soft, Normal Bowel Sounds. absent: Distended, Firm, Guarding, Rigid, Tenderness Additional comments: Slight tenderness area of biopsy - Neurological Exam Neurological Exam: Alert, Awake, Oriented x3 Neuro motor strength exam: Left Upper Extremity: 5, Right Upper Extremity: 5 - Psychiatric Exam Psychiatric exam: Normal Affect, Normal Mood - Skin Skin Exam: Normal Color, Warm Assessment and Plan - Assessment and Plan (Free Text) Assessment: 48 year old female with pmhx of IDDM, DM gastroparesis, HTN, chronic gastritis, HLD, anxiety, anemia, hyperprolactinemia, and hx of NICK with last admission who presented with complaint of shortness of breath, leg swelling, emesis, and increased Cr on recent outpatient bloodwork (2.4). Nephro was consulted for worsening Cr concerning for acute renal failure vs NICK on CKD. Likely diabetic nephropathy but will pursue renal biopsy to rule out treatable causes. Biopsy performed 01/02/19. Patient tolerated well. Pending pathology results. Monitor for hematoma. Plan: NICK in the setting of CKD IIIB with Nephrotic Syndrome 01/05: Today creatine remains 3. She had the biopsy returned and per my conversation with nephrology the patient will be needing dialysis in the near future. There are urine studies ordered at this time 01/04: Today transfuse 1 unit of PRBC. She reported only minimal flank tenderness and denied abdominal pain I explained this to her and also got consent We are pending the return of the biopsy. Nephrology recs (Dr. Branham) appreciated - Likely diabetic nephropathy but will pursue renal biopsy to rule out treatable causes - F/U labs: alpha, beta, gamma globulins, PTH, vitamin D - Dr. Escamilla consulted for renal biopsy - Biopsy performed 01/02/19. Patient tolerated well. Pending pathology results. c/w coreg, hydralazine c/w lasix 20 mg IV daily ARB held indefinitely until renal fxn improves Anemia, chronic, and status post biopsy 01/05: Yesterday had one unit of PRBC. Today Hgb is 8.9. Because she just had renal biopsy, we did a CT scan yesterday and it did not show acute bleeding But we should still monitor. 01/04: Transfusing one unit of PRBC. Continue to monitor CBC Likely anemia of CKD and she just had the biopsy, HTN in the setting of CKD 01/05: This morning higher numbers recorded. Previously the systolic numbers were lower. Continue to monitor, if remains elevated then consider increasing Hydralazine or Coreg. Also patient just had PRBCs 01/04: Her systolic numbers have been very good now and this makes me wonder if she was taking her medications outpatient. We used a really good rug scratcher when she was admitted with systolics in the 190s to 200s and she claimed she did take her medications at that time. Coreg 6.125 mg PO BID Hydralazine 25 mg PO TID Lasix 20 IV QD For the time being hold off on ARBs/ACEI Elevated BNP - Trop negative - EKG: NSR - ECHO: Mild concentric LVH. EF 55-60%. Mild aortic regurgitation, moderate mitral regurgitation. IDDM 01/04: Stable. Recent accuchecks 200 to 150 range A1c 8.2 in 11/2018 Accuchecks Q4H Lantus 15 units SC Q12H ISS high HLD - Crestor 10 mg PO HS Gastritis, chronic - Protonix 40 mg PO daily PPx, Diet, Disposition - DVT ppx: SCDs contraindicated due to edema, chemical anticoag contraindicated due to anemia - GI ppx: Protonix 40 mg PO daily - Diet: Renal, heart healthy
[2019-01-05 08:51] LABS: BASO # 0.1 K/uL (0.0-0.2); BASO % 0.6 % (0.0-2.0); EOS # 0.3 K/uL (0.0-0.7); EOS % 3.1 % (0.0-4.0); HEMOGLOBIN 8.9 g/dL (11.0-16.0); LYMPH # 2.9 K/uL (1.0-4.3); MEAN CELL VOLUME 82.9 fL (81.0-99.0); MEAN CORPUSCULAR HEMOGLOBIN 28.6 pg (27.0-31.0); MEAN CORPUSCULAR HGB CONC 34.5 g/dL (33.0-37.0); MEAN PLATELET VOLUME 10.1 fL (7.2-11.7); MONO # 1.2 K/uL (0.0-0.8); NEUT # 6.2 K/uL (1.8-7.0); NEUT % 58.3 % (50.0-75.0); NRBC % 0.1 % (0.0-2.0); RBC 3.11 Mil/uL (3.80-5.20); RED CELL DISTRIBUTION WIDTH 15.3 % (11.5-14.5); WHITE BLOOD COUNT 10.7 K/uL (4.8-10.8)
[2019-01-05 09:00] LABS: ALB/GLOB RATIO 1.1 (1.0-2.1); ALBUMIN 2.8 g/dL (3.5-5.0); CALCIUM 8.4 mg/dl (8.6-10.4)
[2019-01-05] MEDS: Pantoprazole 40 mg EC Tab PO SCH (09:23)
[2019-01-05] MEDS: Ferric Sodium Gluconat Complex 62.5 mg/5 ml Vial IVPB SCH (09:24)
[2019-01-05] MEDS: (Lantus) Insulin Glargine, Recombinant SC SCH ×2 (09:24→21:25)
[2019-01-06] MEDS: (Novolin R) Insulin Human Regular 100 units/ml vial SC SCH ×5 (01:43→17:28)
[2019-01-06 07:44] VITALS: RESP 20; TEMP 98.4
--- NOTE | 2019-01-06 07:56 | CP.PCM.PN ---
Subjective - Date & Time of Evaluation Date of Evaluation: 01/06/19 Time of Evaluation: 07:55 - Subjective Subjective: Progress Note for Hospitalist service Patient seen and examined at bedside. She states she has minimal pain to the left renal biopsy site since her procedure. She denies fevers, chills, chest pain, shortness of breath, headache, dizziness, abdominal pain, nausea, vomiting, diarrhea, constipation, dysuria, urinary frequency, leg pain, leg swelling. She states she had one episode of dark stool this morning, that is was not loose or watery. Objective - Vital Signs/Intake and Output Vital Signs (last 24 hours): Temp Pulse Resp BP Pulse Ox 98.4 F 76 20 163/81 H 100 01/06/19 07:00 01/06/19 07:00 01/06/19 07:00 01/06/19 07:00 01/06/19 07:00 Intake and Output: 01/06/19 01/06/19 06:59 18:59 Intake Total 250 Output Total 300 Balance -50 - Medications Medications: Current Medications Acetaminophen (Tylenol 325mg Tab) 650 mg PO Q6 PRN PRN Reason: Pain, moderate (4-7) Last Admin: 01/04/19 09:05 Dose: 650 mg Carvedilol (Coreg) 6.25 mg PO BID [facility] Last Admin: 01/05/19 17:28 Dose: 6.25 mg Dextrose (Dextrose 50% Inj) 0 ml IV STAT PRN; Protocol PRN Reason: Hypoglycemia Protocol Dextrose (Glutose 15) 0 gm PO ONCE PRN; Protocol PRN Reason: Hypoglycemia Protocol Epoetin Rick (Procrit) 10,000 unit SC TTS [facility] Last Admin: 01/04/19 12:37 Dose: 10,000 unit Ergocalciferol (Drisdol 50,000 Intl Units Cap) 1 cap PO Q7D [facility] Last Admin: 01/02/19 19:00 Dose: 1 cap Ferric Sodium Gluconate Complex (Ferrlecit) 125 mg IVPB DAILY [facility] Stop: 01/10/19 13:01 Last Admin: 01/05/19 09:24 Dose: 125 mg Furosemide (Lasix) 20 mg IVP DAILY [facility] Last Admin: 01/03/19 10:02 Dose: 20 mg Glucagon (Glucagen Diagnostic Kit) 0 mg IM STAT PRN; Protocol PRN Reason: Hypoglycemia Protocol Hydralazine HCl (Apresoline) 25 mg PO TID [facility] Last Admin: 01/05/19 17:28 Dose: 25 mg Ceftriaxone Sodium 1 gm/ (Sodium Chloride) 100 mls @ 100 mls/hr IVPB Q12H [facility]; Protocol Last Admin: 01/06/19 02:04 Dose: 100 mls/hr Insulin Glargine (Lantus) 15 unit SC Q12 [facility] Last Admin: 01/05/19 21:25 Dose: 15 units Insulin Human Regular (Novolin R) 0 unit SC Q4H [facility]; Protocol Last Admin: 01/06/19 04:04 Dose: Not Given Pantoprazole Sodium (Protonix Ec Tab) 40 mg PO DAILY [facility] Last Admin: 01/05/19 09:23 Dose: 40 mg Rosuvastatin Calcium (Crestor) 10 mg PO HS [facility] Last Admin: 01/05/19 21:25 Dose: 10 mg Sodium Bicarbonate (Sodium Bicarbonate Tab) 1,300 mg PO BID [facility] Last Admin: 01/05/19 17:28 Dose: 1,300 mg - Labs Labs: 01/05/19 08:20 01/05/19 08:20 PT 10.1 SECONDS (9.7-12.2) 01/02/19 07:19 INR 0.9 01/02/19 07:19 APTT 39.0 SECONDS (21-34) H 01/02/19 07:19 - Constitutional Appears: Well, No Acute Distress - Head Exam Head Exam: ATRAUMATIC, NORMOCEPHALIC - Eye Exam Eye Exam: EOMI, PERRL - ENT Exam ENT Exam: Mucous Membranes Dry - Neck Exam Neck Exam: Full ROM. absent: Tenderness - Respiratory Exam Respiratory Exam: Clear to Ausculation Bilateral, NORMAL BREATHING PATTERN. absent: Rales, Rhonchi, Wheezes, Respiratory Distress, Stridor - Cardiovascular Exam Cardiovascular Exam: REGULAR RHYTHM, +S1, +S2. absent: Gallop, Rubs, Murmur - GI/Abdominal Exam GI & Abdominal Exam: Soft, Hyperactive Bowel Sounds. absent: Guarding, Rigid, Tenderness - Extremities Exam Extremities Exam: absent: Calf Tenderness, Pedal Edema - Back Exam Back Exam: absent: rash noted Additional comments: mild tenderness over left renal biopsy site, no active bleeding, no ecchymosis. - Neurological Exam Neurological Exam: Alert, Awake, Oriented x3 - Psychiatric Exam Psychiatric exam: Normal Affect, Normal Mood Assessment and Plan - Assessment and Plan (Free Text) Assessment: 48 year old female with pmhx of IDDM, DM gastroparesis, HTN, chronic gastritis, HLD, anxiety, anemia, hyperprolactinemia, and hx of NICK with last admission who presented with complaint of shortness of breath, leg swelling, emesis, and increased Cr on recent outpatient bloodwork (2.4). Nephro was consulted for worsening Cr concerning for acute renal failure vs NICK on CKD. Likely diabetic nephropathy but will pursue renal biopsy to rule out treatable causes. Biopsy performed 01/02/19. Patient tolerated well. Pending pathology results. Plan: NICK in the setting of CKD IIIB with Nephrotic Syndrome Patient received PRBCs x1 on 01/[address] Branham on board, help appreciated Likely diabetic nephropathy Renal biopsy on 01/02/19 reveals extensive diabetic nephropathy changes along with marked chronicity (70% globally sclerosed glomeruli, significant interstitial fibrosis alpha 0.3/0.8/, beta 0.3/0.5, gamma globulins 0.5, PTH 95, Vitamin D <12.5 Continue with Coreg, Hydralazine, Lasix 20mg IVP 24 urine CrCl 17.[address] Todd consulted, help appreciated Vein mapping pending Anemia, chronic, and status post renal biopsy Patient received PRBCsx1 on 01/04 H/H 9.3/27.5 Follow up stool occult Patient had dark stool today, possibly secondary to Iron continue to monitor HTN in the setting of CKD Coreg 6.125 mg PO BID Hydralazine 25 mg PO TID Lasix 20 IV QD For the time being hold off on ARBs/ACEI Elevated BNP - Trop negative - EKG: NSR - ECHO: Mild concentric LVH. EF 55-60%. Mild aortic regurgitation, moderate mitral regurgitation. IDDM A1c 8.2 in 11/2018 Accuchecks Q4H Lantus 15 units SC Q12H ISS high HLD - Crestor 10 mg PO HS Gastritis, chronic - Protonix 40 mg PO daily PPx, Diet, Disposition - DVT ppx: SCDs contraindicated due to edema, chemical anticoag contraindicated due to anemia - GI ppx: Protonix 40 mg PO daily - Diet: Renal, heart healthy
[2019-01-06 08:40] LABS: BASO # 0.1 K/uL (0.0-0.2); BASO % 0.6 % (0.0-2.0); EOS # 0.3 K/uL (0.0-0.7); EOS % 3.1 % (0.0-4.0); HEMOGLOBIN 9.3 g/dL (11.0-16.0); LYMPH # 2.5 K/uL (1.0-4.3); LYMPH % 24.3 % (20.0-40.0); MEAN CELL VOLUME 83.6 fL (81.0-99.0); MEAN CORPUSCULAR HEMOGLOBIN 28.2 pg (27.0-31.0); MEAN CORPUSCULAR HGB CONC 33.7 g/dL (33.0-37.0); MEAN PLATELET VOLUME 9.6 fL (7.2-11.7); MONO # 1.2 K/uL (0.0-0.8); MONO % 11.6 % (0.0-10.0); NEUT # 6.2 K/uL (1.8-7.0); NEUT % 60.4 % (50.0-75.0); RBC 3.28 Mil/uL (3.80-5.20); RED CELL DISTRIBUTION WIDTH 15.6 % (11.5-14.5); WHITE BLOOD COUNT 10.3 K/uL (4.8-10.8)
[2019-01-06 08:53] LABS: ALB/GLOB RATIO 1.1 (1.0-2.1); ALBUMIN 2.9 g/dL (3.5-5.0); CALCIUM 8.2 mg/dl (8.6-10.4)
[2019-01-06] MEDS: Ferric Sodium Gluconat Complex 62.5 mg/5 ml Vial IVPB SCH (10:16)
[2019-01-06] MEDS: Pantoprazole 40 mg EC Tab PO SCH (10:19)
[2019-01-06] MEDS: (Lantus) Insulin Glargine, Recombinant SC SCH (10:21)
[2019-01-06 10:47] LABS: URINE CREATININE 62.2 mg/dL
--- NOTE | 2019-01-06 15:48 | CP.PCM.CON ---
History of Present Illness - History of Present Illness History of Present Illness: Surgery: Dr. Todd Reason for consult: AVF creation HPI: 48 y/o female w/ pmhx of worsening CKD and expected progression to ESRD. Patient found to have worsening of renal failure since 08/2018 on routine labs at PMDs office which prompted hospital visit. She was complaining of worsening LE swelling and increasing SOB upon admission, both symptoms have improved with initiation of lasix. She has significant history of IDDM and hypertensive urgency which are contributing factors to CKD. Patient underwent kidney biopsy which was significant for diabetic changes. Patient evaluated by steamfitter who discussed risk/benefits options of HD vs PD for worsening renal function and symptoms of overload including BL LE edema and BL pleural effusions. Patient scheduled for vein mapping. Currently denies any complaints. PMH- IDDM, gastroparesis 2/2 DM, HTN w/ history of HTN urgency, chronic gastritis, HLD, anxiety, anemia 2/2 CKD, hyperprolactinemia, UTI ecoli PSH: retinal sx, egd NKDA Fam: mother , father Social: , 5 children. denies etoh, tobacco or drug use Review of Systems - Review of Systems Systems not reviewed;Unavailable: Language Barrier Past Patient History - Infectious Disease Hx of Infectious Diseases: None - Past Medical History & Family History Past Medical History?: Yes - Past Social History Smoking Status: Never Smoked - CARDIAC Hx Cardiac Disorders: No - PULMONARY Hx Respiratory Disorders: No - NEUROLOGICAL Hx Neurological Disorder: No - HEENT Hx HEENT Problems: No - RENAL Hx Chronic Kidney Disease: No - ENDOCRINE/METABOLIC Hx Endocrine Disorders: Yes Hx Diabetes Mellitus Type 2: Yes - HEMATOLOGICAL/ONCOLOGICAL Hx Blood Disorders: No Hx Cirrhosis: No Hx Hepatitis A: No Hx Hepatitis B: No Hx Hepatitis C: No - INTEGUMENTARY Hx Dermatological Problems: No - MUSCULOSKELETAL/RHEUMATOLOGICAL Hx Falls: No - GASTROINTESTINAL Hx Gastritis: Yes - GENITOURINARY/GYNECOLOGICAL Hx Genitourinary Disorders: No - PSYCHIATRIC Hx Substance Use: No - SURGICAL HISTORY Hx Surgeries: Yes Other/Comment: Rt. eye vitrectomy. - ANESTHESIA Hx Anesthesia: Yes Hx Anesthesia Reactions: No Hx Malignant Hyperthermia: No Meds Home Medications: Home Medication List Medication Instructions Recorded Confirmed Type Carvedilol [Coreg] 6.25 mg PO BID 30 Days #60 tab 01/06/19 Rx Furosemide [Lasix] 20 mg PO DAILY #30 tab 01/06/19 Rx Insulin Glargine, Recombina 15 unit SC Q12 30 Days #900 unit 01/06/19 Rx [Lantus] Allergies/Adverse Reactions: Allergies Allergy/AdvReac Type Severity Reaction Status Date / Time No Known Allergies Allergy Verified 12/31/18 12:27 - Medications Medications: Current Medications Acetaminophen (Tylenol 325mg Tab) 650 mg PO Q6 PRN PRN Reason: Pain, moderate (4-7) Last Admin: 01/04/19 09:05 Dose: 650 mg Carvedilol (Coreg) 6.25 mg PO BID [facility] Last Admin: 01/06/19 10:19 Dose: 6.25 mg Dextrose (Dextrose 50% Inj) 0 ml IV STAT PRN; Protocol PRN Reason: Hypoglycemia Protocol Dextrose (Glutose 15) 0 gm PO ONCE PRN; Protocol PRN Reason: Hypoglycemia Protocol Epoetin Rick (Procrit) 10,000 unit SC TTS [facility] Last Admin: 01/04/19 12:37 Dose: 10,000 unit Ergocalciferol (Drisdol 50,000 Intl Units Cap) 1 cap PO Q7D [facility] Last Admin: 01/02/19 19:00 Dose: 1 cap Ferric Sodium Gluconate Complex (Ferrlecit) 125 mg IVPB DAILY [facility] Stop: 01/10/19 13:01 Last Admin: 01/06/19 10:16 Dose: 125 mg Furosemide (Lasix) 20 mg PO DAILY [facility] Last Admin: 01/06/19 13:36 Dose: 20 mg Glucagon (Glucagen Diagnostic Kit) 0 mg IM STAT PRN; Protocol PRN Reason: Hypoglycemia Protocol Hydralazine HCl (Apresoline) 25 mg PO TID [facility] Last Admin: 01/06/19 13:36 Dose: 25 mg Ceftriaxone Sodium 1 gm/ (Sodium Chloride) 100 mls @ 100 mls/hr IVPB Q12H [facility]; Protocol Last Admin: 01/06/19 13:36 Dose: 100 mls/hr Insulin Glargine (Lantus) 15 unit SC Q12 [facility] Last Admin: 01/06/19 10:21 Dose: 15 units Insulin Human Regular (Novolin R) 0 unit SC Q4H [facility]; Protocol Last Admin: 01/06/19 12:10 Dose: 2 units Pantoprazole Sodium (Protonix Ec Tab) 40 mg PO DAILY [facility] Last Admin: 01/06/19 10:19 Dose: 40 mg Rosuvastatin Calcium (Crestor) 10 mg PO HS [facility] Last Admin: 01/05/19 21:25 Dose: 10 mg Sodium Bicarbonate (Sodium Bicarbonate Tab) 1,300 mg PO BID [facility] Last Admin: 01/06/19 10:18 Dose: 1,300 mg Physical Exam - Constitutional Appears: Non-toxic, No Acute Distress - Head Exam Head Exam: ATRAUMATIC, NORMOCEPHALIC - Eye Exam Eye Exam: EOMI, Normal appearance - ENT Exam ENT Exam: Mucous Membranes Moist - Respiratory Exam Respiratory Exam: NORMAL BREATHING PATTERN. absent: Respiratory Distress - Cardiovascular Exam Cardiovascular Exam: REGULAR RHYTHM. absent: Tachycardia - GI/Abdominal Exam GI & Abdominal Exam: Soft. absent: Tenderness - Rectal Exam Rectal Exam: Deferred - Extremities Exam Extremities exam: Positive for: normal inspection, pedal edema. Negative for: calf tenderness - Neurological Exam Neurological exam: Alert, Oriented x3 - Psychiatric Exam Psychiatric exam: Normal Affect, Normal Mood - Skin Skin Exam: Dry, Normal Color, Warm Results - Vital Signs Recent Vital Signs: Last Vital Signs Temp 98.4 F 01/06/19 07:00 Pulse 76 01/06/19 07:00 Resp 20 01/06/19 07:00 BP 129/67 01/06/19 13:36 Pulse Ox 100 01/06/19 07:00 - Labs Result Diagrams: 01/06/19 08:27 01/06/19 10:12 Labs: Laboratory Results - last 24 hr 01/01/19 01/03/19 01/04/19 07:30 20:54 04:01 WBC RBC Hgb Hct MCV MCH MCHC RDW Plt Count MPV Neut % (Auto) Lymph % (Auto) [place] % (Auto) Eos % (Auto) Baso % (Auto) Neut # (Auto) Lymph # (Auto) [place] # (Auto) Eos # (Auto) Baso # (Auto) Sodium Potassium Chloride Carbon Dioxide Anion Gap BUN Creatinine Est GFR ( Amer) Est GFR (Non-Af Amer) POC Glucose (mg/dL) 268 H 221 H Random Glucose Calcium Phosphorus Magnesium Total Bilirubin AST ALT Alkaline Phosphatase Total Protein Albumin Globulin Albumin/Globulin Ratio Urine Collection Time Urine Total Volume Creatinine Clearance [place]/Lambda Light Chain Free [place] Light Chains 55.8 H Free [place]ambda Light Chain 38.2 H Free [place]/Lambda Ratio 1.46 01/04/19 01/04/19 01/05/19 07:46 11:40 00:13 WBC RBC Hgb Hct MCV MCH MCHC RDW Plt Count MPV Neut % (Auto) Lymph % (Auto) [place] % (Auto) Eos % (Auto) Baso % (Auto) Neut # (Auto) Lymph # (Auto) [place] # (Auto) Eos # (Auto) Baso # (Auto) Sodium Potassium Chloride Carbon Dioxide Anion Gap BUN Creatinine Est GFR ( Amer) Est GFR (Non-Af Amer) POC Glucose (mg/dL) 217 H 177 H 200 H Random Glucose Calcium Phosphorus Magnesium Total Bilirubin AST ALT Alkaline Phosphatase Total Protein Albumin Globulin Albumin/Globulin Ratio Urine Collection Time Urine Total Volume Creatinine Clearance [place]/Lambda Light Chain Free [place] Light Chains Free Lambda Light Chain Free [place]/Lambda Ratio 01/05/19 01/05/19 01/06/19 16:42 21:05 06:25 WBC RBC Hgb Hct MCV MCH MCHC RDW Plt Count MPV Neut % (Auto) Lymph % (Auto) [place] % (Auto) Eos % (Auto) Baso % (Auto) Neut # (Auto) Lymph # (Auto) [place] # (Auto) Eos # (Auto) Baso # (Auto) Sodium Potassium Chloride Carbon Dioxide Anion Gap BUN Creatinine Est GFR ( Amer) Est GFR (Non-Af Amer) POC Glucose (mg/dL) 164 H 197 H 69 Random Glucose Calcium Phosphorus Magnesium Total Bilirubin AST ALT Alkaline Phosphatase Total Protein Albumin Globulin Albumin/Globulin Ratio Urine Collection Time Urine Total Volume Creatinine Clearance [place]/Lambda Light Chain Free [place] Light Chains Free Lambda Light Chain Free [place]/Lambda Ratio 01/06/19 01/06/19 01/06/19 06:26 08:27 08:27 WBC 10.3 RBC 3.28 L Hgb 9.3 L Hct 27.5 L MCV 83.6 MCH 28.2 MCHC 33.7 RDW 15.6 H Plt Count 236 MPV 9.6 Neut % (Auto) 60.4 Lymph % (Auto) 24.3 [place] % (Auto) 11.6 H Eos % (Auto) 3.1 Baso % (Auto) 0.6 Neut # (Auto) 6.2 Lymph # (Auto) 2.5 [place] # (Auto) 1.2 H Eos # (Auto) 0.3 Baso # (Auto) 0.1 Sodium 138 Potassium 4.9 Chloride 109 H Carbon Dioxide 22 Anion Gap 12 BUN 40 H Creatinine 2.9 H Est GFR ( Amer) 21 Est GFR (Non-Af Amer) 17 POC Glucose (mg/dL) 71 Random Glucose 92 D Calcium 8.2 L Phosphorus 3.9 Magnesium 1.9 Total Bilirubin 0.1 L AST 24 ALT 14 Alkaline Phosphatase 68 Total Protein 5.4 L Albumin 2.9 L Globulin 2.6 Albumin/Globulin Ratio 1.1 Urine Collection Time Urine Total Volume Creatinine Clearance [place]/Lambda Light Chain Free [place] Light Chains Free Lambda Light Chain Free [place]/Lambda Ratio 01/06/19 01/06/19 10:12 11:17 WBC RBC Hgb Hct MCV MCH MCHC RDW Plt Count MPV Neut % (Auto) Lymph % (Auto) [place] % (Auto) Eos % (Auto) Baso % (Auto) Neut # (Auto) Lymph # (Auto) [place] # (Auto) Eos # (Auto) Baso # (Auto) Sodium Potassium Chloride Carbon Dioxide Anion Gap BUN Creatinine 2.9 H Est GFR ( Amer) Est GFR (Non-Af Amer) POC Glucose (mg/dL) 180 H Random Glucose Calcium Phosphorus Magnesium Total Bilirubin AST ALT Alkaline Phosphatase Total Protein Albumin Globulin Albumin/Globulin Ratio Urine Collection Time 24 Urine Total Volume 1225 Creatinine Clearance 17.0 L [place]/Lambda Light Chain Free [place] Light Chains Free Lambda Light Chain Free [place]/Lambda Ratio Assessment & Plan - Assessment and Plan (Free Text) Assessment: 48 y/o female w/ ESRD in need of access for future HD Plan: -Left arm precautions -vein mapping -needs medical and cardiac pre-op optimization -further recs per Dr. Peyton Lara PGY4 After discussion with primary team: -patient would like to attempt travel to [place] for possible renal transplant no further recs.
[2019-01-06 16:56] VITALS: BP 132/84; PULSE 95; O2SAT 98
--- NOTE | 2019-01-06 19:33 | CP.PCM.DIS ---
<Rodney Jacob - Last Filed: 01/06/19 21:39> Provider - Provider Date of Admission: 01/03/19 15:57 Attending physician: Alia Finnegan MD Consults: 12/31/18 16:26 Nephrology Consult Routine Comment: Consulting Provider: Gerard Branham Consulting Physician: Gerard Branham Reason for Consult: worsening creatine 01/01/19 19:28 Radiology Consult Routine Comment: Consulting Provider: Félix Verdin Consulting Physician: Félix Verdin Reason for Consult: renal biopsy (nephrotic syndrome, NICK on CKD) 01/06/19 12:50 Vascular Surgery Routine Comment: Soon to be HD patient Consulting Provider: Calvin Todd Jr. Physician Instructions: Reason For Exam: AVF creation Time Spent in preparation of Discharge (in minutes): 40 Hospital Course - Lab Results Lab Results: Micro Results 12/31/18 22:28 Urine,Clean Catch Urine Culture - Final No Growth (<1,000 CFU/ML) Most Recent Lab Values WBC 10.3 K/uL (4.8-10.8) 01/06/19 08:27 RBC 3.28 Mil/uL (3.80-5.20) L 01/06/19 08:27 Hgb 9.3 g/dL (11.0-16.0) L 01/06/19 08:27 Hct 27.5 % (34.0-47.0) L 01/06/19 08:27 MCV 83.6 fL (81.0-99.0) 01/06/19 08:27 MCH 28.2 pg (27.0-31.0) 01/06/19 08:27 MCHC 33.7 g/dL (33.0-37.0) 01/06/19 08:27 RDW 15.6 % (11.5-14.5) H 01/06/19 08:27 Plt Count 236 K/uL (130-400) 01/06/19 08:27 MPV 9.6 fL (7.2-11.7) 01/06/19 08:27 Neut % (Auto) 60.4 % (50.0-75.0) 01/06/19 08:27 Lymph % (Auto) 24.3 % (20.0-40.0) 01/06/19 08:27 [place] % (Auto) 11.6 % (0.0-10.0) H 01/06/19 08:27 Eos % (Auto) 3.1 % (0.0-4.0) 01/06/19 08:27 Baso % (Auto) 0.6 % (0.0-2.0) 01/06/19 08:27 Neut # (Auto) 6.2 K/uL (1.8-7.0) 01/06/19 08:27 Lymph # (Auto) 2.5 K/uL (1.0-4.3) 01/06/19 08:27 [place] # (Auto) 1.2 K/uL (0.0-0.8) H 01/06/19 08:27 Eos # (Auto) 0.3 K/uL (0.0-0.7) 01/06/19 08:27 Baso # (Auto) 0.1 K/uL (0.0-0.2) 01/06/19 08:27 PT 10.1 SECONDS (9.7-12.2) 01/02/19 07:19 INR 0.9 01/02/19 07:19 APTT 39.0 SECONDS (21-34) H 01/02/19 07:19 Sodium 138 mmol/L (132-148) 01/06/19 08:27 Potassium 4.9 mmol/L (3.6-5.2) 01/06/19 08:27 Chloride 109 mmol/L (98-107) H 01/06/19 08:27 Carbon Dioxide 22 mmol/L (22-30) 01/06/19 08:27 Anion Gap 12 (10-20) 01/06/19 08:27 BUN 40 mg/dL (7-17) H 01/06/19 08:27 Creatinine 2.9 mg/dL (0.7-1.2) H 01/06/19 10:12 Est GFR ( Amer) 21 01/06/19 08:27 Est GFR (Non-Af Amer) 17 01/06/19 08:27 POC Glucose (mg/dL) 156 mg/dL (65-110) H 01/06/19 16:25 Random Glucose 92 mg/dL (65-105) D 01/06/19 08:27 Calcium 8.2 mg/dl (8.6-10.4) L 01/06/19 08:27 Phosphorus 3.9 mg/dL (2.5-4.5) 01/06/19 08:27 Magnesium 1.9 mg/dL (1.6-2.3) 01/06/19 08:27 Iron 47 ug/dL (37-170) 01/01/19 07:30 TIBC 260 ug/dL (250-450) 01/01/19 07:30 % Saturation 18 (20-55) L 01/01/19 07:30 Ferritin 10.7 ng/mL 01/01/19 07:30 Total Bilirubin 0.1 mg/dL (0.2-1.3) L 01/06/19 08:27 AST 24 U/L (14-36) 01/06/19 08:27 ALT 14 U/L (9-52) 01/06/19 08:27 Alkaline Phosphatase 68 U/L (38-126) 01/06/19 08:27 Troponin I < 0.0120 ng/mL (0.00-0.120) 12/31/18 13:19 NT-Pro-B Natriuret Pep 2810 pg/mL (0-450) H 12/31/18 13:19 Total Protein 5.4 g/dL (6.3-8.3) L 01/06/19 08:27 Total Protein (PEP) 4.4 g/dL (6.1-8.1) L 01/01/19 07:30 Albumin 2.9 g/dL (3.5-5.0) L 01/06/19 08:27 Albumin (PEP) 2.3 g/dL (3.8-4.8) L 01/01/19 07:30 Globulin 2.6 gm/dL (2.2-3.9) 01/06/19 08:27 Albumin/Globulin Ratio 1.1 (1.0-2.1) 01/06/19 08:27 Aixol-6-Ixdwtsaqn 0.3 g/dL (0.2-0.3) 01/01/19 07:30 Ttaeg-2-Jemhpcopb 0.8 g/dL (0.5-0.9) 01/01/19 07:30 Krzv-9-Tcxalkhq 0.3 g/dL (0.4-0.6) L 01/01/19 07:30 Clsh-5-Nuoibbsb 0.3 g/dL (0.2-0.5) 01/01/19 07:30 Gamma Globulins 0.5 g/dL (0.8-1.7) L 01/01/19 07:30 Abnorm Protein Band 1 TEST NOT PERFORMED 01/01/19 07:30 Abnorm Protein Band 2 TEST NOT PERFORMED 01/01/19 07:30 Abnorm Protein Band 3 TEST NOT PERFORMED 01/01/19 07:30 25-OH Vitamin D Total < 12.8 NG/ML (30.0-100.0) L 01/01/19 07:30 PTH Intact Whole Molec 95 pg/mL (14-64) H 01/01/19 07:30 Urine Color Straw (YELLOW) 01/03/19 21:56 Urine Clarity Hazy (Clear) 01/03/19 21:56 Urine pH 6.0 (5.0-8.0) 01/03/19 21:56 Ur Specific [place] 1.009 (1.003-1.030) 01/03/19 21:56 Urine Protein 2+ mg/dL (NEGATIVE) H 01/03/19 21:56 Urine Glucose (UA) 2+ mg/dL (Normal) H 01/03/19 21:56 Urine Ketones Negative mg/dL (NEGATIVE) 01/03/19 21:56 Urine Blood Negative (NEGATIVE) 01/03/19 21:56 Urine Nitrate Negative (NEGATIVE) 01/03/19 21:56 Urine Bilirubin Negative (NEGATIVE) 01/03/19 21:56 Urine Urobilinogen Normal mg/dL (0.2-1.0) 01/03/19 21:56 Ur Leukocyte Esterase Neg Leoncio/uL (Negative) 01/03/19 21:56 Urine WBC (Auto) 1 /hpf (0-5) 01/03/19 21:56 Urine RBC (Auto) 2 /hpf (0-3) 01/03/19 21:56 Urine WBC Clumps (Auto) Few /hpf (NONE) H 12/31/18 13:19 Ur Squamous Epith Cells 19 /hpf (0-5) H 01/03/19 21:56 Ur Transition Epith Cell < 1 /hpf (0-3) 01/03/19 21:56 Urine Bacteria Occ (<OCC) H 01/03/19 21:56 Urine Collection Time 24 HRS 01/06/19 10:12 Urine Total Volume 1225 mL 01/06/19 10:12 Creatinine Clearance 17.0 mL/min (87-107) L 01/06/19 10:12 Urine HCG, Qual Negative (NEGATIVE) 01/02/19 11:55 DAMIAN & SPEP Interp See note 01/01/19 07:30 Serum Immunofixation Not detected (Not Detected) 01/01/19 07:30 JEVON Screen Negative (Negative) 01/01/19 07:30 Complement C3 104.0 mg/dL (88.0-165.0) 01/01/19 07:30 Complement C4 27.7 mg/dL (14.0-44.0) 01/01/19 07:30 [place]/Lambda Light Chain (()) 01/01/19 07:30 Free [place] Light Chains 55.8 mg/L (3.3-19.4) H 01/01/19 07:30 Free Lambda Light Chain 38.2 mg/L (5.7-26.3) H 01/01/19 07:30 Free [place]/Lambda Ratio 1.46 (0.26-1.65) 01/01/19 07:30 RPR Nonreactive (NONREACTIVE) 01/01/19 07:30 Hep Bs Antigen Negative (NEGATIVE) 01/01/19 07:30 Hep Bs Antibody Negative (NEGATIVE) 01/01/19 07:30 Hepatitis C Antibody Non reactive (Non Reactive) 01/01/19 07:30 Hep C Ab Signal/Cutoff 0.00 (<1.0) 01/01/19 07:30 Hepatitis C RNA TEST NOT PERFORMED 01/01/19 07:30 HCV RNA (PCR) TEST NOT PERFORMED 01/01/19 07:30 HIV 1&2 Ag/Ab, 4th Gen Nonreactive (Nonreactive) 01/01/19 07:30 Blood Type O POSITIVE 01/04/19 11:17 Antibody Screen Negative 01/04/19 11:17 - Hospital Course Hospital Course: On admission: Patient is a 48 yo female with insulin dependent T2DM, gastroparesis, HTN, chronic gastritis, HLD, anxiety, and anemia who presented after being send by her PMD (clinic) for acute worsening of creatinine. Patient was being seen in the clinic for routine blood work follow-up and her creatinine increaed from 1.4 in 08/2018 to 2.5. Patient was previously hospitalized last year during which she had an NICK with max creatinine 2.2- this resolved with IVF. Patient was treated for a UTI one month ago during which time she complained of dysuria. Presently complains of bilateral flank pain, foul-smelling and foamy urine, SOB on exertion, mild chest pain, and bilateral lower extremity swelling. Patient denies dysuria, urinary frequency, urinary hesitancy, and hematuria. She describes the flank pain as "pressure" 7/10 severity. She says all of these symptoms have been occurring for approximately 2 weeks. Hospital course: Patient was admitted for acute kidney injury in the setting of CKD stage 3b with nephrotic syndrome. Her home medication of Losartan was discontinued and she was treated with Coreg, Lasix and Hydralazine as per Nephrology Dr. Branham's recommendation. Patient had a renal biopsy which revealed extensive diabetic nephropathy changes along with marked chronicity (70% globally sclerosed glomeruli, significant interstitial fibrosis). 24 urine CrCl 17.0. Patient has a history of anemia and received 1 units PRBC transfusion after her renal biopsy. Vascular surgery was initially consulted for AV fistula since patient would likely need dialysis in the future, however patient stated she would like to defer AV fistula at this time since she would like the option of going to [place] within the next 2 weeks for a renal transplant and would like to continue all her care there. It was explained to patient that she could return for care at this hospital at any time. Discharge instructions: Please follow up with Dr. Branham, compressed gas tester, if you do not travel to [place] within the next 2 weeks. Please follow up with your PMD in the clinic if you do not travel to [place] or you change your plan to travel to [place] for all your medical needs. You may return to the ED at any point if you feel ill. Do not ta ke Losartan 100mg anymore as it will hurt your kidneys. You have been provided a script for the following medications Coreg 6.25mg PO twice daily Lasix 20mg PO daily Lantus 15 units twice daily Pngase en contacto con el Dr. Branham, nefrlogo, si no viaja a [place] en las prximas 2 semanas. Nina un seguimiento con stuart PMD en la clnica si no viaja a [place] o si cambia stuart plan para viajar a [place] para todas agus necesidades mdicas. Puede volver a la ED en cualquier momento si se siente enfermo. No tome Losartan 100 mg ms, ya que le columba malathi a los riones. Se le lyles proporcionado un rehan para los siguientes medicamentos. Coreg 6,25 mg PO dos veces al da Lasix 20mg PO diario Lantus 15 unidades dos veces al da Prescription for Hydralazine 25mg PO TID 1 month supply was called [facility] to [facility] and message was left on patient's phone. Discharge Exam - Head Exam Head Exam: ATRAUMATIC, NORMOCEPHALIC - Eye Exam Eye Exam: EOMI, PERRL - ENT Exam ENT Exam: Mucous Membranes Dry - Neck Exam Neck exam: Full Rom - Respiratory Exam Respiratory Exam: Clear to PA & Lateral, NORMAL BREATHING PATTERN - Cardiovascular Exam Cardiovascular Exam: REGULAR RHYTHM, +S1, +S2. absent: Gallop, Rubs, Systolic Murmur - GI/Abdominal Exam GI & Abdominal Exam: Normal Bowel Sounds, Soft - Extremities Exam Extremities exam: pedal pulses present Additional comments: no calf tenderness, no pedal edema. - Back Exam Back exam: absent: CVA tenderness (L), CVA tenderness (R) Additional comments: mild tenderness by incision of left renal biopsy site, no ecchymosis or active bleeding - Psychiatric Exam Psychiatric exam: Normal Affect, Normal Mood - Skin Skin Exam: Dry, Intact, Warm Discharge Plan - Discharge Medications Prescriptions: Carvedilol [Coreg] 6.25 mg PO BID 30 Days #60 tab Furosemide [Lasix] 20 mg PO DAILY #30 tab Insulin Glargine, Recombina [Lantus] 15 unit SC Q12 30 Days #900 unit - Follow Up Plan Condition: STABLE Disposition: HOME/ ROUTINE Instructions: Heart Healthy Diet, Diabetes Exchange Diet, Heart Failure, Adult (DC), Diabetes Diet , Carvedilol, Furosemide, Chronic Kidney Disease (DC), Insulin Glargine Additional Instructions: Please follow up with Dr. Branham, compressed gas tester, if you do not travel to [place] within the next 2 weeks. Please follow up with your PMD in the clinic if you do not travel to [place] or you change your plan to travel to [place] for all your medical needs. You may return to the ED at any point if you feel ill. Do not take Losartan 100mg anymore as it will hurt your kidneys. You have been provided a script for the following medications Coreg 6.25mg PO twice daily Lasix 20mg PO daily Lantus 15 units twice daily Pngase en contacto con el Dr. Branham, nefrlogo, si no viaja a [place] en las prximas 2 semanas. Nina un seguimiento con stuart PMD en la clnica si no viaja a [place] o si [place] stuart plan para viajar a [place] para todas agus necesidades m dicas. Puede volver a la ED en cualquier momento si se siente enfermo. No tome Losartan 100 mg ms, ya que le columba malathi a los riones. Se le lyles proporcionado un rehan para los siguientes medicamentos. Coreg 6,25 mg PO dos veces al da Lasix 20mg PO diario Lantus 15 unidades dos veces al da Referrals: Gerard Branham MD [Staff Provider] - <Alia Finnegan - Last Filed: 01/07/19 09:40> Provider - Provider Date of Admission: 01/03/19 15:57 Attending physician: Alia Finnegan MD Consults: 12/31/18 16:26 Nephrology Consult Routine Comment: Consulting Provider: Gerard Branham Consulting Physician: Gerard Branham Reason for Consult: worsening creatine 01/01/19 19:28 Radiology Consult Routine Comment: Consulting Provider: Félix Verdin Consulting Physician: Félix Verdin Reason for Consult: renal biopsy (nephrotic syndrome, NICK on CKD) 01/06/19 12:50 Vascular Surgery Routine Comment: Soon to be HD patient Consulting Provider: Calvin Todd Jr. Physician Instructions: Reason For Exam: AVF creation Hospital Course - Lab Results Lab Results: Micro Results 12/31/18 22:28 Urine,Clean Catch Urine Culture - Final No Growth (<1,000 CFU/ML) Most Recent Lab Values WBC 10.3 K/uL (4.8-10.8) 01/06/19 08:27 RBC 3.28 Mil/uL (3.80-5.20) L 01/06/19 08:27 Hgb 9.3 g/dL (11.0-16.0) L 01/06/19 08:27 Hct 27.5 % (34.0-47.0) L 01/06/19 08:27 MCV 83.6 fL (81.0-99.0) 01/06/19 08:27 MCH 28.2 pg (27.0-31.0) 01/06/19 08: MCHC 33.7 g/dL (33.0-37.0) 01/06/19 08: RDW 15.6 % (11.5-14.5) H 01/06/19 08:27 Plt Count 236 K/uL (130-400) 01/06/19 08:27 MPV 9.6 fL (7.2-11.7) 01/06/19 08:27 Neut % (Auto) 60.4 % (50.0-75.0) 01/06/19 08:27 Lymph % (Auto) 24.3 % (20.0-40.0) 01/06/19 08:27 [place] % (Auto) 11.6 % (0.0-10.0) H 01/06/19 08:27 Eos % (Auto) 3.1 % (0.0-4.0) 01/06/19 08:27 Baso % (Auto) 0.6 % (0.0-2.0) 01/06/19 08:27 Neut # (Auto) 6.2 K/uL (1.8-7.0) 01/06/19 08:27 Lymph # (Auto) 2.5 K/uL (1.0-4.3) 01/06/19 08:27 [place] # (Auto) 1.2 K/uL (0.0-0.8) H 01/06/19 08:27 Eos # (Auto) 0.3 K/uL (0.0-0.7) 01/06/19 08:27 Baso # (Auto) 0.1 K/uL (0.0-0.2) 01/06/19 08:27 PT 10.1 SECONDS (9.7-12.2) 01/02/19 07:19 INR 0.9 01/02/19 07:19 APTT 39.0 SECONDS (21-34) H 01/02/19 07:19 Sodium 138 mmol/L (132-148) 01/06/19 08:27 Potassium 4.9 mmol/L (3.6-5.2) 01/06/19 08:27 Chloride 109 mmol/L (98-107) H 01/06/19 08:27 Carbon Dioxide 22 mmol/L (22-30) 01/06/19 08:27 Anion Gap 12 (10-20) 01/06/19 08:27 BUN 40 mg/dL (7-17) H 01/06/19 08:27 Creatinine 2.9 mg/dL (0.7-1.2) H 01/06/19 10:12 Est GFR ( Amer) 21 01/06/19 08:27 Est GFR (Non-Af Amer) 17 01/06/19 08:27 POC Glucose (mg/dL) 156 mg/dL (65-110) H 01/06/19 16:25 Random Glucose 92 mg/dL (65-105) D 01/06/19 08:27 Calcium 8.2 mg/dl (8.6-10.4) L 01/06/19 08:27 Phosphorus 3.9 mg/dL (2.5-4.5) 01/06/19 08:27 Magnesium 1.9 mg/dL (1.6-2.3) 01/06/19 08:27 Iron 47 ug/dL (37-170) 01/01/19 07:30 TIBC 260 ug/dL (250-450) 01/01/19 07:30 % Saturation 18 (20-55) L 01/01/19 07:30 Ferritin 10.7 ng/mL 01/01/19 07:30 Total Bilirubin 0.1 mg/dL (0.2-1.3) L 01/06/19 08:27 AST 24 U/L (14-36) 01/06/19 08:27 ALT 14 U/L (9-52) 01/06/19 08:27 Alkaline Phosphatase 68 U/L (38-126) 01/06/19 08:27 Troponin I < 0.0120 ng/mL (0.00-0.120) 12/31/18 13:19 NT-Pro-B Natriuret Pep 2810 pg/mL (0-450) H 12/31/18 13:19 Total Protein 5.4 g/dL (6.3-8.3) L 01/06/19 08:27 Total Protein (PEP) 4.4 g/dL (6.1-8.1) L 01/01/19 07:30 Albumin 2.9 g/dL (3.5-5.0) L 01/06/19 08:27 Albumin (PEP) 2.3 g/dL (3.8-4.8) L 01/01/19 07:30 Globulin 2.6 gm/dL (2.2-3.9) 01/06/19 08:27 Albumin/Globulin Ratio 1.1 (1.0-2.1) 01/06/19 08:27 Pyvjf-5-Uqpolerxw 0.3 g/dL (0.2-0.3) 01/01/19 07:30 Iaarz-2-Pcpkglyvi 0.8 g/dL (0.5-0.9) 01/01/19 07:30 Gwwu-8-Lewhfozx 0.3 g/dL (0.4-0.6) L 01/01/19 07:30 Gsqt-0-Hwjxprcu 0.3 g/dL (0.2-0.5) 01/01/19 07:30 Gamma Globulins 0.5 g/dL (0.8-1.7) L 01/01/19 07:30 Abnorm Protein Band 1 TEST NOT PERFORMED 01/01/19 07:30 Abnorm Protein Band 2 TEST NOT PERFORMED 01/01/19 07:30 Abnorm Protein Band 3 TEST NOT PERFORMED 01/01/19 07:30 25-OH Vitamin D Total < 12.8 NG/ML (30.0-100.0) L 01/01/19 07:30 PTH Intact Whole Molec 95 pg/mL (14-64) H 01/01/19 07:30 Urine Color Straw (YELLOW) 01/03/19 21:56 Urine Clarity Hazy (Clear) 01/03/19 21:56 Urine pH 6.0 (5.0-8.0) 01/03/19 21:56 Ur Specific [place] 1.009 (1.003-1.030) 01/03/19 21:56 Urine Protein 2+ mg/dL (NEGATIVE) H 01/03/19 21:56 Urine Glucose (UA) 2+ mg/dL (Normal) H 01/03/19 21:56 Urine Ketones Negative mg/dL (NEGATIVE) 01/03/19 21:56 Urine Blood Negative (NEGATIVE) 01/03/19 21:56 Urine Nitrate Negative (NEGATIVE) 01/03/19 21:56 Urine Bilirubin Negative (NEGATIVE) 01/03/19 21:56 Urine Urobilinogen Normal mg/dL (0.2-1.0) 01/03/19 21:56 Ur Leukocyte Esterase Neg Leoncio/uL (Negative) 01/03/19 21:56 Urine WBC (Auto) 1 /hpf (0-5) 01/03/19 21:56 Urine RBC (Auto) 2 /hpf (0-3) 01/03/19 21:56 Urine WBC Clumps (Auto) Few /hpf (NONE) H 12/31/18 13:19 Ur Squamous Epith Cells 19 /hpf (0-5) H 01/03/19 21:56 Ur Transition Epith Cell < 1 /hpf (0-3) 01/03/19 21:56 Urine Bacteria Occ (<OCC) H 01/03/19 21:56 Urine Collection Time 24 HRS 01/06/19 10:12 Urine Total Volume 1225 mL 01/06/19 10:12 Creatinine Clearance 17.0 mL/min (87-107) L 01/06/19 10:12 Urine HCG, Qual Negative (NEGATIVE) 01/02/19 11:55 DAMIAN & SPEP Interp See note 01/01/19 07:30 Serum Immunofixation Not detected (Not Detected) 01/01/19 07:30 JEVON Screen Negative (Negative) 01/01/19 07:30 Complement C3 104.0 mg/dL (88.0-165.0) 01/01/19 07:30 Complement C4 27.7 mg/dL (14.0-44.0) 01/01/19 07:30 [place]/Lambda Light Chain (()) 01/01/19 07:30 Free [place] Light Chains 55.8 mg/L (3.3-19.4) H 01/01/19 07:30 Free Lambda Light Chain 38.2 mg/L (5.7-26.3) H 01/01/19 07:30 Free [place]/Lambda Ratio 1.46 (0.26-1.65) 01/01/19 07:30 RPR Nonreactive (NONREACTIVE) 01/01/19 07:30 Hep Bs Antigen Negative (NEGATIVE) 01/01/19 07:30 Hep Bs Antibody Negative (NEGATIVE) 01/01/19 07:30 Hepatitis C Antibody Non reactive (Non Reactive) 01/01/19 07:30 Hep C Ab Signal/Cutoff 0.00 (<1.0) 01/01/19 07:30 Hepatitis C RNA TEST NOT PERFORMED 01/01/19 07:30 HCV RNA (PCR) TEST NOT PERFORMED 01/01/19 07:30 HIV 1&2 Ag/Ab, 4th Gen Nonreactive (Nonreactive) 01/01/19 07:30 Blood Type O POSITIVE 01/04/19 11:17 Antibody Screen Negative 01/04/19 11:17 Attending/Attestation - Attestation I have personally seen and examined this patient.: Yes I have fully participated in the care of the patient.: Yes I have reviewed all pertinent clinical information, including history, physical exam and plan: Yes Notes (Text): Patient was seen and examined,denies nausea,no vomiting,no sob,lungs clear. patient wants to go to [place].She refuses to have A-V access at this time. Patient states that she rather start dialysis over there and look fot kidney transplant. and get arrangements to have renal transplant. Discuss about possiblility of worsening kidney failure and need for dialysis. Explain about risk of pulmonary edema and travelling issues. Patient states that her is here and they will try to go back as soon as possible.We gave all cw operator and follow up to have blood test if shy stay a week or more. Asked to report to ER if she get sick or sob
== END 2019-01-06 19:00 | disposition home or self-care (01) | DRG 469 ==
LOC: C.ER 11:49 → C.9E 14:33 → C.3T 15:49 → C.6T 18:29 → OBSVTOIN 01-03 15:57
PROVIDERS: ADMIT Internal Medicine; ATTEND Internal Medicine
PROC: 0TB13ZX Excision of Left Kidney, Percutaneous Approach, Diagnostic (ICD-10-PCS; principal; 2019-01-03)
DX: N17.9 Acute kidney failure, unspecified (principal); I13.2 Hypertensive heart and chronic kidney disease with heart failure and with stage 5 chronic kidney disease, or end stage renal disease; N18.6 End stage renal disease; E11.21 Type 2 diabetes mellitus with diabetic nephropathy; E87.2 Acidosis; K31.84 Gastroparesis; E11.43 Type 2 diabetes mellitus with diabetic autonomic (poly)neuropathy; E11.65 Type 2 diabetes mellitus with hyperglycemia; E11.22 Type 2 diabetes mellitus with diabetic chronic kidney disease; I50.9 Heart failure, unspecified; Z79.4 Long term (current) use of insulin; D63.1 Anemia in chronic kidney disease; F41.9 Anxiety disorder, unspecified; I16.0 Hypertensive urgency; K29.50 Unspecified chronic gastritis without bleeding